=== PATIENT | male | born 1940 | race Caucasian/White ===

== ENCOUNTER 2019-12-21 07:29 | Outpatient (REF) | payer BC, SELFPAY ==
[2019-12-21 08:42] LABS: Blood Urea Nitrogen 18 mg/dL (9-16); Estimated Glomerular Filt Rate > 60
[2019-12-21 09:09] LABS: Thyroid Stimulating Hormone 5.23 mIU/mL (0.32-4.0)
[2019-12-21 09:39] LABS: T4 Thyroxine 6.6 ug/dL (4.5-12.0)
== END 2019-12-21 07:30 | disposition home or self-care (01) ==
LOC: HO.LAB 07:29
PROVIDERS: PCP Internal Medicine; Visit Provider Internal Medicine
DX: R94.6 Abnormal results of thyroid function studies (principal); R73.02 Impaired glucose tolerance (oral); Z85.46 Personal history of malignant neoplasm of prostate; K21.9 Gastro-esophageal reflux disease without esophagitis; R91.1 Solitary pulmonary nodule; E04.1 Nontoxic single thyroid nodule; I10 Essential (primary) hypertension
CPT/HCPCS: 82565; 84436; 84443; 84520

== ENCOUNTER → 2020-01-10 14:34 | Outpatient (BNVA) | payer BC, SELFPAY | PROVIDERS: PCP Internal Medicine; Referring Provider Internal Medicine; Visit Provider Internal Medicine | DX: Z13.89 Encounter for screening for other disorder (principal) ==

== ENCOUNTER 2020-03-27 | Outpatient (REF) | payer MEDICARE, SELFPAY | END 2020-03-27 00:01 | disposition home or self-care (01) | LOC: HO.VC | PROVIDERS: Visit Provider Internal Medicine | DX: Z23 Encounter for immunization (principal) | CPT/HCPCS: 0011A ==

== ENCOUNTER 2020-04-24 | Outpatient (REF) | payer MEDICARE, SELFPAY | END 2020-04-24 00:01 | disposition home or self-care (01) | LOC: HO.VC | PROVIDERS: Visit Provider Internal Medicine | DX: Z23 Encounter for immunization (principal) | CPT/HCPCS: 0012A ==

== ENCOUNTER → 2020-10-04 09:35 | Outpatient (BNVA) | payer MEDICARE, SELFPAY | PROVIDERS: PCP Internal Medicine; Referring Provider Internal Medicine; Visit Provider Internal Medicine Cardiovascular Disease | DX: I49.5 Sick sinus syndrome (principal); I77.810 Thoracic aortic ectasia | CPT/HCPCS: 93005; 99212 ==

== ENCOUNTER 2021-01-30 07:43 | Outpatient (REF) | payer MEDICARE, SELFPAY ==
--- NOTE | ~2021-01-30 | CT_ITS ---
EXAMINATION: CT CHEST WITHOUT CONTRAST CLINICAL INFORMATION: Other nonspecific abnormal finding of lung field COMPARISON: Previous chest x-ray May 2009 TECHNIQUE: Multidetector volumetric CT imaging of the chest was done. Axial MIP volume rendering provided. Sagittal and coronal reformatted images were obtained. This CT examination was performed using dose optimization techniques as appropriate, variously including the following: *Automated exposure control *Adjustment of mA and/or kV according to patient size (this includes techniques or standardized protocols for targeted exams where dose is matched to indication/reason for exam; i.e. extremities or head) *Use of iterative reconstruction technique DLP: 168 mGy-cm FINDINGS: LUNGS: There is increasing peripheral interstitial disease with innumerable small 1 mm in size calcifications. This is seen diffusely throughout the lungs but is greatest at the lung bases. Findings are more suggestive of dendriform pulmonary ossification than nodular pulmonary ossification. No honeycombing is seen. There is mild traction bronchiolectasis. There is mild lower lobe volume loss bilaterally. There is a nodular density in the lingula that on sagittal and coronal reconstructed images is suggestive of an area of atelectasis, axial image 518 series 5. No endobronchial or endotracheal lesion is seen. Interstitial changes are new or increased from previous chest x-ray May 2009. MEDIASTINUM: There are small mediastinal lymph nodes. There is coronary artery and aortic valve calcification. The heart does not appear enlarged. There is a trace anterior pericardial effusion or thickening. There may be a small esophageal hernia. PLEURA: There is no pleural effusion. No pleural mass or thickening. AXILLA: No lymphadenopathy. UPPER ABDOMEN: There is a 1 cm cyst in the liver adjacent to the gallbladder fossa. The gallbladder has been removed. There are bilateral low-attenuation renal lesions suggestive of simple cysts. There is a subcentimeter high attenuation lesion in the upper pole the left kidney suggestive of a hyperdense cyst. OSSEOUS STRUCTURES: There are degenerative changes of the spine. CT/CT chest wo con IMPRESSION: Increasing peripheral interstitial lung disease greatest at the lung bases with innumerable small calcifications suggestive of dendriform pulmonary ossification. This has many causes but is most commonly seen with UIP. Coronary artery and aortic valve calcification. Fleischner guidelines were followed.
== END 2021-01-30 07:44 | disposition home or self-care (01) ==
LOC: HO.CT 07:43
PROVIDERS: Visit Provider Internal Medicine
DX: R91.8 Other nonspecific abnormal finding of lung field (principal)
CPT/HCPCS: 71250

== ENCOUNTER 2021-02-24 07:22 | Outpatient (REF) | payer MEDICARE, SELFPAY ==
[2021-02-24 07:44] LABS: MANUAL DIFF FLAG NO
[2021-02-24 08:13] LABS: Basophils Absolute Auto 0.1 X10*3/uL (0.0-0.2); Eosinophils Absolute Auto 0.5 X10*3/uL (0.0-0.4); Eosinophils Percent Auto 6.8 % (0-4); Hematocrit 47.8 % (42.0-52.0); Imm Gran Abs Auto 0.05 X10*3/uL (0.00-0.03); Imm Gran Pct Auto 0.7 % (0.0-0.4); Lymphocytes Percent Auto 29.2 % (20-40); Mean Corpuscular HGB Conc 33.5 g/dl (31.0-36.0); Mean Corpuscular Hemoglobin 31.1 pg (27.0-33.0); Mean Corpuscular Volume 92.8 fL (80.0-98.0); Mean Platelet Volume 9.3 fL (9.4-12.4); Monocytes Absolute Auto 0.7 X10*3/uL (0.1-1.2); Monocytes Percent Auto 10.8 % (2-11); Neutrophils Absolute Auto 3.5 x10*3/uL (2.0-8.3); Neutrophils Percent Auto 50.5 % (45-73); Platelet Count 235 X10*3/uL (160-400); Red Blood Count 5.15 X10*6/uL (4.60-5.80); Red Cell Distribution Width 12.9 % (11.0-16.0); White Blood Count 6.9 X10*3/uL (4.8-10.8)
[2021-02-24 08:28] LABS: Estimated Average Glucose 114 mg/dL; Hemoglobin A1c % 5.6 %
[2021-02-24 08:37] LABS: Alanine Aminotransferase 20 U/L (0-40); Albumin Level 4.1 g/dL (3.5-5.0); Alkaline Phosphatase 83 U/L (39-117); Anion Gap 11 (12-20); Aspartate Amino Transferase 19 U/L (5-37); Bilirubin Total 1.3 mg/dL (0.0-1.0); Blood Urea Nitrogen 12 mg/dL (9-16); Calcium 9.7 mg/dL (8.4-10.2); Carbon Dioxide 29 mmol/L (22-29); Chloride 99 mmol/L (96-108); Cholesterol 157 mg/dL; Estimated Glomerular Filt Rate 59; Glucose Random 106 mg/dL (60-115); HDL Cholesterol 44 mg/dL; LDL Cholesterol Calculated 93 mg/dl; Potassium 4.5 mmol/L (3.3-5.1); Sodium 134 mmol/L (135-145); Total Protein 7.4 g/dL (6.5-8.0); Triglycerides 104 mg/dL
[2021-02-24 09:00] LABS: Free T4 (Free Thyroxine) 0.97 ng/dL (0.71-1.85)
[2021-02-24 09:15] LABS: Folate 13.9 ng/mL (> or = 4.0); Vitamin B12 806 pg/mL (200-900)
== END 2021-02-24 07:23 | disposition home or self-care (01) ==
LOC: HO.LAB 07:22
PROVIDERS: PCP Internal Medicine; Visit Provider Internal Medicine
DX: R79.89 Other specified abnormal findings of blood chemistry (principal); R73.02 Impaired glucose tolerance (oral); E78.00 Pure hypercholesterolemia, unspecified
CPT/HCPCS: 36415; 80053; 80061; 82607; 82746; 83036; 84439; 84443; 85025

== ENCOUNTER → 2021-03-04 14:12 | Outpatient (BNVA) | payer MEDICARE, SELFPAY | PROVIDERS: PCP Internal Medicine; Visit Provider Internal Medicine Pulmonary Disease | DX: R91.8 Other nonspecific abnormal finding of lung field (principal); J84.112 Idiopathic pulmonary fibrosis | CPT/HCPCS: 99212 ==

== ENCOUNTER → 2021-03-05 07:39 | Outpatient (REF) | payer MEDICARE, SELFPAY ==
--- NOTE | 2021-03-05 07:42 | CA_ITS ---
Transthoracic Echocardiogram Patient (Last, First, Middle): Hung Reyna C Gender: Male Date of : 1940 Age: 80 Procedure Date: 03/05/2021 Procedure Type: Transthoracic Echocardiogram Location: OP Height: 170.18 cm Weight: 72.58 kg BSA: 1.84 m2 Heart Rate: bpm BP: 122 / 60 mmHg Sanitation Technician: Referring MD: Mendoza Bah MD Symptoms: I10 - Essential (primary) hypertension Study Quality: Fair ECG Rhythm: Sinus bradycardia Conclusions: - The left ventricular systolic function is low normal. The visually estimated ejection fraction is between 50-55%. - There is mild aortic valve stenosis. There is mild aortic valve regurgitation. - There is mild aortic annular dilatation measuring 3.80 cm and mild dilatation of the ascending aorta measuring 3.50 cm. Findings Left Ventricle Mildly increased left ventricular cavity size. There is mildly increased left ventricular wall thickness. The left ventricular systolic function is low normal. The visually estimated ejection fraction is between 50-55%. E/E prime ratio is between 8 and 15 consistent with indeterminate filling pressures. Evidence suggests grade I (mild) diastolic dysfunction. Right Ventricle Normal right ventricular cavity size and systolic function. Atria The left atrium is moderately dilated. The right atrium is normal in size. Aortic Valve The aortic valve was not well visualized. There is mild calcification of the aortic valve. There is mild aortic valve stenosis. The mean gradient is 9 mmHg. The aortic valve area is 1.68 cm2. There is mild aortic valve regurgitation. Mitral Valve The mitral valve appears normal. There is mild mitral valve regurgitation. There is no mitral valve stenosis. Pulmonic Valve The pulmonic valve was not well visualized. Tricuspid Valve Normal tricuspid valve structure. There is trace tricuspid valve regurgitation. The pulmonary artery systolic pressure is normal. Great Vessels There is mild aortic annular dilatation measuring 3.80 cm and mild dilatation of the ascending aorta measuring 3.50 cm. Venous The inferior vena cava is normal in size and collapses greater than 50% with inspiration. Pericardium/Pleural There is no evidence of pericardial effusion. Prior Study Comparison Changes noted compared to prior study dated: 09/29/2019. Slight decrease in LVEF, but likely within limits of variability. Measurements 2D Linear Measurements IVSd: 1.12 0.6-0.9/0.6-1.0 cm LVIDd: 5.93 3.9-5.3/4.2-5.9 cm LVIDd Index: 3.22 2.4-3.2/2.2-3.1 cm/m2 LVIDs: 3.99 2.0-3.6 cm LVPWd: 1.17 0.7-1.1 cm Ao Root: 3.80 2.1-3.5 cm LA Diam: 4.20 2.7-3.8/3.0-4.0 cm LAIDs Index: 2.28 1.5-2.3 cm/m2 LV Mass: 360.76 67-162/88-224 g LV Mass Index: 196.07 43-95/49-115 g/m2 LVOT Diam: 2.30 3.0+(-)1.3 cm 2D Systolic Function EF 4C: 53.90 >55% EF 2C: 47.30 >55% EF BiP: 50.10 >55% Mitral Valve MV Pk E: 0.44 MV PK A: 1.07 MV Decel Time: 215.00 E/A: 0.40 E'Lateral: 4.24 E'Medial: 3.05 E/E' Med: 14.50 E/E' Lat: 10.40 PHT: 63.00 MVA PHT: 3.49 Decel Bond: 2.05 Aortic Valve AoV Pk Tino: 1.96 AoV Mn Tino: 1.35 AoV VTI: 0.52 AoV Pk Grad: 15.00 Aov Mn Grad: 9.00 JUAN MANUEL Cont.VTI: 1.68 AI Pk Tino: 4.39 AI Bond: 2.15 LVOT LVOT Pk Tino: 0.91 LVOT Mn Tino: 0.60 LVOT VTI: 0.21 LVOT Pk Grad: 3.00 LVOT Mn Grad: 2.00 LVOT Diam: 2.30 LVOT Area: 4.15 Diastolic Function MV Pk E: 0.44 MV Pk A: 1.07 E/A: 0.40 E'Medial: 3.05 E/E' Med: 14.50 E' Laterial: 4.24 E/E' Lat: 10.40 Right Ventricle TAPSE (mm): 29.00 TVS' Tino: 12.00 Tricuspid Valve TR Pk Tino: 1.59 TR Pk Grad: 10.00 Great Vessels Aorta Ao Root-2D: 3.80 2.0-3.7 cm Ao Annulus: 3.80 1.4-2.6 cm Ao Asc: 3.50 2.1-3.4 cm Pulmonary Valve PV Pk Tino: 0.72 Peak PV Grad: 2.00 Updated in Other Vendor System with Status of Final Kevin Silvestre MD electronically signed on 03/07/2021 5:00:54 PM with status of Final
== END ==
LOC: HO.CARD 07:39
PROVIDERS: PCP Internal Medicine; Visit Provider Internal Medicine Cardiovascular Disease
DX: I10 Essential (primary) hypertension (principal)
CPT/HCPCS: 93306

== ENCOUNTER 2021-07-01 12:56 | Outpatient (REF) | payer MEDICARE, SELFPAY ==
--- NOTE | 2021-07-01 16:12 | PFT_ITS ---
Forced vital capacity 112, FEV1 97%, FEV1/FVC ratio 61, FEF 25-75 is 58% and MVV 105%. Post-bronchodilator therapy, there is a slight improvement in FEF 25-75. Total lung capacity is 114% and residual volume 135%, indicating hyperinflation and mild air trapping. Diffusion capacity 65%. CONCLUSION: Mild obstructive airway disorder. No significant response to bronchodilator therapy. Clinical correlation is recommended. MD MELVIN Pérez/MODL / [id number]
== END 2021-07-01 12:57 | disposition home or self-care (01) ==
LOC: HO.RESP 12:56
PROVIDERS: PCP Internal Medicine; Visit Provider Internal Medicine Pulmonary Disease
DX: J84.112 Idiopathic pulmonary fibrosis (principal)
CPT/HCPCS: 94060; 94727; 94729

== ENCOUNTER 2021-07-07 07:55 | Outpatient (REF) | payer MEDICARE, SELFPAY ==
--- NOTE | ~2021-07-07 | CT_ITS ---
EXAMINATION: CT CHEST WITHOUT CONTRAST CLINICAL INFORMATION: Idiopathic pulmonary fibrosis. COMPARISON: CT chest 01/30/2021. TECHNIQUE: Multidetector volumetric CT imaging of the chest was done. Axial MIP volume rendering provided. Sagittal and coronal reformatted images were obtained. This CT examination was performed using dose optimization techniques as appropriate, variously including the following: *Automated exposure control *Adjustment of mA and/or kV according to patient size (this includes techniques or standardized protocols for targeted exams where dose is matched to indication/reason for exam; i.e. extremities or head) *Use of iterative reconstruction technique DLP: 169 mGy-cm FINDINGS: SHOP LABORER: Unremarkable. LUNGS: There is diffuse emphysematous lungs with no acute pneumonic consolidation. There are numerous 1 mm-sized peripheral-based calcification and increase interstitial markings in bilateral lower lobe, right middle lobe, lingula and right upper lobe. No focal consolidation or mass visualized. There is no honeycombing, bronchiectasis or bronchial wall thickening. Focal atelectatic changes are seen in the left lower lobe lateral basal segments similar to previous study. MEDIASTINUM: The thyroid lobes are symmetric and normal. The central trachea and the bronchi are widely patent. Heart size and the great vessels are normal caliber. There are coronary artery and aortic valvular calcifications. No pericardial effusion seen. Small shotty lymph nodes are seen in the precarinal and pretracheal space. PLEURA: There is no pleural effusion. No pleural mass or thickening. AXILLA: No lymphadenopathy. UPPER ABDOMEN: There is 1.4 cm cyst in the right hepatic lobe along medial margin. Otherwise visualized liver, spleen, pancreas and bilateral adrenal glands are unremarkable. Gallbladder has been surgically removed. OSSEOUS STRUCTURES: No lytic or sclerotic process seen. There is mild ventral spondylosis lower dorsal spine. CT/CT chest wo con IMPRESSION: Mild hyperinflated lungs with peripheral-based interstitial lung disease and innumerable small calcifications. No large mass or consolidation seen except for focal parenchymal atelectasis or scarring left lower lobe lateral basal segment. These findings could be secondary to pneumoconiosis or granulomatous disease from endobronchial spread. No abnormal mediastinal or hilar lymph nodes. Fleischner guidelines were followed.
== END 2021-07-07 07:56 | disposition home or self-care (01) ==
LOC: HO.CT 07:55
PROVIDERS: PCP Internal Medicine; Visit Provider Internal Medicine Pulmonary Disease
DX: J84.112 Idiopathic pulmonary fibrosis (principal)
CPT/HCPCS: 71250

== ENCOUNTER → 2021-09-04 08:56 | Outpatient (BNVA) | payer MEDICARE, SELFPAY | PROVIDERS: PCP Internal Medicine; Visit Provider Internal Medicine Pulmonary Disease | DX: J84.112 Idiopathic pulmonary fibrosis (principal); R91.8 Other nonspecific abnormal finding of lung field | CPT/HCPCS: 99212 ==

== ENCOUNTER 2021-09-13 07:50 | Outpatient (REF) | payer MEDICARE, SELFPAY ==
--- NOTE | ~2021-09-13 | XR_ITS ---
EXAMINATION: XR CHEST CLINICAL INFORMATION: Gastroesophageal reflux disease without esophagitis. COMPARISON: CT chest 07/07/2021 TECHNIQUE: 2 views of the chest were obtained. FINDINGS: The lungs are hyperinflated with bilateral lower lobe fine and coarse reticular interstitial changes. There is band-like atelectasis left lung base. The upper lungs are clear. Heart size and pulmonary vascularity are normal. There is no pleural effusion or pneumothorax. No gross bony abnormality. XR/XR chest 2V IMPRESSION: Hyperinflated lungs with fine and coarse reticular interstitial changes in both lung bases. No consolidation is seen. No major change compared to CT chest exam 07/07/2021.
[2021-09-13 08:41] LABS: MANUAL DIFF FLAG NO
[2021-09-13 08:45] LABS: Basophils Absolute Auto 0.1 X10*3/uL (0.0-0.2); Basophils Percent Auto 1.4 % (0-2); Eosinophils Absolute Auto 0.1 X10*3/uL (0.0-0.4); Eosinophils Percent Auto 0.6 % (0-4); Hematocrit 46.4 % (42.0-52.0); Imm Gran Abs Auto 0.06 X10*3/uL (0.00-0.03); Imm Gran Pct Auto 0.7 % (0.0-0.4); Lymphocytes Absolute Auto 1.1 X10*3/uL (1.2-4.9); Lymphocytes Percent Auto 12.6 % (20-40); Mean Corpuscular HGB Conc 34.5 g/dl (31.0-36.0); Mean Corpuscular Hemoglobin 30.8 pg (27.0-33.0); Mean Corpuscular Volume 89.2 fL (80.0-98.0); Mean Platelet Volume 8.5 fL (9.4-12.4); Monocytes Absolute Auto 0.7 X10*3/uL (0.1-1.2); Monocytes Percent Auto 7.7 % (2-11); Neutrophils Absolute Auto 6.6 x10*3/uL (2.0-8.3); Platelet Count 246 X10*3/uL (160-400); Red Cell Distribution Width 13.3 % (11.0-16.0); White Blood Count 8.6 X10*3/uL (4.8-10.8)
[2021-09-13 09:11] LABS: Alanine Aminotransferase 13 U/L (0-40); Albumin Level 4.2 g/dL (3.5-5.0); Alkaline Phosphatase 87 U/L (39-117); Anion Gap 12 (12-20); Aspartate Amino Transferase 17 U/L (5-37); Bilirubin Total 1.1 mg/dL (0.0-1.0); Blood Urea Nitrogen 14 mg/dL (9-16); Calcium 9.2 mg/dL (8.4-10.2); Carbon Dioxide 25 mmol/L (22-29); Chloride 95 mmol/L (96-108); Estimated Glomerular Filt Rate > 60; Glucose Random 135 mg/dL (60-115); Potassium 3.4 mmol/L (3.3-5.1); Sodium 129 mmol/L (135-145); Total Protein 7.6 g/dL (6.5-8.0)
[2021-09-13 09:33] LABS: Free T4 (Free Thyroxine) 1.14 ng/dL (0.71-1.85); Thyroid Stimulating Hormone 3.35 uIU/mL (0.32-4.0)
[2021-09-13 10:14] LABS: Appearance Urine CLEAR; Color Urine YELLOW; Glucose Urine UA NEG (NEG); Leukocyte Esterase Urine NEG (NEG); Nitrite Urine NEG (NEG); Specific Gravity - Urine 1.015 (1.005-1.025); Urine Blood 1+ (NEG); Urine Ketones NEG (NEG); Urine Protein NEG (NEG-TRACE)
[2021-09-13 10:52] LABS: RBC Urine 0-2 /HPF (0); WBC Urine 0-2 /HPF (0-4)
== END 2021-09-13 07:51 | disposition home or self-care (01) ==
LOC: HO.XRAY 07:50
PROVIDERS: PCP Internal Medicine; Visit Provider Internal Medicine
DX: R68.83 Chills (without fever) (principal); K21.9 Gastro-esophageal reflux disease without esophagitis; R79.89 Other specified abnormal findings of blood chemistry
CPT/HCPCS: 36415; 71046; 80053; 81001; 84439; 84443; 85025

== ENCOUNTER → 2021-10-06 09:30 | Outpatient (BNVA) | payer MEDICARE, SELFPAY | PROVIDERS: PCP Internal Medicine; Referring Provider Internal Medicine; Visit Provider Internal Medicine Cardiovascular Disease | DX: I49.5 Sick sinus syndrome (principal); I77.810 Thoracic aortic ectasia; I35.9 Nonrheumatic aortic valve disorder, unspecified; I10 Essential (primary) hypertension; R73.02 Impaired glucose tolerance (oral); Z79.899 Other long term (current) drug therapy | CPT/HCPCS: 93005; 99212 ==

== ENCOUNTER 2021-11-29 06:40 | Emergency (ER) | payer MEDICARE, SELFPAY ==
--- NOTE | ~2021-11-29 | CT_ITS ---
CT/CT head/brain wo IV con IMPRESSION: No acute intracranial hemorrhage or mass effect. EXAMINATION: CT HEAD WITHOUT CONTRAST CLINICAL INFORMATION: Dizziness. COMPARISON: None TECHNIQUE: Contiguous axial imaging was performed from the skull base to vertex without intravenous administration of contrast. This CT examination was performed using dose optimization techniques as appropriate, variously including the following:
--- NOTE | ~2021-11-29 | XR_ITS ---
EXAMINATION: XR CHEST
[2021-11-29 07:10] VITALS: BP 141/69; PULSE 61; RESP 17; TEMP 36.6; O2SAT 99; BMI 25.0
[2021-11-29 07:26] LABS: MANUAL DIFF FLAG NO
[2021-11-29 07:40] LABS: Basophils Absolute Auto 0.1 X10*3/uL (0.0-0.2); Basophils Percent Auto 1.8 % (0-2); Eosinophils Percent Auto 0.4 % (0-4); Hematocrit 48.3 % (42.0-52.0); Hemoglobin 16.4 g/dl (14.0-18.0); Imm Gran Abs Auto 0.05 X10*3/uL (0.00-0.03); Imm Gran Pct Auto 0.6 % (0.0-0.4); Lymphocytes Absolute Auto 1.6 X10*3/uL (1.2-4.9); Lymphocytes Percent Auto 20.1 % (20-40); Mean Corpuscular Hemoglobin 30.5 pg (27.0-33.0); Mean Corpuscular Volume 89.9 fL (80.0-98.0); Mean Platelet Volume 8.8 fL (9.4-12.4); Monocytes Absolute Auto 0.9 X10*3/uL (0.1-1.2); Monocytes Percent Auto 10.9 % (2-11); Neutrophils Absolute Auto 5.2 x10*3/uL (2.0-8.3); Neutrophils Percent Auto 66.2 % (45-73); Platelet Count 275 X10*3/uL (160-400); Red Blood Count 5.37 X10*6/uL (4.60-5.80); Red Cell Distribution Width 13.2 % (11.0-16.0); White Blood Count 7.9 X10*3/uL (4.8-10.8)
[2021-11-29 07:46] VITALS: BP 163/67; PULSE 54; RESP 16; TEMP 36.5; O2SAT 98
[2021-11-29 07:49] LABS: Troponin-I High Sensitivity 8.7 ng/L (<3.5-35.0)
[2021-11-29 07:51] LABS: Anion Gap 14 (12-20); Blood Urea Nitrogen 12 mg/dL (9-16); Calcium 9.7 mg/dL (8.4-10.2); Carbon Dioxide 25 mmol/L (22-29); Chloride 94 mmol/L (96-108); Creatinine Clr Calc Pharmacy 49.3; Estimated Glomerular Filt Rate > 60; Glucose Random 112 mg/dL (60-115); Potassium 4.4 mmol/L (3.3-5.1); Sodium 129 mmol/L (135-145)
--- NOTE | 2021-11-29 07:58 | ED.GENADULT ---
HPI - General Adult General Chief complaint: General Medical Stated complaint: Feels ill Time Seen by Provider: 11/29/21 07:39 Source: patient, family () and old records reviewed Mode of arrival: ambulatory Limitations: no limitations History of Present Illness HPI narrative: 81-year-old male came in for evaluation of episodes of generalized weakness. Woke up 03:00 to go to the bathroom felt lightheadedness, slightly disoriented, with difficulty breathing for about 10-15 minutes, symptoms improved spontaneously, symptoms triggered patient's anxiety, patient had another episode of similar symptoms lasted for about an hour took him to the ED for further evaluation. Patient has history of interstitial pneumonitis and pulmonary fibrosis then evaluated by Dr. Connors patient has been having stable. CT chest and pulmonary function testing were unremarkable as by Dr. Connors. Patient also been evaluated by wooden box maker found to have chronic hyponatremia diuretic regimen was reduced by the wooden box maker, patient had recent echocardiogram which was unremarkable. Had a recent negative test for COVID, [place] that the patient overall very anxious. Related Data Home Medications Medication Instructions Recorded Confirmed aspirin 81 mg tablet,delayed 81 mg PO DAILY 12/27/19 10/06/21 release (Adult Aspirin Regimen) tamsulosin 0.4 mg capsule (Flomax) 0.4 mg PO DAILY 12/27/19 10/06/21 erythromycin 5 mg/gram (0.5 %) eye 0 mg ophthalmic (eye) BEDTIME 01/10/20 10/06/21 ointment ofloxacin 0.3 % eye drops 1 drp ophthalmic-Right Q2H 01/10/20 10/06/21 triamterene 37.5 1 tab PO QAM 10/06/21 10/06/21 mg-hydrochlorothiazide 25 mg tablet Previous Rx's Medication Instructions Recorded pantoprazole 40 mg tablet,delayed 40 mg PO DAILY 30 days #90 tabs 03/06/21 release acebutolol 200 mg capsule 200 mg PO DAILY 90 days #90 caps 07/25/21 amlodipine 10 mg tablet 10 mg PO DAILY 90 days #90 tabs 07/25/21 Allergies Allergy/AdvReac Type Severity Reaction Status Date / Time captopril [Captopril] Allergy Severe UNKNOWN, Verified 09/04/21 09:03 angioedema, anaphylaxis EDGARD Inhibitors Allergy Unknown UNKNOWN Verified 09/04/21 09:03 [Edgard Inhibitors] Review of Systems Review of Systems: All other systems are reviewed and are negative Constitutional: Reports as per HPI and Reports no additional constitutional complaints Eyes: Reports as per HPI and Reports no additional eye complaints Reports system reviewed and no additional complaints, except as documented Cardiovascular: Reports as per HPI and Reports no additional cardiovascular complaints Respiratory: Reports as per HPI and Reports no additional respiratory complaints Gastrointestinal: Reports as per HPI and Reports no additional gastrointestinal complaints Genitourinary: Reports no additional female genitourinary complaints Musculoskeletal: Reports no additional musculoskeletal complaints Skin/Breast: Reports system reviewed and no additional complaints, except as docu Psychiatric: Reports no additional psychiatric complaints Endocrine: Reports no additional endocrine complaints Hematologic/Lymphatic: Reports no additional hematologic/lymphatic complaints Allergic/Immunologic: Reports no additional allergic/immunologic complaints Reports system reviewed and no additional complaints, except as documented and Reports Abnormal speech present [facility] Past Medical History Medical History Aortic regurgitation Aortic root dilatation GERD (gastroesophageal reflux disease) History of Mckinley's palsy History of prostate cancer History of shingles Hypertension Impaired glucose tolerance Irritable bowel syndrome Pulmonary nodule Pulmonary nodules/lesions, multiple Sick sinus syndrome Thyroid nodule Surgical History History of cholecystectomy History of prostate surgery Family History Family History Father No problems noted. Mother No problems noted. Family/Other Sudden Alzheimers disease Social History Social History Housing: Apartment Alcohol intake: never Patient Tobacco Use Status: Never used Tobacco Smoked in Last 30 Days: No e-Cigarette/Vaping Use: Never Used Second Hand Smoke Exposure: No Use of substances other than those prescribed or required for medical reasons: No Advance Directives: Yes Advance Directives Information Provided: No Advance Directives on File: No Current occupational status: retired Cognitive needs: No Hearing needs: No Vision needs: Yes Physical Exam ED Vital Signs: Vital Signs - 24 hr 11/29/21 07:10 11/29/21 07:46 11/29/21 12:00 Temperature 97.9 F 97.7 F 97.9 F Pulse Rate 61 54 58 Respiratory Rate 17 16 20 Blood Pressure 141/69 H 163/67 H 152/60 H Pulse Oximetry 99 98 94 Oxygen Delivery Method Room Air Room Air Room Air BMI result Body Mass Index 25.0 Vital signs have been reviewed as appeared to be correct. Blood pressure normal. Heart rate normal. Respiration rate normal. Temperature normal. Oxygen saturation normal. Appearance: Anxious, Alert. Oriented X3. No acute distress. Head: Normal external exam. Normocephalic. Atraumatic. No Deg[place] signs noted. No raccoon eyes noted Eyes: PERRLA. EOMI. Conjunctiva and sclera normal. Eyelids normal. ENT: TM's Normal. Pharynx normal. Uvula midline. Moist mucous membranes. No trismus noted. No drooling noted. No muffled voice noted. Neck: Normal inspection. Neck supple. FROM. No adenopathy. Thyroid Normal. No meningeal signs. No neck mass noted. CVS: Normal heart rate and rhythm. Heart sound normal. No murmurs noted. Pulses normal throughout. Respiratory: No respiratory distress. Painless inspiration. Breath sounds normal. No wheezes/rales/rhonchi noted. Chest nontender. No accessory muscle usage noted or decreased air movement noted. Abdomen: Soft and nontender. Bowel sounds normal in all 4 quadrants. No distention noted. No organomegaly noted. No visible injury noted. Back: No CVA tenderness. Full range of motion noted. Skin: Skin warm and dry. Normal skin color. Normal skin turgor. No rashes/lesions/lacerations noted. Extremities: No lower extremity edema. Extremities exhibit normal range of motion. Extremities nontender. Neuro: Oriented X 3. Cranial nerve exam: II-XII are grossly intact No motor deficit. No sensory deficit. Reflexes normal. Course Course Course Narrative: 81-year-old male came in for evaluation of multiple episodes of generalized weakness, patient has been in the emergency department for 5 hours under cardiac monitoring with stable vital signs except slight elevation of blood pressure which is not likely to be the cause of his symptoms. Repeat neuro exam is intact with no neuro deficit, CT of the head is unremarkable, labs was unremarkable except for mild hyponatremia patient now is receiving half the dose of Lasix as per Dr. Bah, patient now is asymptomatic ambulating in the emergency department with steady gait. Patient was instructed to follow-up with PCP and wooden box maker. Cardiopulmonary workup is unremarkable. Medical Decision Making Medical Records Medical records reviewed: Yes I reviewed the patient's medical records. Lab Data Lab results reviewed: Yes I reviewed the patient's lab results. Result diagrams: 11/29/21 07:21 11/29/21 10:05 Labs: Lab Results 11/29/21 11/29/21 11/29/21 Range/Units 07:21 07:21 07:21 WBC 7.9 (4.8-10.8) X10*3/uL RBC 5.37 (4.60-5.80) X10*6/uL Hgb 16.4 (14.0-18.0) g/dl Hct 48.3 (42.0-52.0) % MCV 89.9 (80.0-98.0) fL MCH 30.5 (27.0-33.0) pg MCHC 34.0 (31.0-36.0) g/dl RDW 13.2 (11.0-16.0) % Plt Count 275 (160-400) X10*3/uL MPV 8.8 L (9.4-12.4) fL Immature Gran % (Auto) 0.6 H (0.0-0.4) % Neut % (Auto) 66.2 (45-73) % Lymph % (Auto) 20.1 (20-40) % Garvin % (Auto) 10.9 (2-11) % Eos % (Auto) 0.4 (0-4) % Baso % (Auto) 1.8 (0-2) % Lymph # (Auto) 1.6 (1.2-4.9) X10*3/uL Garvin # (Auto) 0.9 (0.1-1.2) X10*3/uL Eos # (Auto) 0.0 (0.0-0.4) X10*3/uL Baso # (Auto) 0.1 (0.0-0.2) X10*3/uL Abs Immat Gran (auto) 0.05 H (0.00-0.03) X10*3/uL Absolute Neuts (auto) 5.2 (2.0-8.3) x10*3/uL Absolute Nucleated RBC 0.000 (0.0-0.012) X10*3/uL Nucleated RBC % (auto) 0.0 (0.0-0.2) /100WBC Sodium 129 L (135-145) mmol/L Potassium 4.4 D (3.3-5.1) mmol/L Chloride 94 L (96-108) mmol/L Carbon Dioxide 25 (22-29) mmol/L Anion Gap 14 (12-20) BUN 12 (9-16) mg/dL Creatinine 1.08 (0.5-1.4) mg/dL Estim Creat Clear Calc 49.3 Estimated GFR > 60 Random Glucose 112 (60-115) mg/dL Calcium 9.7 (8.4-10.2) mg/dL Troponin I High Sens 8.7 (<3.5-35.0) ng/L Influenza Type A (PCR) (Negative) Influenza Type B (PCR) (Negative) RSV RNA Qual (PCR) (Negative) SARS-CoV-2 RNA (RT-PCR) (Negative) 11/29/21 11/29/21 11/29/21 Range/Units 08:18 10:05 10:05 WBC (4.8-10.8) X10*3/uL RBC (4.60-5.80) X10*6/uL Hgb (14.0-18.0) g/dl Hct (42.0-52.0) % MCV (80.0-98.0) fL MCH (27.0-33.0) pg MCHC (31.0-36.0) g/dl RDW (11.0-16.0) % Plt Count (160-400) X10*3/uL MPV (9.4-12.4) fL Immature Gran % (Auto) (0.0-0.4) % Neut % (Auto) (45-73) % Lymph % (Auto) (20-40) % Garvin % (Auto) (2-11) % Eos % (Auto) (0-4) % Baso % (Auto) (0-2) % Lymph # (Auto) (1.2-4.9) X10*3/uL Garvin # (Auto) (0.1-1.2) X10*3/uL Eos # (Auto) (0.0-0.4) X10*3/uL Baso # (Auto) (0.0-0.2) X10*3/uL Abs Immat Gran (auto) (0.00-0.03) X10*3/uL Absolute Neuts (auto) (2.0-8.3) x10*3/uL Absolute Nucleated RBC (0.0-0.012) X10*3/uL Nucleated RBC % (auto) (0.0-0.2) /100WBC Sodium 130 L (135-145) mmol/L Potassium 3.9 (3.3-5.1) mmol/L Chloride 95 L (96-108) mmol/L Carbon Dioxide 23 (22-29) mmol/L Anion Gap 16 (12-20) BUN 11 (9-16) mg/dL Creatinine 0.91 (0.5-1.4) mg/dL Estim Creat Clear Calc 58.5 Estimated GFR > 60 Random Glucose 108 (60-115) mg/dL Calcium 8.9 D (8.4-10.2) mg/dL Troponin I High Sens 7.4 (<3.5-35.0) ng/L Influenza Type A (PCR) NEGATIVE (Negative) Influenza Type B (PCR) NEGATIVE (Negative) RSV RNA Qual (PCR) NEGATIVE (Negative) SARS-CoV-2 RNA (RT-PCR) NEGATIVE (Negative) Imaging Data Chest x-ray: Attestation: I personally reviewed and interpreted this imaging study as follows: Radiologist's impression: No acute cardiopulmonary findings. ECG Data Attestation: I personally reviewed and interpreted this ECG as follows: Interpretation: Sinus bradycardia 58 with first-degree AV block, slight prolongation of QRS, LDH, occasional PVCs, nonspecific ST-T changes. No changes from old EKG. Discharge Plan Discharge Clinical Impression: Spell of generalized weakness, Hyponatremia Patient Disposition: Home, Self-Care Instructions: Hyponatremia (ED) Prescriptions: No Action pantoprazole 40 mg tablet,delayed release (DR/EC) 40 mg PO DAILY 30 Days Qty: 90 2RF amlodipine 10 mg tablet 10 mg PO DAILY 90 Days Qty: 90 2RF acebutolol 200 mg capsule 200 mg PO DAILY 90 Days Qty: 90 2RF aspirin [Adult Aspirin Regimen] 81 mg tablet,delayed release (DR/EC) 81 mg PO DAILY tamsulosin [Flomax] 0.4 mg capsule 0.4 mg PO DAILY ofloxacin 0.3 % drops 1 drp ophthalmic-Right Q2H erythromycin 5 mg/gram (0.5 %) ointment 0 mg ophthalmic (eye) BEDTIME triamterene-hydrochlorothiazid 37.5-25 mg tablet 1 tab PO QAM Rx Instructions: 1/2 tab Referrals: Maverick Maier MD [Primary Care Provider] - Interventions: ED Discharge Assessment Last Done: 11/29/21 12:04 Discharge Date/Time: 11/29/21 12:04
[2021-11-29] MEDS: 0.9 % Sodium Chloride 1,000 ML 999 ML IV (08:15)
[2021-11-29 09:01] LABS: Influenza A PCR NEGATIVE (Negative); Influenza B PCR NEGATIVE (Negative); Resp Syncy Virus RNA Qual PCR NEGATIVE (Negative); SARS COV2 PCR INHOUSE NEGATIVE (Negative)
[2021-11-29 10:33] LABS: Troponin-I High Sensitivity 7.4 ng/L (<3.5-35.0)
[2021-11-29 10:43] LABS: Anion Gap 16 (12-20); Blood Urea Nitrogen 11 mg/dL (9-16); Calcium 8.9 mg/dL (8.4-10.2); Carbon Dioxide 23 mmol/L (22-29); Chloride 95 mmol/L (96-108); Creatinine Clr Calc Pharmacy 58.5; Estimated Glomerular Filt Rate > 60; Glucose Random 108 mg/dL (60-115); Potassium 3.9 mmol/L (3.3-5.1); Sodium 130 mmol/L (135-145)
[2021-11-29 12:00] VITALS: BP 152/60; PULSE 58; RESP 20; TEMP 36.6; O2SAT 94
== END 2021-11-29 12:04 | disposition home or self-care (01) ==
PROVIDERS: Emergency Provider Emergency Medicine; PCP Internal Medicine
DX: R53.1 Weakness (principal); E87.1 Hypo-osmolality and hyponatremia; Z20.822 Contact with and (suspected) exposure to COVID-19; I10 Essential (primary) hypertension; Z79.82 Long term (current) use of aspirin; Z79.899 Other long term (current) drug therapy
CPT/HCPCS: 0241U; 36415; 70450; 71045; 80048; 84484; 85025; 93005; 96360; 96361; 99284; 99285

== ENCOUNTER 2022-02-26 07:08 | Outpatient (REF) | payer MEDICARE, SELFPAY ==
[2022-02-26 07:22] LABS: MANUAL DIFF FLAG NO
[2022-02-26 07:41] LABS: Basophils Absolute Auto 0.2 X10*3/uL (0.0-0.2); Basophils Percent Auto 2.4 % (0-2); Eosinophils Absolute Auto 0.4 X10*3/uL (0.0-0.4); Eosinophils Percent Auto 5.7 % (0-4); Hemoglobin 16.4 g/dl (14.0-18.0); Imm Gran Abs Auto 0.04 X10*3/uL (0.00-0.03); Imm Gran Pct Auto 0.5 % (0.0-0.4); Lymphocytes Percent Auto 26.3 % (20-40); Mean Corpuscular HGB Conc 33.5 g/dl (31.0-36.0); Mean Corpuscular Hemoglobin 30.3 pg (27.0-33.0); Mean Corpuscular Volume 90.6 fL (80.0-98.0); Mean Platelet Volume 8.9 fL (9.4-12.4); Monocytes Absolute Auto 0.8 X10*3/uL (0.1-1.2); Neutrophils Percent Auto 54.1 % (45-73); Platelet Count 256 X10*3/uL (160-400); Red Blood Count 5.41 X10*6/uL (4.60-5.80); Red Cell Distribution Width 13.1 % (11.0-16.0); White Blood Count 7.5 X10*3/uL (4.8-10.8)
[2022-02-26 08:18] LABS: Alanine Aminotransferase 17 U/L (0-40); Alkaline Phosphatase 85 U/L (39-117); Anion Gap 13 (12-20); Aspartate Amino Transferase 19 U/L (5-37); Bilirubin Total 1.6 mg/dL (0.0-1.0); Blood Urea Nitrogen 17 mg/dL (9-16); Calcium 9.3 mg/dL (8.4-10.2); Carbon Dioxide 26 mmol/L (22-29); Chloride 99 mmol/L (96-108); Cholesterol 145 mg/dL; Estimated Glomerular Filt Rate > 60; Glucose Random 113 mg/dL (60-115); HDL Cholesterol 44 mg/dL; LDL Cholesterol Calculated 85 mg/dl; Phosphorus 3.2 mg/dL (2.7-4.5); Potassium 3.7 mmol/L (3.3-5.1); Sodium 134 mmol/L (135-145); Total Protein 7.2 g/dL (6.5-8.0); Triglycerides 80 mg/dL; Uric Acid 6.1 mg/dL (3.4-7.0)
[2022-02-26 08:43] LABS: Folate 10.8 ng/mL (> or = 4.0); Vitamin B12 707 pg/mL (200-900)
[2022-02-26 09:05] LABS: Free T4 (Free Thyroxine) 0.99 ng/dL (0.71-1.85); PSA,Total (Free>4and<10) < 0.10 ng/mL (0.00-4.00); Thyroid Stimulating Hormone 5.72 uIU/mL (0.32-4.0)
== END 2022-02-26 07:09 | disposition home or self-care (01) ==
LOC: HO.LAB 07:08
PROVIDERS: PCP Internal Medicine; Visit Provider Internal Medicine
DX: Z12.5 Encounter for screening for malignant neoplasm of prostate (principal); E78.00 Pure hypercholesterolemia, unspecified; R73.02 Impaired glucose tolerance (oral); Z85.46 Personal history of malignant neoplasm of prostate
CPT/HCPCS: 36415; 80053; 80061; 82607; 82746; 83735; 84100; 84153; 84439; 84443; 84550; 85025

== ENCOUNTER 2022-06-10 07:16 | Outpatient (REF) | payer MEDICARE, SELFPAY ==
[2022-06-10 08:58] LABS: Blood Urea Nitrogen 17 mg/dL (9-16)
[2022-06-10 09:00] LABS: Free T4 (Free Thyroxine) 0.92 ng/dL (0.71-1.85); Thyroid Stimulating Hormone 5.65 uIU/mL (0.32-4.0)
== END 2022-06-10 07:17 | disposition home or self-care (01) ==
LOC: HO.LAB 07:16
PROVIDERS: PCP Internal Medicine; Visit Provider Internal Medicine
DX: R94.6 Abnormal results of thyroid function studies (principal); R73.02 Impaired glucose tolerance (oral)
CPT/HCPCS: 36415; 84439; 84443; 84520

== ENCOUNTER 2022-08-02 08:58 | Inpatient (IN) | payer MEDICARE, SELFPAY ==
[2022-08-02] VITALS (9 sets, daily range): BP systolic 108–153; BP diastolic 57–69; PULSE 49–62; RESP 14–20; TEMP 36.2–36.8; O2SAT 95–99; BMI 25.8
--- NOTE | ~2022-08-02 | CT_ITS ---
EXAMINATION: CT HEAD WITH CONTRAST CLINICAL INFORMATION: New focal symptoms. COMPARISON: CT head 11/29/2021. TECHNIQUE: Contiguous axial imaging was performed from the skull base to vertex following the administration of 100 mL of Omnipaque [address] examination was performed using dose optimization techniques as appropriate, variously including the following: *Automated exposure control *Adjustment of mA and/or kV according to patient size (this includes techniques or standardized protocols for targeted exams where dose is matched to indication/reason for exam; i.e. extremities or head) *Use of iterative reconstruction technique DLP: 977 mGy-cm FINDINGS: There is loss of espinosa-white matter differentiation within the vascular territory of the right superior cerebellar artery consistent with an acute infarct. Espinosa-white matter differentiation is otherwise preserved. There is no acute hemorrhage or abnormal extra-axial collection. Postcontrast images reveal no abnormal intracranial mass or enhancement. Lateral and third ventricles are normal. No hydrocephalus. The calvarium and skull base are intact. There is a small left mastoid tip effusion. No active paranasal sinus disease. 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 Otherwise unremarkable examination in that there is no evidence of acute hemorrhage. No abnormal intracranial mass or enhancement. This critical result was discussed with Ross Andres MD at 1:31 PM on 08/07/2022 and it was ascertained that the content and urgency of the report was understood at the time of direct communication.
--- NOTE | ~2022-08-02 | XR_ITS ---
EXAMINATION: XR CHEST CLINICAL INFORMATION: Post left-sided pacemaker placement. COMPARISON: Chest radiograph 11/29/2021. TECHNIQUE: Frontal view of the chest was obtained. FINDINGS: Left-sided pacer with single lead projecting over the right ventricle. A stable appearance of the cardiomediastinal silhouette. EKG leads overlie the chest. Coarse interstitial opacities redemonstrated at the right greater than left lower lungs. No new focal airspace opacity. No pleural effusion or pneumothorax. No acute osseous abnormalities. XR/XR chest 1V IMPRESSION: 1. Left-sided pacer with single lead projecting over the right ventricle. 2. No pneumothorax. 3. Stable coarse interstitial opacities. 4. No new focal airspace opacities.
--- NOTE | ~2022-08-02 | CT_ITS ---
EXAMINATION: CT ANGIOGRAM CHEST CLINICAL INFORMATION: Pacemaker lead placement. Rule out subclavian dissection. Dysphagia/left facial droop COMPARISON: Chest x-ray from yesterday TECHNIQUE: Multiple axial images were obtained through the chest after the administration of 75 mL of Omnipaque 350 intravenous contrast. Extensive vascular post-processing including two-dimensional and three-dimensional reformatted images were created and reviewed on an independent workstation. This CT examination was performed using dose optimization techniques as appropriate, variously including the following: *Automated exposure control *Adjustment of mA and/or kV according to patient size (this includes techniques or standardized protocols for targeted exams where dose is matched to indication/reason for exam; i.e. extremities or head) *Use of iterative reconstruction technique DLP: 240 mGy-cm FINDINGS: There is a left subclavian pacemaker lead. This is in the left subclavian artery, and aorta with tip projecting over the left ventricle. The thoracic aorta is normal in caliber. No dissection is seen. No mediastinal fluid collection is seen. Great vessels appear patent. The left subclavian artery and axillary artery are patent without dissection. It is uncertain whether the pacemaker lead crosses through the left subclavian vein as well. There is a battery in the left chest wall. There is soft tissue swelling of the left pectoral muscles and stranding of the surrounding fat suggestive of a small left chest wall hematoma. There is a small amount of subcutaneous air. The heart is enlarged. There is no pericardial effusion. No mediastinal fluid collection is seen. Visualized great vessels appear patent. No dissection. Increased peripheral interstitial markings in the lungs suggestive of interstitial lung disease. This is greatest in the right lower lobe. There are innumerable small punctate 1 mm calcification seen in these regions. No pleural effusion. Question trace left pneumothorax. Mild diverticulosis of the colon. The gallbladder has been removed. Question small liver cyst versus fluid collection in the gallbladder fossa. Degenerative changes of the spine CT/CT angio chest aorta Impression: Left pacemaker lead in the left subclavian artery, aorta and left ventricle. No dissection. Small left chest wall hematoma. Question trace left pneumothorax. Interstitial lung disease. Findings were communicated to Dr. Andres by telephone on 08/07/2022 at 2:00 PM. Fleischner guidelines were followed.
--- NOTE | ~2022-08-02 | NM_ITS ---
Exercise Myocardial perfusion study Indication: Syncope with nonsustained VT to evaluate for myocardial ischemia Technique: The patient was brought in for an exercise perfusion study on 08/04/2022. Patient performed exercise as per Juan protocol and was injected 25 mCi of sestamibi was given intravenously one target HR was achieved. Images were obtained using the SPECT gamma camera interlaced with the gating device. Images were obtained in supine position. Resting perfusion study was performed on 08/05/2022. Patient was administered 25 mCi of sestamibi intravenously at rest. Images were then obtained in supine position. Images obtained with and without CT attenuation. Total DLP 92 mGy-cm. Images were processed with the software and compared side to side in short axis, horizontal long axis and vertical long axis views. Findings: The stress perfusion study showed non attenuated images show mildly reduced uptake in the basal anterolateral and lateral as well as mildly reduced uptake in the inferolateral and moderately reduced uptake in the basal and mid inferior wall of the LV myocardium. Remainder of the LV myocardium is normally perfused. Attenuated corrected images show mildly reduced uptake in the apex of the LV myocardium. The gated study shows normal LV systolic function with calculated LVEF of 52%. LV cavity is mildly dilated in size. The gated study shows normal wall thickening and contraction of all segments. There is no transient ischemic dilation. Resting study shows nontender images show no change in perfusion pattern. Attenuation corrected images are suboptimal with moderately uptake in the distal anterior and apex of the LV myocardium.. Gating at rest reveals normal systolic wall motion with ejection fraction at 54%. The findings are consistent with likely normal myocardial perfusion. NM/NM betzaida perf SPECT rest & str Impression: 1. Normal myocardial perfusion 2. Gated LVEF is 52% 3. Transient ischemic dilatation not present Stress EKG is equivocal for ischemia
--- NOTE | ~2022-08-02 | FL_ITS ---
EXAMINATION: XR FLUOROSCOPY WITH IMAGES CLINICAL INFORMATION: Pacemaker. COMPARISON: Previous chest x-ray November 2021. TECHNIQUE: Fluoroscopy Supervised By: Daren Perera MD. Fluoroscopy Time: 2068 seconds. Cumulative Dose: 414 mGy. Images: 1. FINDINGS: Single submitted fluoroscopy image demonstrates leads projecting over the right atrium and right ventricular apex. FL/FL guidance in OR IMPRESSION: Fluoroscopy guidance for pacemaker placement.
--- NOTE | 2022-08-02 08:59 | ECG_ITS ---
Test Reason : palpitation Blood Pressure : / mmHG Vent. Rate : 054 BPM Atrial Rate : 054 BPM P-R Int : 328 ms QRS Dur : 104 ms QT Int : 428 ms P-R-T Axes : 000 043 087 degrees QTc Int : 405 ms Sinus bradycardia with 1st degree A-V block Nonspecific ST abnormality Abnormal ECG When compared with ECG of 29-NOV-2021 07:16, Premature ventricular complexes are no longer Present Premature supraventricular complexes are no longer Present Referred By: Generic ED Physician Electronically Signed By:Napoleon Buck
[2022-08-02 09:15] LABS: MANUAL DIFF FLAG NO
[2022-08-02 09:16] LABS: Basophils Absolute Auto 0.1 X10*3/uL (0.0-0.2); Basophils Percent Auto 1.9 % (0-2); Eosinophils Absolute Auto 0.3 X10*3/uL (0.0-0.4); Eosinophils Percent Auto 3.6 % (0-4); Hematocrit 46.7 % (42.0-52.0); Hemoglobin 15.7 g/dl (14.0-18.0); Imm Gran Abs Auto 0.04 X10*3/uL (0.00-0.03); Imm Gran Pct Auto 0.6 % (0.0-0.4); Lymphocytes Absolute Auto 1.3 X10*3/uL (1.2-4.9); Lymphocytes Percent Auto 18.4 % (20-40); Mean Corpuscular HGB Conc 33.6 g/dl (31.0-36.0); Mean Corpuscular Hemoglobin 30.5 pg (27.0-33.0); Mean Corpuscular Volume 90.7 fL (80.0-98.0); Mean Platelet Volume 8.9 fL (9.4-12.4); Monocytes Absolute Auto 0.6 X10*3/uL (0.1-1.2); Monocytes Percent Auto 8.8 % (2-11); Neutrophils Absolute Auto 4.6 x10*3/uL (2.0-8.3); Neutrophils Percent Auto 66.7 % (45-73); Platelet Count 232 X10*3/uL (160-400); Red Blood Count 5.15 X10*6/uL (4.60-5.80); Red Cell Distribution Width 13.3 % (11.0-16.0); White Blood Count 6.9 X10*3/uL (4.8-10.8)
[2022-08-02 09:35] LABS: Alanine Aminotransferase 16 U/L (0-40); Albumin Level 3.8 g/dL (3.5-5.0); Alkaline Phosphatase 84 U/L (39-117); Anion Gap 12 (12-20); Aspartate Amino Transferase 19 U/L (5-37); Bilirubin Total 1.4 mg/dL (0.0-1.0); Blood Urea Nitrogen 9 mg/dL (9-16); Calcium 8.9 mg/dL (8.4-10.2); Carbon Dioxide 23 mmol/L (22-29); Chloride 100 mmol/L (96-108); Creatinine Clr Calc Pharmacy 49.3; Estimated Glomerular Filt Rate > 60; Glucose Random 118 mg/dL (60-115); Potassium 4.3 mmol/L (3.3-5.1); Sodium 131 mmol/L (135-145)
[2022-08-02 09:42] LABS: Troponin-I High Sensitivity 6.1 ng/L (<3.5-35.0)
--- NOTE | 2022-08-02 10:57 | ED_ITS ---
HPI - General Adult General Chief complaint: General Medical Stated complaint: rapid heart beat Time Seen by Provider: 08/02/22 09:51 Source: patient and family () Mode of arrival: ambulatory History of Present Illness HPI narrative: 82-year-old male with known aortic valve disease as well as sick sinus syndrome and comes in after having been seen at [facility] after a syncopal episode. Patient states that they stopped his triamterene at that time, but then discharge him home and he states he is still continuing to be very dizzy in feel like he is going to pass out any time he standing and attempting to engage in any activity. He denies any chest pain or shortness of breath. Patient also states that his acebutolol was decreased from 400 down to 200 mg. Related Data Home Medications Medication Instructions Recorded Confirmed aspirin 81 mg tablet,delayed 81 mg PO DAILY 12/27/19 12/29/21 release (Adult Aspirin Regimen) erythromycin 5 mg/gram (0.5 %) eye 0 mg ophthalmic (eye) BEDTIME 01/10/20 12/29/21 ointment ofloxacin 0.3 % eye drops 1 drp ophthalmic-Right Q2H 01/10/20 12/29/21 Previous Rx's Medication Instructions Recorded acebutolol 200 mg capsule 200 mg PO DAILY 90 days #90 caps 03/11/22 amlodipine 10 mg tablet 10 mg PO DAILY 90 days #90 tabs 03/11/22 pantoprazole 40 mg tablet,delayed 40 mg PO DAILY 90 days #90 tabs 03/11/22 release tamsulosin 0.4 mg capsule (Flomax) 0.4 mg PO DAILY 90 days #90 caps 03/11/22 triamterene 37.5 0.5 tab PO QAM 90 days #45 tabs 03/11/22 mg-hydrochlorothiazide 25 mg tablet Allergies Allergy/AdvReac Type Severity Reaction Status Date / Time captopril [Captopril] Allergy Severe UNKNOWN, Verified 03/11/22 11:05 angioedema, anaphylaxis EDGARD Inhibitors Allergy Unknown UNKNOWN Verified 03/11/22 11:05 [Edgard Inhibitors] Review of Systems Review of Systems: Pertinent positives and negatives as stated in HPI [facility] Past Medical History Source: nursing notes reviewed Medical History Aortic regurgitation Aortic root dilatation GERD (gastroesophageal reflux disease) History of Mckinley's palsy History of prostate cancer History of shingles Hypertension Impaired glucose tolerance Irritable bowel syndrome Lightheaded Pulmonary nodule Pulmonary nodules/lesions, multiple Sick sinus syndrome Thyroid nodule Surgical History History of cholecystectomy History of prostate surgery Family History Family History Father No problems noted. Mother No problems noted. Family/Other Sudden Alzheimers disease Social History Social History Housing: Apartment Alcohol intake: never Patient Tobacco Use Status: Never used Tobacco e-Cigarette/Vaping Use: Never Used Second Hand Smoke Exposure: No Advance Directives: Yes Advance Directives Information Provided: Yes Advance Directives on File: No Current occupational status: retired Cognitive needs: No Hearing needs: No Vision needs: Yes Physical Exam ED Vital Signs: Vital Signs - 24 hr 08/02/22 09:05 08/02/22 10:06 08/02/22 12:24 Temperature 98.1 F 98.2 F Pulse Rate 54 49 L 51 Respiratory Rate 20 17 Blood Pressure 108/63 151/61 H 140/58 H Pulse Oximetry 99 98 Oxygen Delivery Method Room Air Room Air 08/02/22 12:48 08/02/22 12:50 08/02/22 15:05 Temperature 98.3 F Pulse Rate 62 58 52 Respiratory Rate 15 Blood Pressure 130/57 L 135/60 153/67 H Pulse Oximetry 98 Oxygen Delivery Method Room Air BMI result Body Mass Index 25.8 VITAL SIGNS: Reviewed. GENERAL: Well developed, well nourished, in no acute distress. HEAD: Normocephalic/atraumatic EYES: PERRLA, EOMI EARS: Ext canals without abnormality NOSE: Nares patent bilateral OROPHARYNX: no oral lesions noted, posterior pharynx clear NECK: Supple, no adenopathy LUNGS: Normal breath sounds. No adventitious sounds or accessory muscle use. SpO2<98> CARDIOVASCULAR: Regular rate and rhythm without noted murmurs, no JVD or lower extremity edema. ABDOMEN: Soft, non-tender, non-distended with bowel sounds. MUSCULOSKELETAL: No tenderness, deformities, or effusions noted on gross inspection. EXTREMITIES: No cyanosis, clubbing or edema. SKIN: Inspection of the skin reveals no rashes NEUROLOGIC: Alert and oriented x 4. Strength and sensation to light touch were grossly intact x 4. Medical Decision Making Medical Decision Making MDM Narrative: 82-year-old male with history and clinical presentation for what I suspect is postural hypotension without compensatory heart rate response due to beta blockade. I am requesting records from [facility] as an echocardiogram was completed while patient was there on 07/28. Patient denies any chest pain or pa lpitations at this time. Review of echo from [facility] demonstrates EF: 30-40% with moderate global hypokinesis and moderate aortic regurgitation. 1225: I spoke with Dr. Buck regarding patient's recent events, [facility], and reason for presentation today. At this time recommendations are for orthostatic evaluation and EKG was sent to Dr. Buck. 1307: Dr Buck does not feel that the long DC and remainder of finding such as the echo are likely contributing to patient's symptoms. 1429: I have reviewed all investigations, orthostatics are negative, attempted to ambulate patient but he began to state that he felt lightheaded and that he was going to pass out (but did not) after barely 50 ft of ambulation. On review of imaging studies he is noted to have had complaints of dizziness since November 2021 of last year and on that head CT there were no acute findings. Will obtain urinalysis, there are no focal findings. Patient adamantly denies lightheadedness or dizziness. On review of urinalysis results there are no findings consistent with infection, I informed Cardiology as well as discussing the case with the inpatient hospitalist and patient will be admitted for further workup and evaluation. He does have persistent sinus bradycardia with first-degree AV block that is signi ficant at 300+. Otherwise, there are no findings to suggest infection, electrolyte abnormalities. Differential Diagnosis Please see the discussion above Consult Healthcare Provider Management of the patient was discussed with: Hospitalist Please see the discussion above Lab Data Please see the discussion above 08/02/22 09:09 08/02/22 09:09 Labs: Lab Results 08/02/22 08/02/22 08/02/22 Range/Units 09:09 09:09 09:09 WBC 6.9 (4.8-10.8) X10*3/uL RBC 5.15 (4.60-5.80) X10*6/uL Hgb 15.7 (14.0-18.0) g/dl Hct 46.7 (42.0-52.0) % MCV 90.7 (80.0-98.0) fL MCH 30.5 (27.0-33.0) pg MCHC 33.6 (31.0-36.0) g/dl RDW 13.3 (11.0-16.0) % Plt Count 232 (160-400) X10*3/uL MPV 8.9 L (9.4-12.4) fL Immature Gran % (Auto) 0.6 H (0.0-0.4) % Neut % (Auto) 66.7 (45-73) % Lymph % (Auto) 18.4 L (20-40) % [place] % (Auto) 8.8 (2-11) % Eos % (Auto) 3.6 (0-4) % Baso % (Auto) 1.9 (0-2) % Lymph # (Auto) 1.3 (1.2-4.9) X10*3/uL [place] # (Auto) 0.6 (0.1-1.2) X10*3/uL Eos # (Auto) 0.3 (0.0-0.4) X10*3/uL Baso # (Auto) 0.1 (0.0-0.2) X10*3/uL Abs Immat Gran (auto) 0.04 H (0.00-0.03) X10*3/uL Absolute Neuts (auto) 4.6 (2.0-8.3) x10*3/uL Absolute Nucleated RBC 0.000 (0.0-0.012) X10*3/uL Nucleated RBC % (auto) 0.0 (0.0-0.2) /100WBC Sodium 131 L (135-145) mmol/L Potassium 4.3 (3.3-5.1) mmol/L Chloride 100 (96-108) mmol/L Carbon Dioxide 23 (22-29) mmol/L Anion Gap 12 (12-20) BUN 9 (9-16) mg/dL Creatinine 1.06 (0.5-1.4) mg/dL Estim Creat Clear Calc 49.3 Estimated GFR > 60 Random Glucose 118 H (60-115) mg/dL Calcium 8.9 (8.4-10.2) mg/dL Total Bilirubin 1.4 H (0.0-1.0) mg/dL AST 19 (5-37) U/L ALT 16 (0-40) U/L Alkaline Phosphatase 84 (39-117) U/L Troponin I High Sens 6.1 (<3.5-35.0) ng/L Total Protein 7.0 (6.5-8.0) g/dL Albumin 3.8 (3.5-5.0) g/dL Urine Color Urine Appearance Urine pH (5.0-9.0) Ur Specific [place] (1.005-1.025) Urine Protein (Neg-Trace) mg/dL Urine Glucose (UA) (Negative) mg/dL Urine Ketones (Negative) mg/dL Urine Blood (Negative) Urine Nitrite (Negative) Ur Leukocyte Esterase (Negative) 08/02/22 Range/Units 15:00 WBC (4.8-10.8) X10*3/uL RBC (4.60-5.80) X10*6/uL Hgb (14.0-18.0) g/dl Hct (42.0-52.0) % MCV (80.0-98.0) fL MCH (27.0-33.0) pg MCHC (31.0-36.0) g/dl RDW (11.0-16.0) % Plt Count (160-400) X10*3/uL MPV (9.4-12.4) fL Immature Gran % (Auto) (0.0-0.4) % Neut % (Auto) (45-73) % Lymph % (Auto) (20-40) % [place] % (Auto) (2-11) % Eos % (Auto) (0-4) % Baso % (Auto) (0-2) % Lymph # (Auto) (1.2-4.9) X10*3/uL [place] # (Auto) (0.1-1.2) X10*3/uL Eos # (Auto) (0.0-0.4) X10*3/uL Baso # (Auto) (0.0-0.2) X10*3/uL Abs Immat Gran (auto) (0.00-0.03) X10*3/uL Absolute Neuts (auto) (2.0-8.3) x10*3/uL Absolute Nucleated RBC (0.0-0.012) X10*3/uL Nucleated RBC % (auto) (0.0-0.2) /100WBC Sodium (135-145) mmol/L Potassium (3.3-5.1) mmol/L Chloride (96-108) mmol/L Carbon Dioxide (22-29) mmol/L Anion Gap (12-20) BUN (9-16) mg/dL Creatinine (0.5-1.4) mg/dL Estim Creat Clear Calc Estimated GFR Random Glucose (60-115) mg/dL Calcium (8.4-10.2) mg/dL Total Bilirubin (0.0-1.0) mg/dL AST (5-37) U/L ALT (0-40) U/L Alkaline Phosphatase (39-117) U/L Troponin I High Sens (<3.5-35.0) ng/L Total Protein (6.5-8.0) g/dL Albumin (3.5-5.0) g/dL Urine Color Yellow Urine Appearance Clear Urine pH 7.0 (5.0-9.0) Ur Specific [place] <= 1.005 (1.005-1.025) Urine Protein Negative (Neg-Trace) mg/dL Urine Glucose (UA) Negative (Negative) mg/dL Urine Ketones Negative (Negative) mg/dL Urine Blood Negative (Negative) Urine Nitrite Negative (Negative) Ur Leukocyte Esterase Negative (Negative) Independent Interpretation I performed an independent interpretation of an: EKG Interpretation: Sinus bradycardiaWith first-degree AV block at baseline, HR-54, DC-328/QRS-104/QTC 405 External Record Review External record reviewed: Outpatient record and Prior outpatient labs Discharge Plan Discharge Clinical Impression: First degree AV block, Near syncope Patient Disposition: Admitted As Inpatient Prescriptions: No Action aspirin [Adult Aspirin Regimen] 81 mg tablet,delayed release (DR/EC) 81 mg PO DAILY acebutolol 200 mg capsule 200 mg PO DAILY 90 Days Qty: 90 2RF amlodipine 10 mg tablet 10 mg PO DAILY 90 Days Qty: 90 2RF pantoprazole 40 mg tablet,delayed release (DR/EC) 40 mg PO DAILY 90 Days Qty: 90 3RF tamsulosin [Flomax] 0.4 mg capsule 0.4 mg PO DAILY 90 Days Qty: 90 3RF triamterene-hydrochlorothiazid 37.5-25 mg tablet 0.5 tab PO QAM 90 Days Qty: 45 3RF Rx Instructions: 1/2 tab ofloxacin 0.3 % drops 1 drp ophthalmic-Right Q2H erythromycin 5 mg/gram (0.5 %) ointment 0 mg ophthalmic (eye) BEDTIME
[2022-08-02 15:07] LABS: Appearance Urine Clear; Color Urine Yellow; Glucose Urine UA Negative (Negative); Leukocyte Esterase Urine Negative (Negative); Nitrite Urine Negative (Negative); Specific Gravity - Urine <= 1.005 (1.005-1.025); Urine Blood Negative (Negative); Urine Ketones Negative (Negative); Urine Protein Negative (Neg-Trace)
--- NOTE | 2022-08-02 16:06 | PM.IMHP ---
History of Present Illness Date of Service: 08/02/22 Attending physician on admission: Waqar Benedict Chief Complaint: near syncope 82-year-old male with history of hypertension, history of prostate cancer, history of Mckinley palsy, GERD, aortic regurgitation, aortic root dilatation, sick sinus syndrome, thyroid nodule presented to the ED earlier today for evaluation of lightheadedness. The patient is reporting episodic lightheadedness that comes on randomly associated with generalized weakness and fatigue. He states he has been feeling fatigued for the last 2 days and developed a lightheadedness like he is going to pass out which improves if he sits down. Symptoms are occurring when stationary and standing or with exertion. He did have an episode 6 days ago where he actually syncopized with urinary incontinence. He was unconscious for an unknown duration but was then admitted overnight at [facility] for further evaluation. At [facility], hematology studies unremarkable no anemia. Renal function normal, electrolyte levels normal except for a borderline hypokalemia of 3.5 which was repleted with improvement of 4.0. He also has chronic mild hyponatremia. Hepatic function was normal along with vitamin B12, folic acid, iron levels, lactate. Troponin was unremarkable. TSH was slightly elevated at 6.76 with normal free T4. ETOH level was negative. Urinalysis was unremarkable. Chest x-ray was unremarkable. EKG showed first-degree AV block with frequent PVCs and normal sinus rhythm with rate of 62. Echocardiogram was performed showing decreased LV systolic function with LV 30-40% and moderate global hypokinesis and regional variation. There is moderate aortic regurgitation without any significant stenosis. Patient had been orthostatic at [facility] and has been working on increasing water intake and acebutolol was also reduced from 400-200 mg daily and triamterene-hydrochlorothiazide was discontinued. He denies any fevers, chills, abdominal pain, nausea, vomiting, persisting urinary issues/incontinence, tongue bite, vertigo, shortness of breath, palpitations, or chest pain. In the ED today, vital signs stable overall though patient does continue to experience mild bradycardia ranging 49-62. There is no hypotension. He reports feeling fatigued but is otherwise asymptomatic at rest. However when ambulated, was only able to ambulate about 50 ft before becoming lightheaded and requiring rest. EKG in the ED shows sinus bradycardia, rate 54, with first-degree AV block and nonspecific ST abnormality. No PVCs are noted on EKG but are observed on fire manager, though are infrequent. Hematology studies unremarkable, no anemia. Renal function normal, electrolyte levels normal except for mild hyponatremia of 131 which is chronic. Troponin 6.1. Urinalysis unremarkable. Review of Systems Review of Systems: General: No fevers, malaise, unintentional weight loss. + general weakness, +fatigue HEENT: No blurred vision, diplopia. No sore throat, nasal congestion, rhinorrhea, sinus pain, ear pain Cardiovascular: No chest pain, palpitations, or leg edema Respiratory: No shortness of breath, wheezing, cough GI: No abdominal pain, nausea, vomiting, diarrhea, constipation, melena, hematochezia : No dysuria, hematuria, increased urinary frequency, decreased urinary output MSK: No myalgia, back pain Neuro: No headaches, weakness, paresthesias. +syncope, +near syncope Skin: No rashes or lesions [facility] Medical History (Updated 08/02/22 @ 16:31 by NEMESIO Ribeiro) Aortic regurgitation Aortic root dilatation First degree AV block GERD (gastroesophageal reflux disease) History of Mckinley's palsy History of prostate cancer History of shingles Hypertension Impaired glucose tolerance Irritable bowel syndrome Lightheaded Pulmonary nodule Pulmonary nodules/lesions, multiple Sick sinus syndrome Thyroid nodule Family History Father No problems noted. Mother No problems noted. Family/Other Sudden Alzheimers disease Surgical History History of cholecystectomy History of prostate surgery Social History Housing: Apartment Alcohol intake: never Patient Tobacco Use Status: Never used Tobacco e-Cigarette/Vaping Use: Never Used Second Hand Smoke Exposure: No Advance Directives: Yes Advance Directives Information Provided: Yes Advance Directives on File: No Current occupational status: retired Cognitive needs: No Hearing needs: No Vision needs: Yes Meds Allergies Allergy/AdvReac Type Severity Reaction Status Date / Time captopril [Captopril] Allergy Severe UNKNOWN, Verified 03/11/22 11:05 angioedema, anaphylaxis EDGARD Inhibitors Allergy Unknown UNKNOWN Verified 03/11/22 11:05 [Edgard Inhibitors] Active Medications: Current Medications Acetaminophen (Acetaminophen 325 Mg Tablet) 650 mg PO Q6H PRN PRN Reason: Pain, Mild (Pain Scale 1-3) Docusate Sodium (Docusate Sodium 100 Mg Capsule) 100 mg PO DAILY PRN PRN Reason: Constipation Enoxaparin Sodium (Enoxaparin Sodium 40 Mg/0.4 Ml Syringe) 40 mg SUBCUT Q24H [facility] Ondansetron HCl (Ondansetron Hcl 4 Mg/2 Ml Vial) 4 mg IVPUSH Q8H PRN PRN Reason: Nausea and Vomiting Pharmacy Consult (Consult Rx Perform Med Rec) 1 each MISCELLANE ONCE PRN PRN Reason: Consult order Sodium Chloride (0.9 % Sodium Chloride Flush 3 Ml Syringe) 3 ml IVFLUSH QSHIFT [facility] Home Medications Medication Instructions Recorded Confirmed Last Taken Type aspirin 81 mg tablet,delayed 81 mg PO DAILY 12/27/19 12/29/21 Unknown History release (Adult Aspirin Regimen) erythromycin 5 mg/gram (0.5 %) eye 0 mg ophthalmic (eye) BEDTIME 01/10/20 12/29/21 Unknown History ointment ofloxacin 0.3 % eye drops 1 drp ophthalmic-Right Q2H 01/10/20 12/29/21 Unknown History Physical Exam Vital Signs and Narrative: Vital Signs: Last Vital Signs Temp 98.3 F 08/02/22 15:05 Pulse 52 08/02/22 15:05 Resp 15 08/02/22 15:05 BP 153/67 H 08/02/22 15:05 Pulse Ox 98 08/02/22 15:05 O2 Del Method Room Air 08/02/22 15:05 BMI result Body Mass Index 25.8 Constitutional - Awake and Alert, No apparent distress Eyes - PERRLA, EOMI Cardiovascular - S1S2, RRR, No edema Respiratory - Normal lung expansion, Normal respiratory effort, No respiratory distress, CTA bilaterally Gastrointestinal - NT / ND; +BS; No rebound or guarding Extremities - no calf tenderness bilaterally, no swelling Skin - Warm/Dry Neurological - Alert & oriented x3, CN II-XII in tact, 5/5 strength BUE and BLE Psychological - Appropriate affect Results Labs 08/02/22 09:09 08/02/22 09:09 Labs: Laboratory Results - last 24 hr 08/02/22 08/02/22 08/02/22 09:09 09:09 09:09 MCV 90.7 MCH 30.5 MCHC 33.6 RDW 13.3 Plt Count 232 MPV 8.9 L Immature Gran % (Auto) 0.6 H Neut % (Auto) 66.7 Lymph % (Auto) 18.4 L [place] % (Auto) 8.8 Eos % (Auto) 3.6 Baso % (Auto) 1.9 Lymph # (Auto) 1.3 [place] # (Auto) 0.6 Eos # (Auto) 0.3 Baso # (Auto) 0.1 Abs Immat Gran (auto) 0.04 H Absolute Neuts (auto) 4.6 Absolute Nucleated RBC 0.000 Nucleated RBC % (auto) 0.0 Anion Gap 12 Estim Creat Clear Calc 49.3 Estimated GFR > 60 Random Glucose 118 H Calcium 8.9 Total Bilirubin 1.4 H AST 19 ALT 16 Alkaline Phosphatase 84 Troponin I High Sens 6.1 Total Protein 7.0 Albumin 3.8 Urine Color Urine Appearance Urine pH Ur Specific [place] Urine Protein Urine Glucose (UA) Urine Ketones Urine Blood Urine Nitrite Ur Leukocyte Esterase 08/02/22 15:00 MCV MCH MCHC RDW Plt Count MPV Immature Gran % (Auto) Neut % (Auto) Lymph % (Auto) [place] % (Auto) Eos % (Auto) Baso % (Auto) Lymph # (Auto) [place] # (Auto) Eos # (Auto) Baso # (Auto) Abs Immat Gran (auto) Absolute Neuts (auto) Absolute Nucleated RBC Nucleated RBC % (auto) Anion Gap Estim Creat Clear Calc Estimated GFR Random Glucose Calcium Total Bilirubin AST ALT Alkaline Phosphatase Troponin I High Sens Total Protein Albumin Urine Color Yellow Urine Appearance Clear Urine pH 7.0 Ur Specific [place] <= 1.005 Urine Protein Negative Urine Glucose (UA) Negative Urine Ketones Negative Urine Blood Negative Urine Nitrite Negative Ur Leukocyte Esterase Negative Assessment and Plan (1) Near syncope: Status: Acute Plan 82-year-old male with history of hypertension, history of prostate cancer, history of Mckinley palsy, GERD, aortic regurgitation, aortic root dilatation, sick sinus syndrome, thyroid nodule to be observed for near syncope #Near syncope with recent history syncope -suspect cardiogenic in nature. Sinus bradycardia on fire manager predominant rhythm with occasional PVCs -Recent admit to [facility] 07/28 for syncope. HCTZ-Triamterene held, acebutolol reduced to 200mg -Echo at [facility]- reduced LV systolic function, EF 30-40% with moderate aortic regurgiation -Hold acebutolol -Cardiology consult -Consider neurogenic etiology. Neuro consult placed -Did have urinary incontinence with syncopal episode on 07/28. Consider seizure? EEG, MRI ordered -Monitor on telemetry -Vitals stable, low suspicion for PE #Sick sinus syndrome -see above #HTN- reasonably controlled -continue amlodipine -Hold acebutolol for now #GERD -continue ppi #Mild hyponatremia- chronic -Follow lytes DVT prophyalaxis- lovenox Full code Time Spent With Patient Time: Total time managing care of this patient today ____ minutes. Quality Stroke Does the patient have a stroke diagnosis?: No VTE Prior VTE?: No VTE Risk Level:: Medical - moderate - high VTE Device Contraindication: Treatment Not Indicated VTE Drug Contraindication: N/A - Med Ordered
--- NOTE | 2022-08-02 16:52 | PHA.MEDREC ---
Pharmacy Consult ? Medication Reconciliation Pharmacy has completed the medication reconciliation. Pt recently discharged from [facility], at bedside with discharge med list.
[2022-08-02 16:59] LABS: Free T4 (Free Thyroxine) 0.97 ng/dL (0.71-1.85); Thyroid Stimulating Hormone 3.63 uIU/mL (0.32-4.0)
[2022-08-02] MEDS: Enoxaparin Sodium 40 MG/0.4 ML SYRINGE SUBCUT (17:19)
[2022-08-02] MEDS: 0.9 % Sodium Chloride Flush 3 ML SYRINGE IVFLUSH ×2 (17:22→20:05)
[2022-08-03] VITALS (8 sets, daily range): BP systolic 117–178; BP diastolic 58–77; PULSE 54–68; RESP 18–20; TEMP 36.4–37.1; O2SAT 94–98
--- NOTE | 2022-08-03 | EEG_ITS ---
This is a 16-channel EEG with an EKG lead. The patient is reported awake during the tracing. Background EEG rhythm is 7 to 8 hertz low to medium amplitude posteriorly and lower amplitude fast anteriorly. Photic stimulation does not produce any significant abnormality. Hyperventilation is not performed. Cardiac lead does not reveal any significant abnormality. IMPRESSION: Mild generalized slowing with no evidence of seizure disorder. MD WILVER Alvarado/SANDEE / [id number]
[2022-08-03 06:26] LABS: MANUAL DIFF FLAG NO
[2022-08-03 06:50] LABS: Basophils Absolute Auto 0.2 X10*3/uL (0.0-0.2); Basophils Percent Auto 2.1 % (0-2); Eosinophils Absolute Auto 0.4 X10*3/uL (0.0-0.4); Eosinophils Percent Auto 5.1 % (0-4); Hematocrit 48.1 % (42.0-52.0); Hemoglobin 16.1 g/dl (14.0-18.0); Imm Gran Abs Auto 0.05 X10*3/uL (0.00-0.03); Imm Gran Pct Auto 0.7 % (0.0-0.4); Lymphocytes Absolute Auto 1.9 X10*3/uL (1.2-4.9); Lymphocytes Percent Auto 26.4 % (20-40); Mean Corpuscular HGB Conc 33.5 g/dl (31.0-36.0); Mean Corpuscular Hemoglobin 30.4 pg (27.0-33.0); Mean Corpuscular Volume 90.9 fL (80.0-98.0); Mean Platelet Volume 9.3 fL (9.4-12.4); Monocytes Absolute Auto 0.8 X10*3/uL (0.1-1.2); Monocytes Percent Auto 10.3 % (2-11); Neutrophils Percent Auto 55.4 % (45-73); Platelet Count 232 X10*3/uL (160-400); Red Blood Count 5.29 X10*6/uL (4.60-5.80); Red Cell Distribution Width 13.4 % (11.0-16.0); White Blood Count 7.3 X10*3/uL (4.8-10.8)
[2022-08-03 06:54] LABS: Anion Gap 11 (12-20); Blood Urea Nitrogen 14 mg/dL (9-16); Carbon Dioxide 23 mmol/L (22-29); Chloride 104 mmol/L (96-108); Creatinine Clr Calc Pharmacy 51.8; Estimated Glomerular Filt Rate > 60; Glucose Random 109 mg/dL (60-115); Magnesium 2.3 mg/dL (1.6-2.6); Potassium 4.2 mmol/L (3.3-5.1); Sodium 134 mmol/L (135-145)
--- NOTE | 2022-08-03 08:42 | P.PNIM_ITS ---
Subjective Subjective Date of Service: 08/03/22 Interval History: weakness Physical Exam Vital Signs: Vital Signs: Last Vital Signs Temp 97.9 F 08/03/22 07:50 Pulse 56 08/03/22 07:50 Resp 20 08/03/22 07:50 BP 169/74 H 08/03/22 07:50 Pulse Ox 97 08/03/22 07:50 O2 Del Method Room Air 08/03/22 07:50 BMI result Body Mass Index 25.8 General: AO X 3, no acute distress Resp: CTA bilateral, no accessory muscles used CVS: S1,S2,slow rate GI: soft, non tender, non distended Neuro: motor grossly intact, alert Psych: appropriate affect, appropriate insight Objective Data Active Medications Acetaminophen (Acetaminophen 325 Mg Tablet) 650 mg PO Q6H PRN PRN Reason: Pain, Mild (Pain Scale 1-3) Amlodipine Besylate (Amlodipine Besylate 5 Mg Tablet) 5 mg PO DAILY [facility]; Protocol Docusate Sodium (Docusate Sodium 100 Mg Capsule) 100 mg PO DAILY PRN PRN Reason: Constipation Enoxaparin Sodium (Enoxaparin Sodium 40 Mg/0.4 Ml Syringe) 40 mg SUBCUT Q24H [facility] Last Admin: 08/02/22 17:19 Dose: 40 mg Documented By: JUAN Ondansetron HCl (Ondansetron Hcl 4 Mg/2 Ml Vial) 4 mg IVPUSH Q8H PRN PRN Reason: Nausea and Vomiting Pharmacy Consult (Consult Rx Perform Med Rec) 1 each MISCELLANE ONCE PRN PRN Reason: Consult order Sodium Chloride (0.9 % Sodium Chloride Flush 3 Ml Syringe) 3 ml IVFLUSH QSHIFT [facility] Last Admin: 08/02/22 20:05 Dose: 3 ml Documented By: MONE Labs 08/03/22 05:54 08/03/22 05:54 Labs: Laboratory Results - last 24 hr 08/02/22 08/02/22 08/02/22 09:09 09:09 09:09 MCV 90.7 MCH 30.5 MCHC 33.6 RDW 13.3 Plt Count 232 MPV 8.9 L Immature Gran % (Auto) 0.6 H Neut % (Auto) 66.7 Lymph % (Auto) 18.4 L [place] % (Auto) 8.8 Eos % (Auto) 3.6 Baso % (Auto) 1.9 Lymph # (Auto) 1.3 [place] # (Auto) 0.6 Eos # (Auto) 0.3 Baso # (Auto) 0.1 Abs Immat Gran (auto) 0.04 H Absolute Neuts (auto) 4.6 Absolute Nucleated RBC 0.000 Nucleated RBC % (auto) 0.0 Anion Gap 12 Estim Creat Clear Calc 49.3 Estimated GFR > 60 Random Glucose 118 H Calcium 8.9 Magnesium Total Bilirubin 1.4 H AST 19 ALT 16 Alkaline Phosphatase 84 Troponin I High Sens 6.1 Total Protein 7.0 Albumin 3.8 TSH 3.63 Free T4 0.97 Urine Color Urine Appearance Urine pH Ur Specific [place] Urine Protein Urine Glucose (UA) Urine Ketones Urine Blood Urine Nitrite Ur Leukocyte Esterase 08/02/22 08/03/22 08/03/22 15:00 05:54 05:54 MCV 90.9 MCH 30.4 MCHC 33.5 RDW 13.4 Plt Count 232 MPV 9.3 L Immature Gran % (Auto) 0.7 H Neut % (Auto) 55.4 Lymph % (Auto) 26.4 [place] % (Auto) 10.3 Eos % (Auto) 5.1 H Baso % (Auto) 2.1 H Lymph # (Auto) 1.9 [place] # (Auto) 0.8 Eos # (Auto) 0.4 Baso # (Auto) 0.2 Abs Immat Gran (auto) 0.05 H Absolute Neuts (auto) 4.0 Absolute Nucleated RBC 0.000 Nucleated RBC % (auto) 0.0 Anion Gap 11 L Estim Creat Clear Calc 51.8 Estimated GFR > 60 Random Glucose 109 Calcium 9.0 Magnesium 2.3 Total Bilirubin AST ALT Alkaline Phosphatase Troponin I High Sens Total Protein Albumin TSH Free T4 Urine Color Yellow Urine Appearance Clear Urine pH 7.0 Ur Specific [place] <= 1.005 Urine Protein Negative Urine Glucose (UA) Negative Urine Ketones Negative Urine Blood Negative Urine Nitrite Negative Ur Leukocyte Esterase Negative Assessment and Plan (1) Near syncope: Status: Acute Plan 82M PMH HTN, history of prostate cancer, history of Mckinley palsy, GERD, aortic regurgitation, aortic root dilatation, sick sinus syndrome, thyroid nodule, 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%, presented with prescyncope presyncope monitor on tele, holding acebutolol cardio eval check eeg, neuro eval chronic systolic chf beta chantell held htn restart amldopine at half dose (5mg) dvt prophylaxis - lovenox full code reason for continued hospitalization:working up syncope Time Spent With Patient Time: Total time managing care of this patient today ____ minutes. Quality Stroke Does the patient have a stroke diagnosis?: No VTE Prior VTE?: No VTE Risk Level:: Medical - moderate - high VTE Device Contraindication: Treatment Not Indicated VTE Drug Contraindication: N/A - Med Ordered
[2022-08-03] MEDS: amLODIPine Besylate 5 MG TABLET PO (09:14)
[2022-08-03] MEDS: 0.9 % Sodium Chloride Flush 3 ML SYRINGE IVFLUSH ×3 (09:14→23:48)
--- NOTE | 2022-08-03 10:42 | P.CONCA_ITS ---
History of Present Illness History of Present Illness Date of Service: 08/03/22 Requesting physician: Waqar Benedict Consult reason: other (Near syncope) Chief complaint: near syncope Narrative: I was consulted to see Hung in cardiology consultation today for symptoms of near syncope. He is a healthy 82-year-old male with mild aortic stenosis and regurgitation with mixed valve disease, hypertension longstanding, sinus bradycardia suggestive of sinoatrial chris dysfunction but no significant bradycardia as require pacing therapy, anxiety. Patient present hospital with near syncope. About a week ago he said he was at the [facility] at his house and was doing a lot of activity to clean up the house. He said he was drinking eating well and feeling well. He then subsequently drove back to his local home. He said he was eating and drinking well feeling well. Then he started working out in the yd and he said he was feeling weak and then when he ended up going in the backyard and was trying to what is the plan he felt lightheaded and not feeling well went to the shed. And he passed out there. His went to check on him and he was noted to be slumped over with loss of consciousness. got concerned and called 911. He regained consciousness very quickly and was completely coherent. There were no seizure-like activities noted. He said he was very diaphoretic. He was then brought to [facility] observed and was told that he was dehydrated. Given IV fluids. He was told to rest and take it easy. His diuretics were discontinued. He subsequently was doing well till yesterday when he started feeling weak and felt lightheaded and felt like he was going to pass out again and therefore asked his son to bring him to [facility]. In the hospital here he is noted to have sinus bradycardia which is not new for him and noted to have first-degree AV block. There were no significant pauses or advanced AV block noted. He has been admitted, his acebutolol has been held. His blood pressure this morning was elevated. He is very concerned about his overall not feeling well issues. He is scared of having these symptoms happen again. He has not had any chest pain or shortness of breath. Remains very active. Did bedside orthostatic by the nursing staff was noted to have drop in blood pressure of greater than 20 mm systolic. However still in the hypertensive range. Review of Systems Constitutional: Constitutional: Reports no additional constitutional complaints Eyes: Eyes: Reports no additional eye complaints Cardiovascular: Cardiovascular: Denies chest pain, Denies chest pain with activity, Denies leg edema, Reports lightheadedness, Reports Loss of Consciousness, Denies palpitations and Denies dyspnea Respiratory: Respiratory: Reports no additional respiratory complaints and Denies dyspnea Gastrointestinal: Gastrointestinal: Reports no additional gastrointestinal complaints Genitourinary: Genitourinary: Reports no additional male genitourinary complaints Musculoskeletal: Musculoskeletal: Reports no additional musculoskeletal complaints Integumentary/Breasts: Skin/Breast: Reports system reviewed and no additional complaints, except as docu Neurologic: Reports system reviewed and no additional complaints, except as documented Endocrine: Endocrine: Denies palpitations PMFSH Past Medical History Medical History Aortic regurgitation Aortic root dilatation First degree AV block GERD (gastroesophageal reflux disease) History of Mckinley's palsy History of prostate cancer History of shingles Hypertension Impaired glucose tolerance Irritable bowel syndrome Lightheaded Pulmonary nodule Pulmonary nodules/lesions, multiple Sick sinus syndrome Thyroid nodule Family History Family History Father No problems noted. Mother No problems noted. Family/Other Sudden Alzheimers disease Surgical History Surgical History History of cholecystectomy History of prostate surgery Social History Social History Household Members: Spouse Housing: House Do you presently have visiting nurse or other home services: No Alcohol intake: never Patient Tobacco Use Status: Never used Tobacco Smoked in Last 30 Days: No e-Cigarette/Vaping Use: Never Used Patient Interested in Nicotine Replacement: No Patient Given Instructions on How to Stop Smoking: No Second Hand Smoke Exposure: No Use of substances other than those prescribed or required for medical reasons: No Currently Displaying Signs/Symptoms of Drug Intoxication Withdrawal: No Have you been hit, kicked, punched, or otherwise hurt by someone within the past year? If so, by whom?: No Do you feel safe in your current relationship?: Yes Is there a partner from a previous relationship who is making you feel unsafe now?: No Are you made to feel afraid or neglected: No Advance Directives: Yes Advance Directives Information Provided: Yes Advance Directives on File: No Advance Directives Date on File: 08/02/22 Do you have thoughts of harming others: None Do you have a plan to hurt others: No Plan Recently lost weight without trying: No Eating poorly because of decreased appetite: No Nutrition Risks: No Nutritional Risk Poor oral hygiene: No Current occupational status: retired Cognitive needs: No Hearing needs: No Vision needs: Yes Meds Allergies Allergy/AdvReac Type Severity Reaction Status Date / Time captopril [Captopril] Allergy Severe UNKNOWN, Verified 03/11/22 11:05 angioedema, anaphylaxis EDGARD Inhibitors Allergy Unknown UNKNOWN Verified 03/11/22 11:05 [Edgard Inhibitors] Active Medications: Current Medications Acetaminophen (Acetaminophen 325 Mg Tablet) 650 mg PO Q6H PRN PRN Reason: Pain, Mild (Pain Scale 1-3) Amlodipine Besylate (Amlodipine Besylate 5 Mg Tablet) 5 mg PO DAILY [facility]; Protocol Last Admin: 08/03/22 09:14 Dose: 5 mg Docusate Sodium (Docusate Sodium 100 Mg Capsule) 100 mg PO DAILY PRN PRN Reason: Constipation Enoxaparin Sodium (Enoxaparin Sodium 40 Mg/0.4 Ml Syringe) 40 mg SUBCUT Q24H [facility] Last Admin: 08/02/22 17:19 Dose: 40 mg Ondansetron HCl (Ondansetron Hcl 4 Mg/2 Ml Vial) 4 mg IVPUSH Q8H PRN PRN Reason: Nausea and Vomiting Pharmacy Consult (Consult Rx Perform Med Rec) 1 each MISCELLANE ONCE PRN PRN Reason: Consult order Sodium Chloride (0.9 % Sodium Chloride Flush 3 Ml Syringe) 3 ml IVFLUSH QSHIFT [facility] Last Admin: 08/03/22 09:14 Dose: 3 ml Home Medications Medication Instructions Recorded Confirmed Last Taken Type aspirin 81 mg tablet,delayed 81 mg PO DAILY 12/27/19 08/02/22 08/02/22 History release (Adult Aspirin Regimen) Physical Exam Vital Signs: Vital Signs: Last Vital Signs Temp 97.9 F 08/03/22 07:50 Pulse 62 08/03/22 09:57 Resp 20 08/03/22 07:50 BP 145/69 H 08/03/22 09:57 Pulse Ox 97 08/03/22 07:50 O2 Del Method Room Air 08/03/22 07:50 BMI result Body Mass Index 25.8 Const: General: cooperative, comfortable, no acute distress, alert, awake and Physically active Nutritional Appearance: average body habitus Orientation/consciousness: patient oriented x3 Limitations: no limitations HEENT: Head: Yes normocephalic and Yes atraumatic Neck: Neck: Yes trachea midline, Yes supple and Yes no JVD Resp: Effort & Inspection: normal respiratory effort Auscultation: clear to auscultation bilaterally Cardio: Jugular venous distension: no JVD Palpation: normal PMI Rate: regular rate Rhythm: regular rhythm Heart sounds: S1 normal heart sound present, S2 normal heart sound present, no click, no gallops and Murmur heart sound present systolic early, decrescendo and crescendo Skin: General skin exam: no rashes or lesions noted Neuro: General: patient oriented x3 and no focal motor deficits Extrem: General: Yes no clubbing, cyanosis or edema Objective Labs and Meds 08/03/22 05:54 08/03/22 05:54 Lab results: Laboratory Results - last 24 hr 08/02/22 08/02/22 08/03/22 09:09 15:00 05:54 WBC 7.3 RBC 5.29 Hgb 16.1 Hct 48.1 MCV 90.9 MCH 30.4 MCHC 33.5 RDW 13.4 Plt Count 232 MPV 9.3 L Immature Gran % (Auto) 0.7 H Neut % (Auto) 55.4 Lymph % (Auto) 26.4 [place] % (Auto) 10.3 Eos % (Auto) 5.1 H Baso % (Auto) 2.1 H Lymph # (Auto) 1.9 [place] # (Auto) 0.8 Eos # (Auto) 0.4 Baso # (Auto) 0.2 Abs Immat Gran (auto) 0.05 H Absolute Neuts (auto) 4.0 Absolute Nucleated RBC 0.000 Nucleated RBC % (auto) 0.0 Sodium Potassium Chloride Carbon Dioxide Anion Gap BUN Creatinine Estim Creat Clear Calc Estimated GFR Random Glucose Calcium Magnesium TSH 3.63 Free T4 0.97 Urine Color Yellow Urine Appearance Clear Urine pH 7.0 Ur Specific [place] <= 1.005 Urine Protein Negative Urine Glucose (UA) Negative Urine Ketones Negative Urine Blood Negative Urine Nitrite Negative Ur Leukocyte Esterase Negative 08/03/22 05:54 WBC RBC Hgb Hct MCV MCH MCHC RDW Plt Count MPV Immature Gran % (Auto) Neut % (Auto) Lymph % (Auto) [place] % (Auto) Eos % (Auto) Baso % (Auto) Lymph # (Auto) [place] # (Auto) Eos # (Auto) Baso # (Auto) Abs Immat Gran (auto) Absolute Neuts (auto) Absolute Nucleated RBC Nucleated RBC % (auto) Sodium 134 L Potassium 4.2 Chloride 104 Carbon Dioxide 23 Anion Gap 11 L BUN 14 Creatinine 1.01 Estim Creat Clear Calc 51.8 Estimated GFR > 60 Random Glucose 109 Calcium 9.0 Magnesium 2.3 TSH Free T4 Urine Color Urine Appearance Urine pH Ur Specific [place] Urine Protein Urine Glucose (UA) Urine Ketones Urine Blood Urine Nitrite Ur Leukocyte Esterase EKG shows sinus bradycardia with first-degree AV block with nonspecific ST changes Assessment and Plan (1) Near syncope: Status: Acute Patient present with near syncope and a syncopal episode last week. The episode last week appears to be consistent with most likely orthostatic hypotension with cerebral hypoperfusion in the setting of dehydration. He has elevated blood pressure reading today and has had labile blood pressure. This could be related to senile autonomic dysfunction. However significant bradycardia cannot be entirely ruled out. Currently patient appears is on overnight monitoring to not have any significant evidence of pauses. However I would discontinue the acebutolol therapy. Will continue amlodipine therapy in the morning and add valsartan 80 mg at suppertime. I have discussed with him about orthostatic p recautions maintaining adequate hydration avoiding to work in heart weather and over doing his activity level. Also advised to avoid prolonged standing posture. Will also obtain a outpatient cardiac event monitoring with mobile telemetry to evaluate for any significant bradycardia that may require pacing therapy. The management was discussed with him and difficulty managing orthostatic hypertension the setting of elevated blood pressure was discussed. Advised to maintain a log of his blood pressure at home. From cardiac perspective can be discharged home later. Will follow up with him as outpatient. Time Spent With Patient Time: Total time managing care of this patient today ____ minutes. Procedures Date of Service Date of Service: 08/03/22
--- NOTE | 2022-08-03 13:16 | PM.NEUROCN ---
History of Present Illness Data of Consult Service Date: 08/03/22 Primary Care Provider: Maverick Maier MD HPI Reason for consult: Weakness 82 years old man who provided nonspecific symptoms. He stated that his legs were weak but previously he has talked about generalized lethargy and was recently admitted [facility] with an episode of passing out and loss of bladder control. There was no recent trauma or cold or flu-like illness Review of Systems Review of Systems: No recent cold or flu-like illness PMFSH Past Medical History Medical History Aortic regurgitation Aortic root dilatation First degree AV block GERD (gastroesophageal reflux disease) History of Mckinley's palsy History of prostate cancer History of shingles Hypertension Impaired glucose tolerance Irritable bowel syndrome Lightheaded Pulmonary nodule Pulmonary nodules/lesions, multiple Sick sinus syndrome Thyroid nodule Family History Family History Father No problems noted. Mother No problems noted. Family/Other Sudden Alzheimers disease Surgical History Surgical History History of cholecystectomy History of prostate surgery Social History Social History Household Members: Spouse Housing: House Do you presently have visiting nurse or other home services: No Alcohol intake: never Patient Tobacco Use Status: Never used Tobacco Smoked in Last 30 Days: No e-Cigarette/Vaping Use: Never Used Patient Interested in Nicotine Replacement: No Patient Given Instructions on How to Stop Smoking: No Second Hand Smoke Exposure: No Use of substances other than those prescribed or required for medical reasons: No Currently Displaying Signs/Symptoms of Drug Intoxication Withdrawal: No Have you been hit, kicked, punched, or otherwise hurt by someone within the past year? If so, by whom?: No Do you feel safe in your current relationship?: Yes Is there a partner from a previous relationship who is making you feel unsafe now?: No Are you made to feel afraid or neglected: No Advance Directives: Yes Advance Directives Information Provided: Yes Advance Directives on File: No Advance Directives Date on File: 08/02/22 Do you have thoughts of harming others: None Do you have a plan to hurt others: No Plan Recently lost weight without trying: No Eating poorly because of decreased appetite: No Nutrition Risks: No Nutritional Risk Poor oral hygiene: No Current occupational status: retired Cognitive needs: No Hearing needs: No Vision needs: Yes Meds Allergies Allergy/AdvReac Type Severity Reaction Status Date / Time captopril [Captopril] Allergy Severe UNKNOWN, Verified 03/11/22 11:05 angioedema, anaphylaxis EDGARD Inhibitors Allergy Unknown UNKNOWN Verified 03/11/22 11:05 [Edgard Inhibitors] Active Medications: Current Medications Acetaminophen (Acetaminophen 325 Mg Tablet) 650 mg PO Q6H PRN PRN Reason: Pain, Mild (Pain Scale 1-3) Amlodipine Besylate (Amlodipine Besylate 5 Mg Tablet) 5 mg PO DAILY [facility]; Protocol Last Admin: 08/03/22 09:14 Dose: 5 mg Docusate Sodium (Docusate Sodium 100 Mg Capsule) 100 mg PO DAILY PRN PRN Reason: Constipation Enoxaparin Sodium (Enoxaparin Sodium 40 Mg/0.4 Ml Syringe) 40 mg SUBCUT Q24H [facility] Last Admin: 08/02/22 17:19 Dose: 40 mg Ondansetron HCl (Ondansetron Hcl 4 Mg/2 Ml Vial) 4 mg IVPUSH Q8H PRN PRN Reason: Nausea and Vomiting Pharmacy Consult (Consult Rx Perform Med Rec) 1 each MISCELLANE ONCE PRN PRN Reason: Consult order Sodium Chloride (0.9 % Sodium Chloride Flush 3 Ml Syringe) 3 ml IVFLUSH QSHIFT [facility] Last Admin: 08/03/22 09:14 Dose: 3 ml Home Medications Medication Instructions Recorded Confirmed Last Taken Type aspirin 81 mg tablet,delayed 81 mg PO DAILY 12/27/19 08/02/22 08/02/22 History release (Adult Aspirin Regimen) Physical Exam Vital Signs: Vital Signs: Last Vital Signs Temp 97.7 F 08/03/22 12:00 Pulse 54 08/03/22 12:00 Resp 20 08/03/22 12:00 BP 145/67 H 08/03/22 12:00 Pulse Ox 95 08/03/22 12:00 O2 Del Method Room Air 08/03/22 12:00 BMI result Body Mass Index 25.8 Neuro: Other: He is alert and awake with normal spontaneity of speech fluency comprehension and flat affect. Face is symmetrical. Visual johns are full. There is no pronator drift. Deep tendon reflexes are trace to absent with flat plantars. [id number] testing is okay. He is able to get up and walk around. Speech is normal. Results Labs 08/03/22 05:54 08/03/22 05:54 Labs: Short CBC 08/03/22 Range/Units 05:54 WBC 7.3 (4.8-10.8) X10*3/uL Hgb 16.1 (14.0-18.0) g/dl Hct 48.1 (42.0-52.0) % Plt Count 232 (160-400) X10*3/uL BMP 08/03/22 05:54 Sodium 134 L Potassium 4.2 Chloride 104 Carbon Dioxide 23 BUN 14 Creatinine 1.01 Calcium 9.0 Urine 08/02/22 Range/Units 15:00 Urine Color Yellow Urine Appearance Clear Urine pH 7.0 (5.0-9.0) Ur Specific [place] <= 1.005 (1.005-1.025) Urine Protein Negative (Neg-Trace) mg/dL Urine Glucose (UA) Negative (Negative) mg/dL Noncontrast head CT revealed mild cortical atrophy and EEG is okay. Assessment and Plan (1) Near syncope: Status: Acute 82 years old man with nonspecific symptoms but apparently he has been admitted [facility] ill recently after an episode of passing out. Cardiac and neurological causes of syncope needed exploration. His routine EEG is okay. Maybe an ambulatory 48 hour EEG should be considered if no other etiology is found. Time Spent With Patient Time: Total time managing care of this patient today ____ minutes. Procedures Date of Service Date of Service: 08/03/22
--- NOTE | 2022-08-03 14:50 | MHC.CM.PN ---
MONTRELL 08/03/22, EMR REVIEWED, PT ADMITED TO OBS FOR NEAR SYNCOPE, CM ATTEMPTED TO MEET W/PT X2 HOWEVER PT OFF UNIT, CM ASSESSMENT COMPLETED W//HCP MACY AT BEDSIDE, MACY REPORTS PT IS INDEPENDENT W/ALL CARE, PT DOES NOT USE DME/SERVICES AND STILL DRIVES, ZOILA PT WILL NOT NEED SERVICES UPON D/C. MACY VERIFIES PCP IS [facility], MODERNA X3 AND SHE IS HCP AND DOES NOT BELIEVE THERE IS AN ALTERNATE, COPY HAS BEEN REQUESTED. ZOILA D/C TODAY HOME SELF CARE W/FAMILY FOR TRANSPORT
[2022-08-03] MEDS: Enoxaparin Sodium 40 MG/0.4 ML SYRINGE SUBCUT (16:14)
[2022-08-04] VITALS (7 sets, daily range): BP systolic 140–179; BP diastolic 54–77; PULSE 58–84; RESP 18–20; TEMP 36.4–36.7; O2SAT 93–98
--- NOTE | 2022-08-04 | CA_ITS ---
Acquisition Time: 2022-08-04 10:35:30 Total Exercise Time: 00:04:30 Test Indications: NSVT,NEAR SYNCOPE Medications: SEE MED SHEET Protocol: FALLON Max HR: 112 BPM 81% of Pred: 137 BPM Max BP: 182/062 mmHG Max Work Load: 4.9 METS Exercise stress test exercise 4 min 30 sec of Fallon protocol stage 1 (at 3 mins incline up to 12%) achieving 80% MPHR and 4.9 METs, with mild SOB, without chest discomfort, with PACs, PVCs, NSVT runs - longest 9 beats, with normotesive response to exercise, with T wave inversions at baseline no change during exercise. Nuclear images pending. Test reviewed with Dr Bah. Referred By: Mendoza Bah Overread By: ADELINA JOHNSTON
[2022-08-04 06:18] LABS: Hemoglobin 16.6 g/dl (14.0-18.0); Mean Corpuscular HGB Conc 33.9 g/dl (31.0-36.0); Mean Corpuscular Hemoglobin 31.1 pg (27.0-33.0); Mean Corpuscular Volume 91.9 fL (80.0-98.0); Mean Platelet Volume 9.2 fL (9.4-12.4); Platelet Count 232 X10*3/uL (160-400); Red Blood Count 5.33 X10*6/uL (4.60-5.80); Red Cell Distribution Width 13.5 % (11.0-16.0); White Blood Count 6.5 X10*3/uL (4.8-10.8)
[2022-08-04 06:38] LABS: Anion Gap 12 (12-20); Blood Urea Nitrogen 12 mg/dL (9-16); Calcium 9.2 mg/dL (8.4-10.2); Carbon Dioxide 24 mmol/L (22-29); Chloride 102 mmol/L (96-108); Creatinine Clr Calc Pharmacy 55.6; Estimated Glomerular Filt Rate > 60; Glucose Fasting 112 mg/dL (60-99); Potassium 3.8 mmol/L (3.3-5.1); Sodium 134 mmol/L (135-145)
--- NOTE | 2022-08-04 09:20 | CA_ITS ---
Transthoracic Echocardiogram Patient (Last, First, Middle): Hung Reyna C Gender: Male Date of : 1940 Age: 82 Procedure Date: 08/04/2022 Procedure Type: Transthoracic Echocardiogram [place] [facility] [place]: 170.18 cm Weight: 74.84 kg BSA: 1.86 m2 Heart Rate: bpm BP: 163 / 76 mmHg Lace Weaver: Referring MD: Mendoza Bah MD Manager Building: Mendoza Bah MD Symptoms: NSVT Study Quality: Fair ECG Rhythm: Sinus with PVCs Conclusions: - 1. Normal LV systolic function with mild LVH with grade 1 diastolic dysfunction 2. Mild left atrial enlargement 3. Mild aortic stenosis and regurgitation 4. Normal RV systolic pressure 5. No gross pericardial effusion Findings Left Ventricle Normal left ventricular size and systolic function. There is mildly increased left ventricular wall thickness. The visually estimated ejection fraction is between 60-65%. Spectral Doppler is indicative of an impaired relaxation filling pattern. E/E prime ratio is <8, consistent with normal filling pressures. Evidence suggests grade I (mild) diastolic dysfunction. Right Ventricle Mildly increased right ventricular cavity size. There is normal right ventricular systolic function. Atria The left atrium is mildly dilated. There is no evidence of interatrial shunt. The right atrium is normal in size. Aortic Valve There is mild calcification of the aortic valve. There is mild thickening of the aortic valve. There is mild aortic valve stenosis. There is mild aortic valve regurgitation. Mitral Valve There is mild anterior and posterior mitral leaflet thickening. There is mild mitral valve regurgitation. There is no mitral valve stenosis. Pulmonic Valve The pulmonic valve is likely normal. There is trace pulmonic valve regurgitation. Tricuspid Valve Normal tricuspid valve structure. There is mild tricuspid valve regurgitation. Normal right atrial pressure. There is no evidence of pulmonary hypertension. Great Vessels All visible segments of the aorta are normal in size. The pulmonary artery was not well visualized. Venous The inferior vena cava is normal in size and collapses greater than 50% with inspiration. Pericardium/Pleural There is no evidence of pericardial effusion. Prior Study Comparison Changes noted compared to prior study dated: 03/05/2021. Measured ascending aortic size is Measured to be within normal limits, could be related to image technique Measurements 2D Linear Measurements IVSd: 1.24 0.6-0.9/0.6-1.0 cm LVIDd: 5.55 3.9-5.3/4.2-5.9 cm LVIDd Index: 2.98 2.4-3.2/2.2-3.1 cm/m2 LVIDs: 3.61 2.0-3.6 cm LVPWd: 1.27 0.7-1.1 cm Ao Root: 4.00 2.1-3.5 cm LA Diam: 3.80 2.7-3.8/3.0-4.0 cm LAIDs Index: 2.04 1.5-2.3 cm/m2 LV Mass: 366.76 67-162/88-224 g LV Mass Index: 197.18 43-95/49-115 g/m2 LVOT Diam: 2.30 3.0+(-)1.3 cm Mitral Valve MV Pk E: 0.32 MV PK A: 1.03 MV Decel Time: 250.00 E/A: 0.30 E'Lateral: 8.81 E'Medial: 3.92 E/E' Med: 8.20 E/E' Lat: 3.60 PHT: 73.00 MVA PHT: 3.01 Decel [place]: 1.29 Aortic Valve AoV Pk Tino: 2.41 AoV Mn Tino: 1.49 AoV VTI: 0.54 AoV Pk Grad: 23.00 Aov Mn Grad: 12.00 JUAN MANUEL Cont.VTI: 1.64 AI Pk Tino: 4.38 AI [place]: 2.47 LVOT LVOT Pk Tino: 1.05 LVOT Mn Tino: 0.61 LVOT VTI: 0.21 LVOT Pk Grad: 4.00 LVOT Mn Grad: 2.00 LVOT Diam: 2.30 LVOT Area: 4.15 Diastolic Function MV Pk E: 0.32 MV Pk A: 1.03 E/A: 0.30 E'Medial: 3.92 E/E' Med: 8.20 E' Laterial: 8.81 E/E' Lat: 3.60 Right Ventricle TAPSE (mm): 25.90 TVS' Tino: 14.40 Tricuspid Valve TR Pk Tino: 2.23 TR Pk Grad: 20.00 RA Press: 3.00 RVSP: 23.00 Great Vessels Aorta Ao Root-2D: 4.00 2.0-3.7 cm Ao Asc: 3.40 2.1-3.4 cm Pulmonary Valve PV Pk Tino: 1.01 Peak PV Grad: 4.00 Updated in Other Vendor System with Status of Final Mendoza Bah MD electronically signed on 08/04/2022 4:18:46 PM with status of Final
[2022-08-04] MEDS: amLODIPine Besylate 5 MG TABLET PO (09:21)
[2022-08-04] MEDS: 0.9 % Sodium Chloride Flush 3 ML SYRINGE IVFLUSH ×3 (09:22→21:20)
--- NOTE | 2022-08-04 09:39 | HO.PM.IMPN ---
Subjective Subjective Date of Service: 08/04/22 Interval History: NSVT yesterday, asymptomatic Physical Exam Vital Signs: Vital Signs: Last Vital Signs Temp 98.0 F 08/04/22 07:29 Pulse 58 08/04/22 07:29 Resp 20 08/04/22 07:29 BP 150/70 H 08/04/22 07:29 Pulse Ox 94 08/04/22 07:29 O2 Del Method Room Air 08/04/22 07:29 BMI result Body Mass Index 25.8 Neuro: Other: He is alert and awake with normal spontaneity of speech fluency comprehension and flat affect. Face is symmetrical. Visual johns are full. There is no pronator drift. Deep tendon reflexes are trace to absent with flat plantars. Lugrmq-rr-[id number] testing is okay. He is able to get up and walk around. Speech is normal. Objective Data Active Medications Acetaminophen (Acetaminophen 325 Mg Tablet) 650 mg PO Q6H PRN PRN Reason: Pain, Mild (Pain Scale 1-3) Amlodipine Besylate (Amlodipine Besylate 5 Mg Tablet) 5 mg PO DAILY [facility]; Protocol Last Admin: 08/04/22 09:21 Dose: 5 mg Documented By: VALERIANO Docusate Sodium (Docusate Sodium 100 Mg Capsule) 100 mg PO DAILY PRN PRN Reason: Constipation Enoxaparin Sodium (Enoxaparin Sodium 40 Mg/0.4 Ml Syringe) 40 mg SUBCUT Q24H [facility] Last Admin: 08/03/22 16:14 Dose: 40 mg Documented By: VALERIANO Ondansetron HCl (Ondansetron Hcl 4 Mg/2 Ml Vial) 4 mg IVPUSH Q8H PRN PRN Reason: Nausea and Vomiting Pharmacy Consult (Consult Rx Perform Med Rec) 1 each MISCELLANE ONCE PRN PRN Reason: Consult order Sodium Chloride (0.9 % Sodium Chloride Flush 3 Ml Syringe) 3 ml IVFLUSH QSHIFT [facility] Last Admin: 08/04/22 09:22 Dose: 3 ml Documented By: VALERIANO Labs 08/04/22 05:48 08/04/22 05:48 Labs: Laboratory Results - last 24 hr 08/04/22 08/04/22 05:48 05:48 MCV 91.9 MCH 31.1 MCHC 33.9 RDW 13.5 Plt Count 232 MPV 9.2 L Absolute Nucleated RBC 0.000 Nucleated RBC % (auto) 0.0 Anion Gap 12 Estim Creat Clear Calc 55.6 Estimated GFR > 60 Fasting Glucose 112 H Calcium 9.2 Assessment and Plan (1) Near syncope: Status: Acute Plan 82M PMH HTN, history of prostate cancer, history of Mckinley palsy, GERD, aortic regurgitation, aortic root dilatation, sick sinus syndrome, thyroid nodule, 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 Quality Stroke Does the patient have a stroke diagnosis?: No VTE Prior VTE?: No VTE Risk Level:: Medical - moderate - high VTE Device Contraindication: Treatment Not Indicated VTE Drug Contraindication: N/A - Med Ordered
--- NOTE | 2022-08-04 10:31 | PM.PNCARD ---
Subjective Subjective Date of Service: 08/04/22 Principal diagnosis: Near syncope, nonsustained VT Interval history: Yesterday a run of monomorphic nonsustained VT. Another run of what appears to be multifocal PVCs. No symptoms associated with it. Overnight had heart rate in the 30s. Review of Systems Review of Systems Yes all other systems are reviewed and are negative Physical Exam Vital Signs: Last Vital Signs Temp 98.0 F 08/04/22 07:29 Pulse 58 08/04/22 07:29 Resp 20 08/04/22 07:29 BP 150/70 H 08/04/22 07:29 Pulse Ox 94 08/04/22 07:29 O2 Del Method Room Air 08/04/22 07:29 BMI result Body Mass Index 25.8 Const General: cooperative, comfortable, no acute distress, alert, awake and Physically active Nutritional Appearance: average body habitus Orientation/consciousness: patient oriented x3 Limitations: no limitations Neck Neck: Yes trachea midline, Yes supple and Yes no JVD Resp Effort & Inspection: normal respiratory effort Auscultation: clear to auscultation bilaterally Cardio Jugular venous distension: no JVD Palpation: normal PMI Rate: regular rate Rhythm: regular rhythm Heart sounds: S1 normal heart sound present, S2 normal heart sound present, no click, no gallops and Murmur heart sound present systolic early, decrescendo and crescendo Skin General skin exam: no rashes or lesions noted Neuro General: patient oriented x3 and no focal motor deficits Extrem General: Yes no clubbing, cyanosis or edema Objective Labs and Meds 08/04/22 05:48 08/04/22 05:48 Lab results: Laboratory Results - last 24 hr 08/04/22 08/04/22 05:48 05:48 WBC 6.5 RBC 5.33 Hgb 16.6 Hct 49.0 MCV 91.9 MCH 31.1 MCHC 33.9 RDW 13.5 Plt Count 232 MPV 9.2 L Absolute Nucleated RBC 0.000 Nucleated RBC % (auto) 0.0 Sodium 134 L Potassium 3.8 Chloride 102 Carbon Dioxide 24 Anion Gap 12 BUN 12 Creatinine 0.94 Estim Creat Clear Calc 55.6 Estimated GFR > 60 Fasting Glucose 112 H Calcium 9.2 Progress Note: A&P Assessment and plan (1) Near syncope: Status: Acute Assessment and Plan: Patient admitted with near-syncope with a syncopal episode last week. Noted to have on monitoring nonsustained VT and overnight had bradycardia. Will require workup for nonsustained VT and most likely require beta-chantell therapy. However workup for structural heart disease with a exercise myocardial perfusion imaging and echocardiogram will be done. If he has no significant LV systolic dysfunction and/or ischemia would proceed with medical therapy with beta-chantell and would require pacemaker placement. This was discussed with him. Requires continued monitoring in the hospital. Continue amlodipine and valsartan at current dose. Continue full disclosure cardiac telemetry. Check electrolytes and make sure potassium is above 4 and magnesium above 2. Will continue to follow with you Time Spent With Patient Time: Total time managing care of this patient today ____ minutes. Progress Note: Quality Stroke Does the patient have a stroke diagnosis?: No Procedures Date of Service Date of Service: 08/04/22
[2022-08-04] MEDS: Enoxaparin Sodium 40 MG/0.4 ML SYRINGE SUBCUT (16:21)
[2022-08-05] VITALS (7 sets, daily range): BP systolic 148–184; BP diastolic 70–82; PULSE 63–78; RESP 14–20; TEMP 36–36.3; O2SAT 93–98
[2022-08-05 06:43] LABS: Hematocrit 47.8 % (42.0-52.0); Hemoglobin 16.2 g/dl (14.0-18.0); Mean Corpuscular HGB Conc 33.9 g/dl (31.0-36.0); Mean Corpuscular Hemoglobin 31.1 pg (27.0-33.0); Mean Corpuscular Volume 91.7 fL (80.0-98.0); Mean Platelet Volume 9.2 fL (9.4-12.4); Platelet Count 224 X10*3/uL (160-400); Red Blood Count 5.21 X10*6/uL (4.60-5.80); Red Cell Distribution Width 13.5 % (11.0-16.0); White Blood Count 6.3 X10*3/uL (4.8-10.8)
[2022-08-05 07:04] LABS: Anion Gap 13 (12-20); Blood Urea Nitrogen 10 mg/dL (9-16); Calcium 9.1 mg/dL (8.4-10.2); Carbon Dioxide 22 mmol/L (22-29); Chloride 101 mmol/L (96-108); Creatinine Clr Calc Pharmacy 58.1; Estimated Glomerular Filt Rate > 60; Glucose Fasting 116 mg/dL (60-99); Potassium 3.4 mmol/L (3.3-5.1); Sodium 133 mmol/L (135-145)
[2022-08-05] MEDS: amLODIPine Besylate 5 MG TABLET PO (07:48)
[2022-08-05] MEDS: 0.9 % Sodium Chloride Flush 3 ML SYRINGE IVFLUSH ×2 (07:51→15:10)
--- NOTE | 2022-08-05 10:08 | P.PNIM_ITS ---
Subjective Subjective Date of Service: 08/05/22 Interval History: \no NSVT reported, to complet stress test today Physical Exam Vital Signs: Vital Signs: Last Vital Signs Temp 97.4 F 08/05/22 07:26 Pulse 70 08/05/22 07:26 Resp 20 08/05/22 07:26 BP 178/74 H 08/05/22 07:26 Pulse Ox 98 08/05/22 07:26 O2 Del Method Room Air 08/05/22 07:26 BMI result Body Mass Index 25.8 Const: Other: General: AO X 3, no acute distress Resp: CTA bilateral CVS: S1,S2,RRR GI: +BS, NT, no distention Skin: No rash Neuro: motor grossly intact Psych: appropriate affect Objective Data Active Medications Acetaminophen (Acetaminophen 325 Mg Tablet) 650 mg PO Q6H PRN PRN Reason: Pain, Mild (Pain Scale 1-3) Amlodipine Besylate (Amlodipine Besylate 5 Mg Tablet) 5 mg PO DAILY [facility]; Protocol Last Admin: 08/05/22 07:48 Dose: 5 mg Documented By: JOHN Docusate Sodium (Docusate Sodium 100 Mg Capsule) 100 mg PO DAILY PRN PRN Reason: Constipation Enoxaparin Sodium (Enoxaparin Sodium 40 Mg/0.4 Ml Syringe) 40 mg SUBCUT Q24H [facility] Last Admin: 08/04/22 16:21 Dose: 40 mg Documented By: VALERIANO Ondansetron HCl (Ondansetron Hcl 4 Mg/2 Ml Vial) 4 mg IVPUSH Q8H PRN PRN Reason: Nausea and Vomiting Pharmacy Consult (Consult Rx Perform Med Rec) 1 each MISCELLANE ONCE PRN PRN Reason: Consult order Sodium Chloride (0.9 % Sodium Chloride Flush 3 Ml Syringe) 3 ml IVFLUSH QSHIFT [facility] Last Admin: 08/05/22 07:51 Dose: 3 ml Documented By: JOHN Labs 08/05/22 06:14 08/05/22 06:14 Labs: Laboratory Results - last 24 hr 08/05/22 08/05/22 06:14 06:14 MCV 91.7 MCH 31.1 MCHC 33.9 RDW 13.5 Plt Count 224 MPV 9.2 L Absolute Nucleated RBC 0.000 Nucleated RBC % (auto) 0.0 Anion Gap 13 Estim Creat Clear Calc 58.1 Estimated GFR > 60 Fasting Glucose 116 H Calcium 9.1 Assessment and Plan (1) Near syncope: Status: Acute Plan ' 82M PMH HTN, history of prostate cancer, history of Mckinley palsy, GERD, aortic regurgitation, aortic root dilatation, sick sinus syndrome, thyroid nodule, 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%, presented with prescyncope presyncope/ previous syncope differential includes orthostatic hypotension, symptomatic antonio, cardiac arrythmiaholding acebutolol cardio following negative eeg chronic systolic chf with NSVT beta chantell held for antonio to complete stress test today cardio following continue tele ? need for pace maker at later time htn amldopine 5mg dvt prophylaxis - lovenox full code reason for continued hospitalization:working up [facility] Time Spent With Patient Time: Total time managing care of this patient today ____ minutes. Quality Stroke Does the patient have a stroke diagnosis?: No VTE Prior VTE?: No VTE Risk Level:: Medical - moderate - high VTE Device Contraindication: Treatment Not Indicated VTE Drug Contraindication: N/A - Med Ordered
--- NOTE | 2022-08-05 10:54 | PM.PNCARD ---
Subjective Subjective Date of Service: 08/05/22 Principal diagnosis: Near syncope, nonsustained VT Interval history: patient underwent resting portion today. Stress test results are pending. Echocardiogram does not show any significant change with normal LV systolic function. Review of Systems Constitutional: Reports no additional constitutional complaints Eyes: Reports no additional eye complaints Cardiovascular: Reports no additional cardiovascular complaints Gastrointestinal: Reports no additional gastrointestinal complaints Genitourinary: Reports no additional male genitourinary complaints Musculoskeletal: Reports no additional musculoskeletal complaints Reports system reviewed and no additional complaints, except as documented Physical Exam Vital Signs: Last Vital Signs Temp 97.4 F 08/05/22 07:26 Pulse 70 08/05/22 07:26 Resp 20 08/05/22 07:26 BP 178/74 H 08/05/22 07:26 Pulse Ox 98 08/05/22 07:26 O2 Del Method Room Air 08/05/22 07:26 BMI result Body Mass Index 25.8 Const General: cooperative, comfortable, no acute distress, alert, awake and Physically active Nutritional Appearance: average body habitus Orientation/consciousness: patient oriented x3 Limitations: no limitations Neck Neck: Yes trachea midline, Yes supple and Yes no JVD Resp Effort & Inspection: normal respiratory effort Auscultation: clear to auscultation bilaterally Cardio Jugular venous distension: no JVD Palpation: normal PMI Rate: regular rate Rhythm: regular rhythm Heart sounds: S1 normal heart sound present, S2 normal heart sound present, no click, no gallops and Murmur heart sound present systolic early, decrescendo and crescendo Skin General skin exam: no rashes or lesions noted Neuro General: patient oriented x3 and no focal motor deficits Extrem General: Yes no clubbing, cyanosis or edema Objective Labs and Meds 08/05/22 06:14 08/05/22 06:14 Lab results: Laboratory Results - last 24 hr 08/05/22 08/05/22 06:14 06:14 WBC 6.3 RBC 5.21 Hgb 16.2 Hct 47.8 MCV 91.7 MCH 31.1 MCHC 33.9 RDW 13.5 Plt Count 224 MPV 9.2 L Absolute Nucleated RBC 0.000 Nucleated RBC % (auto) 0.0 Sodium 133 L Potassium 3.4 Chloride 101 Carbon Dioxide 22 Anion Gap 13 BUN 10 Creatinine 0.90 Estim Creat Clear Calc 58.1 Estimated GFR > 60 Fasting Glucose 116 H Calcium 9.1 Progress Note: A&P Assessment and plan (1) Near syncope: Status: Acute Assessment and Plan: Near syncope in this elderly gentleman with nonsustained VT. I still think that his syncopal episodes related to orthostatic hypertension related to prolonged upright positioning and dehydration. However he does have nonsustained VT and structural heart disease needs to be ruled out. Awaiting results of myocardial perfusion imaging. Myocardial perfusion imaging is within normal limits with normal LV systolic function will require metoprolol therapy. In that setting given his baseline bradycardia and overnight significant bradycardia will require pacemaker therapy with dual-chamber pacemaker placement. This was discussed with him. He is agreeable. If pacemaker is needed will consult Dr. Perera and will be done most likely tomorrow. Will continue to follow with you Time Spent With Patient Time: Total time managing care of this patient today ____ minutes. Progress Note: Quality Stroke Does the patient have a stroke diagnosis?: No Procedures Date of Service Date of Service: 08/05/22
--- NOTE | 2022-08-05 12:49 | MHC.CM.PN ---
EMR REVIEWED, RESULTS OF STRESS TEST PENDING, PER CARDIO PT MAY NEED PACEMAKER PLACED WHICH WOULD BE DONE IN AM, NO PLAN FOR D/C AT THIS TIME, CM WILL CONT TO FOLLOW D/C NEEDS.
--- NOTE | 2022-08-05 14:37 | HO.THORCON_ITS ---
History of Present Illness Consult details Consult date: 08/05/22 Narrative: Thoracic surgical consultation for permanent pacemaker placement because of 1st degree AV block Chart was reviewed patient evaluated. [facility] Past Medical History Medical History Aortic regurgitation Aortic root dilatation First degree AV block GERD (gastroesophageal reflux disease) History of Mckinley's palsy History of prostate cancer History of shingles Hypertension Impaired glucose tolerance Irritable bowel syndrome Lightheaded Pulmonary nodule Pulmonary nodules/lesions, multiple Sick sinus syndrome Thyroid nodule Family History Family History Father No problems noted. Mother No problems noted. Family/Other Sudden Alzheimers disease Surgical History Surgical History History of cholecystectomy History of prostate surgery Social History Social History Household Members: Spouse Housing: House Do you presently have visiting nurse or other home services: No Alcohol intake: never Patient Tobacco Use Status: Never used Tobacco Smoked in Last 30 Days: No e-Cigarette/Vaping Use: Never Used Patient Interested in Nicotine Replacement: No Patient Given Instructions on How to Stop Smoking: No Second Hand Smoke Exposure: No Use of substances other than those prescribed or required for medical reasons: No Currently Displaying Signs/Symptoms of Drug Intoxication Withdrawal: No Have you been hit, kicked, punched, or otherwise hurt by someone within the past year? If so, by whom?: No Do you feel safe in your current relationship?: Yes Is there a partner from a previous relationship who is making you feel unsafe now?: No Are you made to feel afraid or neglected: No Advance Directives: Yes Advance Directives Information Provided: Yes Advance Directives on File: No Advance Directives Date on File: 08/02/22 Do you have thoughts of harming others: None Do you have a plan to hurt others: No Plan Recently lost weight without trying: No Eating poorly because of decreased appetite: No Nutrition Risks: No Nutritional Risk Poor oral hygiene: No service: No Current occupational status: retired Cognitive needs: No Hearing needs: No Vision needs: Yes Meds Allergies Allergy/AdvReac Type Severity Reaction Status Date / Time captopril [Captopril] Allergy Severe UNKNOWN, Verified 03/11/22 11:05 angioedema, anaphylaxis EDGARD Inhibitors Allergy Unknown UNKNOWN Verified 03/11/22 11:05 [Edgard Inhibitors] Active Medications: Current Medications Acetaminophen (Acetaminophen 325 Mg Tablet) 650 mg PO Q6H PRN PRN Reason: Pain, Mild (Pain Scale 1-3) Amlodipine Besylate (Amlodipine Besylate 5 Mg Tablet) 5 mg PO DAILY [facility]; Protocol Last Admin: 08/05/22 07:48 Dose: 5 mg Docusate Sodium (Docusate Sodium 100 Mg Capsule) 100 mg PO DAILY PRN PRN Reason: Constipation Enoxaparin Sodium (Enoxaparin Sodium 40 Mg/0.4 Ml Syringe) 40 mg SUBCUT Q24H [facility] Last Admin: 08/04/22 16:21 Dose: 40 mg Ondansetron HCl (Ondansetron Hcl 4 Mg/2 Ml Vial) 4 mg IVPUSH Q8H PRN PRN Reason: Nausea and Vomiting Pharmacy Consult (Consult Rx Perform Med Rec) 1 each MISCELLANE ONCE PRN PRN Reason: Consult order Sodium Chloride (0.9 % Sodium Chloride Flush 3 Ml Syringe) 3 ml IVFLUSH QSHIFT [facility] Last Admin: 08/05/22 07:51 Dose: 3 ml Home Medications Medication Instructions Recorded Confirmed Last Taken Type aspirin 81 mg tablet,delayed 81 mg PO DAILY 12/27/19 08/02/22 08/02/22 History release (Adult Aspirin Regimen) Physical Exam Vital Signs: Vital Signs: Last Vital Signs Temp 97.2 F 08/05/22 12:00 Pulse 78 08/05/22 12:00 Resp 20 08/05/22 12:00 BP 158/77 H 08/05/22 12:00 Pulse Ox 97 08/05/22 12:00 O2 Del Method Room Air 08/05/22 12:00 BMI result Body Mass Index 25.8 Chest: Other: Chest breath sounds bilaterally, HS 1 in 2 GI: Other: abdomen soft benign Results Labs 08/05/22 06:14 08/05/22 06:14 Labs: Abnormal lab results 08/05/22 08/05/22 Range/Units 06:14 06:14 MPV 9.2 L (9.4-12.4) fL Sodium 133 L (135-145) mmol/L Fasting Glucose 116 H (60-99) mg/dL Short CBC 08/05/22 Range/Units 06:14 WBC 6.3 (4.8-10.8) X10*3/uL Hgb 16.2 (14.0-18.0) g/dl Hct 47.8 (42.0-52.0) % Plt Count 224 (160-400) X10*3/uL BMP 08/05/22 06:14 Sodium 133 L Potassium 3.4 Chloride 101 Carbon Dioxide 22 BUN 10 Creatinine 0.90 Calcium 9.1 Urine 08/02/22 Range/Units 15:00 Urine Color Yellow Urine Appearance Clear Urine pH 7.0 (5.0-9.0) Ur Specific [place] <= 1.005 (1.005-1.025) Urine Protein Negative (Neg-Trace) mg/dL Urine Glucose (UA) Negative (Negative) mg/dL All other labs normal. Assessment and Plan (1) First degree AV block: Status: Acute Plan I met with the patient and his was also present and discussed the risks, benefits, alternatives of permanent pacemaker placement which included but not limited to bleeding, infection, pneumothorax, numbness, pain, scarring, lead dislodgement and the patient wishes to proceed. All questions were answered. Arrangements will be made for this for tomorrow. [employer] inside technical sales representative was called and will provide service for tomorrow. Time Spent With Patient Time: Total time managing care of this patient today ____ minutes. Procedures Date of Service Date of Service: 08/05/22
[2022-08-05] MEDS: Enoxaparin Sodium 40 MG/0.4 ML SYRINGE SUBCUT (15:10)
[2022-08-06] VITALS (76 sets, daily range): BP systolic 82–195; BP diastolic 43–89; PULSE 56–103; RESP 12–20; TEMP 36.1–36.5; O2SAT 95–99; BMI 25.4
--- NOTE | 2022-08-06 | ECG_ITS ---
Test Reason : R/o [place] Blood Pressure : / mmHG Vent. Rate : 056 BPM Atrial Rate : 056 BPM P-R Int : 260 ms QRS Dur : 092 ms QT Int : 440 ms P-R-T Axes : 018 053 100 degrees QTc Int : 424 ms Sinus bradycardia with 1st degree A-V block Nonspecific T wave abnormality Abnormal ECG When compared to the previous EKG of No significant changes seen Referred By: Wicho Pierce Electronically Signed By:STIVEN EAST MD
[2022-08-06] MEDS: amLODIPine Besylate 5 MG TABLET PO (08:01)
[2022-08-06] MEDS: 0.9 % Sodium Chloride Flush 3 ML SYRINGE IVFLUSH ×2 (08:01→23:24)
--- NOTE | 2022-08-06 10:21 | P.PNIM_ITS ---
Subjective Subjective Date of Service: 08/06/22 Interval History: Seen and evaluated feels anxious abotut the procedure no overnight events Review of Systems Review of Systems: Yes all other systems are reviewed and are negative Physical Exam Vital Signs: Vital Signs: Last Vital Signs Temp 97.7 F 08/06/22 07:31 Pulse 72 08/06/22 07:31 Resp 20 08/06/22 07:31 BP 195/89 H 08/06/22 07:31 Pulse Ox 97 08/06/22 07:31 O2 Del Method Room Air 08/06/22 07:31 BMI result Body Mass Index 25.8 Const: Other: Constitutional : Awake, interactive, not in distress Neck : Normal inspection, Supple Cardiovascular : RRR, no JVP, no lower extremity edema Respiratory : good bilateral air entry, no crackles, wheezes or rhonchi Gastrointestinal: soft, lax, Normal bowel sounds, Non tender Skin : Warm, Dry Neurological : Alert & oriented x3, No focal deficit Objective Data Active Medications Acetaminophen (Acetaminophen 325 Mg Tablet) 650 mg PO Q6H PRN PRN Reason: Pain, Mild (Pain Scale 1-3) Amlodipine Besylate (Amlodipine Besylate 5 Mg Tablet) 5 mg PO DAILY [facility]; Protocol Last Admin: 08/06/22 08:01 Dose: 5 mg Documented By: MIL Docusate Sodium (Docusate Sodium 100 Mg Capsule) 100 mg PO DAILY PRN PRN Reason: Constipation Enoxaparin Sodium (Enoxaparin Sodium 40 Mg/0.4 Ml Syringe) 40 mg SUBCUT Q24H [facility] Last Admin: 08/05/22 15:10 Dose: 40 mg Documented By: RERE Ondansetron HCl (Ondansetron Hcl 4 Mg/2 Ml Vial) 4 mg IVPUSH Q8H PRN PRN Reason: Nausea and Vomiting Pharmacy Consult (Consult Rx Perform Med Rec) 1 each MISCELLANE ONCE PRN PRN Reason: Consult order Sodium Chloride (0.9 % Sodium Chloride Flush 3 Ml Syringe) 3 ml IVFLUSH QSHIFT [facility] Last Admin: 08/06/22 08:01 Dose: 3 ml Documented By: MIL Labs 08/05/22 06:14 08/05/22 06:14 Assessment and Plan (1) Near syncope: Status: Acute (2) First degree AV block: Status: Acute Plan ' 82M PMH HTN, history of prostate cancer, history of Mckinley palsy, GERD, aortic regurgitation, aortic root dilatation, sick sinus syndrome, thyroid nodule, 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%, presented with prescyncope presyncope/ previous syncope likely duo to orthostatic hypotension or symptomatic antonio negative eeg PT prior to DC chronic systolic chf Not in exacerbabtion Bradycardia with NSVT beta chantell held but will be needed to prevent NSVTs completed stress test , cardio following continue tele Plan for PPM placement today by dr Perera To start BB afterward Elevated BP in htn amldopine 5mg To start BB Monitor dvt prophylaxis - lovenox full code reason for continued hospitalization: pending PPM placement Time Spent With Patient Time: Total time managing care of this patient today ____ minutes. Quality Stroke Does the patient have a stroke diagnosis?: No VTE Prior VTE?: No VTE Risk Level:: Medical - moderate - high VTE Device Contraindication: Treatment Not Indicated VTE Drug Contraindication: N/A - Med Ordered
--- NOTE | 2022-08-06 10:35 | P.PNCA_ITS ---
Subjective Subjective Date of Service: 08/06/22 Principal diagnosis: Near syncope, nonsustained VT Interval history: Patient had nonsustained VT again yesterday. No symptoms related to it. No hemodynamic compromise. Blood pressure remains elevated. Review of Systems Review of Systems Yes all other systems are reviewed and are negative Physical Exam Vital Signs: Last Vital Signs Temp 97.7 F 08/06/22 07:31 Pulse 72 08/06/22 07:31 Resp 20 08/06/22 07:31 BP 195/89 H 08/06/22 07:31 Pulse Ox 97 08/06/22 07:31 O2 Del Method Room Air 08/06/22 07:31 BMI result Body Mass Index 25.8 Const General: cooperative, comfortable, no acute distress, alert, awake and Physically active Nutritional Appearance: average body habitus Orientation/consciousness: patient oriented x3 Limitations: no limitations Neck Neck: Yes trachea midline, Yes supple and Yes no JVD Resp Effort & Inspection: normal respiratory effort Auscultation: clear to auscultation bilaterally Cardio Jugular venous distension: no JVD Palpation: normal PMI Rate: regular rate Rhythm: regular rhythm Heart sounds: S1 normal heart sound present, S2 normal heart sound present, no click, no gallops and Murmur heart sound present systolic early, decrescendo and crescendo Skin General skin exam: no rashes or lesions noted Neuro General: patient oriented x3 and no focal motor deficits Extrem General: Yes no clubbing, cyanosis or edema Objective Labs and Meds 08/05/22 06:14 08/05/22 06:14 Imaging Radiologist's impression: Impressions Myocardial Perfusion Scan Nuc Med 08/05/22 09:00 Impression: 1. Normal myocardial perfusion 2. Gated LVEF is 52% 3. Transient ischemic dilatation not present Stress EKG is equivocal for ischemia Progress Note: A&P Assessment and plan (1) Nonsustained ventricular tachycardia: Status: Acute Assessment and Plan: Nonsustained ventricular tachycardia with normal structure of the heart with no evidence of ischemia normal LV systolic function. Will need beta-chantell therapy. However given his underlying sinus bradycardia and significant overnight bradycardia will need pacemaker therapy which is being planned today. (2) Sick sinus syndrome: Status: Acute Assessment and Plan: Pacemaker plan today. Once pacemaker implanted would start him on Toprol-XL 50 mg daily overnight. If he remains free of ventricular arrhythmias plan for dis charge tomorrow. Risks, benefits, alternatives to pacemaker therapy were discussed with him. He understands and agrees. (3) Uncontrolled hypertension: Status: Acute Assessment and Plan: Uncontrolled hypertension. Continue amlodipine therapy. Please add valsartan 80 mg at suppertime. Also Toprol-XL 50 mg after pacemaker placement. Part of the blood pressure elevations probably related to his anxiety. Antianxiety medications to be pursued. Will continue monitor closely. Continue oral hydration. Will follow up with you Time Spent With Patient Time: Total time managing care of this patient today ____ minutes. Progress Note: Quality Stroke Does the patient have a stroke diagnosis?: No Procedures Date of Service Date of Service: 08/06/22
--- NOTE | 2022-08-06 11:45 | P.CDIM_ITS ---
PROVIDER RESPONSE TEXT: To clarify, the appropriate diagnosis supported by the clinical indicators: Non-ischemic cardiomyopathy QUERY TEXT: PHYSICIAN'S DOCUMENTATION REQUEST Date of Query: 08/06/2022 10:34 AM EDT Patient Name: Hung Reyna Admit Date: 08/04/2022 Dear Eran Gibson, A review of the medical record indicates additional documentation may be needed. Please review below and update the documentation accordingly. Clinical Indicators: PN: Assessment and plan - Cardiomyopathy ef 30-40% Completed stress test, CHF, presyncope, HTN Based on the above, could you clarify any specifics to the documented cardiomyopathy: Hypertensive cardiomyopathy Ischemic cardiomyopathy Dilated cardiomyopathy Non-ischemic cardiomyopathy Other Other (explain)Clinically unable to determine (explain)Thank you, Paula Shepard, CCS, CDIS Use of terms such as suspected, likely, concern for, or probable (associated with a specific diagnosi s that is being evaluated, monitored, or treated as if it exists) are acceptable and can be coded in the inpatient se tting, when documented at the time of discharge. Please use your independent medical judgment in providing your response. THIS QUERY IS PART OF THE PERMANENT MEDICAL RECORD
--- NOTE | 2022-08-06 13:16 | P.CONAN_ITS ---
HPI - Anesthesia Eval Consult details Narrative: for pacer due to SSS and NSVT [facility] Active Problems Active Problems: All Active Problems (Updated 08/06/22 @ 10:37 by Mendoza Bah MD) Uncontrolled hypertension (Acute) Nonsustained ventricular tachycardia (Acute) Near syncope (Acute) First degree AV block (Acute) Impacted cerumen of left ear (Acute) Lightheaded (Acute) Impacted cerumen of both ears (Acute) History of prostate cancer (Acute) Aortic valve disease (Acute) Cough (Acute) Chills (Acute) GERD (gastroesophageal reflux disease) (Acute) UIP (usual interstitial pneumonitis) (Acute) Aortic root dilatation (Acute) Sick sinus syndrome (Acute) Pulmonary nodules/lesions, multiple (Acute) Impaired glucose tolerance (Acute) Hypertension (Acute) TSH elevation (Acute) Past Medical History Medical History Aortic regurgitation Aortic root dilatation First degree AV block GERD (gastroesophageal reflux disease) History of Mckinley's palsy History of prostate cancer History of shingles Hypertension Impaired glucose tolerance Irritable bowel syndrome Lightheaded Pulmonary nodule Pulmonary nodules/lesions, multiple Sick sinus syndrome Thyroid nodule Family History Family History Father No problems noted. Mother No problems noted. Family/Other Sudden Alzheimers disease Family history of problems with anesthesia: No Surgical History Surgical History History of cholecystectomy History of prostate surgery Social History Social History Household Members: Spouse Housing: House Do you presently have visiting nurse or other home services: No Alcohol intake: never Patient Tobacco Use Status: Never used Tobacco Smoked in Last 30 Days: No e-Cigarette/Vaping Use: Never Used Patient Interested in Nicotine Replacement: No Patient Given Instructions on How to Stop Smoking: No Second Hand Smoke Exposure: No Use of substances other than those prescribed or required for medical reasons: No Currently Displaying Signs/Symptoms of Drug Intoxication Withdrawal: No Have you been hit, kicked, punched, or otherwise hurt by someone within the past year? If so, by whom?: No Do you feel safe in your current relationship?: Yes Is there a partner from a previous relationship who is making you feel unsafe now?: No Are you made to feel afraid or neglected: No Are you DNR?: No Advance Directives: Yes Advance Directives Information Provided: Yes Advance Directives on File: No Advance Directives Date on File: 08/02/22 Do you have thoughts of harming others: None Do you have a plan to hurt others: No Plan Recently lost weight without trying: No Eating poorly because of decreased appetite: No Nutrition Risks: No Nutritional Risk Poor oral hygiene: No service: No Current occupational status: retired Cognitive needs: No Hearing needs: No Vision needs: Yes Meds Allergies Allergy/AdvReac Type Severity Reaction Status Date / Time captopril [Captopril] Allergy Severe UNKNOWN, Verified 03/11/22 11:05 angioedema, anaphylaxis EDGARD Inhibitors Allergy Unknown UNKNOWN Verified 03/11/22 11:05 [Edgard Inhibitors] Active Medications: Current Medications Acetaminophen (Acetaminophen 325 Mg Tablet) 650 mg PO Q6H PRN PRN Reason: Pain, Mild (Pain Scale 1-3) Amlodipine Besylate (Amlodipine Besylate 5 Mg Tablet) 5 mg PO DAILY [facility]; Protocol Last Admin: 08/06/22 08:01 Dose: 5 mg Docusate Sodium (Docusate Sodium 100 Mg Capsule) 100 mg PO DAILY PRN PRN Reason: Constipation Enoxaparin Sodium (Enoxaparin Sodium 40 Mg/0.4 Ml Syringe) 40 mg SUBCUT Q24H [facility] Last Admin: 08/05/22 15:10 Dose: 40 mg Ondansetron HCl (Ondansetron Hcl 4 Mg/2 Ml Vial) 4 mg IVPUSH Q8H PRN PRN Reason: Nausea and Vomiting Pharmacy Consult (Consult Rx Perform Med Rec) 1 each MISCELLANE ONCE PRN PRN Reason: Consult order Sodium Chloride (0.9 % Sodium Chloride Flush 3 Ml Syringe) 3 ml IVFLUSH QSHIFT [facility] Last Admin: 08/06/22 08:01 Dose: 3 ml Home Medications Medication Instructions Recorded Confirmed Last Taken Type aspirin 81 mg tablet,delayed 81 mg PO DAILY 12/27/19 08/02/22 08/02/22 History release (Adult Aspirin Regimen) Exam Exam Date and Time: August 06, 2022 1316 Height,Weight and Vital Signs: Height 5 ft 7 in Weight 74.843 kg Last Vital Signs Temp 97.6 F 08/06/22 13:06 Pulse 62 08/06/22 13:06 Resp 16 08/06/22 13:06 BP 180/58 H 08/06/22 13:06 Pulse Ox 97 08/06/22 13:06 O2 Del Method Room Air 08/06/22 13:06 Pertinent Lab Results Pertinent Lab Results: Laboratory Tests 08/02/22 08/02/22 08/02/22 09:09 09:09 09:09 WBC 6.9 RBC 5.15 Hgb 15.7 Hct 46.7 MCV 90.7 MCH 30.5 MCHC 33.6 RDW 13.3 Plt Count 232 MPV 8.9 L Immature Gran % (Auto) 0.6 H Neut % (Auto) 66.7 Lymph % (Auto) 18.4 L Terry % (Auto) 8.8 Eos % (Auto) 3.6 Baso % (Auto) 1.9 Lymph # (Auto) 1.3 Terry # (Auto) 0.6 Eos # (Auto) 0.3 Baso # (Auto) 0.1 Abs Immat Gran (auto) 0.04 H Absolute Neuts (auto) 4.6 Absolute Nucleated RBC 0.000 Nucleated RBC % (auto) 0.0 Sodium 131 L Potassium 4.3 Chloride 100 Carbon Dioxide 23 Anion Gap 12 BUN 9 Creatinine 1.06 Estim Creat Clear Calc 49.3 Estimated GFR > 60 Random Glucose 118 H Fasting Glucose Calcium 8.9 Magnesium Total Bilirubin 1.4 H AST 19 ALT 16 Alkaline Phosphatase 84 Troponin I High Sens 6.1 Total Protein 7.0 Albumin 3.8 TSH 3.63 Free T4 0.97 Urine Color Urine Appearance Urine pH Ur Specific [place] Urine Protein Urine Glucose (UA) Urine Ketones Urine Blood Urine Nitrite Ur Leukocyte Esterase 08/02/22 08/03/22 08/03/22 15:00 05:54 05:54 WBC 7.3 RBC 5.29 Hgb 16.1 Hct 48.1 MCV 90.9 MCH 30.4 MCHC 33.5 RDW 13.4 Plt Count 232 MPV 9.3 L Immature Gran % (Auto) 0.7 H Neut % (Auto) 55.4 Lymph % (Auto) 26.4 Terry % (Auto) 10.3 Eos % (Auto) 5.1 H Baso % (Auto) 2.1 H Lymph # (Auto) 1.9 Terry # (Auto) 0.8 Eos # (Auto) 0.4 Baso # (Auto) 0.2 Abs Immat Gran (auto) 0.05 H Absolute Neuts (auto) 4.0 Absolute Nucleated RBC 0.000 Nucleated RBC % (auto) 0.0 Sodium 134 L Potassium 4.2 Chloride 104 Carbon Dioxide 23 Anion Gap 11 L BUN 14 Creatinine 1.01 Estim Creat Clear Calc 51.8 Estimated GFR > 60 Random Glucose 109 Fasting Glucose Calcium 9.0 Magnesium 2.3 Total Bilirubin AST ALT Alkaline Phosphatase Troponin I High Sens Total Protein Albumin TSH Free T4 Urine Color Yellow Urine Appearance Clear Urine pH 7.0 Ur Specific [place] <= 1.005 Urine Protein Negative Urine Glucose (UA) Negative Urine Ketones Negative Urine Blood Negative Urine Nitrite Negative Ur Leukocyte Esterase Negative 08/04/22 08/04/22 08/05/22 05:48 05:48 06:14 WBC 6.5 6.3 RBC 5.33 5.21 Hgb 16.6 16.2 Hct 49.0 47.8 MCV 91.9 91.7 MCH 31.1 31.1 MCHC 33.9 33.9 RDW 13.5 13.5 Plt Count 232 224 MPV 9.2 L 9.2 L Immature Gran % (Auto) Neut % (Auto) Lymph % (Auto) Terry % (Auto) Eos % (Auto) Baso % (Auto) Lymph # (Auto) Terry # (Auto) Eos # (Auto) Baso # (Auto) Abs Immat Gran (auto) Absolute Neuts (auto) Absolute Nucleated RBC 0.000 0.000 Nucleated RBC % (auto) 0.0 0.0 Sodium 134 L Potassium 3.8 Chloride 102 Carbon Dioxide 24 Anion Gap 12 BUN 12 Creatinine 0.94 Estim Creat Clear Calc 55.6 Estimated GFR > 60 Random Glucose Fasting Glucose 112 H Calcium 9.2 Magnesium Total Bilirubin AST ALT Alkaline Phosphatase Troponin I High Sens Total Protein Albumin TSH Free T4 Urine Color Urine Appearance Urine pH Ur Specific [place] Urine Protein Urine Glucose (UA) Urine Ketones Urine Blood Urine Nitrite Ur Leukocyte Esterase 08/05/22 06:14 WBC RBC Hgb Hct MCV MCH MCHC RDW Plt Count MPV Immature Gran % (Auto) Neut % (Auto) Lymph % (Auto) Terry % (Auto) Eos % (Auto) Baso % (Auto) Lymph # (Auto) Terry # (Auto) Eos # (Auto) Baso # (Auto) Abs Immat Gran (auto) Absolute Neuts (auto) Absolute Nucleated RBC Nucleated RBC % (auto) Sodium 133 L Potassium 3.4 Chloride 101 Carbon Dioxide 22 Anion Gap 13 BUN 10 Creatinine 0.90 Estim Creat Clear Calc 58.1 Estimated GFR > 60 Random Glucose Fasting Glucose 116 H Calcium 9.1 Magnesium Total Bilirubin AST ALT Alkaline Phosphatase Troponin I High Sens Total Protein Albumin TSH Free T4 Urine Color Urine Appearance Urine pH Ur Specific [place] Urine Protein Urine Glucose (UA) Urine Ketones Urine Blood Urine Nitrite Ur Leukocyte Esterase Airway Mallampati Class: II TM Dist: >3cm Neck ROM: Full Heart: rrr Lungs: cta Assessment and Plan Assessment Anesthesia Assessment: Anesthesia Plan Discussed Final Anesthetic Review Family History of Problems with Anesthesia: No ASA Class: III and Emergency Final Preanesthetic Review: No Changes in Pt Med Stat, Meds/Allgs Chart Reviewed, Consent Obtained/Reviewed and Anes Risks/Benef Reviewed Patient Risk: Intermediate Procedure Risk: Intermediate Anesthetic Plan Anesthetic Plan: MAC: Disposition: Standard PACU
--- NOTE | 2022-08-06 16:48 | P.OP_ITS ---
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 Single /ventricular lead placement only Surgeon: [] Trever Software Engineer Sales: [] Type of Anesthesia: [] MAC Findings; The patient had an initial uneventful initial cannulation of the left subclavian vein as well as placement of the ventricular lead. Multiple att empts at atrial lead placement were undertaken without success . A variety of maneuvers in techniques including patient bed position and wires were undertaken, with still no ability to appropriately place the atrial lead. Because of the concern of patient to further tolerate the procedure and in combination with prolonged radiation exposure, the decision was made to terminate the procedure and keep the ventricular lead in, cap the atrial component of the generator and reconsider therapeutic options. Procedure; patient brought to the operating room, placed on operative table supine position, after adequate level of MAC anesthesia was induced, having already placed a shoulder roll behind the shoulders, patient was placed in Trendelenburg position, left arm pulled inferiorly, and the left neck and chest were prepped and draped in usual sterile fashion. Using Seldinger technique, uneventful cannulation the left subclavian vein was performed , where dark, nonpulsatile blood was retrieved, and a wire advanced to the level of superior vena cava under fluoroscopic guidance. A pacemaker pocket was fashioned at the skin entry site using electro Bovie. A dilating sheath was placed over the wire under fluoroscopic guidance, and the wire retained. The ventricular lead was uneventfully advanced into the right ventricle under fluoroscopic guidance , with good sensing, capture and impeding obtained from [employer] data. Please refer to [employer] work sheet regarding these values. Peel-away sheath was uneventfully removed and ventricular lead secured in the pocket with interrupted 2-0 silk sutures. Over the retained wire, dilating sheath for atrial lead was again advanced under fluoroscopic guidance and wire removed. As noted in findings, several attempts at atrial lead placement /positioning were attempted all unsuccessfully. Variety of techniques and wires were used in attempt to cannulate the right atrium unsuccessfully. I had a dialogue with the [employer] rep, Florence, in that I was not comfortable where she was telling me to place and secure the atrial lead because although she had had good readings for the atrial lead where she suggested I implant in that position it but I was not comfortable with the position on fluoroscopy. Because of the prolonged procedure, in combination with the patient's inability to further tolerate continued attempts along with extended radiation exposure, decision was made to terminate the procedure , with only the ventricular lead placed. Ventricular lead was connected to the to the ventricular portion of the generator and appropriately secured. Atrial component was capped. Generator was then placed in the pocket. The wound was irrigated, secured hemostasis, and closed using interrupted inverted dermal 3-0 Vicryl sutures followed by Steri- Strips and sterile dressings. Left upper extremity was placed in the sling. Patient was transferred to the recovery room for further restorative measures. Postprocedure chest x-ray in recovery room, which was also read by read the radiologist, demonstrated no pneumothorax or hemo thorax and lead overlying right ventricle.. EBL approximately 750 mL.
[2022-08-06 17:33] LABS: Basophils Absolute Auto 0.1 X10*3/uL (0.0-0.2); Basophils Percent Auto 0.7 % (0-2); Eosinophils Percent Auto 0.2 % (0-4); Hematocrit 40.2 % (42.0-52.0); Hemoglobin 13.2 g/dl (14.0-18.0); Imm Gran Abs Auto 0.37 X10*3/uL (0.00-0.03); Imm Gran Pct Auto 2.1 % (0.0-0.4); Lymphocytes Absolute Auto 0.8 X10*3/uL (1.2-4.9); Lymphocytes Percent Auto 4.4 % (20-40); MANUAL DIFF FLAG SCAN; Mean Corpuscular HGB Conc 32.8 g/dl (31.0-36.0); Mean Corpuscular Hemoglobin 30.6 pg (27.0-33.0); Mean Corpuscular Volume 93.1 fL (80.0-98.0); Monocytes Absolute Auto 0.2 X10*3/uL (0.1-1.2); Monocytes Percent Auto 1.2 % (2-11); Neutrophils Absolute Auto 16.5 x10*3/uL (2.0-8.3); Neutrophils Percent Auto 91.4 % (45-73); Platelet Count 241 X10*3/uL (160-400); Red Blood Count 4.32 X10*6/uL (4.60-5.80); Red Cell Distribution Width 13.5 % (11.0-16.0); SCAN SMEAR FLAG 1
[2022-08-06 17:48] LABS: Anion Gap 14 (12-20); Blood Urea Nitrogen 12 mg/dL (9-16); Calcium 8.8 mg/dL (8.4-10.2); Carbon Dioxide 23 mmol/L (22-29); Chloride 101 mmol/L (96-108); Creatinine Clr Calc Pharmacy 44.7; Estimated Glomerular Filt Rate 60; Glucose Random 176 mg/dL (60-115); Potassium 4.5 mmol/L (3.3-5.1); Sodium 133 mmol/L (135-145)
[2022-08-06] MEDS: Atropine Sulfate 1 MG/10 ML SYRINGE 0.5 MG IVPUSH (17:50)
[2022-08-06 17:53] LABS: B Type Natriuretic Peptide 124 pg/mL (<100)
[2022-08-06 17:55] LABS: SLIDE REVIEW VERIFIED
[2022-08-06 18:09] LABS: Troponin-I High Sensitivity 257.9 ng/L (<3.5-35.0)
[2022-08-06 18:49] LABS: Hematocrit 36.1 % (42.0-52.0); Hemoglobin 12.1 g/dl (14.0-18.0)
--- NOTE | 2022-08-06 19:06 | PM.ANESPN ---
Subjective Subjective Date of Service: 08/06/22 Interval history: EVENT NOTE IN PACU: Mr. Reyna arrived to PACU in likely hemorrhagic shock. Initial BP was 155/63, but then dropped progressively. Pt is c/o that his speech doesn't feel normal, altho I wouldn't have detected that from listening to him talk. On neurologic exam, everything is intact except for very very subtle left facial droop. 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 Initial EKG notable for ? minor ST elev in V1-3, but unchanged from August 02 tracing. Labs drawn at 1727 show Hb 13.2 (down from 16.2 on August 05), creat 1.2 (0.9 on 08/05), and troponin 257. Initial echo attempt: unable to clearly visualize any cardiac structures, altho LV fxn probably normal. Unable to visualize IVC. Discussed neuro status with Lala Gonzalez. Nothing to do at this point. MRI and neurology consult tomorrow. (The patient was actually seen in consultation by Dr. Mitchell on July.) Recurrent hypotension to 80s at 1730. Rebolused w fluids. Reecho: Unable to clearly visualize cardiac chambers, but excellent view of IVC obtained. Measured 1.1cm with about 80% insp collapse. More fluids given. BP shelly rapidly to about 110 range. Repeat labs at 1843 (after total 3L of crystalloid) show Hb down to 12.1. Lactate is 2.8. Trop up to 347. Repeat EKG shows ? new very slight Tw inversion in V4-5. BP now 128/65/73. Spoke with Dr. Mitchell about the advisability of putting him on pressors to raise his BP to the patient's usual level (about 140-150 systolic, per the [employer] records). He agreed with that strategy, so I've started the patient on neosynephrine, and he'll go to ICU for the night. Discussed with Dr. Bah. He thinks this is all demand ischemia. He already follows the patient and will see him tomorrow. I will sign the patient out to Erik Schaefer in the ICU. 2049: Spoke to Dr. Connors. He is looking into further mx of the patient. Time at the bedside and in consultations (after PACU sign out): 140+ min. Physical Exam Vital Signs: Vital Signs: Last Vital Signs Temp 97 F 08/06/22 17:08 Pulse 77 08/06/22 19:03 Resp 16 08/06/22 19:03 BP 118/51 L 08/06/22 19:03 Pulse Ox 98 08/06/22 19:03 O2 Del Method Nasal Cannula 08/06/22 19:03 O2 Flow Rate 2 08/06/22 19:03 BMI result Body Mass Index 25.8 Progress Note: A&P Time Spent With Patient Time: Total time managing care of this patient today ____ minutes. Progress Note: Quality Stroke Does the patient have a stroke diagnosis?: No Procedures Date of Service Date of Service: 08/06/22
[2022-08-06 19:25] LABS: Lactic Acid 2.8 mmol/L (0.5-2.0)
[2022-08-06 19:26] LABS: Troponin-I High Sensitivity 347.8 ng/L (<3.5-35.0)
--- NOTE | 2022-08-06 19:30 | PC.NURSE ---
1922 critical result called from lab lactic acid 2.8. dr. garrison remains at bedside managing patient's hemodynamics made aware 1924 critical result called from lab troponin 347.8. dr. garrison remains at bedside managing patient hemodynamics. patient receiving stat ekg at this time being reviewed by dr. garrison.
[2022-08-06] MEDS: Phenylephrine HCL 20 MG in 0.9 % Sodium Chloride 250 ML 56.58 MG IVCONT (19:57)
--- NOTE | 2022-08-06 20:00 | PC.NURSE ---
Dr. Pierce ordered to start drip at 1mcg/kg/hr. Goal is to get systolic [address] Pierce made cardiology aware. Plan is for patient to be admitted to ICU.
--- NOTE | 2022-08-06 20:27 | MHC.STROKE ---
Addendum entered by Lala Gonzalez RN 08/07/22 20:20: 1434 I RECEIVED A CALL FROM SAW PÉREZ RN, SHE PROVIDED ME AN UPDATE THE THE PATIENTS RECENT [facility]. I INSTRUCTED HER TO CONTACT DR. LOWE NEUROLOGY. SHE INDICATED THAT DR DR BIRMINGHAM WAS REACHING OUT TO HIM. AT [address] LOWE AND RELAYED THAT GIANNI BIRMINGHAM WILL BE REACHING OUT TO HIM. AT 1517 HE HAD NOT RECEIVED A CONSULT REQUEST, AT 1549 DR. LOWE SAID HE STILL HAS NOT RECEIVED THE CONSULT. AT 1553 I TEXTED SAW HALE BACK AND RELAYED THE MESSAGE THAT DR. LOWE HAS NOT BEEN CONTACTED FOR A CONSULT. AT 1611 YUAN PÉREZ RN NOTIFIED ME THAT THE PATIENT WAS BEING TRANSFERRED TO [facility]. AT [address] LOWE THAT THE PATIENT WAS BEING TRANSFERRED TO [facility]. Original Note: 1727 I RECEIVED A CALL FROM DR DOWELL, HE EXPLAINED THE NEURO STATUS OF THE PATIENT AND RECENT SURGICAL PROCEDURE. HE WAS CONCERNED ABOUT SLURRED SPEECH AND HYPOTENSION. HISTORY OF AGUILAR'S PALSY. WE DISCUSSED GETTING AN MRI TO IDENTIFY A WATERSHED STROKE DUE TO HYPOTENSION. THE PATIENT DOES NOT MEET INCLUSION CRITERIA FOR THROMBOLYTICS DUE TO RECENT SURGICAL PROCEDURE. DURING OUR DISCUSSION HE REPORTED THE PATIENTS BP IMPROVED SBP 120 BUT THE PATIENT STILL THOUGHT HE SPEECH WAS SLURRED. I AGAIN RECOMMENDED THE MRI AND TO CONSULT NEUROLOGY AND TO CONTINUE TO MONITOR. AT 1933 I RECEIVED A SECOND CALL FROM DR DOWELL, HE DISCUSSED THE BP AND MEDICATIONS OPTIONS, I ADVISED HIM TO SPEAK WITH THE NEUROLOGIST. I DID NOTIFY DR LOWE TO EXPECT A CALL FROM DR DOWELL FOR FURTHER GUIDANCE AND RECOMMENDATIONS. DR LOWE HAD SEEN THE PATIENT 08/03/22. SEE MD NOTES.
--- NOTE | 2022-08-06 20:31 | PC.NURSE ---
Leigh Reyna phone number: [phone] Son Simon Reyna Phone number [phone]
[2022-08-06 20:46] LABS: Reflex Lactate? Lactic Acid Added
[2022-08-06] MEDS: ondansetron HCL 4 MG/2 ML VIAL IVPUSH (21:20)
[2022-08-06 21:27] LABS: Hematocrit 40.1 % (42.0-52.0); Hemoglobin 13.6 g/dl (14.0-18.0)
[2022-08-06 21:43] LABS: Anion Gap 16 (12-20); Blood Urea Nitrogen 14 mg/dL (9-16); Calcium 8.8 mg/dL (8.4-10.2); Carbon Dioxide 21 mmol/L (22-29); Chloride 101 mmol/L (96-108); Creatinine Clr Calc Pharmacy 50.3; Estimated Glomerular Filt Rate > 60; Glucose Random 159 mg/dL (60-115); Potassium 4.3 mmol/L (3.3-5.1); Sodium 134 mmol/L (135-145)
--- NOTE | 2022-08-06 21:51 | PC.NURSE ---
Dr. Pierce signed out to Dr. Hills. Dr. Hills ordered to decreased drip to 0.5mcg/kg/min
[2022-08-06 21:55] LABS: Troponin-I High Sensitivity 341.3 ng/L (<3.5-35.0)
--- NOTE | 2022-08-06 22:32 | W.PM.CCCN ---
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 Reportedly the patient had episodes like this before and had been admitted due to syncope at [facility].? The workup there her revealed TSH of 6.76 with normal free T4, normal hepatic function, borderline low hypo kalemia 3.5 along with other labs that were essentially normal.? His EKG has shown first-degree AV block with frequent PVCs.? Echo done showed left ventricular ejection fraction of 30-40% with global hypokinesis and regional variation.? Medications had been adjusted.? ? During the ED visit, the patient had been having some mild bradycardia with heart rate between 49 and 62 but otherwise normotensive and asymptomatic at rest.? He did however develop symptoms of lightheadedness upon ambulation for about 50 ft or so.? Cardiology was consulted and decision was made to place a permanent pacemaker.? Given the possibility of neurogenic origin a neuro consult had also been requested, an EEG done was normal showing mild generalized slowing without evidence of seizure disorder, suggestion for an ambulatory EEG was made.? He had a myocardial perfusion scan which was overall normal with a gated left ventricular ejection fraction of 52% and transient ischemic dilation not present.? Stress EKG equivocal for ischemia. ? Patient underwent permanent pacemaker placement in the OR, initial reported EBL was 300, he had become hypotensive with systolics in the 50s and 60s for about 30 minutes, given IV fluid, the patient became diaphoretic.? With IV fluids the patient's blood pressure went up to the 120s but he had reported that he was not feeling well and he thought his speech was different. ?Transiently his blood pressure systolic lead had been in the 150s and subsequently dropped again to the 80s at which point Levophed was started by Dr. Pierce. ?It was also reported the patient had a nonsustained run of ventricular tachycardia, It was then noticed under the blankets that the patient had a significant amount of blood on the stretcher and it is estimated that the total blood loss was probably about 100 cc.? He had discussed the case with the neurologist in regards to this patient's current reported speech difficulty although no clear dysarthria was noted, there was a question of a slight facial droop on the left side but then again the patient has a known history of Mckinley's palsy.? The agreement had been made to keep the patient on Levophed for a target systolic blood pressure of 1 40s to 150s.? MRI suggestion in the morning as well as a re-evaluation by the neurologist. ? Laboratories were checked twice while in the PACU in his H&H is currently 13.6 and 40.1 (from 16 and 47.8).? His lactic acid had been as high as 3.0, serial troponins were obtained with the highest at 347.8 and currently at 341.3 however no EKG changes are noted.? The postprocedural chest x-ray shows left-sided pacer with a single lead projecting over the right ventricle, no pneumothorax and no new opacities.? Stable coarse interstitial opacities. ?The remainder time in the PACU and while on Levophed the patient had normalized blood pressure then no further symptomatology.? Patient was transferred to the ICU for further surveillance. ? Review of systems: As above, otherwise the patient denies any prior history of strokes, cold intolerance, migraine headaches, head trauma, no eyes, ears or nose problems, no problems swallowing or with phonation, denies any history of chest pain, palpitations, coronary disease, cough, sputum production, pneumonia, bronchitis, COPD or emphysema, abdominal pain, nausea, vomiting, diarrhea, abdominal surgeries, melena, hematochezia, hematemesis, hematuria, kidney stones, liver problems, immunocompromise state of any kind, no history of DVT or PE, leg edema, fractures or extremity surgeries all other review of systems were reviewed and they were all negative. ? Past Medical History:? As above Pulmonary nodules Interstitial pneumonitis GERD Cerumen impaction both ears Shingles ? Past Surgical History: Cholecystectomy Prostate surgery ? Family history:? Noncontributory ? Social History:? Per records the patient lives at home with his , never used tobacco, does not drink. ? CODE STATUS: FULL CODE ? Allergies: NKDA ? Home Medications: See Med Rec ? PHYSICAL EXAM: VS: ?117/48, 59, 13, 96% on 2 L nasal cannula. General:? Alert oriented x3 no acute distress.? Speaking full sentences.? Speech is well articulated, thought process is coherent.? Following all commands. Skin:? Intact, no lesions, edema, erythema, clubbing or cyanosis.? No ulcers. HEENT:? Head is normocephalic, atraumatic, pupils equal round reactive to light accommodation bilaterally.? Extraocular movements appear intact.? Buccal mucosa is moist, Neck is supple without lymphadenopathy. Cardiac:? Clear S1-S2, no murmurs rubs or gallops.? Left upper chest surgical site cover with gauze, clean, dry, intact. Pulmonary:? Clear to auscultation, no wheezes, rales or rhonchi. Abdomen:? Protuberant, positive bowel sounds in all 4 quadrants.? Soft, nontender, no rebound or guarding.? Musculoskeletal:? Moving all 4 extremities upon request a major joints, there is no crepitus or tenderness.? The strength is 5/5 bilaterally and throughout all 4 extremities.? There is no leg edema , no calf tenderness , no leg asymmetry.? Gait not assessed at this point. Neurologic:? As above, cranial nerves 2-12 are grossly intact.? No focal deficits noted. Vascular:? 2+ pulses upper and lower extremities distally. ? SIGNIFICANT LABORATORY DATA:? As above ? REVIEW OF IMAGES: ?As above ? EKG REVIEW:? As above ? ASSESSMENT : 1. Postop day 0. status post permanent single lead ventricular pacemaker 2. Hemorrhagic shock due to surgical site acute blood loss 3. Minor acute blood loss anemia 4. Reactive lactic acidosis/metabolic acidosis; there is no evidence of sepsis or active infection 5. Stress related troponin elevation without EKG changes, unlikely ACS 6. Hypovolemic hypoosmolar hyponatremia 7. Reactive leukocytosis without evidence of active infection 8. Chronic diabetes mellitus type 2 9. History of hypothyroidism 10. Transient reported speech difficulties rule out TIA versus anesthesia effects (symptoms are now resolved) ? PLAN OF CARE: Patient was transferred to ICU for further monitoring, monitor vital signs and I and O's, patient appears hypovolemic, bedside ultrasound of the IVC shows fully collapsible IVC with a 1.2 cm diameter.? The patient is still on Levophed, clinically speaking the patient does not appear to have any neurological deficits and or complaints at this point, his speech is completely unremarkable. Per Dr. Mitchell and Dr. Quintana suggestion an MRI will be ordered for the morning, to rule out the possibility of TIA related transient speech difficulties. We will continue to give him Levophed, this was attempted to be discontinued but his blood pressure did go below 100 systolic which in turn can create hypoperfusion to the brain worsening patient's symptomatology until stroke is ruled out.? Patient will remain NPO. Will repeat laboratories in the morning, administer a slow IV fluids.? Monitor blood sugars, insulin sliding scale.? Repeat lactic acid has normalized.? There is no electrolyte abnormalities. ?At this point I have not started the patient on aspirin, lipid profile should follow. ?If necessary depending on MRI, carotid ultrasound may be done. ? GI PROPHYLAXIS: ?IV ppi DVT PROPHYLAXIS:? Pneumatic stockings while in bed due to recent surgical site hemorrhage. ? Critical care time used for critical evaluation of this patient, diagnosis, treatment and coordination of care, review her records and documentation TOTAL CRITICAL CARE TIME?90 MIN . discussion and coordination with consultants, completely separate from any procedures performed. Patient's care was discussed in detail with Dr. Connors.? He is aware of all the above as well as the plan of care for this patient. [facility] Past Medical History Medical History Aortic regurgitation Aortic root dilatation First degree AV block GERD (gastroesophageal reflux disease) History of Mckinley's palsy History of prostate cancer History of shingles Hypertension Impaired glucose tolerance Irritable bowel syndrome Lightheaded Pulmonary nodule Pulmonary nodules/lesions, multiple Sick sinus syndrome Thyroid nodule Family History Family History Father No problems noted. Mother No problems noted. Family/Other Sudden Alzheimers disease Surgical History Surgical History History of cholecystectomy History of prostate surgery Social History Social History Household Members: Spouse Housing: House Do you presently have visiting nurse or other home services: No Alcohol intake: never Patient Tobacco Use Status: Never used Tobacco e-Cigarette/Vaping Use: Never Used Second Hand Smoke Exposure: No Advance Directives Date on File: 08/02/22 service: No Current occupational status: retired Cognitive needs: No Hearing needs: No Vision needs: Yes Meds Allergies Allergy/AdvReac Type Severity Reaction Status Date / Time captopril [Captopril] Allergy Severe UNKNOWN, Verified 03/11/22 11:05 angioedema, anaphylaxis EDGARD Inhibitors Allergy Unknown UNKNOWN Verified 03/11/22 11:05 [Edgard Inhibitors] Active Medications: Current Medications Acetaminophen (Acetaminophen 325 Mg Tablet) 650 mg PO Q6H PRN PRN Reason: Pain, Mild (Pain Scale 1-3) Amlodipine Besylate (Amlodipine Besylate 5 Mg Tablet) 5 mg PO DAILY [facility]; Protocol Last Admin: 08/06/22 08:01 Dose: 5 mg Docusate Sodium (Docusate Sodium 100 Mg Capsule) 100 mg PO DAILY PRN PRN Reason: Constipation Enoxaparin Sodium (Enoxaparin Sodium 40 Mg/0.4 Ml Syringe) 40 mg SUBCUT Q24H MICKEY Last Admin: 08/05/22 15:10 Dose: 40 mg Phenylephrine HCl 20 mg/ (Sodium Chloride) 252 mls @ 0 mls/hr IVCONT .Q0M [facility]; Protocol Last Titration: 08/06/22 22:09 Dose: 0.8 mcg/kg/min, 45.27 mls/hr Metoprolol Succinate (Metoprolol Succinate Er 25 Mg Tab.Er.24h) 25 mg PO BEDTIME MICKEY; Protocol Ondansetron HCl (Ondansetron Hcl 4 Mg/2 Ml Vial) 4 mg IVPUSH Q8H PRN PRN Reason: Nausea and Vomiting Last Admin: 08/06/22 21:20 Dose: 4 mg Pharmacy Consult (Consult Rx Perform Med Rec) 1 each MISCELLANE ONCE PRN PRN Reason: Consult order Sodium Chloride (0.9 % Sodium Chloride Flush 3 Ml Syringe) 3 ml IVFLUSH QSHIFT [facility] Last Admin: 08/06/22 18:26 Dose: Not Given Home Medications Medication Instructions Recorded Confirmed Last Taken Type aspirin 81 mg tablet,delayed 81 mg PO DAILY 12/27/19 08/02/22 08/02/22 History release (Adult Aspirin Regimen) Physical Exam Vital Signs: Vital Signs: Last Vital Signs Temp 97.3 F 08/06/22 22:26 Pulse 62 08/06/22 22:26 Resp 14 08/06/22 22:26 BP 126/55 L 08/06/22 22:26 Pulse Ox 98 08/06/22 22:26 O2 Del Method Nasal Cannula 08/06/22 22:26 O2 Flow Rate 2 08/06/22 22:26 BMI result Body Mass Index 25.8 Results Labs 08/06/22 21:15 08/06/22 21:15 Labs: Short CBC 08/06/22 08/06/22 08/06/22 Range/Units 17:24 17:24 18:43 WBC 18.0 H (4.8-10.8) X10*3/uL Hgb Cancelled 13.2 L 12.1 L Hct Cancelled 40.2 L 36.1 L Plt Count 241 (160-400) X10*3/uL 08/06/22 Range/Units 21:15 WBC (4.8-10.8) X10*3/uL Hgb 13.6 L Hct 40.1 L Plt Count (160-400) X10*3/uL BMP 08/06/22 08/06/22 17:24 21:15 Sodium 133 L 134 L Potassium 4.5 D 4.3 Chloride 101 101 Carbon Dioxide 23 21 L BUN 12 14 Creatinine 1.17 1.04 Calcium 8.8 8.8 Assessment and Plan Time Spent With Patient Time: Total time managing care of this patient today ____ minutes.
[2022-08-06 23:24] LABS: Reflex Lactate? 2 Y
[2022-08-07] VITALS (19 sets, daily range): BP systolic 99–160; BP diastolic 42–78; PULSE 63–85; RESP 13–20; TEMP 36.2–36.6; O2SAT 91–98
[2022-08-07 00:26] LABS: ~Lactic Acid-LAB USE ONLY 2.9 mmol/L (0.5-2.0)
[2022-08-07] MEDS: Sodium Chloride 0.45 % 1,000 ML 100 ML IVCONT ×2 (01:17→11:23)
--- NOTE | 2022-08-07 03:41 | PC.NURSE ---
Pt transferred to ICU at 2230. A&O x4. Phenylephrine gtt running at 0.8mcg on arrival to unit. IVF infusing. 3L NC in place, O2 at 97% - decreased to 2L and maintaining sats at 95%. Pt bladder scanned for 316mL - pt has no urge to void. Will bladder scan in 2 hours.
[2022-08-07 05:42] LABS: MANUAL DIFF FLAG NO
[2022-08-07 05:44] LABS: Basophils Percent Auto 0.3 % (0-2); Hematocrit 34.3 % (42.0-52.0); Hemoglobin 11.4 g/dl (14.0-18.0); Imm Gran Pct Auto 0.9 % (0.0-0.4); Lymphocytes Absolute Auto 0.9 X10*3/uL (1.2-4.9); Mean Corpuscular HGB Conc 33.2 g/dl (31.0-36.0); Mean Corpuscular Hemoglobin 30.9 pg (27.0-33.0); Mean Platelet Volume 9.5 fL (9.4-12.4); Monocytes Absolute Auto 0.7 X10*3/uL (0.1-1.2); Monocytes Percent Auto 6.6 % (2-11); Neutrophils Percent Auto 84.2 % (45-73); Platelet Count 201 X10*3/uL (160-400); Red Blood Count 3.69 X10*6/uL (4.60-5.80); Red Cell Distribution Width 13.4 % (11.0-16.0); White Blood Count 10.7 X10*3/uL (4.8-10.8)
[2022-08-07 06:00] LABS: Anion Gap 14 (12-20); Blood Urea Nitrogen 15 mg/dL (9-16); Calcium 8.3 mg/dL (8.4-10.2); Carbon Dioxide 17 mmol/L (22-29); Chloride 105 mmol/L (96-108); Creatinine Clr Calc Pharmacy 63.8; Estimated Glomerular Filt Rate > 60; Glucose Random 141 mg/dL (60-115); Potassium 4.1 mmol/L (3.3-5.1); Sodium 132 mmol/L (135-145)
[2022-08-07 06:11] LABS: Troponin-I High Sensitivity 345.9 ng/L (<3.5-35.0)
--- NOTE | 2022-08-07 07:00 | CA_ITS ---
Transthoracic Echocardiogram Patient (Last, First, Middle): Hung Reyna C Gender: Male Date of : 1940 Age: 82 Procedure Date: 08/07/2022 Procedure Type: Transthoracic Echocardiogram Location: ICU Height: 170.18 cm Weight: 33.57 kg BSA: 1.33 m2 Heart Rate: 76 bpm BP: 132 / 81 mmHg Senior Information Security Engineer: GEOVANNA Referring MD: Ross Andres MD Library Paraprofessional: Mendoza Bah MD Symptoms: pacer lead placement Study Quality: Poor/Limited Echo ECG Rhythm: Arrhythmia Conclusions: - Abnormal pacing lead placement in the left ventricular cavity, retrograde through the aortic valve Findings Left Ventricle Pacer lead noted in the LV cavity traversing retrogradely to the ascending aorta out through the aortic valve, abnormal lead position Prior Study Comparison Changes noted compared to prior study dated: 08/04/2022. pacing lead noted in the left ventricular cavity Measurements Aortic Valve AI Pk Tino: 4.31 AI Love: 1.64 Updated in Other Vendor System with Status of Final Mendoza Bah MD electronically signed on 08/07/2022 3:02:08 PM with status of Final
[2022-08-07] MEDS: 0.9 % Sodium Chloride Flush 3 ML SYRINGE IVFLUSH (07:43)
[2022-08-07] MEDS: iohexoL 350 MG/ML 100 ML INFUS..BTL 70 ML IV (12:38)
--- NOTE | 2022-08-07 12:50 | P.PNTS_ITS ---
Subjective Subjective Date of Service: 08/13/22 Interval history: Patient is hemodynamically stable. H/ H stable overnight. Patient's and [id number] are present during evaluation. Cardiac echo performed this morning in the ICU by animated cartoons painter/shredding machine knife changer on duty suggests that ventricular lead was placed into the left ventricle. Physical Exam Vital Signs: Vital Signs: Last Vital Signs Temp 97.2 F 08/07/22 08:00 Pulse 77 08/07/22 11:00 Resp 20 08/07/22 11:00 BP 136/66 08/07/22 10:00 Pulse Ox 95 08/07/22 11:00 O2 Del Method Nasal Cannula 08/07/22 11:00 O2 Flow Rate 2 08/07/22 11:00 BMI result Body Mass Index 25.4 HEENT: Other: mild left facial paresis. Patient is able to communicate and verbalize. Chest: Other: Dressing clean dry and intact. Breath sounds bilaterally. GI: Other: Abdomen soft, benign Extrem: Other: Extremities all 4 grossly neurovascularly intact Procedures Date of Service Date of Service: 08/13/22 Progress Note: A&P Assessment and plan (1) Pacemaker complications: Status: Acute (2) First degree AV block: Status: Acute Plan The cardiac lead mis-placement was discussed with patient, and in great detail with patient's and daughter- In- law. During the procedure,The combination of dark, nonpulsatile blood which was accessed using Seldinger technique in combination with fluoroscopic findings were interpreted as having achieved venous access. Current echo findings explain the inability to place right atrial lead during the procedure.. Ventricular lead needs to to be removed. Because of limited cardiac and vascular back up available @ [facility] , a recommendation with been made in conjunction with the shredding machine knife changer, and patient's animated cartoons painter and anesthesia, that that the patient would be best served by transferring him to [facility] ,where these are available. Consideration for contralateral permanent pacemaker placement at the same setting will be deferred to [facility] cardiology. Patient's family understands the recommendation made. Arrangements are currently underway for transfer. Patient's and [id number] understood the current plan, and all questions were answered. Time Spent With Patient Time: Total time managing care of this patient today ____ minutes. Quality Stroke Does the patient have a stroke diagnosis?: No VTE Prior VTE?: No VTE Risk Level:: Medical - moderate - high VTE Device Contraindication: Treatment Not Indicated VTE Drug Contraindication: N/A - Med Ordered
--- NOTE | 2022-08-07 13:38 | P.PNCA_ITS ---
Subjective Subjective Date of Service: 08/07/22 Principal diagnosis: Near syncope, nonsustained VT, pacemaker complication Interval history: Patient underwent a pacemaker placement attempt yesterday. The procedure was very prolonged and complicated with significant blood loss during the surgery. Postoperatively there was difficulty in placing an atrial lead as I was reported and subsequently patient had significant bleeding and drop in blood pressure. Patient subsequently had some neurologic symptoms and was transferred to ICU for further management. Continue to neurologic symptoms and there was a concern about displacement of pacemaker lead. This was then subsequently confirmed to be in the left subclavian artery traversing retrogradely through the aortic valve into the left ventricle. This was confirmed by an echocardiogram. Vascular CTA has been performed to evaluate for any other vascular complication. There is drop in patient hematocrit however this has remained stable with no other obvious bleeding. Review of Systems Constitutional: Reports no additional constitutional complaints Eyes: Reports no additional eye complaints Cardiovascular: Reports no additional cardiovascular complaints Respiratory: Reports no additional respiratory complaints Reports Abnormal speech present Psychiatric: Reports anxiety Physical Exam Vital Signs: Last Vital Signs Temp 97.2 F 08/07/22 08:00 Pulse 85 08/07/22 13:00 Resp 17 08/07/22 13:00 BP 154/73 H 08/07/22 13:00 Pulse Ox 95 08/07/22 13:00 O2 Del Method Nasal Cannula 08/07/22 13:00 O2 Flow Rate 2 08/07/22 13:00 BMI result Body Mass Index 25.4 Const General: cooperative, no acute distress, alert and awake Nutritional Appearance: average body habitus Orientation/consciousness: patient oriented x3 Neck Neck: Yes trachea midline, Yes supple and Yes no JVD Resp Effort & Inspection: normal respiratory effort Auscultation: clear to auscultation bilaterally Cardio Jugular venous distension: no JVD Palpation: normal PMI Rate: regular rate Rhythm: regular rhythm Heart sounds: S1 normal heart sound present, S2 normal heart sound present, no click, no gallops, no murmurs and no rubs Skin General skin exam: no rashes or lesions noted Neuro General: patient oriented x3 and no focal motor deficits Speech: Abnormal speech present Extrem General: Yes no clubbing, cyanosis or edema Objective Labs and Meds 08/07/22 05:32 08/07/22 05:32 Lab results: Laboratory Results - last 24 hr 08/06/22 08/06/22 08/06/22 17:24 17:24 17:24 WBC RBC Hgb Cancelled Hct Cancelled MCV MCH MCHC RDW Plt Count MPV Immature Gran % (Auto) Neut % (Auto) Lymph % (Auto) [place] % (Auto) Eos % (Auto) Baso % (Auto) Lymph # (Auto) [place] # (Auto) Eos # (Auto) Baso # (Auto) Abs Immat Gran (auto) Absolute Neuts (auto) Absolute Nucleated RBC Nucleated RBC % (auto) Smear Tech's Comments Sodium 133 L Potassium 4.5 D Chloride 101 Carbon Dioxide 23 Anion Gap 14 BUN 12 Creatinine 1.17 Estim Creat Clear Calc 44.7 Estimated GFR 60 Random Glucose 176 H Lactic Acid Lactic Acid F/U @ 2Hr Lactic Acid F/U @ 4Hr Calcium 8.8 Troponin I High Sens 257.9 H* D B-Natriuretic Peptide 08/06/22 08/06/22 08/06/22 17:24 17:24 18:43 WBC 18.0 H RBC 4.32 L Hgb 13.2 L 12.1 L Hct 40.2 L 36.1 L MCV 93.1 MCH 30.6 MCHC 32.8 RDW 13.5 Plt Count 241 MPV 9.0 L Immature Gran % (Auto) 2.1 H Neut % (Auto) 91.4 H Lymph % (Auto) 4.4 L [place] % (Auto) 1.2 L Eos % (Auto) 0.2 Baso % (Auto) 0.7 Lymph # (Auto) 0.8 L [place] # (Auto) 0.2 Eos # (Auto) 0.0 Baso # (Auto) 0.1 Abs Immat Gran (auto) 0.37 H Absolute Neuts (auto) 16.5 H Absolute Nucleated RBC 0.000 Nucleated RBC % (auto) 0.0 Smear Tech's Comments VERIFIED Sodium Potassium Chloride Carbon Dioxide Anion Gap BUN Creatinine Estim Creat Clear Calc Estimated GFR Random Glucose Lactic Acid Lactic Acid F/U @ 2Hr Lactic Acid F/U @ 4Hr Calcium Troponin I High Sens B-Natriuretic Peptide 124 H 08/06/22 08/06/22 08/06/22 18:43 18:43 21:15 WBC RBC Hgb Hct MCV MCH MCHC RDW Plt Count MPV Immature Gran % (Auto) Neut % (Auto) Lymph % (Auto) [place] % (Auto) Eos % (Auto) Baso % (Auto) Lymph # (Auto) [place] # (Auto) Eos # (Auto) Baso # (Auto) Abs Immat Gran (auto) Absolute Neuts (auto) Absolute Nucleated RBC Nucleated RBC % (auto) Smear Tech's Comments Sodium Potassium Chloride Carbon Dioxide Anion Gap BUN Creatinine Estim Creat Clear Calc Estimated GFR Random Glucose Lactic Acid 2.8 H* Lactic Acid F/U @ 2Hr 3.0 H* Lactic Acid F/U @ 4Hr Calcium Troponin I High Sens 347.8 H* B-Natriuretic Peptide 08/06/22 08/06/22 08/06/22 21:15 21:15 21:15 WBC RBC Hgb 13.6 L Hct 40.1 L MCV MCH MCHC RDW Plt Count MPV Immature Gran % (Auto) Neut % (Auto) Lymph % (Auto) [place] % (Auto) Eos % (Auto) Baso % (Auto) Lymph # (Auto) [place] # (Auto) Eos # (Auto) Baso # (Auto) Abs Immat Gran (auto) Absolute Neuts (auto) Absolute Nucleated RBC Nucleated RBC % (auto) Smear Tech's Comments Sodium 134 L Potassium 4.3 Chloride 101 Carbon Dioxide 21 L Anion Gap 16 BUN 14 Creatinine 1.04 Estim Creat Clear Calc 50.3 Estimated GFR > 60 Random Glucose 159 H Lactic Acid Lactic Acid F/U @ 2Hr Lactic Acid F/U @ 4Hr Calcium 8.8 Troponin I High Sens 341.3 H* B-Natriuretic Peptide 08/06/22 08/07/22 08/07/22 23:54 05:32 05:32 WBC 10.7 RBC 3.69 L Hgb 11.4 L Hct 34.3 L MCV 93.0 MCH 30.9 MCHC 33.2 RDW 13.4 Plt Count 201 MPV 9.5 Immature Gran % (Auto) 0.9 H Neut % (Auto) 84.2 H Lymph % (Auto) 8.0 L [place] % (Auto) 6.6 Eos % (Auto) 0.0 Baso % (Auto) 0.3 Lymph # (Auto) 0.9 L [place] # (Auto) 0.7 Eos # (Auto) 0.0 Baso # (Auto) 0.0 Abs Immat Gran (auto) 0.10 H Absolute Neuts (auto) 9.0 H Absolute Nucleated RBC 0.000 Nucleated RBC % (auto) 0.0 Smear Tech's Comments Sodium 132 L Potassium 4.1 Chloride 105 Carbon Dioxide 17 L Anion Gap 14 BUN 15 Creatinine 0.82 Estim Creat Clear Calc 63.8 Estimated GFR > 60 Random Glucose 141 H Lactic Acid Lactic Acid F/U @ 2Hr Lactic Acid F/U @ 4Hr 2.9 H* Calcium 8.3 L Troponin I High Sens B-Natriuretic Peptide 08/07/22 05:32 WBC RBC Hgb Hct MCV MCH MCHC RDW Plt Count MPV Immature Gran % (Auto) Neut % (Auto) Lymph % (Auto) [place] % (Auto) Eos % (Auto) Baso % (Auto) Lymph # (Auto) [place] # (Auto) Eos # (Auto) Baso # (Auto) Abs Immat Gran (auto) Absolute Neuts (auto) Absolute Nucleated RBC Nucleated RBC % (auto) Smear Tech's Comments Sodium Potassium Chloride Carbon Dioxide Anion Gap BUN Creatinine Estim Creat Clear Calc Estimated GFR Random Glucose Lactic Acid Lactic Acid F/U @ 2Hr Lactic Acid F/U @ 4Hr Calcium Troponin I High Sens 345.9 H* B-Natriuretic Peptide Imaging Radiologist's impression: Impressions Chest X-Ray 08/06/22 17:07 IMPRESSION: 1. Left-sided pacer with single lead projecting over the right ventricle. 2. No pneumothorax. 3. Stable coarse interstitial opacities. 4. No new focal airspace opacities. Progress Note: A&P Assessment and plan (1) Pacemaker complications: Status: Acute Assessment and Plan: Patient with pacemaker complication with displacement of the lead in the arterial system into the left subclavian artery into the left ventricle. He had significant bleeding complication during the surgery. Postoperatively appears that his hematocrit is stable. He is having neurologic symptoms. Lead identified in the left ventricle could potentially cause neurologic complication. Would avoid IV heparin given his recent arteriotomy, as well as attempt of placing another lead through the subclavian artery and anticipated surgery. Had a very prolonged discussion with the family member and patient needs surgery to remove his left ventricular lead. This best performed by vascular surgery at a tertiary care center. This opinion which showed by the oven technician at patient bedside as he will require open procedure with vascular bleeding control and possible patch repair of the left subclavian artery. Discussed in details with the family about the missed placement of the pacemaker lead and that it needs removal. I had discussions with multiple different institutions including at [facility] Cardiothoracic surgery. EPS at [facility] felt that this would be best taken care of at a different hospitals them [facility]. Did discuss with vascular surgery at [facility] who is a vascular surgeon and who is quality rep and has been graciously accepted at [facility] for further care for taking care of his lead removal and if require subclavian artery patch repair under direct observation. Subsequently will need a dual-chamber pacemaker which also can be done at [facility]. Did discuss with the family and they understand and are agreeable. Case discussed with intensive care unit team as well. Would avoid using IV heparin at this point time given his recent surgery and he meralgia complication (2) Nonsustained ventricular tachycardia: Status: Acute Plan Runs of nonsustained ventricular tachycardia with normal LV systolic function no evidence of myocardial ischemia by myocardial perfusion imaging. Treatment would be with beta-chantell although he has underlying significant bradycardia and was therefore require dual-chamber pacemaker prior to initiation of beta- chantell therapy. This was discussed with the patient and he is agreeable to pursue. Most likely will require right pectorals system. Greater than 2 hours were spent in coordinating his care with multiple inst itutions. Time Spent With Patient Time: Total time managing care of this patient today ____ minutes. Progress Note: Quality Stroke Does the patient have a stroke diagnosis?: No Procedures Date of Service Date of Service: 08/07/22
--- NOTE | 2022-08-07 15:29 | MHC.CM.PN ---
EMR REVIEWED: PER NOTES, PT WILL BE TRANSFERRED TO [facility] DUE TO PACEMAKER COMPLICATION. CM WILL CONTINUE TO FOLLOW FOR ANY CHANGE IN PLAN.
[2022-08-07] MEDS: Sodium Chloride 3 % 100 ML 25 ML IV (15:35)
--- NOTE | 2022-08-07 15:36 | P.DS_ITS ---
DS: Providers Provider Date of Service: 08/07/22 Date of admission: 08/04/22 12:33 Primary care physician: Maverick Maier MD Consults: 08/02/22 16:03 Consult to Cardiology Routine Consulting Provider: [facility] Reason for consultation: syncope/near-syncope Consult to Neurology Routine Consulting Provider: [facility] Reason for consultation: syncope/near- syncope DS: Transfer Hospital Acceptance Reason for Transfer: new pacemaker lead placed via the left subclavian artery and seen to extend through the ascending aorta and across the aortic valve to the left ventricle in addition, patient developed a new dysarthria and CT scan of head and chest vessels and brain indicated a right superior cerebellar artery infarct causing a right cerebellar infarct without evidence of hemorrhage and without evidence of mass effect Name of Facility: [facility] Accepting Provider: Dr. 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: Status: Acute DS: Summary Hospital Course Hospital Course: this 82-year-old gentleman with multiple episodes of near-syncope previously seen in [facility] was discharged without a plan or convey diagnosis to the family and upon having recurrent episodes presented to our hospital where it was noted that he had bradycardia and correlating with symptoms of lightheadedness and near syncope were pauses that took place clearly an appropriate recommendation for permanent pacing and as result went to the OR on the 1 day ago and inadvertently the ventricular lead was placed via the left subclavian artery and even the the film read postoperatively just 7 that they noted appropriately in in the ventricle new lead placement but apparently there was difficulty in getting lead access they had to abandon any attempt at the atrial because of severe bleeding complications which finally got under control but the it when I looked at the chest x-ray this morning I felt the line was going down the aortic root and not in the superior vena cava and I did a bedside echo documenting the presence of the ventricular wire going across the aortic valve into the left ventricle at which point I notified the surgeon and the is later on the patient expressed a symptom similar to the day before which was dysarthria which is waxing and waning no other particular symptom complaint and and I obtained CT scan with contrast of the head as well as of the chest and neck arterial tree demonstrating the presence of the pacemaker wire in the left subclavian artery then passed via the aortic root into the left ventricle and also a new right cerebellar infarct in the territory of the right superior cerebellar artery and without any presence of dissection it looked like this could be embolic it was felt that the correction for this could not be done in this hospital because we do not have thoracostomy capability and for that will in a once pulling the the lead we would have to have bleeding control of the artery which we could not potentially obtain and then with the added neurologic complication we clearly felt tertiary institution not only to help correct this complication but in addition to place a new right-sided dual-chamber pacemaker to satisfy his sick sinus syndrome so again after I noticed on bedside echo we obtained a formal echo and the formal echo confirmed very clearly the malplacement of the pacing wire in the arterial system rather than the venous system and at that point we conferred wi th the the surgeon with anesthesia and I attempted to confer with Neurology here but got no answer so I called Neurology in [place] and there were very helpful in advising me and the decision for rapid transfer to [facility] was made Status at Discharge Cognitive/behavioral status at discharge: patient has excellent cognitive function with no change no progression of focal neurologic complaints Time Spent with Patient Time attestation: Total time managing care of this patient today ____ minutes. Discharge coordination time: Greater than 30 minutes Quality: Safe Use of Opioids Does Pt have an Active Cancer Diagnosis on the Problem List?: No Quality: Stroke Does the patient have a stroke diagnosis?: Yes Reason for No Anti-thrombotic at DC: Contraindicated Reason for No Anticoagulant at DC: Contraindicated Reason Not Initiating IV-Tpa: Contraindicated Reason for No Anti-thrombotic by Day Two: Contraindicated Reason for No Statin at DC: Drug treatment not indicated Physical Exam Vital Signs: Vital Signs: Last Vital Signs Temp 97.2 F 08/07/22 08:00 Pulse 78 08/07/22 15:00 Resp 15 08/07/22 15:00 BP 160/65 H 08/07/22 15:00 Pulse Ox 96 08/07/22 15:00 O2 Del Method Nasal Cannula 08/07/22 15:00 O2 Flow Rate 2 08/07/22 15:00 Oxygen Flow Rate 2 08/07/22 13:20 BMI result Body Mass Index 25.4 his vital signs have been excellent current pressure is 155/68 respiratory rate 18 oxygen saturation 96% sinus rhythm rate 77 and by bedside echo global preservation of LV function without segmental abnormality and there is a mild a 1+ aortic insufficiency that was noted apparently at least a portion of this being chronic lungs with diffuse bilateral rales but it looks even going back over old films like he probably has some residual of interstitial fibrosis abdomen benign soft no organomegaly nontender peripherally without any edema no neck vein distension no acrocyanosis DS: Data Data Completed and Pending Labs on day of discharge: Laboratory Results - last 24 hr 08/06/22 08/06/22 08/06/22 17:24 17:24 17:24 WBC RBC Hgb Cancelled Hct Cancelled MCV MCH MCHC RDW Plt Count MPV Immature Gran % (Auto) Neut % (Auto) Lymph % (Auto) [place] % (Auto) Eos % (Auto) Baso % (Auto) Lymph # (Auto) [place] # (Auto) Eos # (Auto) Baso # (Auto) Abs Immat Gran (auto) Absolute Neuts (auto) Absolute Nucleated RBC Nucleated RBC % (auto) Smear Tech's Comments Sodium 133 L Potassium 4.5 D Chloride 101 Carbon Dioxide 23 Anion Gap 14 BUN 12 Creatinine 1.17 Estim Creat Clear Calc 44.7 Estimated GFR 60 Random Glucose 176 H Lactic Acid Lactic Acid F/U @ 2Hr Lactic Acid F/U @ 4Hr Calcium 8.8 Troponin I High Sens 257.9 H* D B-Natriuretic Peptide 08/06/22 08/06/22 08/06/22 17:24 17:24 18:43 WBC 18.0 H RBC 4.32 L Hgb 13.2 L 12.1 L Hct 40.2 L 36.1 L MCV 93.1 MCH 30.6 MCHC 32.8 RDW 13.5 Plt Count 241 MPV 9.0 L Immature Gran % (Auto) 2.1 H Neut % (Auto) 91.4 H Lymph % (Auto) 4.4 L [place] % (Auto) 1.2 L Eos % (Auto) 0.2 Baso % (Auto) 0.7 Lymph # (Auto) 0.8 L [place] # (Auto) 0.2 Eos # (Auto) 0.0 Baso # (Auto) 0.1 Abs Immat Gran (auto) 0.37 H Absolute Neuts (auto) 16.5 H Absolute Nucleated RBC 0.000 Nucleated RBC % (auto) 0.0 Smear Tech's Comments VERIFIED Sodium Potassium Chloride Carbon Dioxide Anion Gap BUN Creatinine Estim Creat Clear Calc Estimated GFR Random Glucose Lactic Acid Lactic Acid F/U @ 2Hr Lactic Acid F/U @ 4Hr Calcium Troponin I High Sens B-Natriuretic Peptide 124 H 08/06/22 08/06/22 08/06/22 18:43 18:43 21:15 WBC RBC Hgb Hct MCV MCH MCHC RDW Plt Count MPV Immature Gran % (Auto) Neut % (Auto) Lymph % (Auto) [place] % (Auto) Eos % (Auto) Baso % (Auto) Lymph # (Auto) [place] # (Auto) Eos # (Auto) Baso # (Auto) Abs Immat Gran (auto) Absolute Neuts (auto) Absolute Nucleated RBC Nucleated RBC % (auto) Smear Tech's Comments Sodium Potassium Chloride Carbon Dioxide Anion Gap BUN Creatinine Estim Creat Clear Calc Estimated GFR Random Glucose Lactic Acid 2.8 H* Lactic Acid F/U @ 2Hr 3.0 H* Lactic Acid F/U @ 4Hr Calcium Troponin I High Sens 347.8 H* B-Natriuretic Peptide 08/06/22 08/06/22 08/06/22 21:15 21:15 21:15 WBC RBC Hgb 13.6 L Hct 40.1 L MCV MCH MCHC RDW Plt Count MPV Immature Gran % (Auto) Neut % (Auto) Lymph % (Auto) [place] % (Auto) Eos % (Auto) Baso % (Auto) Lymph # (Auto) [place] # (Auto) Eos # (Auto) Baso # (Auto) Abs Immat Gran (auto) Absolute Neuts (auto) Absolute Nucleated RBC Nucleated RBC % (auto) Smear Tech's Comments Sodium 134 L Potassium 4.3 Chloride 101 Carbon Dioxide 21 L Anion Gap 16 BUN 14 Creatinine 1.04 Estim Creat Clear Calc 50.3 Estimated GFR > 60 Random Glucose 159 H Lactic Acid Lactic Acid F/U @ 2Hr Lactic Acid F/U @ 4Hr Calcium 8.8 Troponin I High Sens 341.3 H* B-Natriuretic Peptide 08/06/22 08/07/22 08/07/22 23:54 05:32 05:32 WBC 10.7 RBC 3.69 L Hgb 11.4 L Hct 34.3 L MCV 93.0 MCH 30.9 MCHC 33.2 RDW 13.4 Plt Count 201 MPV 9.5 Immature Gran % (Auto) 0.9 H Neut % (Auto) 84.2 H Lymph % (Auto) 8.0 L [place] % (Auto) 6.6 Eos % (Auto) 0.0 Baso % (Auto) 0.3 Lymph # (Auto) 0.9 L [place] # (Auto) 0.7 Eos # (Auto) 0.0 Baso # (Auto) 0.0 Abs Immat Gran (auto) 0.10 H Absolute Neuts (auto) 9.0 H Absolute Nucleated RBC 0.000 Nucleated RBC % (auto) 0.0 Smear Tech's Comments Sodium 132 L Potassium 4.1 Chloride 105 Carbon Dioxide 17 L Anion Gap 14 BUN 15 Creatinine 0.82 Estim Creat Clear Calc 63.8 Estimated GFR > 60 Random Glucose 141 H Lactic Acid Lactic Acid F/U @ 2Hr Lactic Acid F/U @ 4Hr 2.9 H* Calcium 8.3 L Troponin I High Sens B-Natriuretic Peptide 08/07/22 05:32 WBC RBC Hgb Hct MCV MCH MCHC RDW Plt Count MPV Immature Gran % (Auto) Neut % (Auto) Lymph % (Auto) [place] % (Auto) Eos % (Auto) Baso % (Auto) Lymph # (Auto) [place] # (Auto) Eos # (Auto) Baso # (Auto) Abs Immat Gran (auto) Absolute Neuts (auto) Absolute Nucleated RBC Nucleated RBC % (auto) Smear Tech's Comments Sodium Potassium Chloride Carbon Dioxide Anion Gap BUN Creatinine Estim Creat Clear Calc Estimated GFR Random Glucose Lactic Acid Lactic Acid F/U @ 2Hr Lactic Acid F/U @ 4Hr Calcium Troponin I High Sens 345.9 H* B-Natriuretic Peptide Discharge Plan Discharge Anticipated Discharge Date/Time: 08/07/22 15:45 Patient Disposition: Xfer Acute Care Hospital Discharge Diagnosis: new acute right cerebellar infarct new pacemaker with complication namely wire is in the left ventricle via the left subclavian artery Referrals: Maverick Maier MD [Primary Care Provider] - 1 Week Daren Perera MD [Physician] - 1 Week Discharge Medications: No Action aspirin [Adult Aspirin Regimen] 81 mg tablet,delayed release (DR/EC) 81 mg PO DAILY acebutolol 200 mg capsule 200 mg PO DAILY 90 Days Qty: 90 2RF amlodipine 10 mg tablet 10 mg PO DAILY 90 Days Qty: 90 2RF tamsulosin [Flomax] 0.4 mg capsule 0.4 mg PO DAILY 90 Days Qty: 90 3RF Discharge Orders: Discharge Order (Routine); Ordered 08/07/22 Ordered By: Ross Andres Diet: NPO Activity on Discharge: Rest with bed elevated Stand Alone Forms: Patient Portal Discharge page Activity Restrictions/Additional Instructions: No strenuous activities. L arm sling. May shower Care Plan Goals: transfer to tertiary facility to correct and control any potential bleeding complications involving left subclavian artery and also management of the new acute cerebellar infarct follow for any potential progression or mass effect insertion of a new right-sided dual-chamber pacemaker Health Concerns: progression of embolic symptomatology Plan of Treatment: as stated above in care goals Assessment: stable degree of dysarthria no progression implying extent of neurologic symptoms and there is no threatened rhythm issue either Patient Instructions: Pacemaker (GEN)
--- NOTE | 2022-08-07 16:10 | PC.NURSE ---
Assumed care of pt 07:00 07:30 MD performed bedside echo to assess pt. No signs of bleeding, see relationship manager 08:00 07:52 Surgical MD contacted regarding need to discuss pacemaker placement with ICU MD. 08:00 RN ensured pt wearing left arm sling, ice pack applied for 15 minutes to left chest pacemaker site. Pt educated on limitations of activity with left arm. NPO per MD. 09:42 RN contacted surgical MD to educate family on plan of care for patient. MD to bedside to update patient and family. 10:30 Pt states he feels difficulty speaking. States, I have clear thoughts but I can't get my words out. Neuro check performed. Equal hand sqeeze, equal leg strength. Slight left facial droop noted on left corner of mouth. Speech slightly mumbled and stuttered. ICU MD notified of neuro check findings. New CTA head and CTA chest ordered. 10:45 New IV 20 above wrist placed for patient to be ready for CT with contrast. RN reviewed Consent for IV contrast form with patient and , pt signed consent. 11:10-11:45 Echo completed per Cardiology before transport to CT scan. Per cardiology, ICU MD and anesthesia, plan for Pt to be transferred to a tertiary facility. 12:[address] scan with nurse and tech on Zoll monitor. Neuro checks continued by RN. 14:00 patient provided bed bath, skin care, mouth care 15:00 Patient states speech and aphagia symptoms resolving. Aphagia decreased. Speech still slightly mumbled. 15:05 RN notified that patient is accepted at [facility] ICU [facility] 10[facility]. RN called for nurse to nurse report to [facility]. 15:35 3% saline received from pharmacy. Started 100 ml 3% saline @25 ml/hr. ACLS ambulance crew arrived. Per ICU MD and Elizabeth, D/C'd 3% saline fluids 16:05 MD educated family on CTA Head and CTA chest results. Pt left with ACLS crew to [facility].
--- NOTE | 2022-08-10 09:14 | HO.POSTANES ---
Post Anesthesia Evaluation Post Anesthesia Evaluation Date of Service: 08/07/22 Vital Signs: 0800am: BP: 118/60, HR: 71, R: 18. T- (7.2F, SPO2: 95% RA Anesthesia: Monitored Mental Status: Awake Pain Control: Satisfactory Nausea/Vomiting: None Hydration: Adequate Anesthesia-Related Issues: No Anes. Related Issues Comments: Patient seen by me on 08/07/22 at 0800am for post-op and possible return to the OR to revise aborted pacemaker. Spoke with Dr. Andres and will have a CT Angiogram and CT head to evaluate before coming to the ER.
== END 2022-08-07 16:15 | disposition short-term general hospital (02) | DRG 242 ==
LOC: HO.ED 15:28 → HO.EDOVER 16:09 → HO.IMC 17:01 → HO.ICU 08-06 22:36
PROVIDERS: Anesthesiology; Internal Medicine; Student in an Organized Health Care Education/Training Program; Surgery; Admitting Provider Physician Assistant; Emergency Provider Student in an Organized Health Care Education/Training Program; PCP Internal Medicine; Visit Provider Internal Medicine Pulmonary Disease
PROC: 0JH606Z Insertion of Pacemaker, Dual Chamber into Chest Subcutaneous Tissue and Fascia, Open Approach (ICD-10-PCS; principal; 2022-08-06 13:30)
DX: I44.0 Atrioventricular block, first degree (principal); I63.541 Cerebral infarction due to unspecified occlusion or stenosis of right cerebellar artery; R57.8 Other shock; D62 Acute posthemorrhagic anemia; E87.1 Hypo-osmolality and hyponatremia; I50.22 Chronic systolic (congestive) heart failure; E87.20 Acidosis, unspecified; T82.120A Displacement of cardiac electrode, initial encounter; I47.20 Ventricular tachycardia, unspecified; I42.8 Other cardiomyopathies; I49.5 Sick sinus syndrome; E86.0 Dehydration; E03.9 Hypothyroidism, unspecified; E86.1 Hypovolemia; E11.9 Type 2 diabetes mellitus without complications; J84.89 Other specified interstitial pulmonary diseases; Y71.2 Prosthetic and other implants, materials and accessory cardiovascular devices associated with adverse incidents; I35.1 Nonrheumatic aortic (valve) insufficiency; I11.0 Hypertensive heart disease with heart failure; K21.9 Gastro-esophageal reflux disease without esophagitis; I95.1 Orthostatic hypotension; Z79.82 Long term (current) use of aspirin; Z79.899 Other long term (current) drug therapy
CPT/HCPCS: 36415; 70460; 71045; 71275; 78452; 80048; 80053; 81003; 83605; 83735; 83880; 84439; 84443; 84484; 85014; 85018; 85025; 85027; 93005; 93017; 93306; 93308; 95816; 99284; A9500; C1785; C1892; C1898; J0131; J0461; J0690; J1100; J1650; J2250; J2370; J2405; J2795; J3010; J7131; Q9967

== ENCOUNTER 2022-09-09 08:38 | Outpatient (AMB) | payer MEDICARE, SELFPAY ==
[2022-09-09 08:39] VITALS: BP 124/60; PULSE 68; O2SAT 97; BMI 24.7
--- NOTE | 2022-09-09 08:39 | MHC.PC.OV ---
Vital Signs 09/09/22 08:39 Height 5 ft 7 in Weight 158 lb BMI 24.7 BP 124/60 Blood Pressure Location Lt brachial Position Sitting Pulse 68 Pulse Source Pulse Oximeter Pulse Oximetry (%) 97 Oxygen Delivery Method Room Air Intake Visit Reasons: 6m F/U HTN Allergies captopril [Captopril] Allergy (Severe, Verified 09/09/22 08:41) UNKNOWN, angioedema, anaphylaxis EDGARD Inhibitors [Edgard Inhibitors] Allergy (Unknown, Verified 09/09/22 08:41) UNKNOWN Medication List - Last Reconciled 09/09/22 by Maverick Maier MD amlodipine 10 mg PO DAILY 90 days apixaban 5 mg PO BID clopidogrel 75 mg PO DAILY ferrous sulfate 325 mg PO DAILY metoprolol succinate ER 25 mg PO BID mexiletine 150 mg PO BID Tobacco use date assessed: 03/11/22 Fall risk assessment: 1 Fall in past year Last assessed Fall Risk: 09/09/22 Dental Screening Dental Screen Date: 09/09/22 Did you have a dental visit in the last 12 months?: Yes Did you have a dental problem in the last 6 months where you did not have access to dental care?: No Was dental information given to patient?: Patient has dentist HPI 6m F/U HTN HPI Details 82-year-old male with a history of prostate cancer GERD impaired glucose tolerance hypertension coming in for follow-up. Last seen in February 2022 patient was admitted recently for syncopal episode found to be bradycardic sick sinus syndrome admitted for permanent pacemaker placement 08/06/2022 but this was complicated by pacer wire being placed in the subclavian artery passing aortic root into the left ventricle and subsequently right cerebellar infarct thought to be embolic transferred to [facility] for surgical removal of the pacer wire and for pacemaker placement. Repeat CT in August 10 echocardiogram done July 2022 54% ejection fraction mild aortic stenosis 1.7 cm2 postop course from surgical removal of the pacemaker wire atrial fibrillation with rapid ventricular rate manage with metoprolol no plans for renal surgeon of pacemaker noted to have short runs of nonsustained VT started on mexiletine 150 mg twice Daily patient was placed on loop monitor. PAtient has a schedule 10/12/2022 cardiology. [facility] Medical History (Updated 09/09/22 @ 08:50 by Maverick Maier MD) Aortic regurgitation Aortic root dilatation Aortic valve disease First degree AV block GERD (gastroesophageal reflux disease) History of Mckinley's palsy History of prostate cancer History of shingles Hypertension Impaired glucose tolerance Irritable bowel syndrome Lightheaded Pulmonary nodule Pulmonary nodules/lesions, multiple Sick sinus syndrome Thyroid nodule Surgical History History of cholecystectomy History of prostate surgery Family History (Updated 09/09/22 @ 08:44 by Alda Roy [facility]) Father No problems noted. Mother No problems noted. Family/Other Sudden Alzheimers disease Social History Household Members: Spouse Housing: House Do you presently have visiting nurse or other home services: No Alcohol intake: never Patient Tobacco Use Status: Never used Tobacco e-Cigarette/Vaping Use: Never Used Second Hand Smoke Exposure: No Advance Directives Date on File: 08/02/22 service: No Current occupational status: retired Cognitive needs: No Hearing needs: No Vision needs: Yes Questionnaire PHQ-9 Over the last 2 weeks, how often have you been bothered by any of the following problems? 1. Little interest or pleasure in doing things: not at all 2. Feeling down, depressed, or hopeless: not at all 3. Trouble falling or staying asleep, or sleeping too much: not at all 4. Feeling tired or having little energy: not at all 5. Poor appetite or overeating: not at all 6. Feeling bad about yourself - or that you are a failure or have let yourself or your family down: not at all 7. Trouble concentrating on things, such as reading the newspaper or watching television: not at all 8. Moving or speaking so slowly that other people could have noticed. Or the opposite - being so fidgety or restless that you have been moving around a lot more than usual: not at all 9. Thoughts that you would be better off or of hurting yourself in some way: not at all Total score: 0 Depression Screening Interpretation: Negative Source: Developed by Drs. Christiano Godinez, Angeles Espinosa, Burt Baker and colleagues, with an educational grover from [employer] [address]. Thrive Questionnaire Date Thrive assessed: 03/11/22 AUDIT C Alcohol Use Questionnaire (AUDIT-C) 1. How often do you have a drink containing alcohol?: Never 2. How many drinks containing alcohol do you have on a typical day when you are drinking?: 1 or 2 3. How often do you have six or more drinks on one occasion?: Never Total Score: 0 PADMINI-7 AMB Questionnaire PADMINI-7 Date PADMINI - 7 assessed: 03/11/22 Source: Developed by Drs. Christiano Godinez, Angeles Espinosa, Burt Baker and colleagues, with an educational grover from [address]. Physical exam (Primary Care) Vital Signs: Last Vital Signs Pulse 68 09/09/22 08:39 BP 124/60 09/09/22 08:39 Pulse Ox 97 09/09/22 08:39 Oxygen Delivery Method Room Air 09/09/22 08:39 BMI result Body Mass Index 24.7 Tobacco/Smoking Status: Tobacco use Status Tobacco use date assessed 03/11/22 09/09/22 08:45 Patient Tobacco Use Status Never used Tobacco 09/09/22 08:45 Tobacco use type 12/20/20 16:12 e-Cigarette/Vaping Use Never Used 09/09/22 08:45 PHQ-9: PHQ-9 Score PHQ-9: Total score 0 09/09/22 08:50 Depression Screening Interpretation: Negative Thrive Assessment: Date of Thrive Assessment Date Thrive assessed 03/11/22 09/09/22 08:45 Const General: alert; No acute distress Eyes Conjunctivae: conjunctivae normal Resp Auscultation: clear to auscultation bilaterally Cardio Rate: regular rate Rhythm: regular rhythm GI Inspection: Yes normal to inspection Extrem General: Yes normal to inspection and No edema Assessment and Plan Assessment & Plan (1) 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 Bennett 2009 Code(s): Z85.46 - Personal history of malignant neoplasm of prostate Plan: Continue to monitor with urology (4) GERD (gastroesophageal reflux disease): Code(s): K21.9 - Gastro-esophageal reflux disease without esophagitis Plan: Avoid the foods that causes that usually spicy foods, tomato products, juices, coffee, soda and foods that your sensitive to. After eating do not lie down, allow 3-4 hours before in lie down. And keep the head of bed above 30 degrees to avoid the acid from going up. (5) Impaired glucose tolerance: Code(s): R73.02 - Impaired glucose tolerance (oral) Plan: Decrease the amount of carbohydrate intake, pasta, bread, rice and potatoes are all sugar and that is aside from all the sweet stuff, remember that fruits are good but they are Sweet also. (6) Hypertension: Code(s): I10 - Essential (primary) hypertension Plan: Continue with blood pressure medication. Decrease salt intake and exercise presently on amlodipine 10 mg once a day metoprolol 25 mg twice a day (7) Mild aortic stenosis: Comment: July 2022 [id number] echocardiogram left ventricle EF 54% mild aortic stenosis 1.7 sq cm Code(s): I35.0 - Nonrheumatic aortic (valve) stenosis Plan: Will continue to follow-up on this (8) Atrial fibrillation: Code(s): I48.91 - Unspecified atrial fibrillation Plan: Patient is placed on anticoagulation with Eliquis (9) Nonsustained ventricular tachycardia: Code(s): I47.29 - Other ventricular tachycardia Orders: Orders Magnesium Today I48.91 - Unspecified atrial fibrillation Phosphorus Today I48.91 - Unspecified atrial fibrillation ECG 12 lead EKG Today I48.91 - Unspecified atrial fibrillation Medications: New apixaban 5 mg PO BID 90 days 180 tabs 2RF I47.29 - Other ventricular tachycardia clopidogrel 75 mg PO DAILY 90 tabs 2RF I63.549 - Cerebral infarction due to unspecified occlusion or stenosis of unspecified cerebellar artery ferrous sulfate 325 mg PO DAILY 90 tabs 1RF I48.91 - Unspecified atrial fibrillation metoprolol succinate ER 25 mg PO BID 90 days 180 tabs 2RF I10 - Essential (primary) hypertension mexiletine 150 mg PO BID 60 caps 3RF I48.91 - Unspecified atrial fibrillation Refilled amlodipine 10 mg PO DAILY 90 days 90 tabs 2RF amlodipine 10 mg PO DAILY 90 tabs 2RF 90 days I48.91 - Unspecified atrial fibrillation Coding Level of Care Code Est Pt Level 4 (16079) Diagnoses 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
== END 2022-09-09 09:35 | disposition home or self-care (01) ==
PROVIDERS: Visit Provider Internal Medicine
DX: I63.549 Cerebral infarction due to unspecified occlusion or stenosis of unspecified cerebellar artery (principal); Z85.46 Personal history of malignant neoplasm of prostate; K21.9 Gastro-esophageal reflux disease without esophagitis; I10 Essential (primary) hypertension; I48.91 Unspecified atrial fibrillation; I47.29 Other ventricular tachycardia; R73.02 Impaired glucose tolerance (oral); R42 Dizziness and giddiness; I35.0 Nonrheumatic aortic (valve) stenosis
CPT/HCPCS: 99214

== ENCOUNTER 2022-09-12 07:12 | Outpatient (REF) | payer MEDICARE, SELFPAY ==
[2022-09-12 07:36] LABS: MANUAL DIFF FLAG NO
[2022-09-12 08:20] LABS: Basophils Absolute Auto 0.1 X10*3/uL (0.0-0.2); Basophils Percent Auto 1.8 % (0-2); Eosinophils Absolute Auto 0.4 X10*3/uL (0.0-0.4); Eosinophils Percent Auto 5.7 % (0-4); Hematocrit 41.9 % (42.0-52.0); Hemoglobin 13.7 g/dl (14.0-18.0); Imm Gran Abs Auto 0.06 X10*3/uL (0.00-0.03); Lymphocytes Absolute Auto 1.1 X10*3/uL (1.2-4.9); Lymphocytes Percent Auto 18.3 % (20-40); Mean Corpuscular HGB Conc 32.7 g/dl (31.0-36.0); Mean Corpuscular Hemoglobin 30.6 pg (27.0-33.0); Mean Corpuscular Volume 93.7 fL (80.0-98.0); Mean Platelet Volume 9.4 fL (9.4-12.4); Monocytes Absolute Auto 0.7 X10*3/uL (0.1-1.2); Monocytes Percent Auto 11.8 % (2-11); Neutrophils Absolute Auto 3.8 x10*3/uL (2.0-8.3); Neutrophils Percent Auto 61.4 % (45-73); Platelet Count 266 X10*3/uL (160-400); Red Blood Count 4.47 X10*6/uL (4.60-5.80); Red Cell Distribution Width 14.6 % (11.0-16.0); White Blood Count 6.2 X10*3/uL (4.8-10.8)
[2022-09-12 08:27] LABS: Estimated Average Glucose 91 mg/dL; Hemoglobin A1c % 4.8 %
[2022-09-12 09:02] LABS: Alanine Aminotransferase 14 U/L (0-40); Albumin Level 3.9 g/dL (3.5-5.0); Alkaline Phosphatase 104 U/L (39-117); Anion Gap 10 (12-20); Aspartate Amino Transferase 15 U/L (5-37); Bilirubin Total 0.7 mg/dL (0.0-1.0); Blood Urea Nitrogen 11 mg/dL (9-16); Calcium 9.3 mg/dL (8.4-10.2); Carbon Dioxide 26 mmol/L (22-29); Chloride 103 mmol/L (96-108); Cholesterol 133 mg/dL; Estimated Glomerular Filt Rate > 60; Glucose Random 112 mg/dL (60-115); HDL Cholesterol 44 mg/dL; LDL Cholesterol Calculated 78 mg/dl; Magnesium 2.2 mg/dL (1.6-2.6); Phosphorus 2.8 mg/dL (2.7-4.5); Potassium 3.6 mmol/L (3.3-5.1); Sodium 135 mmol/L (135-145); Total Protein 7.2 g/dL (6.5-8.0); Triglycerides 57 mg/dL
[2022-09-12 09:20] LABS: Free T4 (Free Thyroxine) 0.95 ng/dL (0.71-1.85); Thyroid Stimulating Hormone 3.92 uIU/mL (0.32-4.0)
[2022-09-12 09:35] LABS: Folate 7.3 ng/mL (> or = 4.0); Prostate Specific Antigen Scr < 0.10 ng/mL (<0.05-4.0); Vitamin B12 573 pg/mL (200-900)
== END 2022-09-12 07:13 | disposition home or self-care (01) ==
LOC: HO.LAB 07:12
PROVIDERS: PCP Internal Medicine; Visit Provider Internal Medicine
DX: I48.91 Unspecified atrial fibrillation (principal); E78.00 Pure hypercholesterolemia, unspecified; R73.02 Impaired glucose tolerance (oral); Z85.46 Personal history of malignant neoplasm of prostate; Z12.5 Encounter for screening for malignant neoplasm of prostate
CPT/HCPCS: 36415; 80053; 80061; 82607; 82746; 83036; 83735; 84100; 84153; 84439; 84443; 85025

== ENCOUNTER 2022-09-22 11:16 | Outpatient (AMB) | payer MEDICARE, SELFPAY ==
[2022-09-22 11:36] VITALS: BP 120/74; PULSE 58; BMI 24.9
--- NOTE | 2022-09-22 11:36 | A.OFFVIS_ITS ---
Intake Vital Signs 09/22/22 11:36 Height 5 ft 7 in Weight 158 lb 11.725 oz BMI 24.9 BP 120/74 Blood Pressure Location Lt brachial Position Sitting Pulse 58 Intake Visit Reasons: follow-up post [place] Intake Note: Follow-up post [place] with ekg ADRIENNE was returned yesterday Director Of Communications Required: No Allergies captopril [Captopril] Allergy (Severe, Verified 09/09/22 08:41) UNKNOWN, angioedema, anaphylaxis EDGARD Inhibitors [Edgard Inhibitors] Allergy (Unknown, Verified 09/09/22 08:41) UNKNOWN Medication List - Last Reconciled 09/22/22 by Mendoza Bah MD amlodipine 10 mg PO DAILY 90 days apixaban 5 mg PO BID 90 days clopidogrel 75 mg PO DAILY ferrous sulfate 325 mg PO DAILY metoprolol succinate ER 25 mg PO BID 90 days mexiletine 150 mg PO BID HPI HPI Comments History of Present Illness Details Hung comes for follow up after recent prolonged hospitalization. Patient was initially admitted at [facility] with syncopal episode was felt to be orthostatic/dehydration related. Then he presented to [facility] with near syncopal episode and was noted to have possible orthostatic hypertension and but also noted to have bradycardia. His metoprolol was then withheld. However he then subsequently started having nonsustained VT and subsequently underwent a workup for structural heart disease which showed low normal LV EF with mild aortic stenosis and regurgitation and no evidence of ischemia. He subsequently was advised the pacemaker placement for initiation metoprolol therapy given his significant bradycardia while in the hospital. However pace maker was complicated by intra arterial lead placement with ventricular lead being placed in the left ventricular cavity leading to embolic event to the cerebellum and CVA. He was subsequently transferred to [facility] for lead removal by vascular surgery and repair of the subclavian artery. He underwent a covered stent repair of the subclavian artery with uneventful removal of the pacemaker system. Subsequently while in the hospital he developed atrial fibrillation rapid ventricular response which converted quickly to sinus rhythm requiring metoprolol therapy. He was noted to also have nonsustained VT. Was extensively evaluated by EP Services given that he had become repeat bradycardia although was felt that given his complicated pacemaker course to avoid pacemaker placement. He completed a 30 day loop monitor yesterday, results are not available to me as yet. Patient comes for follow-up. He said he is gradually getting stronger. Is walking more. However he still having issues with hand writing as well as issues with right lower extremity s trength and balance. Her recent he is trying to work on his balance as well as walking by himself. He is currently taking both Eliquis and Plavix [facility] Medical History Aortic regurgitation Aortic root dilatation Aortic valve disease First degree AV block GERD (gastroesophageal reflux disease) History of Mckinley's palsy History of prostate cancer History of shingles Hypertension Impaired glucose tolerance Irritable bowel syndrome Lightheaded Pulmonary nodule Pulmonary nodules/lesions, multiple Sick sinus syndrome Thyroid nodule Surgical History History of cholecystectomy History of prostate surgery Family History Father No problems noted. Mother No problems noted. Family/Other Sudden Alzheimers disease Social History Household Members: Spouse Housing: House Do you presently have visiting nurse or other home services: No Alcohol intake: never Patient Tobacco Use Status: Never used Tobacco e-Cigarette/Vaping Use: Never Used Second Hand Smoke Exposure: No Advance Directives Date on File: 08/02/22 service: No Current occupational status: retired Cognitive needs: No Hearing needs: No Vision needs: Yes Review of Systems Const Denies chills, Denies fatigue, Denies fever(s), Denies frequent falls, Denies weakness, Denies weight gain and Denies weight loss ENT Denies dizziness Card Denies chest pain, Denies leg edema, Denies lightheadedness, Denies palpitations, Denies dyspnea, Denies dyspnea on exertion, Denies orthopnea and Denies other (loss of consciousness) Resp Denies cough, Denies dyspnea and Denies dyspnea on exertion GI Denies hematochezia and Denies change in stool character Musc Denies abnormal gait, Denies muscle weakness, Denies numbness, Denies radiating pain into limb and Denies tingling Neuro Denies abnormal gait, Denies dizziness, Denies frequent falls, Denies numbness, Denies tingling and Denies weakness Endo Denies fatigue and Denies palpitations Physical Exam Vital Signs: Last Vital Signs Pulse 58 09/22/22 11:36 BP 120/74 09/22/22 11:36 BMI result Body Mass Index 24.9 Const General: cooperative, comfortable, no acute distress, alert, awake, Physically active, anxious and well groomed Nutritional Appearance: average body habitus Orientation/consciousness: patient oriented x3 Limitations: no limitations Neck Neck: Yes trachea midline, Yes supple and Yes no JVD Carotids: no bruits Resp Effort & Inspection: normal respiratory effort Auscultation: clear to auscultation bilaterally Cardio Jugular venous distension: no JVD Palpation: normal PMI Rate: regular rate Rhythm: regular rhythm Heart sounds: S1 normal heart sound present, S2 normal heart sound present, no click, no gallops and Murmur heart sound present systolic early GI Auscultation: normal bowel sounds Skin General skin exam: no rashes or lesions noted Neuro General: patient oriented x3 and no focal motor deficits Extrem General: Yes no clubbing, cyanosis or edema Psych Appearance: grossly normal Affect: Anxious affect present Office Procedures EKG Details: EKG shows normal sinus rhythm with low-amplitude P waves with first-degree AV block with PAC with nonspecific ST T wave changes suggestive of repolarization abnormality [id number], Complete Assessment & Plan Assessment & Plan (1) Paroxysmal atrial fibrillation: Code(s): I48.0 - Paroxysmal atrial fibrillation Plan: Paroxysmal atrial fibrillation while patient was in the hospital. No recurrence clinically since then. Loop monitor results are pending. Continue full oral anticoagulation Eliquis 5 mg b.i.d.. Quarterly renal function test should be pursued. There is no clear indication for dual therapy with Plavix as well as Eliquis. Discontinue Plavix therapy to reduce bleeding risk. Continue metoprolol therapy. (2) Near syncope: Code(s): R55 - Syncope and collapse Plan: Near syncope which was felt to be orthostatic but then started having bradycardia for which metoprolol was held. After withholding metoprolol he started having nonsustained ventricular took tachycardia. Pacemaker was placed to prevent bradycardia system metoprolol although related to complications. Pacemaker was then explanted and patient currently loop monitor and awaiting results of it. No near syncopal episode. Advised to maintain adequate hydration. Will follow-up with the loop monitor results. (3) Nonsustained ventricular tachycardia: Code(s): I47.29 - Other ventricular tachycardia Plan: Nonsustained ventricular tachycardia with low normal LVEF. Started on mexiletine therapy by electrophysiology service. Continue the same. Continue metoprolol therapy. 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 Patient also in atrial fibrillation. Continue Eliquis therapy. Offered him physical therapy and occupational therapy although he says he wants to do it on his own. Will follow up in the clinic in 6 weeks time, sooner p.r.n.. 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
== END 2022-09-22 12:05 | disposition home or self-care (01) ==
PROVIDERS: Visit Provider Internal Medicine Cardiovascular Disease
DX: I48.0 Paroxysmal atrial fibrillation (principal); R55 Syncope and collapse; I47.29 Other ventricular tachycardia; I63.549 Cerebral infarction due to unspecified occlusion or stenosis of unspecified cerebellar artery
CPT/HCPCS: 93010; 99214

== ENCOUNTER → 2022-09-22 11:16 | Outpatient (BNVA) | payer MEDICARE, SELFPAY | PROVIDERS: Visit Provider Internal Medicine Cardiovascular Disease | DX: I48.0 Paroxysmal atrial fibrillation (principal); I47.29 Other ventricular tachycardia; I63.549 Cerebral infarction due to unspecified occlusion or stenosis of unspecified cerebellar artery; R55 Syncope and collapse | CPT/HCPCS: 93005; 99212 ==

== ENCOUNTER 2022-11-04 12:53 | Outpatient (AMB) | payer MEDICARE, SELFPAY ==
[2022-11-04 12:59] VITALS: BP 110/66; PULSE 51; BMI 25.5
--- NOTE | 2022-11-04 12:59 | MHC.OFFVIS ---
Intake Vital Signs 11/04/22 12:59 Height 5 ft 7 in Weight 163 lb 2.273 oz BMI 25.5 BP 110/66 Blood Pressure Location Lt brachial Position Sitting Pulse 51 Intake Visit Reasons: 6 wk follow-up with ekg Intake Note: 6 week follow-up with ekg c/o fatigue Director Learning Services: Director Learning Services Present Accompanied by: Spouse Allergies captopril [Captopril] Allergy (Severe, Verified 09/09/22 08:41) UNKNOWN, angioedema, anaphylaxis EDGARD Inhibitors [Edgard Inhibitors] Allergy (Unknown, Verified 09/09/22 08:41) UNKNOWN Medication List - Last Reconciled 11/04/22 by Mendoza Bah MD amlodipine 10 mg PO DAILY 90 days apixaban 5 mg PO BID 90 days ferrous sulfate 325 mg PO DAILY metoprolol succinate ER 25 mg PO BID 90 days mexiletine 150 mg PO BID HPI HPI Comments History of Present Illness Details Hung comes for follow-up. Patient loop monitor, preliminary report obtained showed, predominantly sinus rhythm with no reported pauses. He had frequent PVCs and 1 episode of nonsustained VT lasting 9 beats. Patient since then has had no prolonged irregular heartbeat or palpitations. He denies any lightheadedness, syncope. Drinks adequate amount of fluid. He does take precautions when he gets up. He does complain of increasing fatigue with activity level and has noted diminished exercise capacity. Continues to have issues with balance as well as handwriting. No chest pain syndrome. [facility] Medical History (Updated 11/04/22 @ 14:31 by Mendoza Bah MD) First degree AV block Lightheaded Aortic valve disease Sick sinus syndrome Pulmonary nodules/lesions, multiple History of Mckinley's palsy History of shingles Thyroid nodule Pulmonary nodule Irritable bowel syndrome GERD (gastroesophageal reflux disease) Aortic root dilatation Aortic regurgitation History of prostate cancer Impaired glucose tolerance Hypertension Surgical History History of prostate surgery History of cholecystectomy Family History Father No problems noted. Mother No problems noted. Family/Other Sudden Alzheimers disease Social History Household Members: Spouse Housing: House Do you presently have visiting nurse or other home services: No Alcohol intake: never Patient Tobacco Use Status: Never used Tobacco e-Cigarette/Vaping Use: Never Used Second Hand Smoke Exposure: No Advance Directives Date on File: 08/02/22 service: No Current occupational status: retired Cognitive needs: No Hearing needs: No Vision needs: Yes Review of Systems Const Denies chills, Denies fatigue, Denies fever(s), Denies frequent falls, Denies weakness, Denies weight gain and Denies weight loss ENT Denies dizziness Card Denies chest pain, Denies leg edema, Denies lightheadedness, Denies palpitations, Denies dyspnea, Denies dyspnea on exertion, Denies orthopnea and Denies other (loss of consciousness) Resp Denies cough, Denies dyspnea and Denies dyspnea on exertion GI Denies hematochezia and Denies change in stool character Musc Denies abnormal gait, Denies muscle weakness, Denies numbness, Denies radiating pain into limb and Denies tingling Neuro Denies abnormal gait, Denies dizziness, Denies frequent falls, Denies numbness, Denies tingling and Denies weakness Endo Denies fatigue and Denies palpitations Physical Exam Vital Signs: Last Vital Signs Pulse 51 11/04/22 12:59 BP 110/66 11/04/22 12:59 BMI result Body Mass Index 25.5 Const General: cooperative, comfortable, no acute distress, alert, awake, Physically active, anxious and well groomed Nutritional Appearance: average body habitus Orientation/consciousness: patient oriented x3 Limitations: no limitations Neck Neck: Yes trachea midline, Yes supple and Yes no JVD Carotids: no bruits Resp Effort & Inspection: normal respiratory effort Auscultation: clear to auscultation bilaterally Cardio Jugular venous distension: no JVD Palpation: normal PMI Rate: regular rate Rhythm: regular rhythm Heart sounds: S1 normal heart sound present, S2 normal heart sound present, no click, no gallops and Murmur heart sound present systolic early GI Auscultation: normal bowel sounds Skin General skin exam: no rashes or lesions noted Neuro General: patient oriented x3 and no focal motor deficits Extrem General: Yes no clubbing, cyanosis or edema Psych Appearance: grossly normal Affect: Anxious affect present Office Procedures EKG Details: EKG shows sinus bradycardia 51 beats per minute with LVH with nonspecific ST T wave changes [id number], Complete Assessment & Plan Assessment & Plan (1) Sick sinus syndrome: Code(s): I49.5 - Sick sinus syndrome Plan: Patient sinus bradycardia with symptoms of exertional fatigue could be related to deconditioning as he is not exercising as much. However is possible related to chronotropic incompetence. However he does not want to consider pacemaker placement at this point in time. His sinus bradycardia exacerbated by medical therapy with metoprolol which is required at this point in time. He has not had any recurrent syncopal episode which he was admitted for most likely related to orthostatic hypertension. (2) Paroxysmal atrial fibrillation: Code(s): I48.0 - Paroxysmal atrial fibrillation Plan: Paroxysmal atrial fibrillation without any recurrence on loop monitor. Continue rhythm control approach. Continue metoprolol therapy. Avoidance of stimulants was discussed continue full oral anticoagulation with Eliquis 5 mg b.i.d.. Semi annual renal function test should be pursued. (3) Nonsustained ventricular tachycardia: Code(s): I47.29 - Other ventricular tachycardia Plan: Nonsustained ventricular tachycardia without any obvious pathology with no evidence of ischemia with preserved LV systolic function. Discuss with patient, currently on mexiletine therapy as prescribed by EP service. Currently tolerating that well. Also on beta-chantell therapy. Avoidance of stimulants was discussed. 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 No interventions required per se for the same. Continue full oral anticoagulation Eliquis. Follow-up echocardiogram on annual basis. 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 Also since then has developed atrial fibrillation. For now will continue Eliquis therapy. Recommend PT and OT to improve his functionality. He wants to think about it. Will follow up in the clinic in 6 months time, sooner p.r.n.. 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
== END 2022-11-04 13:37 | disposition home or self-care (01) ==
PROVIDERS: PCP Internal Medicine; Visit Provider Internal Medicine Cardiovascular Disease
DX: I49.5 Sick sinus syndrome (principal); I48.0 Paroxysmal atrial fibrillation; I47.29 Other ventricular tachycardia; I35.9 Nonrheumatic aortic valve disorder, unspecified; I63.549 Cerebral infarction due to unspecified occlusion or stenosis of unspecified cerebellar artery
CPT/HCPCS: 93010; 99214

== ENCOUNTER → 2022-11-04 12:53 | Outpatient (BNVA) | payer MEDICARE, SELFPAY | PROVIDERS: PCP Internal Medicine; Visit Provider Internal Medicine Cardiovascular Disease | DX: I49.5 Sick sinus syndrome (principal); I48.0 Paroxysmal atrial fibrillation; I47.29 Other ventricular tachycardia; I35.9 Nonrheumatic aortic valve disorder, unspecified; I63.549 Cerebral infarction due to unspecified occlusion or stenosis of unspecified cerebellar artery | CPT/HCPCS: 93005; 99212 ==

== ENCOUNTER 2022-12-25 09:25 | Outpatient (AMB) | payer MEDICARE, SELFPAY ==
[2022-12-25 09:31] VITALS: BP 138/60; PULSE 70; O2SAT 98; BMI 25.5
--- NOTE | 2022-12-25 09:31 | A.OFFPC_ITS ---
Vital Signs 12/25/22 09:31 Height 5 ft 7 in Weight 163 lb 2 oz BMI 25.5 BP 138/60 Blood Pressure Location Lt brachial Position Sitting Pulse 70 Pulse Source Pulse Oximeter Pulse Oximetry (%) 98 Oxygen Delivery Method Room Air Intake Visit Reasons: 3 mon f/u Digital Engineer Required: No Accompanied by: Spouse Allergies captopril [Captopril] Allergy (Severe, Verified 12/25/22 09:52) UNKNOWN, angioedema, anaphylaxis EDGARD Inhibitors [Edgard Inhibitors] Allergy (Unknown, Verified 12/25/22 09:52) UNKNOWN Tobacco use date assessed: 03/11/22 Fall risk assessment: No Falls in past year Last assessed Fall Risk: 12/25/22 Dental Screening Dental Screen Date: 12/25/22 Did you have a dental visit in the last 12 months?: Yes Did you have a dental problem in the last 6 months where you did not have access to dental care?: No Was dental information given to patient?: Patient has dentist HPI 3 mon f/u HPI Details 82-year-old male with a history of CVA c erebellar infarction history of prostate cancer GERD impaired glucose tolerance hypertension atrial fibrillation and history of nonsustained V-tach coming in for follow-up. Last seen in August 2022. Review of the notes had an event/loop monitor September 2022 showing less than 1% Pac 5% PVC 7 patient triggered events consistent with sinus rhythm sinus bradycardia Pac PVC 1 episode of nonsustained V-tach for 9 beats. Patient follows up with Cardiology also complains of tiredness sick sinus syndrome but declined pacemaker this time with atrial fibrillation no recurrence continue with anticoagulation semi annual renal function preserved left ventricular function on history of V-tach on mexiletine therapy cerebellar infarction which is the complication of July 2022 pacemaker the subclavian artery [facility] Medical History (Updated 11/04/22 @ 14:31 by Mendoza Bah MD) First degree AV block Lightheaded Aortic valve disease Sick sinus syndrome Pulmonary nodules/lesions, multiple History of Mckinley's palsy History of shingles Thyroid nodule Pulmonary nodule Irritable bowel syndrome GERD (gastroesophageal reflux disease) Aortic root dilatation Aortic regurgitation History of prostate cancer Impaired glucose tolerance Hypertension Surgical History History of prostate surgery History of cholecystectomy Family History Father No problems noted. Mother No problems noted. Family/Other Sudden Alzheimers disease Social History Household Members: Spouse Housing: House Do you presently have visiting nurse or other home services: No Alcohol intake: never Patient Tobacco Use Status: Never used Tobacco e-Cigarette/Vaping Use: Never Used Second Hand Smoke Exposure: No Advance Directives Date on File: 08/02/22 service: No Current occupational status: retired Cognitive needs: No Hearing needs: No Vision needs: Yes Questionnaire Thrive Questionnaire Date Thrive assessed: 03/11/22 PADMINI-7 AMB Questionnaire PADMINI-7 Date PADMINI - 7 assessed: 03/11/22 Source: Developed by Drs. Christiano Godinez, Angeles Espinosa, Burt Baker and colleagues, with an educational grover from [employer]. Physical exam (Primary Care) Vital Signs: Last Vital Signs Pulse 70 12/25/22 09:31 BP 138/60 12/25/22 09:31 Pulse Ox 98 12/25/22 09:31 Oxygen Delivery Method Room Air 12/25/22 09:31 BMI result Body Mass Index 25.5 Tobacco/Smoking Status: Tobacco use Status Tobacco use date assessed 03/11/22 12/25/22 09:31 Patient Tobacco Use Status Never used Tobacco 12/25/22 09:31 Tobacco use type 12/20/20 16:12 e-Cigarette/Vaping Use Never Used 12/25/22 09:31 Thrive Assessment: Date of Thrive Assessment Date Thrive assessed 03/11/22 12/25/22 09:31 Const General: alert; No acute distress Eyes Conjunctivae: conjunctivae normal Resp Auscultation: clear to auscultation bilaterally Cardio Rate: regular rate Rhythm: regular rhythm GI Inspection: Yes normal to inspection Extrem General: Yes normal to inspection and No edema Office Procedures Flu Questionnaire Does the patient have a severe egg allergy?: No Does the patient have severe life threatening allergies?: No Does the patient have a fever or illness today?: No Has the patient ever had Guillain-Eden Syndrome?: No Has the patient ever had any past reaction to a flu shot?: No Immunizations flu vacc [id number] 6mos up(PF) 60 mcg(15 mcgx4)/0.5 mL IM syringe Performing Provider: Maverick Maier MD [facility] Administered by: EDUARDA Kennedy on 12/25/22 09:52 Dose Route Admin Location Dispensed Lot Number Expiration Date [employer] Office Manager 0.5 mL IM Left Deltoid 0.5 mL [id number] 08/22/23 95254-102-18 [employer] VIS Given Date VIS Provided VIS Publication Date 12/25/22 Single Vaccine 20 Eligibility Eligibility Date Funding Source Not VFC Eligible 12/25/22 Private Assessment and Plan Assessment & Plan (1) 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: Comment: July 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 After eating do not lie down, allow 3-4 hours before in lie down. And keep the head of bed above 30 degrees to avoid the acid from going up. (4) Hypertension: Code(s): I10 - Essential (primary) hypertension Plan: Continue with blood pressure medication. Decrease salt intake and exercise on amlodipine 10 mg once a day and metoprolol 25 mg twice a day (5) Sick sinus syndrome: Code(s): I49.5 - Sick sinus syndrome Plan: Declined pacemaker placement for now Orders: Orders Influenza [id number] Immunization Today Z23 - Encounter for immunization B Type Natriuretic Peptide Today I48.0 - Paroxysmal atrial fibrillation Comprehensive Met. 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
== END 2022-12-25 10:37 | disposition home or self-care (01) ==
PROVIDERS: PCP Internal Medicine; Visit Provider Internal Medicine
DX: I48.0 Paroxysmal atrial fibrillation (principal); I63.549 Cerebral infarction due to unspecified occlusion or stenosis of unspecified cerebellar artery; I49.5 Sick sinus syndrome; Z23 Encounter for immunization; K21.9 Gastro-esophageal reflux disease without esophagitis; I10 Essential (primary) hypertension
CPT/HCPCS: 90471; 90686; 99214

== ENCOUNTER 2023-03-26 06:58 | Outpatient (REF) | payer MEDICARE, SELFPAY ==
[2023-03-26 07:23] LABS: MANUAL DIFF FLAG NO
[2023-03-26 07:34] LABS: Basophils Absolute Auto 0.2 X10*3/uL (0.0-0.2); Basophils Percent Auto 2.6 % (0-2); Eosinophils Absolute Auto 0.4 X10*3/uL (0.0-0.4); Eosinophils Percent Auto 5.8 % (0-4); Hematocrit 47.4 % (42.0-52.0); Hemoglobin 15.8 g/dl (14.0-18.0); Imm Gran Abs Auto 0.07 X10*3/uL (0.00-0.03); Imm Gran Pct Auto 1.1 % (0.0-0.4); Lymphocytes Absolute Auto 1.8 X10*3/uL (1.2-4.9); Lymphocytes Percent Auto 28.1 % (20-40); Mean Corpuscular HGB Conc 33.3 g/dl (31.0-36.0); Mean Corpuscular Hemoglobin 30.7 pg (27.0-33.0); Mean Corpuscular Volume 92.2 fL (80.0-98.0); Mean Platelet Volume 9.1 fL (9.4-12.4); Monocytes Absolute Auto 0.7 X10*3/uL (0.1-1.2); Neutrophils Absolute Auto 3.4 x10*3/uL (2.0-8.3); Neutrophils Percent Auto 51.4 % (45-73); Platelet Count 238 X10*3/uL (160-400); Red Blood Count 5.14 X10*6/uL (4.60-5.80); Red Cell Distribution Width 14.3 % (11.0-16.0); White Blood Count 6.6 X10*3/uL (4.8-10.8)
[2023-03-26 08:03] LABS: B Type Natriuretic Peptide 49 pg/mL (<100)
[2023-03-26 08:07] LABS: Alanine Aminotransferase 20 U/L (0-40); Albumin Level 3.9 g/dL (3.5-5.0); Alkaline Phosphatase 111 U/L (39-117); Anion Gap 11 (12-20); Aspartate Amino Transferase 18 U/L (5-37); Bilirubin Total 0.8 mg/dL (0.0-1.0); Blood Urea Nitrogen 15 mg/dL (9-16); Calcium 9.1 mg/dL (8.4-10.2); Carbon Dioxide 25 mmol/L (22-29); Chloride 105 mmol/L (96-108); Estimated Glomerular Filt Rate > 60; Glucose Random 103 mg/dL (60-115); Magnesium 2.2 mg/dL (1.6-2.6); Phosphorus 2.8 mg/dL (2.7-4.5); Potassium 4.2 mmol/L (3.3-5.1); Sodium 137 mmol/L (135-145); Total Protein 7.6 g/dL (6.5-8.0)
[2023-03-26 08:26] LABS: Free T4 (Free Thyroxine) 0.87 ng/dL (0.71-1.85); Thyroid Stimulating Hormone 6.75 uIU/mL (0.32-4.0)
== END 2023-03-26 06:59 | disposition home or self-care (01) ==
LOC: HO.LAB 06:58
PROVIDERS: PCP Internal Medicine; Visit Provider Internal Medicine
DX: I48.0 Paroxysmal atrial fibrillation (principal)
CPT/HCPCS: 36415; 80053; 83735; 83880; 84100; 84439; 84443; 85025

== ENCOUNTER 2023-04-07 09:50 | Outpatient (AMB) | payer MEDICARE, SELFPAY ==
[2023-04-07 09:45] VITALS: BP 138/70; PULSE 64; O2SAT 98; BMI 26.8
--- NOTE | 2023-04-07 09:45 | MHC.PC.OV ---
Vital Signs 04/07/23 09:45 Height 5 ft 7 in Weight 171 lb 0.6 oz BMI 26.8 BP 138/70 Blood Pressure Location Lt brachial Position Sitting Pulse 64 Pulse Source Pulse Oximeter Pulse Oximetry (%) 98 Oxygen Delivery Method Room Air Intake Visit Reasons: Atrial fibrillation, cerebellar infarction Loan Specialist Required: No Allergies captopril [Captopril] Allergy (Severe, Verified 04/07/23 09:57) UNKNOWN, angioedema, anaphylaxis EDGARD Inhibitors [Edgard Inhibitors] Allergy (Unknown, Verified 04/07/23 09:57) UNKNOWN Medication List - Last Reconciled 04/07/23 by Maverick Maier MD amlodipine 10 mg PO DAILY 90 days apixaban 5 mg PO BID 90 days metoprolol succinate ER 25 mg PO BID 90 days mexiletine 150 mg PO BID Tobacco use date assessed: 04/07/23 Fall risk assessment: No Falls in past year Last assessed Fall Risk: 04/07/23 Dental Screening Dental Screen Date: 04/07/23 Did you have a dental visit in the last 12 months?: Yes Did you have a dental problem in the last 6 months where you did not have access to dental care?: No Was dental information given to patient?: Patient has dentist HPI Atrial fibrillation, cerebellar infarction HPI Details 82-year-old overweight male with a history of CVA cerebellar and fraction atrial fibrillation GERD hypertension history of sick sinus syndrome last seen in December 2022. [facility] Medical History (Updated 11/04/22 @ 14:31 by Mendoza Bah MD) First degree AV block Lightheaded Aortic valve disease Sick sinus syndrome Pulmonary nodules/lesions, multiple History of Mckinley's palsy History of shingles Thyroid nodule Pulmonary nodule Irritable bowel syndrome GERD (gastroesophageal reflux disease) Aortic root dilatation Aortic regurgitation History of prostate cancer Impaired glucose tolerance Hypertension Surgical History History of prostate surgery History of cholecystectomy Family History Father No problems noted. Mother No problems noted. Family/Other Sudden Alzheimers disease Social History Household Members: Spouse Housing: House Do you presently have visiting nurse or other home services: No Alcohol intake: never Comment: pt refusing alarms, steady gait, hourly rounding, encouraged to call Patient Tobacco Use Status: Never used Tobacco e-Cigarette/Vaping Use: Never Used Second Hand Smoke Exposure: No Advance Directives Date on File: 08/02/22 service: No Current occupational status: retired Cognitive needs: No Hearing needs: No Vision needs: Yes Questionnaire Thrive Questionnaire Date Thrive assessed: 04/07/23 I am a: Patient What is your living situation today?: I have a steady place to live Within the past 12 months, did the food you bought not last and you didn't have the money to get more?: Never true Within the past 12 months, did you worry whether your food would run out before you got money to buy more?: Never true Do you have trouble paying for medicines?: No Do you have trouble getting transportation to medical appointments?: No Do you have trouble paying your heating and electricity bill?: No Do you have trouble taking care of your child, family member or friend?: No Do you have trouble with day-to-day activities such as bathing, preparing meals, shopping, managing finances, etc.?: No Are you currently unemployed and looking for a job?: No Are you interested in more education?: No Please select the resources that you would like help with: None THRIVE Score: 0 AUDIT C Alcohol Use Questionnaire (AUDIT-C) 1. How often do you have a drink containing alcohol?: Never 2. How many drinks containing alcohol do you have on a typical day when you are drinking?: 1 or 2 3. How often do you have six or more drinks on one occasion?: Never Total Score: 0 PADMINI-7 AMB Questionnaire PADMINI-7 Date PADMINI - 7 assessed: 04/07/23 Source: Developed by Drs. Christiano Godinez, Angeles Espinosa, Burt Baker and colleagues, with an educational grover from [employer]. Physical exam (Primary Care) Vital Signs: Last Vital Signs Pulse 64 04/07/23 09:45 BP 138/70 04/07/23 09:45 Pulse Ox 98 04/07/23 09:45 Oxygen Delivery Method Room Air 04/07/23 09:45 BMI result Body Mass Index 26.8 Tobacco/Smoking Status: Tobacco use Status Tobacco use date assessed 04/07/23 04/07/23 09:46 Patient Tobacco Use Status Never used Tobacco 04/07/23 09:46 Tobacco use type 12/20/20 16:12 e-Cigarette/Vaping Use Never Used 04/07/23 09:46 Thrive Assessment: Date of Thrive Assessment Date Thrive assessed 04/07/23 04/07/23 09:46 Const General: alert; No acute distress Eyes Conjunctivae: conjunctivae normal Resp Auscultation: clear to auscultation bilaterally Cardio Rate: regular rate Rhythm: regular rhythm GI Inspection: Yes normal to inspection Extrem General: Yes normal to inspection and No edema Assessment and Plan Assessment & Plan (1) Paroxysmal atrial fibrillation: Code(s): I48.0 - Paroxysmal atrial fibrillation Plan: Continue with anticoagulation and will continue for monitoring the renal function (2) 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 Decrease salt intake and exercise on amlodipine 10 mg once a day and metoprolol 25 mg twice a day (4) Impaired glucose tolerance: Code(s): R73.02 - Impaired glucose tolerance (oral) Plan: Decrease the amount of carbohydrate intake, pasta, bread, rice and potatoes are all sugar and that is aside from all the sweet stuff, remember that fruits are good but they are Sweet also. Orders: Orders Free T4 (Free Thyroxine) 6 Months I48.0 - Paroxysmal atrial fibrillation Prostate Specific Antigen Scr 6 Months I48.0 - Paroxysmal atrial fibrillation Complete Blood Count Auto Diff 6 Months I48.0 - Paroxysmal atrial fibrillation Comprehensive Met. Panel 6 Months I48.0 - Paroxysmal atrial fibrillation Thyroid Stimulating Hormone 6 Months I48.0 - Paroxysmal atrial fibrillation Lipid Panel 6 Months E78.00 - Pure hypercholesterolemia, unspecified, I48.0 - Paroxysmal atrial fibrillation Varicella IgG Antibody 6 Months I48.0 - Paroxysmal atrial fibrillation, Z02.0 - Encounter for examination for admission to educational institution Medications: Refilled apixaban 5 mg PO BID 90 days 180 tabs 2RF I47.29 - Other ventricular tachycardia mexiletine 150 mg PO BID 180 caps 0RF I48.91 - Unspecified atrial fibrillation Coding Level of Care Code Est Pt Level 4 (11292) Diagnoses Paroxysmal atrial fibrillation I48.0 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
== END 2023-04-07 11:00 | disposition home or self-care (01) ==
PROVIDERS: PCP Internal Medicine; Visit Provider Internal Medicine
DX: I48.0 Paroxysmal atrial fibrillation (principal); I63.549 Cerebral infarction due to unspecified occlusion or stenosis of unspecified cerebellar artery; I10 Essential (primary) hypertension; R73.02 Impaired glucose tolerance (oral)
CPT/HCPCS: 99214

== ENCOUNTER 2023-05-13 10:20 | Outpatient (AMB) | payer MEDICARE, SELFPAY ==
--- NOTE | 2023-05-13 10:47 | MHC.OFFVIS ---
Intake Vital Signs 05/13/23 10:48 05/13/23 10:59 Height 5 ft 7 in Weight 169 lb 12.095 oz BMI 26.6 26.6 BP 152/70 H Blood Pressure Location Lt brachial Position Sitting Pulse 53 Pulse Source Monitor Intake Visit Reasons: 6 mth fu w/ ekg Allergies captopril [Captopril] Allergy (Severe, Verified 04/07/23 09:57) UNKNOWN, angioedema, anaphylaxis EDGARD Inhibitors [Edgard Inhibitors] Allergy (Unknown, Verified 04/07/23 09:57) UNKNOWN Medication List - Last Reconciled 05/13/23 by Mendoza Bah MD amlodipine 10 mg PO DAILY 90 days apixaban 5 mg PO BID 90 days metoprolol succinate ER 25 mg PO BID 90 days mexiletine 150 mg PO BID COUNT INCLUDES THE [facility] Medical History First degree AV block Lightheaded Aortic valve disease Sick sinus syndrome Pulmonary nodules/lesions, multiple History of Mckinley's palsy History of shingles Thyroid nodule Pulmonary nodule Irritable bowel syndrome GERD (gastroesophageal reflux disease) Aortic root dilatation Aortic regurgitation History of prostate cancer Impaired glucose tolerance Hypertension Surgical History History of prostate surgery History of cholecystectomy Family History Father No problems noted. Mother No problems noted. Family/Other Sudden Alzheimers disease Social History Household Members: Spouse Housing: House Do you presently have visiting nurse or other home services: No Alcohol intake: never Comment: pt refusing alarms, steady gait, hourly rounding, encouraged to call Patient Tobacco Use Status: Never used Tobacco e-Cigarette/Vaping Use: Never Used Second Hand Smoke Exposure: No Advance Directives Date on File: 08/02/22 service: No Current occupational status: retired Cognitive needs: No Hearing needs: No Vision needs: Yes Review of Systems Const Denies chills, Denies fatigue, Denies fever(s), Denies frequent falls, Denies weakness, Denies weight gain and Denies weight loss ENT Denies dizziness Card Denies chest pain, Denies leg edema, Denies lightheadedness, Denies palpitations, Denies dyspnea, Denies dyspnea on exertion, Denies orthopnea and Denies other (loss of consciousness) Resp Denies cough, Denies dyspnea and Denies dyspnea on exertion GI Denies hematochezia and Denies change in stool character Musc Denies abnormal gait, Denies muscle weakness, Denies numbness, Denies radiating pain into limb and Denies tingling Neuro Denies abnormal gait, Denies dizziness, Denies frequent falls, Denies numbness, Denies tingling and Denies weakness Endo Denies fatigue and Denies palpitations Physical Exam Vital Signs: Last Vital Signs Pulse 53 05/13/23 10:48 BP 152/70 H 05/13/23 10:48 BMI result Body Mass Index 26.6 Office Procedures EKG Details: EKG shows sinus bradycardia with first-degree AV block with nonspecific ST T wave changes suggestive of repolarization abnormality [id number], Complete Assessment & Plan Assessment & Plan (1) Paroxysmal atrial fibrillation: Code(s): I48.0 - Paroxysmal atrial fibrillation Plan See my other note from today. This was a duplicate note in error Coding Level of Care Code Left Without Being Seen Diagnoses Paroxysmal atrial fibrillation I48.0 CPT Codes EKG - CPT: 52011-[id number], Complete ([id number])
[2023-05-13 10:48] VITALS: BP 152/70; PULSE 53; BMI 26.6
--- NOTE | 2023-05-13 10:57 | A.OFFVIS_ITS ---
Intake Vital Signs 05/13/23 10:48 05/13/23 10:59 Height 5 ft 7 in Weight 169 lb 12.095 oz BMI 26.6 26.6 BP 152/70 H Blood Pressure Location Lt brachial Position Sitting Pulse 53 Pulse Source Monitor Intake Visit Reasons: 6 mth fu w/ ekg Intake Note: 6 month follow up with EKG PT feels more tired after Stroke Allergies captopril [Captopril] Allergy (Severe, Verified 04/07/23 09:57) UNKNOWN, angioedema, anaphylaxis EDGARD Inhibitors [Edgard Inhibitors] Allergy (Unknown, Verified 04/07/23 09:57) UNKNOWN Medication List - Last Reconciled 05/13/23 by Mendoza Bah MD amlodipine 10 mg PO DAILY 90 days apixaban 5 mg PO BID 90 days metoprolol succinate ER 25 mg PO BID 90 days mexiletine 150 mg PO BID HPI HPI Comments History of Present Illness Details Hung comes for follow-up. Remains active in his day-to-day life. Denies any symptoms of prolonged palpitation irregular heartbeat. No lightheadedness, syncope. Blood pressure is generally well controlled with systolic blood pressure in the 130s. Denies any heart failure symptoms. Tolerating his medications well. No bleeding issues or neurologic events. [facility] Medical History First degree AV block Lightheaded Aortic valve disease Sick sinus syndrome Pulmonary nodules/lesions, multiple History of Mckinley's palsy History of shingles Thyroid nodule Pulmonary nodule Irritable bowel syndrome GERD (gastroesophageal reflux disease) Aortic root dilatation Aortic regurgitation History of prostate cancer Impaired glucose tolerance Hypertension Surgical History History of prostate surgery History of cholecystectomy Family History Father No problems noted. Mother No problems noted. Family/Other Sudden Alzheimers disease Social History Household Members: Spouse Housing: House Do you presently have visiting nurse or other home services: No Alcohol intake: never Comment: pt refusing alarms, steady gait, hourly rounding, encouraged to call Patient Tobacco Use Status: Never used Tobacco e-Cigarette/Vaping Use: Never Used Second Hand Smoke Exposure: No Advance Directives Date on File: 08/02/22 service: No Current occupational status: retired Cognitive needs: No Hearing needs: No Vision needs: Yes Review of Systems Const Denies chills, Denies fatigue, Denies fever(s), Denies frequent falls, Denies weakness, Denies weight gain and Denies weight loss ENT Denies dizziness Card Denies chest pain, Denies leg edema, Denies lightheadedness, Denies palpitations, Denies dyspnea, Denies dyspnea on exertion, Denies orthopnea and Denies other (loss of consciousness) Resp Denies cough, Denies dyspnea and Denies dyspnea on exertion GI Denies hematochezia and Denies change in stool character Musc Denies abnormal gait, Denies muscle weakness, Denies numbness, Denies radiating pain into limb and Denies tingling Neuro Denies abnormal gait, Denies dizziness, Denies frequent falls, Denies numbness, Denies tingling and Denies weakness Endo Denies fatigue and Denies palpitations Physical Exam Vital Signs: Last Vital Signs Pulse 53 05/13/23 10:48 BP 152/70 H 05/13/23 10:48 BMI result Body Mass Index 26.6 Const General: cooperative, comfortable, no acute distress, alert, awake, Physically active, anxious and well groomed Nutritional Appearance: average body habitus Orientation/consciousness: patient oriented x3 Limitations: no limitations Neck Neck: Yes trachea midline, Yes supple and Yes no JVD Carotids: no bruits Resp Effort & Inspection: normal respiratory effort Auscultation: clear to auscultation bilaterally Cardio Jugular venous distension: no JVD Palpation: normal PMI Rate: regular rate Rhythm: regular rhythm Heart sounds: S1 normal heart sound present, S2 normal heart sound present, no click, no gallops and Murmur heart sound present systolic early GI Auscultation: normal bowel sounds Skin General skin exam: no rashes or lesions noted Neuro General: patient oriented x3 and no focal motor deficits Extrem General: Yes no clubbing, cyanosis or edema Psych Appearance: grossly normal Affect: Anxious affect present Office Procedures EKG Details: EKG shows sinus bradycardia with first-degree AV block with nonspecific ST T wave changes suggestive of repolarization abnormality [id number], Complete Assessment & Plan Assessment & Plan (1) Paroxysmal atrial fibrillation: Code(s): I48.0 - Paroxysmal atrial fibrillation Plan: Paroxysmal atrial fibrillation, currently suppressed on medical therapy including metoprolol therapy. He does have sinus bradycardia, see below. No symptoms related to it. Continue full oral anticoagulation, currently on Eliquis 5 mg b.i.d.. Quarterly renal function test should be pursued. Continue aggressive blood pressure control. (2) Sick sinus syndrome: Code(s): I49.5 - Sick sinus syndrome Plan: Sick sinus syndrome with evidence of sinus bradycardia without any symptoms. No indication for pacing therapy at this point time. He has no symptoms. Advised to call me with if he has any recurrent syncopal episodes. Requires metoprolol therapy for management of his ventricular arrhythmias as well as atrial fibrillation. Avoidance of stimulants was discussed. (3) Aortic root dilatation: Code(s): I77.810 - Thoracic aortic ectasia Plan: Ascending aortic aneurysm mild with mild aortic stenosis. Continue aggressive medical therapy. Blood pressure is currently well optimized advised to monitor blood pressure at home maintain a log. Goal blood pressure less than 130/84. Today was noted to have elevated blood pressure but appears to be related to stress. Advised to call me if his blood pressure at home remains persistently elevated. Low-salt diet was discussed. Stress mitigation strategies were discussed. Follow up in the clinic in 6 months time, sooner p.r.n.. Thank you for allowing me to partake in his care Coding Level of Care Code Est Pt Level 4 (92360) Diagnoses Paroxysmal atrial fibrillation I48.0 Sick sinus syndrome I49.5 Aortic root dilatation I77.810 CPT Codes EKG - CPT: 42605-[id number], Complete ([id number])
[2023-05-13 10:59] VITALS: BMI 26.6
== END 2023-05-13 11:21 | disposition home or self-care (01) ==
PROVIDERS: PCP Internal Medicine; Visit Provider Internal Medicine Cardiovascular Disease
DX: I48.0 Paroxysmal atrial fibrillation (principal); I49.5 Sick sinus syndrome; I77.810 Thoracic aortic ectasia
CPT/HCPCS: 93010; 99214

== ENCOUNTER → 2023-05-13 10:20 | Outpatient (BNVA) | payer MEDICARE, SELFPAY | PROVIDERS: PCP Internal Medicine; Visit Provider Internal Medicine Cardiovascular Disease | DX: I48.0 Paroxysmal atrial fibrillation (principal); I49.5 Sick sinus syndrome; I77.810 Thoracic aortic ectasia; R94.31 Abnormal electrocardiogram [ECG] [EKG]; I44.0 Atrioventricular block, first degree; R00.1 Bradycardia, unspecified | CPT/HCPCS: 93005; 99212 ==

== ENCOUNTER → 2023-08-13 09:38 | Outpatient (REF) | payer MEDICARE, SELFPAY ==
--- NOTE | 2023-08-13 09:41 | CA_ITS ---
Transthoracic Echocardiogram Patient (Last, First, Middle): Hung Reyna C Gender: Male Date of : 1940 Age: 83 Procedure Date: 08/13/2023 Procedure Type: Transthoracic Echocardiogram Location: OP Height: 170.18 cm Weight: 74.84 kg BSA: 1.86 m2 Heart Rate: 53 bpm BP: 160 / 70 mmHg Home Management Supervisor: SB Referring MD: Mendoza Bah MD Symptoms: I35.0 - Nonrheumatic aortic (valve) stenosis Study Quality: Adequate ECG Rhythm: Bradycardia Conclusions: - Normal left ventricular size, thickness, systolic function, and wall motion. The visually estimated ejection fraction is between 55-60%. - Normal right ventricular cavity size and systolic function. - There is mild aortic valve stenosis. There is moderate aortic valve regurgitation. - There is mild dilatation of the sinuses of Valsalva measuring 3.80 cm and mild dilatation of the ascending aorta measuring 3.50 cm. Findings Left Ventricle Normal left ventricular size, thickness, systolic function, and wall motion. The visually estimated ejection fraction is between 55-60%. Abnormal diastolic function is noted. Spectral Doppler is indicative of an impaired relaxation filling pattern. E/E prime ratio is between 8 and 15 consistent with indeterminate filling pressures. Right Ventricle Normal right ventricular cavity size and systolic function. Atria The left atrium is normal in size. The right atrium is normal in size. Aortic Valve There is a normal trileaflet aortic valve. There is mild thickening of the aortic valve. There is mild aortic valve stenosis. There is moderate aortic valve regurgitation. Mitral Valve The mitral valve appears normal. There is no mitral valve regurgitation. There is no mitral valve stenosis. Pulmonic Valve The pulmonic valve is normal. There is trace pulmonic valve regurgitation. Tricuspid Valve Normal tricuspid valve structure. There is no tricuspid valve regurgitation. Tricuspid regurgitation envelope is inadequate for calculation of right ventricular systolic pressure. Normal right atrial pressure. Great Vessels There is mild dilatation of the sinuses of Valsalva measuring 3.80 cm and mild dilatation of the ascending aorta measuring 3.50 cm. The visualized portions of the pulmonary artery and branches are normal. Venous The inferior vena cava is normal in size and collapses greater than 50% with inspiration. Pericardium/Pleural There is no evidence of pericardial effusion. Prior Study Comparison Changes noted compared to prior study dated: 08/07/2022. LV pacing lead not present anymore. Measurements 2D Linear Measurements IVSd: 0.77 0.6-0.9/0.6-1.0 cm LVIDd: 6.12 3.9-5.3/4.2-5.9 cm LVIDd Index: 3.29 2.4-3.2/2.2-3.1 cm/m2 LVIDs: 5.10 2.0-3.6 cm LVPWd: 0.75 0.7-1.1 cm LA Diam: 3.90 2.7-3.8/3.0-4.0 cm LAIDs Index: 2.10 1.5-2.3 cm/m2 LV Mass: 226.49 67-162/88-224 g LV Mass Index: 121.77 43-95/49-115 g/m2 LVOT Diam: 2.60 3.0+(-)1.3 cm 2D Systolic Function EF 4C: 55.00 >55% EF 2C: 52.50 >55% EF BiP: 54.40 >55% Mitral Valve MV Pk E: 0.39 MV PK A: 1.05 MV Decel Time: 171.00 E/A: 0.40 E'Lateral: 3.15 E'Medial: 3.00 E/E' Med: 12.90 E/E' Lat: 12.30 PHT: 50.00 MVA PHT: 4.40 Decel Kings: 2.26 Aortic Valve AoV Pk Tino: 2.17 AoV Mn Tino: 1.53 AoV VTI: 0.50 AoV Pk Grad: 19.00 Aov Mn Grad: 11.00 JUAN MANUEL Cont.VTI: 2.35 AI Pk Tino: 4.52 AI VTI: 3.09 AI Kings: 2.02 AI Alias Tino: 0.39 AI RV - PISA: 40.00 ERO - PISA: 13.00 LVOT LVOT Pk Tino: 1.00 LVOT Mn Tino: 0.66 LVOT VTI: 0.22 LVOT Pk Grad: 4.00 LVOT Mn Grad: 2.00 LVOT Diam: 2.60 LVOT Area: 5.31 Diastolic Function MV Pk E: 0.39 MV Pk A: 1.05 E/A: 0.40 E'Medial: 3.00 E/E' Med: 12.90 E' Laterial: 3.15 E/E' Lat: 12.30 Right Ventricle TAPSE (mm): 18.00 TVS' Tino: 14.60 Tricuspid Valve RA Press: 3.00 Great Vessels Aorta Sinus of Valsalva: 3.80 2.0-3.5 cm Ao Asc: 3.50 2.1-3.4 cm Updated in Other Vendor System with Status of Final Napoleon Buck MD electronically signed on 08/17/2023 9:12:48 PM with status of Final
== END ==
LOC: HO.CARD 09:38
PROVIDERS: PCP Internal Medicine; Visit Provider Internal Medicine Cardiovascular Disease
DX: I35.0 Nonrheumatic aortic (valve) stenosis (principal)
CPT/HCPCS: 93306

== ENCOUNTER → 2023-08-13 09:41 | Outpatient (BNV) | payer MEDICARE, SELFPAY | PROVIDERS: PCP Internal Medicine; Visit Provider Internal Medicine Cardiovascular Disease | DX: I35.2 Nonrheumatic aortic (valve) stenosis with insufficiency (principal) | CPT/HCPCS: 93306 ==

== ENCOUNTER 2023-10-07 06:57 | Outpatient (REF) | payer MEDICARE, SELFPAY ==
[2023-10-07 07:11] LABS: MANUAL DIFF FLAG NO
[2023-10-07 07:49] LABS: Basophils Absolute Auto 0.2 X10*3/uL (0.0-0.2); Basophils Percent Auto 2.4 % (0-2); Eosinophils Absolute Auto 0.4 X10*3/uL (0.0-0.4); Eosinophils Percent Auto 6.3 % (0-4); Hematocrit 47.2 % (42.0-52.0); Imm Gran Abs Auto 0.07 X10*3/uL (0.00-0.03); Imm Gran Pct Auto 1.1 % (0.0-0.4); Lymphocytes Absolute Auto 1.8 X10*3/uL (1.2-4.9); Lymphocytes Percent Auto 27.5 % (20-40); Mean Corpuscular HGB Conc 33.9 g/dl (31.0-36.0); Mean Corpuscular Hemoglobin 31.4 pg (27.0-33.0); Mean Corpuscular Volume 92.7 fL (80.0-98.0); Monocytes Absolute Auto 0.8 X10*3/uL (0.1-1.2); Monocytes Percent Auto 11.6 % (2-11); Neutrophils Absolute Auto 3.4 x10*3/uL (2.0-8.3); Neutrophils Percent Auto 51.1 % (45-73); Platelet Count 245 X10*3/uL (160-400); Red Blood Count 5.09 X10*6/uL (4.60-5.80); Red Cell Distribution Width 13.7 % (11.0-16.0); White Blood Count 6.6 X10*3/uL (4.8-10.8)
[2023-10-07 08:23] LABS: Alanine Aminotransferase 22 U/L (0-40); Alkaline Phosphatase 92 U/L (39-117); Anion Gap 12 (12-20); Aspartate Amino Transferase 22 U/L (5-37); Bilirubin Total 0.9 mg/dL (0.0-1.0); Blood Urea Nitrogen 14 mg/dL (9-16); Calcium 9.2 mg/dL (8.4-10.2); Carbon Dioxide 24 mmol/L (22-29); Chloride 105 mmol/L (96-108); Cholesterol 151 mg/dL (<200); Estimated Glomerular Filt Rate > 60; Glucose Random 104 mg/dL (60-115); HDL Cholesterol 45 mg/dL (>40); LDL Cholesterol Calculated 92 mg/dL (<100); Potassium 3.7 mmol/L (3.3-5.1); Sodium 137 mmol/L (135-145); Total Protein 7.3 g/dL (6.5-8.0); Triglycerides 71 mg/dL (<150)
[2023-10-07 08:32] LABS: Prostate Specific Antigen Scr < 0.10 ng/mL (<0.05-4.0)
[2023-10-07 08:38] LABS: Free T4 (Free Thyroxine) 0.95 ng/dL (0.71-1.85); Thyroid Stimulating Hormone 4.48 uIU/mL (0.32-4.0)
[2023-10-08 08:53] LABS: Varicella IgG Antibody >4000.00 index
== END 2023-10-07 06:58 | disposition home or self-care (01) ==
LOC: HO.LAB 06:57
PROVIDERS: PCP Internal Medicine; Visit Provider Internal Medicine
DX: Z02.0 Encounter for examination for admission to educational institution (principal); I48.0 Paroxysmal atrial fibrillation; E78.00 Pure hypercholesterolemia, unspecified; Z12.5 Encounter for screening for malignant neoplasm of prostate
CPT/HCPCS: 36415; 80053; 80061; 84153; 84439; 84443; 85025; 86787

== ENCOUNTER 2023-10-14 09:55 | Outpatient (AMB) | payer MEDICARE, SELFPAY ==
[2023-10-14 10:14] VITALS: BP 144/76; PULSE 75; O2SAT 96; BMI 26.6
--- NOTE | 2023-10-14 10:14 | A.OFFPC_ITS ---
Vital Signs 10/14/23 10:14 Height 5 ft 7 in Weight 170 lb BMI 26.6 BP 144/76 H Blood Pressure Location Lt brachial Position Sitting Pulse 75 Pulse Source Pulse Oximeter Pulse Oximetry (%) 96 Oxygen Delivery Method Room Air Intake Visit Reasons: CVA atrial fib Allergies captopril [Captopril] Allergy (Severe, Verified 10/14/23 10:14) UNKNOWN, angioedema, anaphylaxis EDGARD Inhibitors [Edgard Inhibitors] Allergy (Unknown, Verified 10/14/23 10:14) UNKNOWN Tobacco use date assessed: 04/07/23 Fall risk assessment: No Falls in past year Last assessed Fall Risk: 10/14/23 Dental Screening Dental Screen Date: 04/07/23 HPI CVA atrial fib HPI Details 83-year-old male with a history of atria l fibrillation, CVA cerebellar hypertension impaired glucose tolerance last seen in March 2023. Patient does have a history of sick sinus syndrome prostate cancer. Echocardiogram done in August 17 2023Normal left ventricular size, thickness, systolic function, and wall motion. The visually estimated ejection fraction is between 55-60%. - Normal right ventricular cavity size a nd systolic function. - There is mild aortic valve stenosis. There is moderate aortic valve regurgitation. - There is mild dilatation of the sinuse s of Valsalva measuring 3.80 cm and mild dilatation of the ascen ding aorta measuring 3.50 cm. Cardiology notes atrial fibrillation on metoprolol. On anticoagulation with Eliquis and advised quarterly renal function testing. Goal of blood pressure is 130/84. [facility] Medical History (Updated 10/14/23 @ 10:23 by Maverick Maier MD) First degree AV block Lightheaded Aortic valve disease Sick sinus syndrome Pulmonary nodules/lesions, multiple History of Mckinley's palsy History of shingles Thyroid nodule Pulmonary nodule Irritable bowel syndrome GERD (gastroesophageal reflux disease) Aortic root dilatation Aortic regurgitation History of prostate cancer Impaired glucose tolerance Hypertension Surgical History History of prostate surgery History of cholecystectomy Family History Father No problems noted. Mother No problems noted. Family/Other Sudden Alzheimers disease Social History Household Members: Spouse Housing: House Do you presently have visiting nurse or other home services: No Alcohol intake: never Comment: pt refusing alarms, steady gait, hourly rounding, encouraged to call Patient Tobacco Use Status: Never used Tobacco Tobacco use type: Cigarette e-Cigarette/Vaping Use: Never Used Second Hand Smoke Exposure: No Advance Directives Date on File: 08/02/22 service: No Current occupational status: retired Cognitive needs: No Hearing needs: No Vision needs: Yes Questionnaire PHQ-9 Over the last 2 weeks, how often have you been bothered by any of the following problems? 1. Little interest or pleasure in doing things: not at all 2. Feeling down, depressed, or hopeless: not at all 3. Trouble falling or staying asleep, or sleeping too much: not at all 4. Feeling tired or having little energy: not at all 5. Poor appetite or overeating: not at all 6. Feeling bad about yourself - or that you are a failure or have let yourself or your family down: not at all 7. Trouble concentrating on things, such as reading the newspaper or watching television: not at all 8. Moving or speaking so slowly that other people could have noticed. Or the opposite - being so fidgety or restless that you have been moving around a lot more than usual: not at all 9. Thoughts that you would be better off or of hurting yourself in some way: not at all Total score: 0 Depression Screening Interpretation: Negative Depression Screening Done: Yes Source: Developed by Drs. Christiano Godinez, Angeles Espinosa, Burt Baker and colleagues, with an educational grover from [employer]. Thrive Questionnaire Date Thrive assessed: 04/07/23 AUDIT C Alcohol Use Questionnaire (AUDIT-C) 1. How often do you have a drink containing alcohol?: Never 2. How many drinks containing alcohol do you have on a typical day when you are drinking?: 1 or 2 3. How often do you have six or more drinks on one occasion?: Never Total Score: 0 PADMINI-7 AMB Questionnaire PADMINI-7 Date PADMINI - 7 assessed: 04/07/23 Source: Developed by Drs. Christiano Godinez, Angeles Espinosa, Burt Baker and colleagues, with an educational grover from [employer]. Physical exam (Primary Care) Vital Signs: Last Vital Signs Pulse 75 10/14/23 10:14 BP 144/76 H 10/14/23 10:14 Pulse Ox 96 10/14/23 10:14 Oxygen Delivery Method Room Air 10/14/23 10:14 BMI result Body Mass Index 26.6 Tobacco/Smoking Status: Tobacco use Status Tobacco use date assessed 04/07/23 10/14/23 10:18 Patient Tobacco Use Status Never used Tobacco 10/14/23 10:18 Tobacco use type Cigarette 10/14/23 10:18 e-Cigarette/Vaping Use Never Used 10/14/23 10:18 PHQ-9: PHQ-9 Score PHQ-9: Total score 0 10/14/23 10:18 Depression Screening Interpretation: Negative Thrive Assessment: Date of Thrive Assessment Date Thrive assessed 04/07/23 10/14/23 10:18 Const General: alert; No acute distress Eyes Conjunctivae: conjunctivae normal Resp Auscultation: clear to auscultation bilaterally Cardio Rate: regular rate Rhythm: regular rhythm GI Inspection: Yes normal to inspection Extrem General: Yes normal to inspection and No edema Assessment and Plan Assessment & Plan (1) Paroxysmal atrial fibrillation: Code(s): I48.0 - Paroxysmal atrial fibrillation Plan: Continue with anticoagulation and metoprolol and mexiletine 150 mg twice a day (2) Mild aortic stenosis: Comment: July 2022 [id number] echocardiogram left ventricle EF 54% mild aortic stenosis 1.7 sq cm 04/2023 Code(s): I35.0 - Nonrheumatic aortic (valve) stenosis Plan: April 2023 continue with knee yearly surveillance. (3) GERD (gastroesophageal reflux disease): Code(s): K21.9 - Gastro-esophageal reflux disease without esophagitis Plan: Avoid the foods that causes that usually spicy foods, tomato products, juices, coffee, soda and foods that your sensitive to. After eating do not lie down, allow 3-4 hours before in lie down. And keep the head of bed above 30 degrees to avoid the acid from going up. (4) Aortic root dilatation: Comment: April 2023 Code(s): I77.810 - Thoracic aortic ectasia Plan: Continue to be monitored April 2023 last. (5) Hypertension: Code(s): I10 - Essential (primary) hypertension Plan: Continue with blood pressure medication. Decrease salt intake and exercise takes amlodipine 10 mg once a day metoprolol 25 mg twice a day.. concern BP still high. cannot increase the metoprolol due to bradycardia. montior BP and record. Patient will be seeing cardiology next month. (6) Impaired glucose tolerance: Code(s): R73.02 - Impaired glucose tolerance (oral) Plan: Decrease the amount of carbohydrate intake, pasta, bread, rice and potatoes are all sugar and that is aside from all the sweet stuff, remember that fruits are good but they are Sweet also. (7) TSH elevation: Code(s): R79.89 - Other specified abnormal findings of blood chemistry Plan: Will continue to monitor Orders: Orders Free T4 (Free Thyroxine) 3 Months I48.0 - Paroxysmal atrial fibrillation Complete Blood Count Auto Diff 3 Months I48.0 - Paroxysmal atrial fibrillation Comprehensive Met. Panel 3 Months I48.0 - Paroxysmal atrial fibrillation Thyroid Stimulating Hormone 3 Months I48.0 - Paroxysmal atrial fibrillation Coding Level of Care Code Est Pt Level 4 (87237) Diagnoses Paroxysmal atrial fibrillation I48.0 Mild aortic stenosis I35.0 GERD (gastroesophageal reflux disease) K21.9 Aortic root dilatation I77.810 Hypertension I10 Impaired glucose tolerance R73.02 TSH elevation R79.89
== END 2023-10-14 10:50 | disposition home or self-care (01) ==
PROVIDERS: PCP Internal Medicine; Visit Provider Internal Medicine
DX: I48.0 Paroxysmal atrial fibrillation (principal); I35.0 Nonrheumatic aortic (valve) stenosis; K21.9 Gastro-esophageal reflux disease without esophagitis; I77.810 Thoracic aortic ectasia; I10 Essential (primary) hypertension; R73.02 Impaired glucose tolerance (oral); R79.89 Other specified abnormal findings of blood chemistry
CPT/HCPCS: 99214

== ENCOUNTER 2023-11-16 10:41 | Outpatient (AMB) | payer MEDICARE, SELFPAY ==
[2023-11-16 10:46] VITALS: BP 140/84; PULSE 64; BMI 26.9
--- NOTE | 2023-11-16 10:46 | MHC.OFFVIS ---
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 He has overall done well from cardiac perspective although he has been slowing down. Not exercising much. His balance is issue. Speech has remained stable. Denies any exertional chest pain shortness of breath. No prolonged palpitation irregular heartbeat. Denies any fluttering in his chest. He says blood pressures remain elevated. No lightheadedness, syncope. No exertional chest pain. No heart failure symptoms. No bleeding issues or neurologic events. [facility] Medical History (Updated 11/16/23 @ 12:32 by Mendoza Bah MD) Pacemaker complications First degree AV block Lightheaded Aortic valve disease Sick sinus syndrome Pulmonary nodules/lesions, multiple History of Mckinley's palsy History of shingles Thyroid nodule Pulmonary nodule Irritable bowel syndrome GERD (gastroesophageal reflux disease) Aortic root dilatation Aortic regurgitation History of prostate cancer Impaired glucose tolerance Hypertension Surgical History History of prostate surgery History of cholecystectomy Family History Father No problems noted. Mother No problems noted. Family/Other Sudden Alzheimers disease Social History Household Members: Spouse Housing: House Do you presently have visiting nurse or other home services: No Alcohol intake: never Comment: pt refusing alarms, steady gait, hourly rounding, encouraged to call Patient Tobacco Use Status: Never used Tobacco Tobacco use type: Cigarette e-Cigarette/Vaping Use: Never Used Second Hand Smoke Exposure: No Advance Directives Date on File: 08/02/22 service: No Current occupational status: retired Cognitive needs: No Hearing needs: No Vision needs: Yes Review of Systems Const Denies chills, Denies fatigue, Denies fever(s), Denies frequent falls, Denies weakness, Denies weight gain and Denies weight loss ENT Denies dizziness Card Denies chest pain, Denies leg edema, Denies lightheadedness, Denies palpitations, Denies dyspnea, Denies dyspnea on exertion, Denies orthopnea and Denies other (loss of consciousness) Resp Denies cough, Denies dyspnea and Denies dyspnea on exertion GI Denies hematochezia and Denies change in stool character Musc Denies abnormal gait, Denies muscle weakness, Denies numbness, Denies radiating pain into limb and Denies tingling Neuro Denies abnormal gait, Denies dizziness, Denies frequent falls, Denies numbness, Denies tingling and Denies weakness Endo Denies fatigue and Denies palpitations Physical Exam Vital Signs: Last Vital Signs Pulse 64 11/16/23 10:46 BP 140/84 H 11/16/23 10:46 BMI result Body Mass Index 26.9 Const General: cooperative, comfortable, no acute distress, alert, awake, Physically active, anxious and well groomed Nutritional Appearance: average body habitus and other (Frail elderly man) Orientation/consciousness: patient oriented x3 Limitations: no limitations Neck Neck: Yes trachea midline, Yes supple and Yes no JVD Carotids: no bruits Resp Effort & Inspection: normal respiratory effort Auscultation: clear to auscultation bilaterally Cardio Jugular venous distension: no JVD Palpation: normal PMI Rate: regular rate Rhythm: regular rhythm Heart sounds: S1 normal heart sound present, S2 normal heart sound present, no click, no gallops and Murmur heart sound present systolic early GI Auscultation: normal bowel sounds Skin General skin exam: no rashes or lesions noted Neuro General: patient oriented x3 and no focal motor deficits Extrem General: Yes no clubbing, cyanosis or edema Psych Appearance: grossly normal Affect: Anxious affect present Office Procedures EKG Details: EKG shows sinus bradycardia with first-degree AV block with minimal voltage criteria for LVH with normal QT interval [id number], Complete Assessment & Plan Assessment & Plan (1) Paroxysmal atrial fibrillation: Code(s): I48.0 - Paroxysmal atrial fibrillation Category: Medical Plan: Paroxysmal atrial fibrillation without any obvious recurrence at this point time. 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 Currently having no symptoms related to it. Continue low-dose metoprolol therapy. Avoidance of stimulants was discussed. Continue full oral anticoagulation with apixaban. Semi annual renal function test should be pursued. Advised to call me with any new symptoms. (2) Nonsustained ventricular tachycardia: Code(s): I47.29 - Other ventricular tachycardia Category: Medical Plan: Nonsustained ventricular tachycardia, currently on mexiletine therapy. Has no obvious clinical recurrence and says symptoms of fluttering has improved as well. Continue the same. Continue metoprolol therapy. Avoidance of stimulants was discussed. (3) Mild aortic stenosis: Comment: July 2022 echocardiogramJune 2022 echocardiogram left ventricle EF 54% mild aortic stenosis 1.7 sq cm 04/2023 Code(s): I35.0 - Nonrheumatic aortic (valve) stenosis Category: Medical Plan: Mild aortic stenosis and regurgitation, mixed evaluated disease due to calcific valve disease. Clinically currently having no symptoms related to it. No interventions required. Apixaban therapy. Continue aggressive vascular risk factor modification. Goal LDL less than 100 mg/dL. (4) Sick sinus syndrome: Code(s): I49.5 - Sick sinus syndrome Category: Medical Plan: Patient with sick sinus syndrome with sinus bradycardia but has done well with lowering of the metoprolol dose and treating his ventricular arrhythmias with mexiletine therapy. No indication for pacing therapy. Continue monitor clinically. Advised to call me with any new symptoms. (5) Hypertension: Code(s): I10 - Essential (primary) hypertension Category: Medical Plan: Hypertension which is currently not well optimized. Add valsartan 40 mg daily to his regimen. Advised to monitor blood pressure at home maintain a log. He has had prior history of low blood pressure. Continue to closely monitor. Advised to call me with any side effects. Check BMP next week. Will gradually uptitrate his as tolerated. Goal blood pressure closer to systolic 130. (6) Aortic root dilatation: Comment: April 2023 Code(s): I77.810 - Thoracic aortic ectasia Category: Medical Plan: Mild ascending aortic enlargement. Continue aggressive blood pressure control. No other interventions required. Will follow up in the clinic in 6 months time. Greater than 45 minutes was spent in managing his complex care. Orders: Orders Basic Metabolic Panel Today I35.0 - Nonrheumatic aortic (valve) stenosis, I48.0 - Paroxysmal atrial fibrillation Medications: New valsartan 40 mg PO DAILY 90 tabs 3RF Refilled amlodipine 10 mg PO DAILY 90 tabs 2RF 90 days I48.91 - Unspecified atrial fibrillation Coding Level of Care Code Est Pt Level 5 (11579) Diagnoses Paroxysmal atrial fibrillation I48.0 Nonsustained ventricular tachycardia I47.29 Mild aortic stenosis I35.0 Sick sinus syndrome I49.5 Hypertension I10 Aortic root dilatation I77.810 CPT Codes EKG - CPT: 09578-[id number], Complete ([id number])
== END 2023-11-16 11:37 | disposition home or self-care (01) ==
PROVIDERS: PCP Internal Medicine; Visit Provider Internal Medicine Cardiovascular Disease
DX: I48.0 Paroxysmal atrial fibrillation (principal); I47.29 Other ventricular tachycardia; I49.5 Sick sinus syndrome; I77.810 Thoracic aortic ectasia; I35.0 Nonrheumatic aortic (valve) stenosis; I10 Essential (primary) hypertension; I44.0 Atrioventricular block, first degree
CPT/HCPCS: 93010; 99215

== ENCOUNTER 2023-11-16 10:41 | Outpatient (REF) | payer MEDICARE, SELFPAY ==
[2023-11-16 12:46] LABS: Anion Gap 11 (12-20); Blood Urea Nitrogen 15 mg/dL (9-16); Calcium 9.3 mg/dL (8.4-10.2); Carbon Dioxide 28 mmol/L (22-29); Chloride 104 mmol/L (96-108); Estimated Glomerular Filt Rate > 60; Glucose Random 103 mg/dL (60-115); Potassium 3.9 mmol/L (3.3-5.1); Sodium 139 mmol/L (135-145)
== END 2023-11-16 10:42 | disposition home or self-care (01) ==
LOC: HO.LAB 10:41
PROVIDERS: PCP Internal Medicine; Visit Provider Internal Medicine Cardiovascular Disease
DX: I48.0 Paroxysmal atrial fibrillation (principal); I35.0 Nonrheumatic aortic (valve) stenosis; I47.29 Other ventricular tachycardia; I49.5 Sick sinus syndrome; I10 Essential (primary) hypertension; I77.810 Thoracic aortic ectasia
CPT/HCPCS: 36415; 80048; 93005; 99212

== ENCOUNTER 2023-12-13 09:38 | Outpatient (AMB) | payer MEDICARE, SELFPAY ==
--- NOTE | 2023-12-13 09:46 | AM.OFFVISNUR ---
Intake Visit Reasons: Flu Shot Allergies captopril [Captopril] Allergy (Severe, Verified 10/14/23 10:14) UNKNOWN, angioedema, anaphylaxis EDGARD Inhibitors [Edgard Inhibitors] Allergy (Unknown, Verified 10/14/23 10:14) UNKNOWN Office Procedures Flu Questionnaire Does the patient have a severe egg allergy?: No Does the patient have severe life threatening allergies?: No Does the patient have a fever or illness today?: No Has the patient ever had Guillain-Granby Syndrome?: No Has the patient ever had any past reaction to a flu shot?: No Assessment & Plan Assessment & Plan Orders: Orders Influenza [id number] Immunization Today Z23 - Encounter for immunization Medications: New Fluarix Triv [id number] (PF) (flu vacc [id number] 6mos up(PF)) 0.5 mL IM ONCE 0.5 mL 0RF NS Z23 - Encounter for immunization
== END 2023-12-13 09:47 | disposition home or self-care (01) ==
PROVIDERS: PCP Internal Medicine
DX: Z23 Encounter for immunization (principal)

== ENCOUNTER → 2023-12-13 09:38 | Outpatient (BNVA) | payer MEDICARE, SELFPAY | PROVIDERS: PCP Internal Medicine | DX: Z23 Encounter for immunization (principal) | CPT/HCPCS: 90471; 90656 ==

== ENCOUNTER 2024-01-11 10:21 | Outpatient (AMB) | payer MEDICARE, SELFPAY ==
[2024-01-11 10:36] VITALS: BP 112/58; PULSE 63; O2SAT 98; BMI 26.8
--- NOTE | 2024-01-11 10:36 | A.OFFPC_ITS ---
Vital Signs 01/11/24 10:36 01/11/24 11:11 Height 5 ft 7 in Weight 171 lb BMI 26.8 BP 112/58 L 136/82 Blood Pressure Location Lt brachial Lt brachial Position Sitting Sitting Pulse 63 Pulse Source Pulse Oximeter Pulse Oximetry (%) 98 Oxygen Delivery Method Room Air Intake Visit Reasons: 3 Months f/u Allergies captopril [Captopril] Allergy (Severe, Verified 01/11/24 10:37) UNKNOWN, angioedema, anaphylaxis EDGARD Inhibitors [Edgard Inhibitors] Allergy (Unknown, Verified 01/11/24 10:37) UNKNOWN Medication List - Last Reconciled 01/11/24 by Suzy Jeffery PA-C amlodipine 10 mg PO DAILY 90 days apixaban 5 mg PO BID 90 days metoprolol succinate ER 25 mg PO BID 90 days mexiletine 150 mg PO BID valsartan 40 mg PO DAILY Tobacco use date assessed: 04/07/23 Fall risk assessment: No Falls in past year Last assessed Fall Risk: 01/11/24 Dental Screening Dental Screen Date: 04/07/23 HPI 3 Months f/u HPI Details 83-year-old male with a history of atria l fibrillation, CVA cerebellar hypertension impaired glucose tolerance last seen in September 2023 coming in for follow up.? In review of the notes, patient was seen by [facility] Cardiology 11/16/2023 advised to continue on current medication regimen including anticoagulation and avoidance of stimulants and added valsartan 40 mg for management of hypertension. Patient states he is struggling with external hemorrhoids and will often prolapse and are painful and we will bleed. He states every time he uses the bathroom whether or not he is going to have a bowel movement he will have the hemorrhoid prolapse. He also mentioning having excessive gas over the last year. [facility] Medical History Pacemaker complications First degree AV block Lightheaded Aortic valve disease Sick sinus syndrome Pulmonary nodules/lesions, multiple History of Mckinley's palsy History of shingles Thyroid nodule Pulmonary nodule Irritable bowel syndrome GERD (gastroesophageal reflux disease) Aortic root dilatation Aortic regurgitation History of prostate cancer Impaired glucose tolerance Hypertension Surgical History History of prostate surgery History of cholecystectomy Family History Father No problems noted. Mother No problems noted. Family/Other Sudden Alzheimers disease Social History Household Members: Spouse Housing: House Do you presently have visiting nurse or other home services: No Alcohol intake: never Comment: pt refusing alarms, steady gait, hourly rounding, encouraged to call Patient Tobacco Use Status: Never used Tobacco Tobacco use type: Cigarette e-Cigarette/Vaping Use: Never Used Second Hand Smoke Exposure: No Advance Directives Date on File: 08/02/22 service: No Current occupational status: retired Cognitive needs: No Hearing needs: No Vision needs: Yes Questionnaire Thrive Questionnaire Date Thrive assessed: 04/07/23 AUDIT C Alcohol Use Questionnaire (AUDIT-C) 1. How often do you have a drink containing alcohol?: Never 2. How many drinks containing alcohol do you have on a typical day when you are drinking?: 1 or 2 3. How often do you have six or more drinks on one occasion?: Never Total Score: 0 PADMINI-7 AMB Questionnaire PADMINI-7 Date PADMINI - 7 assessed: 04/07/23 Source: Developed by Drs. Christiano Godinez, Angeles Espinosa, Burt Baker and colleagues, with an educational grover from Poll Everywhere. Review of Systems Const Denies body aches and Denies fever(s) Eyes Reports no additional complaints ENT Reports no additional complaints Card Denies chest pain, Denies syncope, Denies irregular heart rhythm, Denies lightheadedness and Denies dyspnea Resp Denies dyspnea GI Reports as per HPI, Denies abdominal pain, Denies constipation, Denies diarrhea, Denies loose stools, Denies nausea and Denies vomiting Reports no additional complaints Musc Reports no additional complaints Skin/Breast Reports system reviewed and no additional complaints, except as documented Neuro Denies syncope Physical exam (Primary Care) Vital Signs: Last Vital Signs Pulse 63 01/11/24 10:36 BP 136/82 01/11/24 11:11 Pulse Ox 98 01/11/24 10:36 Oxygen Delivery Method Room Air 01/11/24 10:36 BMI result Body Mass Index 26.8 Tobacco/Smoking Status: Tobacco use Status Tobacco use date assessed 04/07/23 01/11/24 10:39 Patient Tobacco Use Status Never used Tobacco 01/11/24 10:39 Tobacco use type Cigarette 01/11/24 10:39 e-Cigarette/Vaping Use Never Used 01/11/24 10:39 Thrive Assessment: Date of Thrive Assessment Date Thrive assessed 04/07/23 01/11/24 10:39 Const General: cooperative, healthy appearing, comfortable and no acute distress Orientation/consciousness: patient oriented x3 HENMT Head: Yes normocephalic Ears: hearing grossly normal bilaterally General nose exam: Normal external nose present Eyes General: appearance normal, both eyes and all related structures Conjunctivae: conjunctivae normal Neck Neck: Yes full ROM and Yes no lymphadenopathy Resp Effort & Inspection: normal respiratory effort Auscultation: clear to auscultation bilaterally, no crackles, no rales, no rhonchi and no wheezes Cardio Rate: regular rate Rhythm: regular rhythm Skin General skin exam: no rashes or lesions noted Neuro General: patient oriented x3 Gait exam (Neuro): Normal gait present Extrem General: Yes normal to inspection, Yes full ROM and No edema Psych Affect: normal affect Attitude: cooperative Insight: Good insight present (Psych) Judgement: Good judgement present (Psych) Coding Level of Care Code Est Pt Level 3 (90006) Diagnoses Paroxysmal atrial fibrillation I48.0 Mild aortic stenosis I35.0 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 (2) Mild aortic stenosis: Comment: July 2022 echocardiogramJune 2022 echocardiogram left ventricle EF 54% mild aortic stenosis 1.7 sq cm 04/2023 Code(s): I35.0 - Nonrheumatic aortic (valve) stenosis Category: Medical Plan: Continue to follow with Cardiology with routine screening echocardiograms. Asymptomatic at this time. 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 (4) GERD (gastroesophageal reflux disease): Code(s): K21.9 - Gastro-esophageal reflux disease without esophagitis Category: Medical Plan: Avoid trigger foods such as citrus, tomato products, soda, caffeine, spicy foods and other foods that may be irritating to your stomach. Avoid laying flat 3-4 hours after eating and elevate the head of the bed 30 degrees to prevent acid from moving into the esophagus. (5) Impaired glucose tolerance: Code(s): R73.02 - Impaired glucose tolerance (oral) Category: Medical Plan: Decrease the amount of carbohydrates such as pasta, bread, rice, and potatoes and limit the amount of sweets. Although fruits are generally healthy they should be eaten in moderation as they are still high in sugar. (6) Hypertension: Code(s): I10 - Essential (primary) hypertension Category: Medical Plan: Continue on current blood pressure medication. Avoid salt intake and encourage healthy diet and regular exercise. Recently added valsartan 40 mg to blood pressure medication regimen by Cardiology. (7) External hemorrhoid: Code(s): K64.4 - Residual hemorrhoidal skin tags Category: Medical Plan: Referral placed to General surgery for possible correction of external hemorrhoids. Advised to have high-fiber diet and prevent straining or constipation Plan This note was constructed using voice recognition software. While every effort has been made to ensure accuracy and environmental health and safety intern, still areas may have been included sometimes these areas may affect the content or meeting of the given symptoms. Total time spent caring for the patient today was thirty minutes. This includes time spent before the visit reviewing the chart, time spent during the visit, and time spent after the visit and documentation. Orders: Referrals General Surgery Referral K64.4 - Residual hemorrhoidal skin tags
[2024-01-11 11:11] VITALS: BP 136/82
== END 2024-01-11 11:16 | disposition home or self-care (01) ==
PROVIDERS: PCP Internal Medicine
DX: I48.0 Paroxysmal atrial fibrillation (principal); I35.0 Nonrheumatic aortic (valve) stenosis; I63.549 Cerebral infarction due to unspecified occlusion or stenosis of unspecified cerebellar artery; K21.9 Gastro-esophageal reflux disease without esophagitis; R73.02 Impaired glucose tolerance (oral); I10 Essential (primary) hypertension; K64.4 Residual hemorrhoidal skin tags

== ENCOUNTER → 2024-01-11 10:21 | Outpatient (BNVA) | payer MEDICARE, SELFPAY | PROVIDERS: PCP Internal Medicine | DX: I48.0 Paroxysmal atrial fibrillation (principal); I35.0 Nonrheumatic aortic (valve) stenosis; I63.549 Cerebral infarction due to unspecified occlusion or stenosis of unspecified cerebellar artery; K21.9 Gastro-esophageal reflux disease without esophagitis; R73.02 Impaired glucose tolerance (oral); I10 Essential (primary) hypertension; K64.4 Residual hemorrhoidal skin tags | CPT/HCPCS: 99212 ==

== ENCOUNTER 2024-01-24 12:54 | Outpatient (AMB) | payer MEDICARE, SELFPAY ==
--- NOTE | 2024-01-24 12:55 | MHC.OFFVIS ---
Vital Signs 01/24/24 12:56 Height 5 ft 7 in Weight 170 lb BMI 26.6 Intake Visit Reasons: Hemorrhoidal skin tags Intake Note: This patient presents for Hemorrhoidal skin tags assessment. Pt c/o; occasional rectal bleeding when wiping and moisture, reports no history of constipation. 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 He says that he has had hemorrhoids for about 6 months. He says that he notices these 2 some moisture around his anus frequently. He occasionally sees blood on wiping as well. He denies any significant pain or swelling. He denies constipated He had a stroke last last year as well. He is on Eliquis for a history of paroxysmal atrial fibrillation. [facility] Medical History (Updated 01/24/24 @ 13:10 by Juan Antonio Carcamo MD) Hemorrhoids that prolapse with straining, but retract spontaneously Pacemaker complications First degree AV block Lightheaded Aortic valve disease Sick sinus syndrome Pulmonary nodules/lesions, multiple History of Mckinley's palsy History of shingles Thyroid nodule Pulmonary nodule Irritable bowel syndrome GERD (gastroesophageal reflux disease) Aortic root dilatation Aortic regurgitation History of prostate cancer Impaired glucose tolerance Hypertension Surgical History History of prostate surgery History of cholecystectomy Family History Father No problems noted. Mother No problems noted. Family/Other Sudden Alzheimers disease Social History Household Members: Spouse Housing: House Do you presently have visiting nurse or other home services: No Alcohol intake: never Comment: pt refusing alarms, steady gait, hourly rounding, encouraged to call Patient Tobacco Use Status: Never used Tobacco Tobacco use type: Cigarette e-Cigarette/Vaping Use: Never Used Second Hand Smoke Exposure: No Advance Directives Date on File: 08/02/22 service: No Current occupational status: retired Cognitive needs: No Hearing needs: No Vision needs: Yes Review of Systems Const Denies chills and Denies fever(s) Card Denies chest pain, Denies dyspnea and Denies dyspnea on exertion Resp Denies cough, Denies dyspnea and Denies dyspnea on exertion GI Denies hematochezia and Denies change in bowel habits Denies hematuria and Denies difficulty urinating Musc Denies back pain and Denies limited range of motion Neuro Denies focal weakness and Denies convulsions Psych Denies depression and Denies mood swings Physical Exam Vital Signs: BMI result Body Mass Index 26.8 Const General: comfortable and no acute distress Orientation/consciousness: patient oriented x3 Neck Neck: Yes no lymphadenopathy Resp Auscultation: clear to auscultation bilaterally Cardio Rhythm: regular rhythm GI Other: Rectal exam shows external hemorrhoids and prolapsing internal hemorrhoids, left, right as well as anterior Palpation (GI): Soft to palpation, nontender and no guarding Neuro General: patient oriented x3 Office Procedures Anoscopy He was in kenji-knife position. The anoscope was gently inserted. A full examination of the anal canal was done. He had hemorrhoidal columns a mix of internal external on the left lateral, right lateral as well as the left anterior areas. There were no other lesions. There was no fissure. There was no ulceration. There was no induration or bleeding [id number] Assessment & Plan Assessment & Plan (1) Hemorrhoids that prolapse with straining, but retract spontaneously: Code(s): K64.1 - Second degree hemorrhoids Category: Medical Plan: He has large hemorrhoidal columns on mix of internal external as described above. There was note of prolapse, discomfort, with bleeding. I therefore explained to him the option of proceeding with hemorrhoidectomy. I explained to him the technique of this procedure. I reviewed the risks including but not limited to bleeding, infections, postop pain, poor healing, inherent risks of anesthesia, as well as the benefits and alternatives. He states that at this time, the only thing that bothers him is that there is moisture likely from the prolapse internal component. He does not have significant pain and he says that his bleeding is minimal He says he would like to hold off on hemorrhoid surgery at this time. I did tell him that he can follow up with me in about 2 months so that I can re-evaluate him. His was with him during the visit. Coding Level of Care Code New Pt Level 3 (69154) Diagnoses Hemorrhoids that prolapse with straining, but retract spontaneously K64.1 CPT Codes Details - CPT: [id number] ([id number])
[2024-01-24 12:56] VITALS: BMI 26.6
== END 2024-01-24 13:29 | disposition home or self-care (01) ==
PROVIDERS: PCP Internal Medicine; Visit Provider Surgery
DX: K64.1 Second degree hemorrhoids (principal)
CPT/HCPCS: 46600; 99204

== ENCOUNTER → 2024-01-24 12:54 | Outpatient (BNVA) | payer MEDICARE, SELFPAY | PROVIDERS: PCP Internal Medicine; Visit Provider Surgery | DX: K64.1 Second degree hemorrhoids (principal); I48.0 Paroxysmal atrial fibrillation; Z79.01 Long term (current) use of anticoagulants | CPT/HCPCS: 46600; 99202 ==

== ENCOUNTER 2024-05-11 10:50 | Outpatient (AMB) | payer MEDICARE, SELFPAY ==
[2024-05-11 10:52] VITALS: BP 138/70; PULSE 61; O2SAT 95; BMI 26.9
--- NOTE | 2024-05-11 10:52 | MHC.PC.OV ---
Vital Signs 05/11/24 10:52 Height 5 ft 7 in Weight 172 lb BMI 26.9 BP 138/70 Blood Pressure Location Lt brachial Position Sitting Pulse 61 Pulse Source Pulse Oximeter Pulse Oximetry (%) 95 Oxygen Delivery Method Room Air Intake Visit Reasons: f/u HTN Allergies captopril [Captopril] Allergy (Severe, Verified 05/11/24 10:52) UNKNOWN, angioedema, anaphylaxis EDGARD Inhibitors [Edgard Inhibitors] Allergy (Unknown, Verified 05/11/24 10:52) UNKNOWN Medication List - Last Reconciled 05/11/24 by Maverick Maier MD amlodipine 10 mg PO DAILY 90 days apixaban 5 mg PO BID 90 days metoprolol succinate ER 25 mg PO BID 90 days mexiletine 150 mg PO BID valsartan 40 mg PO DAILY Tobacco use date assessed: 05/11/24 Fall risk assessment: No Falls in past year Last assessed Fall Risk: 05/11/24 Dental Screening Dental Screen Date: 05/11/24 Did you have a dental visit in the last 12 months?: Yes Did you have a dental problem in the last 6 months where you did not have access to dental care?: No Was dental information given to patient?: Patient has dentist [facility] Medical History (Updated 01/24/24 @ 13:10 by Juan Antonio Carcamo MD) Hemorrhoids that prolapse with straining, but retract spontaneously Pacemaker complications First degree AV block Lightheaded Aortic valve disease Sick sinus syndrome Pulmonary nodules/lesions, multiple History of Mckinley's palsy History of shingles Thyroid nodule Pulmonary nodule Irritable bowel syndrome GERD (gastroesophageal reflux disease) Aortic root dilatation Aortic regurgitation History of prostate cancer Impaired glucose tolerance Hypertension Surgical History History of prostate surgery History of cholecystectomy Family History Father No problems noted. Mother No problems noted. Family/Other Sudden Alzheimers disease Social History Household Members: Spouse Housing: House Do you presently have visiting nurse or other home services: No Alcohol intake: never Comment: pt refusing alarms, steady gait, hourly rounding, encouraged to call Patient Tobacco Use Status: Never used Tobacco Tobacco use type: Cigarette e-Cigarette/Vaping Use: Never Used Second Hand Smoke Exposure: No Advance Directives Date on File: 08/02/22 service: No Current occupational status: retired Cognitive needs: No Hearing needs: No Vision needs: Yes Questionnaire PHQ-9 Over the last 2 weeks, how often have you been bothered by any of the following problems? 1. Little interest or pleasure in doing things: not at all 2. Feeling down, depressed, or hopeless: not at all 3. Trouble falling or staying asleep, or sleeping too much: not at all 4. Feeling tired or having little energy: not at all 5. Poor appetite or overeating: not at all 6. Feeling bad about yourself - or that you are a failure or have let yourself or your family down: not at all 7. Trouble concentrating on things, such as reading the newspaper or watching television: not at all 8. Moving or speaking so slowly that other people could have noticed. Or the opposite - being so fidgety or restless that you have been moving around a lot more than usual: not at all 9. Thoughts that you would be better off or of hurting yourself in some way: not at all Total score: 0 Depression Screening Interpretation: Negative Depression Screening Done: Yes Source: Developed by Drs. Christiano Godinez, Angeles Espinosa, Burt Baker and colleagues, with an educational grover from [employer]. Thrive Questionnaire Date Thrive assessed: 05/11/24 I am a: Patient What is your living situation today?: I have a steady place to live Within the past 12 months, did the food you bought not last and you didn't have the money to get more?: Never true Within the past 12 months, did you worry whether your food would run out before you got money to buy more?: Never true Do you have trouble paying for medicines?: No Do you have trouble getting transportation to medical appointments?: No Do you have trouble paying your heating and electricity bill?: No Do you have trouble taking care of your child, family member or friend?: No Do you have trouble with day-to-day activities such as bathing, preparing meals, shopping, managing finances, etc.?: No Are you currently unemployed and looking for a job?: No Are you interested in more education?: No Currently or been in a relationship where the following occur: No concerns reported THRIVE Score: 0 AUDIT C Alcohol Use Questionnaire (AUDIT-C) 1. How often do you have a drink containing alcohol?: Never 2. How many drinks containing alcohol do you have on a typical day when you are drinking?: 1 or 2 3. How often do you have six or more drinks on one occasion?: Never Total Score: 0 PADMINI-7 AMB Questionnaire PADMINI-7 Date PADMINI - 7 assessed: 05/11/24 Feeling nervous, anxious, or on edge: 0 = Not at all Not being able to stop or control worryin = Not at all Worrying too much about different things: 0 = Not at all Trouble relaxin = Not at all Being so restless that it is hard to sit still: 0 = Not at all Becoming easily annoyed or irritable: 0 = Not at all Feeling afraid as if something awful might happen: 0 = Not at all Total PADMINI-7 score (0-4 normal; 5-9 mild; 10-14 moderate; 15-21 severe): 0 Source: Developed by Drs. Christiano Godinez, Angeles Espinosa, Burt Baker and colleagues, with an educational grover from [employer]. Physical exam (Primary Care) Vital Signs: Last Vital Signs Pulse 61 05/11/24 10:52 BP 138/70 05/11/24 10:52 Pulse Ox 95 05/11/24 10:52 Oxygen Delivery Method Room Air 05/11/24 10:52 BMI result Body Mass Index 26.9 Tobacco/Smoking Status: Tobacco use Status Tobacco use date assessed 05/11/24 05/11/24 10:55 Patient Tobacco Use Status Never used Tobacco 05/11/24 10:55 Tobacco use type Cigarette 05/11/24 10:55 e-Cigarette/Vaping Use Never Used 05/11/24 10:55 PHQ-9: PHQ-9 Score PHQ-9: Total score 0 05/11/24 11:12 Depression Screening Interpretation: Negative Thrive Assessment: Date of Thrive Assessment Date Thrive assessed 05/11/24 05/11/24 10:55 Currently or been in a relationship where the following occur: No concerns reported Const General: alert; No acute distress Eyes Conjunctivae: conjunctivae normal Resp Auscultation: clear to auscultation bilaterally Cardio Rate: regular rate Rhythm: regular rhythm GI Inspection: Yes normal to inspection Extrem General: Yes normal to inspection and No edema Coding Level of Care Code Est Pt Level 4 (57056) Complex EM visit Add On G2211 Diagnoses Hemorrhoids that prolapse with straining, but retract spontaneously K64.1 Paroxysmal atrial fibrillation I48.0 Mild aortic stenosis I35.0 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 GERD (gastroesophageal reflux disease) K21.9 Assessment & Plan Assessment & Plan (1) Hemorrhoids that prolapse with straining, but retract spontaneously: Code(s): K64.1 - Second degree hemorrhoids Category: Medical Plan: Discussed about hot Sitz bath, and avoiding constipation (2) Paroxysmal atrial fibrillation: Code(s): I48.0 - Paroxysmal atrial fibrillation Category: Medical Plan: Continuing with anticoagulation and on mexiletine (3) Mild aortic stenosis: Comment: July 2022 echocardiogramJun2022 echocardiogram left ventricle EF 54% mild aortic stenosis 1.7 sq cm 04/2023 Code(s): I35.0 - Nonrheumatic aortic (valve) stenosis Category: Medical Plan: Continuing to be followed up by echocardiogram and follows with Cardiology (4) 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 Continue with anticoagulation (5) Hypertension: Code(s): I10 - Essential (primary) hypertension Category: Medical Plan: Continue with blood pressure medication. Decrease salt intake and exercise presently on amlodipine 10 mg once a day valsartan 40 mg once a day and metoprolol 25 twice a day (6) Impaired glucose tolerance: Code(s): R73.02 - Impaired glucose tolerance (oral) Category: Medical Plan: Decrease the amount of carbohydrate intake, pasta, bread, rice and potatoes are all sugar and that is aside from all the sweet stuff, remember that fruits are good but they are Sweet also. (7) GERD (gastroesophageal reflux disease): Code(s): K21.9 - Gastro-esophageal reflux disease without esophagitis Category: Medical Plan: Avoid the foods that causes that usually spicy foods, tomato products, juices, coffee, soda and foods that your sensitive to. After eating do not lie down, allow 3-4 hours before in lie down. And keep the head of bed above 30 degrees to avoid the acid from going up. Plan History of Present Illness The patient is an 83-year-old male presenting for a follow-up regarding his cardiovascular and chronic conditions. He has a significant history of essential hypertension, managed with valsartan, amlodipine, and metoprolol. Recent blood pressure readings remain elevated, necessitating adjustments in his regimen. The patient?s cardiovascular history is extensive, including atrial fibrillation, treated with a combination of mexiletine and anticoagulants. He recently faced complications with his pacemaker following the cerebellar CVA in 2022, which affected his mobility. His past medical history also includes prostate cancer diagnosed in 2009, and ongoing management of GERD. He confirms undergoing a cardiac evaluation, with the latest echocardiogram indicating mild aortic stenosis. Health Maintenance - Influenza vaccination administered - Pneumonia vaccination discussed and up-to-date - Tetanus vaccination up-to-date - Cardiovascular risk management with medication adjustments - Encouragement of a balanced diet, monitoring glucose levels due to impaired glucose tolerance - Blood pressure monitoring at home - Discussed activity levels and the importance of rehabilitation for post-stroke recovery - Emphasized on screening and routine check-ups given the chronic conditions Social History - , with a cancer diagnosis - Recently established 3 months of sobriety - Engaged in intensive recovery program: [facility] (3 hours a day, 5 days a week) - Regular engagement in physical activities as tolerated - Emphasized healthy, varied diet - Concerns about medication accessibility from pharmacy changes Review of Systems - Gastrointestinal: Reports increased gas production - Cardiovascular: Denies current chest pain; reports prior elevated blood pressure - Constitutional: Denies fatigue - Musculoskeletal: Denies joint pain Physical Exam - Cardiovascular- Normal rhythm noted, after heart auscultation Results - Labs: Normal blood count (September 2023); electrolytes with normal renal function (October 2023); mildly elevated blood sugar; LDL cholesterol at 92; mild TSH elevation Plan We reviewed the patient's cardiovascular and chronic condition management plans today. This included measures to control hypertension through careful adjustment of antihypertensive medications, with particular focus on potential interactions and mexiletine-based ventricular arrhythmia management in light of recent pharmaceutical coverage issues. The necessity of precise routine lab testing is affirmed, while light physical activities enhance post-stroke functionality. Assiduous contact with cardiology ensures pacemaker and atrial fibrillation oversight. Considerations continue for adequate hemorrhoid management through recommended baths. Continued overlap with pulmonology and oncology for general health maintenance is reiterated. Assurance of prescription compliance through altering the dispensing pharmacy augments necessary regularity in this regimen. Patient was informed and verbally consented to the use of an ambient scribe for clinic note documentation during this visit. Discussion Notes During our discussion, we addressed the ongoing control of hypertension and atrial fibrillation management, navigating issues related to mexiletine and pharmacy coverage alterations. Clearly outlined was the rationale behind current and adjusted treatments, alongside the anticipated follow-up tests to confirm electrolytic and cardiac status. We discussed the importance of routine health monitoring via blood pressure recordings and hemoglobin evaluation, engaging the patient in the collaborative plan, emphasizing optimal coordination of healthcare resources. All alternatives and benefits associated with the pharmacotherapy were reviewed in depth alongside accessible patient-centered services. Explicit attention to preventative care and subsequent follow-up visit importance were communicated transparently. Patient Instructions - Continue prescribed blood pressure medications as instructed - Monitor blood pressure regularly at home - Attend scheduled echocardiogram and cardiology appointment - Follow up with blood tests, fasting if requested - Use hot sitz baths for hemorrhoid management as needed - Maintain active communication with new pharmacy location about prescriptions - Continue balanced diet and regular physical activity as tolerated - Schedule a follow-up appointment in May or earlier if needed Orders: Orders Hemoglobin A1c Today R73.02 - Impaired glucose tolerance (oral) Lipid Panel Today E78.00 - Pure hypercholesterolemia, unspecified, R73.02 - Impaired glucose tolerance (oral) PSA,Total (Free>4and<10) Today Z85.46 - Personal history of malignant neoplasm of prostate Medications: Refilled mexiletine 150 mg PO BID 180 caps 3RF R73.02 - Impaired glucose tolerance (oral) apixaban 5 mg PO BID 180 tabs 2RF 90 days I47.29 - Other ventricular tachycardia metoprolol succinate ER 25 mg PO BID 180 tabs 2RF 90 days I10 - Essential (primary) hypertension mexiletine 150 mg PO BID 180 caps 3RF amlodipine 10 mg PO DAILY 90 tabs 2RF 90 days I48.91 - Unspecified atrial fibrillation valsartan 40 mg PO DAILY 90 tabs 3RF R73.02 - Impaired glucose tolerance (oral)
--- OUTSIDE RECORDS SUMMARY | 2024-05-11 12:44 | XMS_ITS | Encounter Summary ---
Author Organization [facility] Address [address] [place] [address] Care Team Providers Care Corporate Representative Name Role Phone Maverick Maier MD Primary Care Provider [phone] Encounter Details Date Type Department Care Team (Late st Contact Info) Description 11/18/2022 Scanned Document [facility] [address] [facility] [address] [place] [address] Provider, Generic Social History Tobacco Use Types Packs/Day Years Used Date Smoking Tobacco: Never Smokeless Tobacco: Never AUDIT-C Answer Date Recorded Q1: How often do you have a drink containing alcohol? Never 08/07/2022 Q2: How many drinks containi ng alcohol do you have on a typical day when you are drinking? Patient does not drink Q3: How often do you have si x or more drinks on one occasion? Never 08/07/2022 Overall Financial Resource Strain (CARDIA) Answe r Date Recorded How hard is it for you to pa y for the very basics like food, housing, medical care, and heating? Not hard at all 08/09/2022 Hunger Vital Sign Answer Date Recorded Within the past 12 months, y ou worried that your food would run out before you got the money to buy more. Never true 08/10/19 23 Within the past 12 months, t he food you bought just didn't last and you didn't have money to get more. Never true 08/09/2022 PRAPARE - Transportation Answer Date Re corded In the past 12 months, has l ack of transportation kept you from medical appointments or from getting medications? No 07/23 In the past 12 months, has l ack of transportation kept you from meetings, work, or from getting things needed for daily living? No 08/09/2022 Housing Stability Vital Sign Answer Royer e Recorded In the last 12 months, was t here a time when you were not able to pay the mortgage or rent on time? No 08/09/2022 In the last 12 months, how many places have you lived? 1 08/09/2022 In the last 12 months, was t here a time when you did not have a steady place to sleep or slept in a alf (including now)? No 08/09/2022 Sex and Gender Information Value Date Recorded Sex Assigned at Male 08/08/2022 2:08 PM EDT Gender Identity Male 08/08/2022 2:08 PM EDT Sexual Orientation Heterosexual (straight) 08/08 2:08 PM EDT documented as of this encounter Plan of Treatment Not on file documented as of this encounter Procedures Procedure Name Priority Date/Time Associated Diagnosis Comments CARDIOLOGY PROCEDURE REPORT 11/18/2022 documented in this encounter Results * CARDIOLOGY PROCEDURE REPORT (11/18/2022) Anatomical Region Laterality Modality Other Narrative 11/18/2022 Ordered by an unspecified provider. Generic Provider CV CARDIAC SERVICES ORDERABLES documented in this encounter Visit Diagnoses Not on filedocumented in this encounter Care Teams Corporate Representative Relationship Specialty Start Date End Date Maverick Maier MD [address] [place] [address] [place] [id number] PCP - General Internal Medicine 08/07/22 documented as of this encounter
--- OUTSIDE RECORDS SUMMARY | 2024-05-11 12:44 | XMS_ITS | Clinical Summary ---
Author Organization [facility] Address [address] [place] [address] Care Team Providers Care Thread Spooler Name Role Phone Maverick Maier MD Primary Care Provider Allergies Active Allergy Reactions Criticality Noted Date Comments Captopril Angioedema High 08/08/2022 Medications Medication Sig Dispensed Refills Start Date End Date Status amLODIPine (NORVASC) 10 MG tabletIndications:Ische annette cerebrovascular accident (CVA) (HCC) Take 1 tablet (10 mg total) by mouth daily. Do not start before August 18, 2022. 30 tablet 08/18/2022 Active apixaban (ELIQUIS) 5 MG tabletIndications:Ische annette cerebrovascular accident (CVA) (HCC) Take 1 tablet (5 mg total) by mouth every 12 (twelve) hours around the clock. 60 tablet 1 08/17/2022 Active clopidogrel (PLAVIX) 75 MG tabletIndications:Ische annette cerebrovascular accident (CVA) (HCC) Take 1 tablet (75 mg total) by mouth daily. Do not start before August 18, 2022. 60 tablet 08/18/2022 Active metoPROLOL SUCCINATE (TOPROL-XL) 25 MG 24 hr tabletIndications:Ische annette cerebrovascular accident (CVA) (HCC) Take 1 tablet (25 mg total) by mouth 2 times a day. 60 tablet 08/17/2022 Active mexiletine (MEXITIL) 150 MG capsuleIndications:Isch emic cerebrovascular accident (CVA) (HCC) Take 1 capsule (150 mg total) by mouth every 12 (twelve) hours around the clock. With food. 60 capsule 08/17/2022 Active ferrous sulfate 325 (65 FE) MG EC tabletIndications:Ische annette cerebrovascular accident (CVA) (HCC) Take 1 tablet (325 mg total) by mouth daily. Take 2 hours before or 4 hours after acid reducers. 30 tablet 08/17/2022 Active Active Problems Problem Noted Date Diagnosed Date Ischemic cerebrovascular accident (CVA) 08/08/19 Social History Tobacco Use Types Packs/Day Years Used Date Smoking Tobacco: Never Smokeless Tobacco: Never Tobacco Cessation:Counseling Given: No AUDIT-C Answer Date Recorded Q1: How often [...] place to sleep or slept in a [place] (including now)? No 08/09/2022 Sex and Gender Information Value Date Recorded Sex Assigned at Male 08/08/2022 2:08 PM EDT Gender Identity Male 08/08/2022 2:08 PM EDT Sexual Orientation Heterosexual (straight) 08/08 2:08 PM EDT Last Filed Vital Signs Vital Sign Reading Time Taken Comments Blood Pressure 146/60 08/24/2022 9:07 AM EDT Pulse 68 08/24/2022 9:07 AM EDT Temperature 35.7 ??C (96.3 ??F) 08/17/2022 11:37 AM E DT Respiratory Rate 18 08/17/2022 11:37 AM EDT Oxygen Saturation 98% 08/24/2022 9:07 AM EDT Inhaled Oxygen Concentration - - Weight 70.3 kg (155 lb) 08/24/2022 9:07 AM EDT Height 170.2 cm (5' 7 ) 08/24/2022 9:07 AM EDT Body Mass Index 24.28 08/24/2022 9:07 AM EDT Plan of Treatment Health Maintenance Due Date Last Done Comments DTaP/Tdap/Td Vaccines (1 - Tdap) 05/31/1959 Pneumococcal Vaccines 50+ (1 of 1 - PCV) 05/31/1989 Zoster (Shingles) Vaccine (1 of 2) 05/31/1989 RSV Vaccine 60 years and old er and Patients (1 - 1-dose 75+ series) 05/31/2014 Influenza Vaccine 09/23/2023 COVID-19 Vaccine (2023-2 5 season) 2023 Hepatitis B Vaccines Aged Out No long er eligible based on patient's age to complete this topic Medical Devices Implanted Type Area Driver/Refuse Collector Device Identifier Shelf Expiration Date Model / Serial / Lot [id number] Stent Endoprosthesis [place] Vi[employer]ahn 10mm 5cm 120cm Vessel Nina - [id number] Implanted:Qty: 1 on 08/07/2022 by Erum Nielson MD at [facility] Stent Left: Arterial [employer] [id number] 12/01/2023 [id number] / [id number] / [id number] Stent Endoprosthesis [place] Viabahn 10mm 5cm 120cm Vessel Nina - [id number] Implanted:Qty: 1 on 08/07/2022 by Erum Nielson MD at [facility] Stent Left: Arterial [employer] [id number] 02/09/2025 [id number] / [id number] / Explanted Type Area Driver/Refuse Collector Device Identifier Shelf Expiration Date Model / Serial / Lot [id number] Lead Pacing 58cm 5.7fr Atr Vntrc Trnvns Bipolar Act Scr In-08/06/2022 Implanted:08/06 by Hunter Perera MD (Quantity not on file) Explanted:08/07 by Abdiaziz Murray MD (Quantity not on file) Lead [employer] MINIMALLY INVASIVE T [id number] / [id number] / Description:Lead was found t o be implanted in the left subclavian artery, and was explanted at . [id number] Pacemaker Cardiac 7.4mm 50.8x46.6mm Ronny Xt Dr Stephanie Muñiz- [id number] Implanted:08/06 by Hunter Perera MD (Quantity not on file) Explanted:Qty: 1 on 08/07/2022 by Abdiaziz Murray MD Pacemaker [employer] MINIMALLY INVASIVE T [id number] / [id number] / Description:RONNY XT DR STEPHANIE MUÑIZ PACEMAKER Advance Directives * Full Code (Latest Code Status on File) Date Activated Date Inactivated Comments 08/07/2022 6:04 PM * Full Code Date Activated Date Inactivated Comments 08/07/2022 5:58 PM 08/07/2022 6:04 PM Question Answer Comments Decision Thoroughly Discussed with: Patient Care Teams Thread Spooler Relationship Specialty Start Date End Date PoMaverick MD [address] [place] [address] Dr Tovar [address] [place] [address] [place] [id number] PCP - General Internal Medicine 08/07/22
== END 2024-05-11 11:37 | disposition home or self-care (01) ==
LOC: HO.HMCH 10:50
PROVIDERS: PCP Internal Medicine; Visit Provider Internal Medicine
DX: K64.1 Second degree hemorrhoids (principal); I48.0 Paroxysmal atrial fibrillation; I35.0 Nonrheumatic aortic (valve) stenosis; I63.549 Cerebral infarction due to unspecified occlusion or stenosis of unspecified cerebellar artery; I10 Essential (primary) hypertension; R73.02 Impaired glucose tolerance (oral); K21.9 Gastro-esophageal reflux disease without esophagitis

== ENCOUNTER → 2024-05-11 10:50 | Outpatient (BNVA) | payer MEDICARE, SELFPAY | PROVIDERS: PCP Internal Medicine; Visit Provider Internal Medicine | DX: K64.1 Second degree hemorrhoids (principal); I48.0 Paroxysmal atrial fibrillation; I35.0 Nonrheumatic aortic (valve) stenosis; I63.549 Cerebral infarction due to unspecified occlusion or stenosis of unspecified cerebellar artery; I10 Essential (primary) hypertension; K21.9 Gastro-esophageal reflux disease without esophagitis; R73.02 Impaired glucose tolerance (oral) | CPT/HCPCS: 99212 ==

== ENCOUNTER 2024-05-12 07:01 | Outpatient (REF) | payer MEDICARE, SELFPAY ==
[2024-05-12 07:18] LABS: MANUAL DIFF FLAG NO
[2024-05-12 08:03] LABS: Basophils Absolute Auto 0.2 X10*3/uL (0.0-0.2); Basophils Percent Auto 2.3 % (0-2); Eosinophils Absolute Auto 0.4 X10*3/uL (0.0-0.4); Eosinophils Percent Auto 6.2 % (0-4); Hematocrit 47.4 % (42.0-52.0); Hemoglobin 15.8 g/dl (14.0-18.0); Imm Gran Abs Auto 0.06 X10*3/uL (0.00-0.03); Imm Gran Pct Auto 0.8 % (0.0-0.4); Lymphocytes Absolute Auto 1.8 X10*3/uL (1.2-4.9); Lymphocytes Percent Auto 25.4 % (20-40); Mean Corpuscular HGB Conc 33.3 g/dl (31.0-36.0); Mean Corpuscular Volume 92.9 fL (80.0-98.0); Mean Platelet Volume 8.9 fL (9.4-12.4); Monocytes Absolute Auto 0.7 X10*3/uL (0.1-1.2); Monocytes Percent Auto 9.4 % (2-11); Neutrophils Percent Auto 55.9 % (45-73); Platelet Count 277 X10*3/uL (160-400); Red Cell Distribution Width 13.6 % (11.0-16.0); White Blood Count 7.1 X10*3/uL (4.8-10.8)
[2024-05-12 08:08] LABS: Estimated Average Glucose 111 mg/dL; Hemoglobin A1c % 5.5 % (<6.0)
[2024-05-12 08:44] LABS: Alanine Aminotransferase 29 U/L (0-40); Alkaline Phosphatase 100 U/L (39-117); Anion Gap 10 (12-20); Aspartate Amino Transferase 26 U/L (5-37); Bilirubin Total 0.7 mg/dL (0.0-1.0); Blood Urea Nitrogen 15 mg/dL (9-16); Calcium 9.2 mg/dL (8.4-10.2); Carbon Dioxide 26 mmol/L (22-29); Chloride 105 mmol/L (96-108); Cholesterol 141 mg/dL (<200); Estimated Glomerular Filt Rate > 60; Glucose Random 103 mg/dL (60-115); HDL Cholesterol 44 mg/dL (>40); LDL Cholesterol Calculated 85 mg/dL (<100); Sodium 137 mmol/L (135-145); Total Protein 7.8 g/dL (6.5-8.0); Triglycerides 63 mg/dL (<150)
[2024-05-12 08:49] LABS: Free T4 (Free Thyroxine) 1.06 ng/dL (0.71-1.85); Thyroid Stimulating Hormone 5.16 uIU/mL (0.32-4.0)
[2024-05-12 08:51] LABS: PSA,Total (Free>4and<10) < 0.10 ng/mL (0.00-4.00)
== END 2024-05-12 07:02 | disposition home or self-care (01) ==
LOC: HO.LAB 07:01
PROVIDERS: PCP Internal Medicine; Visit Provider Internal Medicine
DX: I48.0 Paroxysmal atrial fibrillation (principal); E78.00 Pure hypercholesterolemia, unspecified; R73.02 Impaired glucose tolerance (oral); Z85.46 Personal history of malignant neoplasm of prostate; Z12.5 Encounter for screening for malignant neoplasm of prostate
CPT/HCPCS: 36415; 80053; 80061; 83036; 84153; 84439; 84443; 85025

== ENCOUNTER 2024-05-22 09:48 | Outpatient (AMB) | payer MEDICARE, SELFPAY ==
[2024-05-22 10:03] VITALS: BP 120/72; BMI 26.6
--- NOTE | 2024-05-22 10:03 | A.OFFVIS_ITS ---
Vital Signs 05/22/24 10:03 Height 5 ft 7 in Weight 169 lb 12.095 oz BMI 26.6 BP 120/72 Blood Pressure Location Lt brachial Position Sitting Intake Visit Reasons: 6 mth f/up Intake Note: 6 month follow-up feeling good Digital Advertising Analyst Required: No Liver Trimmer: Liver Trimmer Present Accompanied by: Spouse Allergies captopril [Captopril] Allergy (Severe, Verified 05/11/24 10:52) UNKNOWN, angioedema, anaphylaxis EDGARD Inhibitors [Edgard Inhibitors] Allergy (Unknown, Verified 05/11/24 10:52) UNKNOWN Medication List - Last Reconciled 05/22/24 by Mendoza Bah MD amlodipine 10 mg PO DAILY 90 days apixaban 5 mg PO BID 90 days metoprolol succinate ER 25 mg PO BID 90 days mexiletine 150 mg PO BID valsartan 40 mg PO DAILY HPI Comments Details: Hung comes for follow-up. He was not been exercising as much as before. He has not had any significant cardiac symptoms. No recurrent significant prolonged palpitation irregular heartbeat or fast heart rate. Denies any exertional chest pain at current workload. Denies any shortness of breath, orthopnea, PND. Still has balance issues but he is working on it. [facility] Medical History Hemorrhoids that prolapse with straining, but retract spontaneously Pacemaker complications First degree AV block Lightheaded Aortic valve disease Sick sinus syndrome Pulmonary nodules/lesions, multiple History of Mckinley's palsy History of shingles Thyroid nodule Pulmonary nodule Irritable bowel syndrome GERD (gastroesophageal reflux disease) Aortic root dilatation Aortic regurgitation History of prostate cancer Impaired glucose tolerance Hypertension Surgical History History of prostate surgery History of cholecystectomy Family History Father No problems noted. Mother No problems noted. Family/Other Sudden Alzheimers disease Social History Household Members: Spouse Housing: House Do you presently have visiting nurse or other home services: No Alcohol intake: never Comment: pt refusing alarms, steady gait, hourly rounding, encouraged to call Patient Tobacco Use Status: Never used Tobacco Tobacco use type: Cigarette e-Cigarette/Vaping Use: Never Used Second Hand Smoke Exposure: No Advance Directives Date on File: 08/02/22 service: No Current occupational status: retired Cognitive needs: No Hearing needs: No Vision needs: Yes Review of Systems Const Denies chills, Denies fatigue, Denies fever(s), Denies frequent falls, Denies weakness, Denies weight gain and Denies weight loss ENT Denies dizziness Card Denies chest pain, Denies leg edema, Denies lightheadedness, Denies palpitations, Denies dyspnea, Denies dyspnea on exertion, Denies orthopnea and Denies other (loss of consciousness) Resp Denies cough, Denies dyspnea and Denies dyspnea on exertion GI Denies hematochezia and Denies change in stool character Musc Denies abnormal gait, Denies muscle weakness, Denies numbness, Denies radiating pain into limb and Denies tingling Neuro Denies abnormal gait, Denies dizziness, Denies frequent falls, Denies numbness, Denies tingling and Denies weakness Endo Denies fatigue and Denies palpitations Physical Exam Vital Signs: Last Vital Signs BP 120/72 05/22/24 10:03 BMI result Body Mass Index 26.6 Const General: cooperative, comfortable, no acute distress, alert, awake, Physically active, anxious and well groomed Nutritional Appearance: average body habitus and other (Frail elderly man) Orientation/consciousness: patient oriented x3 Limitations: no limitations Neck Neck: Yes trachea midline, Yes supple and Yes no JVD Carotids: no bruits Resp Effort & Inspection: normal respiratory effort Auscultation: clear to auscultation bilaterally Cardio Jugular venous distension: no JVD Palpation: normal PMI Rate: regular rate Rhythm: regular rhythm Heart sounds: S1 normal heart sound present, S2 normal heart sound present, no click, no gallops and Murmur heart sound present systolic early GI Auscultation: normal bowel sounds Skin General skin exam: no rashes or lesions noted Neuro General: patient oriented x3 and no focal motor deficits Extrem General: Yes no clubbing, cyanosis or edema Psych Appearance: grossly normal Affect: Anxious affect present Assessment & Plan Assessment & Plan (1) Paroxysmal atrial fibrillation: Code(s): I48.0 - Paroxysmal atrial fibrillation Category: Medical Plan: Paroxysmal atrial fibrillation which has remained controlled and stable. Continue metoprolol therapy with mexiletine therapy at current point time. Importance of rhythm control was discussed. Continue full oral anticoagulation, currently on apixaban 5 mg b.i.d.. Mexiletine therapy is for nonsustained ve ntricular tachycardia which has not recurred. (2) Mild aortic stenosis: Comment: July 2022 echocardiogramJune 2022 echocardiogram left ventricle EF 54% mild aortic stenosis 1.7 sq cm 04/2023 Code(s): I35.0 - Nonrheumatic aortic (valve) stenosis Category: Medical Plan: Aortic valve disease with mild aortic stenosis and moderate aortic regurgitation. Clinically has remained stable. Follow-up echocardiogram in 6 months time. Continue Eliquis as above. Continue aggressive vascular risk factor modification. Target goal LDL less than 100 mg/dL. (3) Sick sinus syndrome: Code(s): I49.5 - Sick sinus syndrome Category: Medical Plan: Prior history of sick sinus syndrome with bradycardia with no recurrent syncopal episodes. Heart rate remains controlled. No indication for pacing therapy. Continue low-dose metoprolol therapy. Avoid to uptitrate medications. Will follow up in the clinic in 6 months time, sooner p.r.n.. Thank you for allowing me to partake in his care Orders: Orders CA echo transthoracic complete 6 Months I35.0 - Nonrheumatic aortic (valve) stenosis Coding Level of Care Code Est Pt Level 4 (96150) Complex EM visit Add On G2211 Diagnoses Paroxysmal atrial fibrillation I48.0 Mild aortic stenosis I35.0 Sick sinus syndrome I49.5
== END 2024-05-22 10:40 | disposition home or self-care (01) ==
LOC: HO.HCS 09:48
PROVIDERS: PCP Internal Medicine; Visit Provider Internal Medicine Cardiovascular Disease
DX: I48.0 Paroxysmal atrial fibrillation (principal); I35.0 Nonrheumatic aortic (valve) stenosis; I49.5 Sick sinus syndrome
CPT/HCPCS: 99214; G2211

== ENCOUNTER → 2024-05-22 09:48 | Outpatient (BNVA) | payer MEDICARE, SELFPAY | PROVIDERS: PCP Internal Medicine; Visit Provider Internal Medicine Cardiovascular Disease | DX: I48.0 Paroxysmal atrial fibrillation (principal); I35.0 Nonrheumatic aortic (valve) stenosis; I49.5 Sick sinus syndrome | CPT/HCPCS: 99212 ==

== ENCOUNTER 2024-10-06 07:08 | Outpatient (REF) | payer MEDICARE, SELFPAY ==
--- OUTSIDE RECORDS SUMMARY | 2024-10-06 07:11 | XMS_ITS | Clinical Summary ---
Author Organization [facility] Address [address] [place] [address] Care Team Providers Care Qa Manager Name Role Phone Maverick Maier MD Primary Care Provider [phone] Allergies Active Allergy Reactions Criticality Noted Date Comments Captopril Angioedema High 08/08/2022 Medications amLODIPine (NORVASC) 10 MG tabletIndications:Is chemic cerebrovascular accident (CVA) (HCC) Take 1 tablet (10 mg total) by mouth daily. Do not start before August 18, 2022. 30 tablet 3 Active apixaban (ELIQUIS) 5 MG tabletIndications:Is chemic cerebrovascular accident (CVA) (HCC) Take 1 tablet (5 mg total) by mouth every 12 (twelve) hours around the clock. 60 tablet 1 3 Active clopidogrel (PLAVIX) 75 MG tabletIndications:Is chemic cerebrovascular accident (CVA) (HCC) Take 1 tablet (75 mg total) by mouth daily. Do not start before August 18, 2022. 60 tablet 3 Active metoPROLOL SUCCINATE (TOPROL-XL) 25 MG 24 hr tabletIndications:Is chemic cerebrovascular accident (CVA) (HCC) Take 1 tablet (25 mg total) by mouth 2 times a day. 60 tablet 3 Active mexiletine (MEXITIL) 150 MG capsuleIndications:I schemic cerebrovascular accident (CVA) (HCC) Take 1 capsule (150 mg total) by mouth every 12 (twelve) hours around the clock. With food. 60 capsule 3 Active ferrous sulfate 325 (65 FE) MG EC tabletIndications:Is chemic cerebrovascular accident (CVA) (HCC) Take 1 tablet (325 mg total) by mouth daily. Take 2 hours before or 4 hours after acid reducers. 30 tablet 3 Active Active Problems Problem Noted Date Diagnosed Date Ischemic cerebrovascular accident (CVA) 08/08/19 23 Social History Tobacco Use Types Packs/Day Years [...] place to sleep or slept in a chcf (including now)? No 08/09/2022 Sex and Gender Information Value Date Recorded Sex Assigned at Male 08/08/2022 2:08 PM EDT Legal Sex Male 2:07 PM EDT Gender Identity Male 08/08/2022 2:08 PM EDT Sexual Orientation Heterosexual (straight) 08/08 2:08 PM EDT Last Filed Vital Signs Vital Sign Reading Time Taken Comments Blood Pressure 146/60 08/24/2022 9:07 AM EDT Pulse 68 08/24/2022 9:07 AM EDT Temperature 35.7 C (96.3 F) 08/17/2022 11:37 AM EDT Respiratory Rate 18 08/17/2022 11:37 AM EDT [...] Patients (1 - 1-dose 75+ series) 05/31/2014 COVID-19 Vaccine (2023-2 5 season) 2023 Influenza Vaccine 09/22/2024 Hepatitis B Vaccines Aged Out No long er eligible based on patient's age to complete this topic Medical Devices Implanted Type Area Bus Attendant Device Identifier Shelf Expiration Date Model / Serial / Lot [id number] Stent Endoprosthesis Hospers Viabahn 10mm 5cm 120cm Vessel Nina - [id number] Implanted:Qty: 1 on 08/07/2022 by Erum Nielson MD at [facility] Stent Left: Arterial [employer] [id number] 12/01/2023 [id number] / [id number] / [id number] Stent Endoprosthesis Hospers Viabahn 10mm 5cm 120cm Vessel Nina - [id number] Implanted:Qty: 1 on 08/07/2022 by Erum Nielson MD at [facility] Stent Left: Arterial [employer] [id number] 02/09/2025 [id number] [id number] / [id number] / Explanted Type Area Bus Attendant Device Identifier Shelf Expiration Date Model / Serial / Lot [id number] Lead Pacing 58cm 5.7fr Atr Vntrc Trnvns Bipolar Act Scr In-08/06/2022 Implanted:08/06 by Hunter Perera MD (Quantity not on file) Explanted:08/07 by Abdiaziz Murray MD (Quantity not on file) Lead [employer] MINIMALLY INVASIVE T [id number] / [id number] / Description:Lead was found t o be implanted in the left subclavian artery, and was explanted at . [id number] Pacemaker Cardiac 7.4mm 50.8x46.6mm Edmund Xt Dr Stephanie Muñiz- [id number] Implanted:08/06 by Hunter Perera MD (Quantity not on file) Explanted:Qty: 1 on 08/07/2022 by Abdiaziz Murray MD Pacemaker [employer] MINIMALLY INVASIVE T [id number] / [id number] / Description:RONNY XT DR STEPHANIE MUÑIZ PACEMAKER Insurance BLUE [employer]OSS [employer] MEDICARE OUT OF NETWORK Advance Directives * Full Code (Latest Code Status on File) Date Activated Date Inactivated Comments 08/07/2022 6:04 PM * Full Code Date Activated Date Inactivated Comments 08/07/2022 5:58 PM 08/07/2022 6:04 PM Question Answer Comments Decision Thoroughly Discussed with: Patient Care Teams Qa Manager Relationship Specialty Start Date End Date Maverick Maier MD [address] [place] [id number] PCP - General Internal Medicine 08/07/22
--- OUTSIDE RECORDS SUMMARY | 2024-10-06 07:11 | XMS_ITS ---
Author Name [facility] Organization Unknown History of Medication Use Medication Directions Dispensed Refills Start Date End Date Stat us metoPROLOL SUCCINATE (TOPROL-XL) 25 MG 24 hr tablet Take 1 tablet (25 mg total) by mouth 2 times a day. 08/17/2022 09/17/2022 active Allergies Allergen Reaction Severity Comment Documented Date Source Statu s CAPTOPRIL ANGIOEDEMA 08/08/2022 [facility] active Problems Problem Status Onset Date Problem Type Date of Resoluti on Source Ischemic cerebrovascular accident (CVA) active 2022-08-07 ProblemAct CCT Encounters Encounter Type Encounter Reason Primary Diagnosis Location Date Ambulatory [facility] 09/08/2022 Ambulatory [facility] 09/08/2022 Ambulatory Encounter for follow-up examination after completed treatment for conditions other than malignant neoplasm [facility] 08/24/2022 Inpatient Cerebral infarct ion, unspecified [facility] 08/07/2022 Care Team Organization Name Specialty Phone Email Start Date End Da te [facility] 08/24/2022 [facility] 08/07/2022 08/07/2022 [facility] 08/07/2022
[2024-10-06 07:28] LABS: MANUAL DIFF FLAG NO
[2024-10-06 08:40] LABS: Hematocrit 48.6 % (42.0-52.0); Hemoglobin 16.2 g/dl (14.0-18.0); Imm Gran Abs Auto 0.07 X10*3/uL (0.00-0.03); Imm Gran Pct Auto 0.9 % (0.0-0.4); Lymphocytes Absolute Auto 1.2 X10*3/uL (1.2-4.9); Mean Corpuscular HGB Conc 33.3 g/dl (31.0-36.0); Mean Corpuscular Hemoglobin 30.9 pg (27.0-33.0); Mean Corpuscular Volume 92.6 fL (80.0-98.0); NRBC Abs Auto 0.000 X10*3/uL (0.0-0.012); NRBC Pct Auto 0.0 /100WBC (0.0-0.2); Platelet Count 266 X10*3/uL (160-400); Red Blood Count 5.25 X10*6/uL (4.60-5.80); White Blood Count 7.5 X10*3/uL (4.8-10.8)
[2024-10-06 08:46] LABS: Hemoglobin A1C 168.9989 umol/L; Total Hemoglobin (HGBA1C) 4238.7552 umol/L
[2024-10-06 08:55] LABS: Appearance Urine Clear; Glucose Urine UA Negative (Negative); PH 6.5 (5.0-9.0); Specific Gravity - Urine 1.015 (1.005-1.025); UMIC TRIGGER UACC YES
[2024-10-06 09:14] LABS: Alanine Aminotransferase 23 U/L (0-40); Albumin Level 4.2 g/dL (3.5-5.0); Alkaline Phosphatase 102 U/L (39-117); Anion Gap 11 (12-20); Aspartate Amino Transferase 27 U/L (5-37); Blood Urea Nitrogen 16 mg/dL (9-16); Calcium 9.2 mg/dL (8.4-10.2); Carbon Dioxide 25 mmol/L (22-29); Chloride 104 mmol/L (96-108); Cholesterol 158 mg/dL (<200); Estimated Glomerular Filt Rate 55; HDL Cholesterol 42 mg/dL (>40); Magnesium 2.2 mg/dL (1.6-2.6); Potassium 4.1 mmol/L (3.3-5.1); Sodium 136 mmol/L (135-145); Total Protein 7.6 g/dL (6.5-8.0); Triglycerides 76 mg/dL (<150)
[2024-10-06 09:28] LABS: PSA,Total (Free>4and<10) < 0.10 ng/mL (0.00-4.00)
[2024-10-06 09:40] LABS: Folate 8.7 ng/mL (> or = 4.0); Vitamin B12 706 pg/mL (200-900)
[2024-10-06 09:50] LABS: Free T4 (Free Thyroxine) 0.98 ng/dL (0.71-1.85); Thyroid Stimulating Hormone 5.87 uIU/mL (0.32-4.0)
== END 2024-10-06 07:09 | disposition home or self-care (01) ==
LOC: HO.LAB 07:08
PROVIDERS: PCP Internal Medicine; Visit Provider Internal Medicine
DX: Z12.5 Encounter for screening for malignant neoplasm of prostate (principal); Z13.1 Encounter for screening for diabetes mellitus; K21.9 Gastro-esophageal reflux disease without esophagitis; E78.00 Pure hypercholesterolemia, unspecified; R30.0 Dysuria; Z85.46 Personal history of malignant neoplasm of prostate
CPT/HCPCS: 36415; 80053; 80061; 81001; 82607; 82746; 83036; 83735; 84153; 84439; 84443; 85025

== ENCOUNTER 2024-10-11 09:43 | Outpatient (AMB) | payer MEDICARE, SELFPAY ==
[2024-10-11 09:48] VITALS: BP 158/70; PULSE 58; RESP 18; TEMP 36.1; O2SAT 96; BMI 26.8
--- NOTE | 2024-10-11 09:48 | A.OFFPC_ITS ---
Vital Signs 10/11/24 09:48 10/11/24 10:05 Height 5 ft 7 in Weight 171 lb 4 oz BMI 26.8 BP 158/70 H 138/60 Blood Pressure Location Rt brachial Lt brachial Position Sitting Respiration 18 Pulse 58 Pulse Source Pulse Oximeter Temp 96.9 F Temp Source Temporal Artery Scan Pulse Oximetry (%) 96 Oxygen Delivery Method Room Air Intake Visit Reasons: A fib Fruit Harvester Required: No Accompanied by: Allergies captopril (Captopril) Allergy (Severe, Verified 10/11/24 09:50) UNKNOWN, angioedema, anaphylaxis EDGARD Inhibitors (Edgard Inhibitors) Allergy (Unknown, Verified 10/11/24 09:50) UNKNOWN Tobacco use date assessed: 10/11/24 Fall risk assessment: No Falls in past year Last assessed Fall Risk: 10/11/24 Dental Screening Dental Screen Date: 10/11/24 Did you have a dental visit in the last 12 months?: No Did you have a dental problem in the last 6 months where you did not have access to dental care?: No Was dental information given to patient?: No [facility] Medical History Hemorrhoids that prolapse with straining, but retract spontaneously Pacemaker complications First degree AV block Lightheaded Aortic valve disease Sick sinus syndrome Pulmonary nodules/lesions, multiple History of Mckinley's palsy History of shingles Thyroid nodule Pulmonary nodule Irritable bowel syndrome GERD (gastroesophageal reflux disease) Aortic root dilatation Aortic regurgitation History of prostate cancer Impaired glucose tolerance Hypertension Surgical History History of prostate surgery History of cholecystectomy Family History Father No problems noted. Mother No problems noted. Family/Other Sudden Alzheimers disease Social History Household Members: Spouse Housing: House Do you presently have visiting nurse or other home services: No Alcohol intake: never Comment: pt refusing alarms, steady gait, hourly rounding, encouraged to call Patient Tobacco Use Status: Never used Tobacco Tobacco use type: Cigarette e-Cigarette/Vaping Use: Never Used Second Hand Smoke Exposure: No Advance Directives Date on File: 06/11/23 service: No Current occupational status: retired Cognitive needs: No Hearing needs: No Vision needs: Yes Questionnaire PHQ-9 Over the last 2 weeks, how often have you been bothered by any of the following problems? 1. Little interest or pleasure in doing things: not at all 2. Feeling down, depressed, or hopeless: not at all 3. Trouble falling or staying asleep, or sleeping too much: not at all 4. Feeling tired or having little energy: several days 5. Poor appetite or overeating: not at all 6. Feeling bad about yourself - or that you are a failure or have let yourself or your family down: not at all 7. Trouble concentrating on things, such as reading the newspaper or watching television: not at all 8. Moving or speaking so slowly that other people could have noticed. Or the opposite - being so fidgety or restless that you have been moving around a lot more than usual: not at all 9. Thoughts that you would be better off or of hurting yourself in some way: not at all Total score: 1 Source: Developed by Drs. Christiano Godinez, Angeles Espinosa, Burt Baker and colleagues, with an educational grover from [employer]. Thrive Questionnaire Date Thrive assessed: 10/11/24 I am a: Patient What is your living situation today?: I have a steady place to live Within the past 12 months, did the food you bought not last and you didn't have the money to get more?: I choose not to answer this question Within the past 12 months, did you worry whether your food would run out before you got money to buy more?: I choose not to answer this question Do you have trouble paying for medicines?: No Do you have trouble getting transportation to medical appointments?: No Do you have trouble paying your heating and electricity bill?: No Do you have trouble taking care of your child, family member or friend?: No Do you have trouble with day-to-day activities such as bathing, preparing meals, shopping, managing finances, etc.?: No Are you currently unemployed and looking for a job?: I choose not to answer this question Are you interested in more education?: I choose not to answer this question Please select the resources that you would like help with: None Currently or been in a relationship where the following occur: I choose not to answer THRIVE Score: 0 AUDIT C Alcohol Use Questionnaire (AUDIT-C) 1. How often do you have a drink containing alcohol?: Never Total Score: 0 PADMINI-7 AMB Questionnaire PADMINI-7 Date PADMINI - 7 assessed: 10/11/24 Feeling nervous, anxious, or on edge: 0 = Not at all Not being able to stop or control worryin = Not at all Worrying too much about different things: 0 = Not at all Trouble relaxin = Not at all Being so restless that it is hard to sit still: 0 = Not at all Becoming easily annoyed or irritable: 0 = Not at all Feeling afraid as if something awful might happen: 0 = Not at all Total PADMINI-7 score (0-4 normal; 5-9 mild; 10-14 moderate; 15-21 severe): 0 Source: Developed by Drs. Christiano Godinez, Angeles Espinosa, Burt Baker and colleagues, with an educational grover from [employer]. Physical exam (Primary Care) Vital Signs: Last Vital Signs Temp 96.9 F 10/11/24 09:48 Pulse 58 10/11/24 09:48 Resp 18 10/11/24 09:48 BP 138/60 10/11/24 10:05 Pulse Ox 96 10/11/24 09:48 Oxygen Delivery Method Room Air 10/11/24 09:48 BMI result Body Mass Index 26.8 Tobacco/Smoking Status: Tobacco use Status Tobacco use date assessed 10/11/24 10/11/24 09:54 Patient Tobacco Use Status Never used Tobacco 10/11/24 09:54 Tobacco use type Cigarette 10/11/24 09:54 e-Cigarette/Vaping Use Never Used 10/11/24 09:54 PHQ-9: PHQ-9 Score PHQ-9: Total score 1 10/11/24 10:01 Thrive Assessment: Date of Thrive Assessment Date Thrive assessed 10/11/24 10/11/24 09:54 Currently or been in a relationship where the following occur: I choose not to answer Const General: alert; No acute distress Eyes Conjunctivae: conjunctivae normal Resp Auscultation: clear to auscultation bilaterally Cardio Rate: regular rate Rhythm: regular rhythm GI Inspection: Yes normal to inspection Extrem General: Yes normal to inspection and No edema Coding Level of Care Code Est Pt Level 4 (12645) Complex EM visit Add On G2211 Diagnoses Mild aortic stenosis I35.0 Hypertension I10 Sick sinus syndrome I49.5 Paroxysmal atrial fibrillation I48.0 Impaired glucose tolerance R73.02 TSH elevation R79.89 GERD (gastroesophageal reflux disease) K21.9 History of prostate cancer Z85.46 Hypercholesterolemia E78.00 Assessment & Plan Assessment & Plan (1) Mild aortic stenosis: Comment: July 2022 echocardiogramJune 2022 echocardiogram left ventricle EF 54% mild aortic stenosis 1.7 sq cm 04/2023 Code(s): I35.0 - Nonrheumatic aortic (valve) stenosis Category: Medical Plan: Continue to follow-up and has an echocardiogram requested in October (2) Hypertension: Code(s): I10 - Essential (primary) hypertension Category: Medical Plan: Continue with blood pressure medication. Decrease salt intake and exercise on amlodipine 10 mg once a day metoprolol 25 mg twice a day (3) Sick sinus syndrome: Code(s): I49.5 - Sick sinus syndrome Category: Medical Plan: No indication for pacing (4) Paroxysmal atrial fibrillation: Code(s): I48.0 - Paroxysmal atrial fibrillation Category: Medical Plan: Continue with anticoagulation with the apixaban continue to monitor renal f unction continue with metoprolol and mexiletine (5) Impaired glucose tolerance: Code(s): R73.02 - Impaired glucose tolerance (oral) Category: Medical Plan: Decrease the amount of carbohydrate intake, pasta, bread, rice and potatoes are all sugar and that is aside from all the sweet stuff, remember that fruits are good but they are Sweet also. (6) TSH elevation: Code(s): R79.89 - Other specified abnormal findings of blood chemistry Category: Medical Plan: Advised to repeat blood work (7) GERD (gastroesophageal reflux disease): Code(s): K21.9 - Gastro-esophageal reflux disease without esophagitis Category: Medical Plan: Avoid the foods that causes that usually spicy foods, tomato products, juices, coffee, soda and foods that your sensitive to. After eating do not lie down, allow 3-4 hours before in lie down. And keep the head of bed above 30 degrees to avoid the acid from going up. (8) History of prostate cancer: Comment: Dr. Bennett 2009 Code(s): Z85.46 - Personal history of malignant neoplasm of prostate Category: Medical Plan: Stable (9) Hypercholesterolemia: Code(s): E78.00 - Pure hypercholesterolemia, unspecified Category: Medical Plan: Avoid fried foods, chicken skin, eggs, butter margarine, pastries and meat. Be it pork or beef they have a lot of cholesterol LDL goal below 100 is the go Plan History of Present Illness The patient is an 84-year-old male presenting for a follow-up visit. The patient has a history of hypertension, impaired glucose tolerance, and sick sinus syndrome. He also has aortic root dilatation and interstitial pneumonitis. The patient has a history of gastroesophageal reflux disease (GERD) and prostate cancer diagnosed in 2009. He also has a history of cerebrovascular accident with cerebellar infarction and atrial fibrillation. The patient was last seen in April for hemorrhoids and was advised to avoid constipation. His last colon test was in May 2019. The patient denies any palpitations and has never experienced shortness of breath. His atrial fibrillation is controlled with metoprolol and mexiletine, and he is on anticoagulation with apixaban. The patient had an echocardiogram in April 2023, which showed mild aortic stenosis. He was advised to have a follow-up echocardiogram in six months. Blood work from October 06 showed normal blood count with no anemia, and normal platelet and white blood cell counts. Renal function showed an increase from 0.99 to 1.25, and hemoglobin A1c was 5.8 with a fasting blood sugar of 109. Liver function was good, and cholesterol levels indicated a need to lower LDL below 100. The patient is not on cholesterol medication, and thyroid levels were mildly elevated at 5.87. Health Maintenance - Advised to avoid constipation to manage hemorrhoids - Follow-up echocardiogram recommended in six months - LDL cholesterol goal set below 100 Social History Review of Systems - Cardiovascular: Denies palpitations - Respiratory: Denies shortness of breath Physical Exam Results - Echocardiogram (April 2023): Mild aortic stenosis - Blood work (October 06): Normal blood count, no anemia, normal platelet and white blood cell counts - Renal function: Increased from 0.99 to 1.25 - Hemoglobin A1c: 5.8 - Fasting blood sugar: 109 - Liver function: Normal - Thyroid function: Mildly elevated at 5.87 Plan The patient will continue with current medications including metoprolol and mexiletine for atrial fibrillation and nonsustained ventricular tachycardia, and apixaban for anticoagulation. A follow-up echocardiogram is scheduled in six months to monitor the mild aortic stenosis. Blood work will be repeated to monitor renal function and cholesterol levels, with a target LDL below 100. The patient is advised to avoid constipation to manage hemorrhoids and to continue monitoring GERD symptoms. Patient was informed and verbally consented to the use of an ambient scribe for clinic note documentation during this visit. Discussion Notes During the visit, I discussed with the patient the importance of continuing his current medication regimen for atrial fibrillation and nonsustained ventricular tachycardia. We reviewed the need for a follow-up echocardiogram in six months to assess the progression of mild aortic stenosis. I advised the patient to maintain a diet that prevents constipation to manage hemorrhoids and to monitor GERD symptoms. Patient Instructions - Continue taking metoprolol and mexiletine as prescribed. - Take apixaban as directed for anticoagulation. - Schedule a follow-up echocardiogram in six months. - Repeat blood work to monitor renal function and cholesterol levels. - Avoid constipation to manage hemorrhoids. - Monitor GERD symptoms and report any changes. Orders: Orders Lipid Panel 3 Months E78.00 - Pure hypercholesterolemia, unspecified Free T4 (Free Thyroxine) 3 Months E78.00 - Pure hypercholesterolemia, unspecified Comprehensive Met. Panel 3 Months E78.00 - Pure hypercholesterolemia, unspecified Hemoglobin A1c 3 Months E78.00 - Pure hypercholesterolemia, unspecified Complete Blood Count Auto Diff 3 Months E78.00 - Pure hypercholesterolemia, unspecified Thyroid Stimulating Hormone 3 Months E78.00 - Pure hypercholesterolemia, unspecified
[2024-10-11 10:05] VITALS: BP 138/60
--- OUTSIDE RECORDS SUMMARY | 2024-10-11 10:33 | XMS_ITS | Clinical Summary ---
Author Organization Formerly [facility] Address [address] [place] [address] Care Team Providers Care Telecommunications Line Mechanic Name Role Phone Maverick Maier MD Primary Care Provider [phone] Allergies Active Allergy Reactions Criticality Noted Date [...] place to sleep or slept in a halfway (including now)? No 08/09/2022 Sex and Gender [...] this topic Medical Devices Implanted Type Area Accounts Payable Bookkeeper Device Identifier Shelf Expiration Date Model / Serial / Lot [id number] Stent Endoprosthesis [place] Viabahn 10mm 5cm 120cm Vessel Nina - [id number] Implanted:Qty: 1 on 08/07/2022 by Erum Nielson MD at [facility] Stent Left: Arterial [employer] [id number] 12/01/2023 [id number] / [id number] / [id number] Stent Endoprosthesis [place] Viabahn 10mm 5cm 120cm Vessel Nina - [id number] Implanted:Qty: 1 on 08/07/2022 by Erum Nielson MD at [facility] Stent Left: Arterial [employer] [id number] 02/09/2025 [id number] / [id number] / Explanted Type Area Accounts Payable Bookkeeper Device Identifier Shelf Expiration Date Model / Serial / Lot [id number] Lead Pacing 58cm 5.7fr Atr Vntrc Trnvns Bipolar Act Scr In-08/06/2022 Implanted:08/06 by Hunter Perera MD (Quantity not on file) Explanted:08/07 by Abdiaziz Murray MD (Quantity not on file) Lead [employer] MINIMALLY INVASIVE T [id number] / [id number] / Description:Lead was found t o be implanted in the left subclavian artery, and was explanted at . [id number] Pacemaker Cardiac 7.4mm 50.8x46.6mm [place] Xt Dr Tyrel Muñiz- 023 Implanted:08/06 by Hunter Perera MD (Quantity not on file) Explanted:Qty: 1 on 08/07/2022 by Abdiaziz Murray MD Pacemaker [employer] MINIMALLY INVASIVE T [id number] / [id number] / Description:RONNY XT DR BROWN [place] PACEMAKER Insurance BLUE CROSS MGD MEDICARE OUT OF NETWORK Advance Directives * Full Code (Latest Code Status on File) Date Activated Date Inactivated Comments 08/07/2022 6:04 PM * Full Code Date Activated Date Inactivated Comments 08/07/2022 5:58 PM 08/07/2022 6:04 PM Question Answer Comments Decision Thoroughly Discussed with: Patient Care Teams Telecommunications Line Mechanic Relationship Specialty Start Date End Date Maverick Maier MD [address] [place] [address] [place] [address] PCP - General Internal Medicine 08/07/22
== END 2024-10-11 10:24 | disposition home or self-care (01) ==
LOC: HO.HMCH 09:44
PROVIDERS: PCP Internal Medicine; Visit Provider Internal Medicine
DX: I35.0 Nonrheumatic aortic (valve) stenosis (principal); I10 Essential (primary) hypertension; I49.5 Sick sinus syndrome; I48.0 Paroxysmal atrial fibrillation; R73.02 Impaired glucose tolerance (oral); R79.89 Other specified abnormal findings of blood chemistry; K21.9 Gastro-esophageal reflux disease without esophagitis; Z85.46 Personal history of malignant neoplasm of prostate; E78.00 Pure hypercholesterolemia, unspecified

== ENCOUNTER → 2024-10-11 09:43 | Outpatient (BNVA) | payer MEDICARE, SELFPAY | PROVIDERS: PCP Internal Medicine; Visit Provider Internal Medicine | DX: I35.0 Nonrheumatic aortic (valve) stenosis (principal); I48.91 Unspecified atrial fibrillation; I10 Essential (primary) hypertension; I49.5 Sick sinus syndrome; I48.0 Paroxysmal atrial fibrillation; R73.02 Impaired glucose tolerance (oral); R79.89 Other specified abnormal findings of blood chemistry; K21.9 Gastro-esophageal reflux disease without esophagitis; E78.00 Pure hypercholesterolemia, unspecified; Z85.46 Personal history of malignant neoplasm of prostate | CPT/HCPCS: 96127; 99212 ==

== ENCOUNTER → 2024-11-15 10:49 | Outpatient (REF) | payer MEDICARE, SELFPAY ==
--- NOTE | 2024-11-15 10:52 | CA_ITS ---
Transthoracic Echocardiogram Patient (Last, First, Middle): Hung Reyna C Gender: Male Date of : 1940 Age: 84 Procedure Date: 11/15/2024 Procedure Type: Transthoracic Echocardiogram Location: OP Height: 170.18 cm Weight: 77.11 kg BSA: 1.89 m2 Heart Rate: 61 bpm BP: 142 / 70 mmHg Roll Up Machine Operator: TO Referring MD: Mendoza Bah MD Land Use Planner: Mendoza Bah MD Symptoms: I35.0 - Nonrheumatic aortic (valve) stenosis Study Quality: Adequate ECG Rhythm: Atrial Fibrillation Conclusions: - 1. Mildly reduced LV ejection fraction 45-50% 2. Mildly dilated left atrium 3. Mild aortic regurgitation mild aortic stenosis 4. Upper limits of normal ascending aortic size 5. No gross pericardial effusion Findings Left Ventricle Normal left ventricular cavity size. There is normal left ventricular wall thickness. The left ventricular systolic function is mildly decreased. The visually estimated ejection fraction is between 45-50%. Diastolic function is indeterminate on the basis of available data. There is mild septal asymmetric hypertrophy. Right Ventricle Normal right ventricular cavity size. Atria The left atrium is mildly dilated. There is no evidence of interatrial shunt. The right atrium is likely dilated. Aortic Valve There is moderate calcification of the aortic valve. There is mild thickening of the aortic valve. There is mild aortic valve stenosis. The mean gradient is 13 mmHg. There is mild aortic valve regurgitation. Mitral Valve There is mild anterior and posterior mitral leaflet thickening. There is mild mitral annular calcification. There is mild mitral valve regurgitation. There is no mitral valve stenosis. Pulmonic Valve The pulmonic valve is likely normal. There is trace to mild pulmonic valve regurgitation. Tricuspid Valve Likely normal tricuspid valve structure and function. Tricuspid regurgitation envelope is inadequate for calculation of right ventricular systolic pressure. Normal right atrial pressure. Great Vessels The pulmonary artery was not well visualized. Venous The inferior vena cava is normal in size and collapses greater than 50% with inspiration. Pericardium/Pleural There is no evidence of pericardial effusion. Prior Study Comparison Changes noted compared to prior study dated: 08/13/2023. LV systolic function has reduced Measurements 2D Linear Measurements IVSd: 1.01 0.6-0.9/0.6-1.0 cm LVIDd: 5.97 3.9-5.3/4.2-5.9 cm LVIDd Index: 3.16 2.4-3.2/2.2-3.1 cm/m2 LVIDs: 3.90 2.0-3.6 cm LVPWd: 0.95 0.7-1.1 cm LA Diam: 4.30 2.7-3.8/3.0-4.0 cm LAIDs Index: 2.28 1.5-2.3 cm/m2 LV Mass: 297.93 67-162/88-224 g LV Mass Index: 157.63 43-95/49-115 g/m2 LVOT Diam: 2.60 3.0+(-)1.3 cm 2D Systolic Function EF 4C: 54.40 >55% EF 2C: 41.80 >55% EF BiP: 48.00 >55% Mitral Valve MV Pk E: 0.38 MV PK A: 0.93 MV Decel Time: 214.00 E/A: 0.40 E'Lateral: 2.88 E'Medial: 3.08 E/E' Med: 12.40 E/E' Lat: 13.20 PHT: 63.00 MVA PHT: 3.49 Decel Dickey: 1.78 Aortic Valve AoV Pk Tino: 2.29 AoV Mn Tino: 1.67 AoV VTI: 0.55 AoV Pk Grad: 21.00 Aov Mn Grad: 13.00 JUAN MANUEL Cont.VTI: 2.28 AI Pk Tino: 4.26 AI Dickey: 1.81 LVOT LVOT Pk Tino: 1.06 LVOT Mn Tino: 0.65 LVOT VTI: 0.23 LVOT Pk Grad: 4.00 LVOT Mn Grad: 2.00 LVOT Diam: 2.60 LVOT Area: 5.31 Diastolic Function MV Pk E: 0.38 MV Pk A: 0.93 E/A: 0.40 E'Medial: 3.08 E/E' Med: 12.40 E' Laterial: 2.88 E/E' Lat: 13.20 Right Ventricle TAPSE (mm): 16.00 TVS' Tino: 9.14 Tricuspid Valve RA Press: 3.00 Great Vessels Aorta Sinus of Valsalva: 4.22 2.0-3.5 cm Ao Asc: 3.50 2.1-3.4 cm Updated in Other Vendor System with Status of Final Mendoza Olvin MD electronically signed on 11/15/2024 3:28:16 PM with status of Final
--- OUTSIDE RECORDS SUMMARY | 2024-11-15 13:36 | XMS_ITS | Encounter Summary ---
Author Organization [facility] Address [address] [place] [address] Care Team Providers Care Ssis Ssrs Developer Name Role Phone Maverick Maier MD Primary Care Provider [phone] Encounter Details Date Type Department Care Team (Late st Contact Info) Description 11/18/2022 Scanned Document [facility] [address] [facility] [address] [place] [address] Provider, Generic Social History Tobacco [...] place to sleep or slept in a detention (including now)? No 08/09/2022 Sex and Gender [...] Narrative 11/18/2022 Ordered by an unspecified provider. us Generic Provider [facility] ORDERABLES Final Result documented in this encounter Visit Diagnoses Not on filedocumented in this encounter Care Teams Ssis Ssrs Developer Relationship Specialty Start Date End Date Maverick Maier MD [address] [place] [address] [place] [address] PCP - General Internal Medicine 08/07/22 documented as of this encounter
--- OUTSIDE RECORDS SUMMARY | 2024-11-15 13:36 | XMS_ITS | Clinical Summary ---
Author Organization [facility] Address [address] [place] [address] Care Team Providers Care Lambskin Trimmer Name Role Phone Maverick Maier MD Primary Care Provider [phone] Allergies Active Allergy Reactions Criticality Noted Date [...] place to sleep or slept in a prison (including now)? No 08/09/2022 Sex and Gender [...] Health Maintenance Due Date Last Done Comments Advance Care Planning 1940 DTaP/Tdap/Td Vaccines (1 - Tdap) 05/31/1958 Pneumococcal Vaccines 50+ (1 of 1 - PCV) 05/31/1989 Zoster (Shingles) Vaccine (1 of 2) 05/31/1989 RSV Vaccine 60 years and old er and Patients (1 - 1-dose 75+ series) 05/31/2014 Influenza Vaccine 09/22/2024 COVID-19 Vaccine (2023-2 5 season) 2024 Hepatitis B Vaccines Aged Out No long er eligible based on patient's age to complete this topic Medical Devices Implanted Type Area Cell Room Operator Device Identifier Shelf Expiration Date Model / Serial / Lot [id number] Stent Endoprosthesis Celina Viabahn 10mm 5cm 120cm Vessel Nina - [id number] Implanted:Qty: 1 on 08/07/2022 by Erum Nielson MD at [facility] Stent Left: Arterial [employer] [id number] 12/01/2023 [id number] [id number] / [id number] / [id number] Stent Endoprosthesis Celina Viabahn 10mm 5cm 120cm Vessel Nina - [id number] Implanted:Qty: 1 on 08/07/2022 by Erum Nielson MD at [facility] Stent Left: Arterial [employer] [id number] 02/09/2025 [id number] 02A / [id number] / Explanted Type Area Cell Room Operator Device Identifier Shelf Expiration Date Model / Serial / Lot [id number] Lead Pacing 58cm 5.7fr Atr Vntrc Trnvns Bipolar Act Scr In-08/06/2022 Implanted:08/06 by Hunter Perera MD (Quantity not on file) Explanted:08/07 by Abdiaziz Murray MD (Quantity not on file) Lead [employer] MINIMALLY INVASIVE T [id number] / [id number] / Description:Lead was found t o be implanted in the left subclavian artery, and was explanted at . [id number] Pacemaker Cardiac 7.4mm 50.8x46.6mm [place] Xt Dr Stephanie Muñiz- 023 Implanted:08/06 by Hunter Perera MD (Quantity not on file) Explanted:Qty: 1 on 08/07/2022 by Abdiaziz Murray MD Pacemaker [employer] MINIMALLY INVASIVE T [id number] / [id number] / Description:RONNY XT DR STEPHANIE MUÑIZ PACEMAKER Insurance BLUE CROSS MGD MEDICARE OUT OF NETWORK Advance Directives * Full Code (Latest Code Status on File) Date Activated Date Inactivated Comments 08/07/2022 6:04 PM * Full Code Date Activated Date Inactivated Comments 08/07/2022 5:58 PM 08/07/2022 6:04 PM Question Answer Comments Decision Thoroughly Discussed with: Patient Care Teams Lambskin Trimmer Relationship Specialty Start Date End Date Maverick Maier MD [address] [place] [address] PCP - General Internal Medicine 08/07/22
== END ==
LOC: HO.CARD 10:49
PROVIDERS: PCP Internal Medicine; Visit Provider Internal Medicine Cardiovascular Disease
DX: I35.0 Nonrheumatic aortic (valve) stenosis (principal)
CPT/HCPCS: 93306

== ENCOUNTER → 2024-11-15 10:52 | Outpatient (BNV) | payer MEDICARE, SELFPAY | PROVIDERS: PCP Internal Medicine; Visit Provider Internal Medicine Cardiovascular Disease | DX: I42.2 Other hypertrophic cardiomyopathy (principal); I35.0 Nonrheumatic aortic (valve) stenosis | CPT/HCPCS: 93306 ==

== ENCOUNTER 2024-12-05 10:37 | Outpatient (AMB) | payer MEDICARE, SELFPAY ==
--- NOTE | 2024-12-05 10:38 | A.OFFVIS_ITS ---
Vital Signs 12/05/24 10:39 Height 5 ft 7 in Weight 170 lb 10.205 oz BMI 26.7 BP 140/60 H Blood Pressure Location Lt brachial Position Sitting Pulse 52 Pulse Source Monitor Intake Visit Reasons: 6 mth s/p echo Intake Note: 6 m /echo Property Underwriter Required: No Accompanied by: spouse Allergies captopril (Captopril) Allergy (Severe, Verified 12/05/24 10:43) UNKNOWN, angioedema, anaphylaxis EDGARD Inhibitors (Edgard Inhibitors) Allergy (Unknown, Verified 12/05/24 10:43) UNKNOWN Medication List - Last Reconciled 12/05/24 by Mendoza Bah MD amlodipine 10 mg PO DAILY 90 days apixaban 5 mg PO BID 90 days metoprolol succinate ER 25 mg PO BID 90 days mexiletine 150 mg PO BID valsartan 40 mg PO DAILY HPI Comments Details: Hung comes for follow-up, accompanied by his . Patient has been doing overall well. No overt cardiac symptoms except for shortness of breath with exertion. However said he is not able to walk as much as before. He does have balance issues since his stroke. Otherwise he has no symptoms of orthopnea, PND, leg edema. No lightheadedness, syncope. No exertional chest pain. No prolonged palpitation irregular heartbeat. No bleeding issues or neurologic events. His most recent echocardiogram shows stable ascending aortic size as well as stable aortic valve disease. [facility] Medical History Hemorrhoids that prolapse with straining, but retract spontaneously Pacemaker complications First degree AV block Lightheaded Aortic valve disease Sick sinus syndrome Pulmonary nodules/lesions, multiple History of Mckinley's palsy History of shingles Thyroid nodule Pulmonary nodule Irritable bowel syndrome GERD (gastroesophageal reflux disease) Aortic root dilatation Aortic regurgitation History of prostate cancer Impaired glucose tolerance Hypertension Surgical History History of prostate surgery History of cholecystectomy Family History Father No problems noted. Mother No problems noted. Family/Other Sudden Alzheimers disease Social History Household Members: Spouse Housing: House Do you presently have visiting nurse or other home services: No Alcohol intake: never Comment: pt refusing alarms, steady gait, hourly rounding, encouraged to call Patient Tobacco Use Status: Never used Tobacco Tobacco use type: Cigarette e-Cigarette/Vaping Use: Never Used Second Hand Smoke Exposure: No Advance Directives Date on File: 08/02/22 service: No Current occupational status: retired Cognitive needs: No Hearing needs: No Vision needs: Yes Review of Systems Const Denies daytime sleepiness, Denies difficulty sleeping, Denies snoring, Denies stops breathing during sleep and Denies weakness Card Denies chest pain, Denies rapid heart rate, Denies irregular heart rhythm, Denies claudication, Denies leg edema, Denies lightheadedness, Denies palpitations, Denies dyspnea, Denies dyspnea on exertion, Denies orthopnea, Denies paroxysmal nocturnal dyspnea and Denies slow heart rate Resp Denies cough, Denies dyspnea, Denies dyspnea on exertion and Denies snoring GI Reports no additional complaints, Denies hematochezia, Denies change in stool character and Denies dyspepsia Musc Denies abnormal gait, Denies muscle weakness and Denies numbness Neuro Denies abnormal gait, Denies numbness and Denies weakness Endo Denies palpitations Physical Exam Vital Signs: Last Vital Signs Pulse 52 12/05/24 10:39 BP 140/60 H 12/05/24 10:39 BMI result Body Mass Index 26.7 Const General: cooperative, comfortable, no acute distress, alert, awake, Physically active, anxious and well groomed Nutritional Appearance: average body habitus and other (Frail elderly man) Orientation/consciousness: patient oriented x3 Limitations: no limitations Neck Neck: Yes trachea midline, Yes supple and Yes no JVD Carotids: no bruits Resp Effort & Inspection: normal respiratory effort Auscultation: clear to auscultation bilaterally Cardio Jugular venous distension: no JVD Palpation: normal PMI Rate: regular rate Rhythm: regular rhythm Heart sounds: S1 normal heart sound present, S2 normal heart sound present, no click, no gallops and Murmur heart sound present systolic early GI Auscultation: normal bowel sounds Skin General skin exam: no rashes or lesions noted Neuro General: patient oriented x3 and no focal motor deficits Extrem General: Yes no clubbing, cyanosis or edema Psych Appearance: grossly normal Affect: Anxious affect present Office Procedures EKG Details: EKGs shows sinus bradycardia with first-degree AV block with sinus arrhythmias with poor R-wave progression most likely due to lead placement 14719-[id number], Complete Assessment & Plan Assessment & Plan (1) Paroxysmal atrial fibrillation: Code(s): I48.0 - Paroxysmal atrial fibrillation Category: Medical Plan: Paroxysmal atrial fibrillation doing well on low-dose metoprolol therapy with no obvious recurrent episodes. Discussed with him about management. Aggressive medical treatment was discussed. No need for antiarrhythmic drug therapy. Continue full oral anticoagulation, currently on Eliquis 5 mg b.i.d. with prior history of stroke. Importance of oral anticoagulation therapy was discussed. Semi annual renal function test should be pursued. (2) Mild aortic stenosis: Comment: July 2022 echocardiogramJun2022 echocardiogram left ventricle EF 54% mild aortic stenosis 1.7 sq cm 04/2023 Code(s): I35.0 - Nonrheumatic aortic (valve) stenosis Category: Medical Plan: Mild aortic valve disease with mild aortic stenosis and regurgitation remained stable. No interventions required. Follow-up echocardiogram in 2 years time. Continue risk factor modification. (3) Aortic root dilatation: Comment: April 2023 Code(s): I77.810 - Thoracic aortic ectasia Category: Medical Plan: Mild ascending root dilatation which has remained stable as well. Follow-up echocardiogram in 2 years time. (4) Sick sinus syndrome: Code(s): I49.5 - Sick sinus syndrome Category: Medical Plan: Sinus bradycardia suggestive of sick sinus syndrome exacerbated by metoprolol therapy. Could contribute to his symptoms of shortness of breath although I think this is more like related to physical conditioning and aging. At this point time no interventions required no pacing therapy. Continue monitor. Other symptoms of sick sinus syndrome were discussed. Follow up in the clinic in 6 months time, sooner p.r.n.. Thank you for allowing me to partake in his care Coding Level of Care Code Est Pt Level 4 (65408) Complex EM visit Add On G2211 Diagnoses Paroxysmal atrial fibrillation I48.0 Mild aortic stenosis I35.0 Aortic root dilatation I77.810 Sick sinus syndrome I49.5 CPT Codes EKG - CPT: 27595-Ggiyvcpcimiyhokaj, Complete ([id number])
[2024-12-05 10:39] VITALS: BP 140/60; PULSE 52; BMI 26.7
--- OUTSIDE RECORDS SUMMARY | 2024-12-05 12:32 | XMS_ITS | Clinical Summary ---
Author Organization [facility] Address [address] [place] [address] Care Team Providers Care Binding Cementer French Cord Name Role Phone Maverick Maier MD Primary Care Provider [phone] Allergies Active Allergy Reactions Criticality Noted Date [...] place to sleep or slept in a long term (including now)? No 08/09/2022 Sex and Gender [...] this topic Medical Devices Implanted Type Area Radiology Administrator Device Identifier Shelf Expiration Date Model / Serial / Lot [id number] Stent Endoprosthesis Box [place] Viabahn 10mm 5cm 120cm Vessel Nina - [id number] Implanted:Qty: 1 on 08/07/2022 by Erum Nielson MD at [facility] Stent Left: Arterial [employer] [id number] 12/01/2023 [id number] / [id number] / [id number] Stent Endoprosthesis Box Elder Viabahn 10mm 5cm 120cm Vessel Nina - [id number] Implanted:Qty: 1 on 08/07/2022 by Erum Nielson MD at [facility] Stent Left: Arterial [employer] [id number] 02/09/2025 [id number] 02A / [id number] / Explanted Type Area Radiology Administrator Device Identifier Shelf Expiration Date Model / Serial / Lot [id number] Lead Pacing 58cm 5.7fr Atr Vntrc Trnvns Bipolar Act Scr In-08/06/2022 Implanted:08/06 by Hunter Perera MD (Quantity not on file) Explanted:08/07 by Abdiaziz Murray MD (Quantity not on file) Lead [employer] MINIMALLY INVASIVE T [id number] / [id number] / Description:Lead was found t o be implanted in the left subclavian artery, and was explanted at . [id number] Pacemaker Cardiac 7.4mm 50.8x46.6mm [place] Xt Dr Stephanie Muñiz- 023 Implanted:08/06 by Hunter Perera MD (Quantity not on file) Explanted:Qty: 1 on 08/07/2022 by Abdiaziz Murray MD Pacemaker [employer] MINIMALLY INVASIVE T [id number] / [id number] / Description:RONNY XT DR STEPHANIE MUÑIZ PACEMAKER Insurance BLUE CROSS [employer] MEDICARE OUT OF NETWORK Advance Directives * Full Code (Latest Code Status on File) Date Activated Date Inactivated Comments 08/07/2022 6:04 PM * Full Code Date Activated Date Inactivated Comments 08/07/2022 5:58 PM 08/07/2022 6:04 PM Question Answer Comments Decision Thoroughly Discussed with: Patient Care Teams Binding Cementer French Cord Relationship Specialty Start Date End Date Maverick Maier MD [address] [facility] [place] [address] PCP - General Internal Medicine 08/07/22
--- OUTSIDE RECORDS SUMMARY | 2024-12-05 12:32 | XMS_ITS | Encounter Summary ---
Author Organization [facility] Address [address] [place] [address] Care Team Providers Care Loom Winder Tender Name Role Phone Maverick Maier MD Primary Care Provider [phone] Encounter Details Date Type Department Care Team (Late st Contact Info) Description 11/18/2022 Scanned Document [facility] [address] [facility] [address] [place] [address] Provider, Generic Social History Tobacco [...] place to sleep or slept in a long-term (including now)? No 08/09/2022 Sex and Gender [...] on filedocumented in this encounter Care Teams Loom Winder Tender Relationship Specialty Start Date End Date Maverick Maier MD [address] [place] [address] [place] [address] PCP - General Internal Medicine 08/07/22 documented as of this encounter
== END 2024-12-05 11:10 | disposition home or self-care (01) ==
LOC: HO.HCS 10:38
PROVIDERS: PCP Internal Medicine; Visit Provider Internal Medicine Cardiovascular Disease
DX: I48.0 Paroxysmal atrial fibrillation (principal); I35.0 Nonrheumatic aortic (valve) stenosis; I77.810 Thoracic aortic ectasia; I49.5 Sick sinus syndrome
CPT/HCPCS: 93010; 99214; G2211

== ENCOUNTER → 2024-12-05 10:37 | Outpatient (BNVA) | payer MEDICARE, SELFPAY | PROVIDERS: PCP Internal Medicine; Visit Provider Internal Medicine Cardiovascular Disease | DX: I48.0 Paroxysmal atrial fibrillation (principal); Z23 Encounter for immunization; I35.0 Nonrheumatic aortic (valve) stenosis; I77.810 Thoracic aortic ectasia; I49.5 Sick sinus syndrome | CPT/HCPCS: 90471; 90656; 93005; 99212 ==

== ENCOUNTER 2024-12-05 11:22 | Outpatient (AMB) | payer MEDICARE, SELFPAY ==
--- NOTE | 2024-12-05 11:33 | AM.OFFVISNUR ---
Intake Visit Reasons: flu shot Allergies captopril (Captopril) Allergy (Severe, Verified 12/05/24 10:43) UNKNOWN, angioedema, anaphylaxis EDGARD Inhibitors (Edgard Inhibitors) Allergy (Unknown, Verified 12/05/24 10:43) UNKNOWN Office Procedures Flu Questionnaire Does the patient have a severe egg allergy?: No Does the patient have severe life threatening allergies?: No Does the patient have a fever or illness today?: No Has the patient ever had Guillain-[place] Syndrome?: No Has the patient ever had any past reaction to a flu shot?: No Immunizations Fluarix [id number] (PF) 45 mcg (15 mcg x 3)/0.5 mL IM syringe Performing Provider: Maverick Maier MD [facility] Administered by: Kiersten Kulkarni LPN on 12/05/24 11:33 Dose Route Admin Location Dispensed Lot Number Expiration Date NDC Fishing Vessel Deckhand 0.5 mL IM Left Deltoid 0.5 mL [id number] 08/21/25 [id number] [employer]way VIS Given Date VIS Provided VIS Publication Date 12/05/24 Single Vaccine 24 Eligibility Eligibility Date Funding Source Not [facility] Eligible 12/05/24 Private Assessment & Plan Assessment & Plan Orders: Orders Influenza [id number] Immunization Today Z23 - Encounter for immunization Coding
== END 2024-12-05 11:34 | disposition home or self-care (01) ==
LOC: HO.HMCH 11:22
PROVIDERS: PCP Internal Medicine; Visit Provider Internal Medicine
DX: Z23 Encounter for immunization (principal)

== ENCOUNTER 2025-01-16 07:09 | Outpatient (REF) | payer MEDICARE, SELFPAY ==
--- OUTSIDE RECORDS SUMMARY | 2025-01-16 07:11 | XMS_ITS | Clinical Summary ---
Author Organization [facility] Address [address] [place] [address] Care Team Providers Care Radio Control Crane Operator Name Role Phone Maverick Maier MD Primary Care Provider [phone] Allergies Active Allergy Reactions Criticality Noted Date [...] place to sleep or slept in a skilled nursing (including now)? No 08/09/2022 Sex and Gender [...] Vaccine (1 of 2) 05/31/1989 RSV Vaccine 50 years and old er and Patients (1 - 1-dose 75+ series) 05/31/2014 Influenza Vaccine 09/22/2024 COVID-19 Vaccine (2023-2 5 season) 2024 Hepatitis B Vaccines Aged Out No long er eligible based on patient's age to complete this topic Medical Devices Implanted Type Area Desktop Administrator Device Identifier Shelf Expiration Date Model / Serial / Lot [id number] Stent Endoprosthesis Wheeler Viabahn 10mm 5cm 120cm Vessel Nina - [id number] Implanted:Qty: 1 on 08/07/2022 by Erum Nielson MD at [facility] Stent Left: Arterial [employer] [id number] 12/01/2023 [id number] / [id number] / [id number] Stent Endoprosthesis Wheeler Viabahn 10mm 5cm 120cm Vessel Nina - [id number] Implanted:Qty: 1 on 08/07/2022 by Erum Nielson MD at [facility] Stent Left: Arterial [employer] [id number] 02/09/2025 [id number] / [id number] / Explanted Type Area Desktop Administrator Device Identifier Shelf Expiration Date Model / Serial / Lot [id number] Lead Pacing 58cm 5.7fr Atr Vntrc Trnvns Bipolar Act Scr In-08/06/2022 Implanted:08/06 by Hunter Perera MD (Quantity not on file) Explanted:08/07 by Abdiaziz Murray MD (Quantity not on file) Lead [employer] - DIV [employer]I [id number] / [id number] / Description:Lead was found t o be implanted in the left subclavian artery, and was explanted at . [id number] Pacemaker Cardiac 7.4mm 50.8x46.6mm Ron[place] Xt Dr Tyrel Muñiz- 023 Implanted:08/06 by Hunter Perera MD (Quantity not on file) Explanted:Qty: 1 on 08/07/2022 by Abdiaziz Murray MD Pacemaker [employer] - DIV [employer] [id number] / [id number] / Description:RONNY XT DR BROWN [place] PACEMAKER Insurance BLUE [employer]OSS [employer] MEDICARE OUT OF NETWORK Advance Directives * Full Code (Latest Code Status on File) Date Activated Date Inactivated Comments 08/07/2022 6:04 PM * Full Code Date Activated Date Inactivated Comments 08/07/2022 5:58 PM 08/07/2022 6:04 PM Question Answer Comments Decision Thoroughly Discussed with: Patient Care Teams Radio Control Crane Operator Relationship Specialty Start Date End Date Maverick Maier MD [address] [place] [address] [place] [address] PCP - General Internal Medicine 08/07/22
--- OUTSIDE RECORDS SUMMARY | 2025-01-16 07:11 | XMS_ITS | Encounter Summary ---
Author Organization [facility] Address [address] [place] [address] Care Team Providers Care Roller Mechanic Name Role Phone Maverick Maier MD Primary Care Provider [phone] Encounter Details Date Type Department Care Team (Late st Contact Info) Description 11/18/2022 Scanned Document [facility] [address] [facility] [address] [place] [address] Provider, Generic Social History Tobacco [...] on filedocumented in this encounter Care Teams Roller Mechanic Relationship Specialty Start Date End Date Maverick Maier MD [address] [place] [address] [place] [address] PCP - General Internal Medicine 08/07/22 documented as of this encounter
[2025-01-16 07:33] LABS: MANUAL DIFF FLAG NO
[2025-01-16 07:49] LABS: Hematocrit 46.6 % (42.0-52.0); Hemoglobin 15.5 g/dl (14.0-18.0); Imm Gran Abs Auto 0.05 X10*3/uL (0.00-0.03); Imm Gran Pct Auto 0.7 % (0.0-0.4); Lymphocytes Absolute Auto 1.6 X10*3/uL (1.2-4.9); Mean Corpuscular HGB Conc 33.3 g/dl (31.0-36.0); Mean Corpuscular Hemoglobin 31.3 pg (27.0-33.0); Mean Corpuscular Volume 94.1 fL (80.0-98.0); NRBC Abs Auto 0.000 X10*3/uL (0.0-0.012); NRBC Pct Auto 0.0 /100WBC (0.0-0.2); Platelet Count 233 X10*3/uL (160-400); Red Blood Count 4.95 X10*6/uL (4.60-5.80); White Blood Count 6.7 X10*3/uL (4.8-10.8)
[2025-01-16 07:58] LABS: Appearance Urine Clear; Glucose Urine UA Negative (Negative); PH 6.5 (5.0-9.0); Specific Gravity - Urine 1.015 (1.005-1.025); UMIC TRIGGER UACC YES
[2025-01-16 08:28] LABS: Alanine Aminotransferase 20 U/L (0-40); Albumin Level 4.2 g/dL (3.5-5.0); Alkaline Phosphatase 94 U/L (39-117); Anion Gap 10 (12-20); Aspartate Amino Transferase 26 U/L (5-37); Blood Urea Nitrogen 15 mg/dL (9-16); Calcium 9.1 mg/dL (8.4-10.2); Carbon Dioxide 27 mmol/L (22-29); Chloride 103 mmol/L (96-108); Cholesterol 137 mg/dL (<200); Estimated Glomerular Filt Rate 59; HDL Cholesterol 44 mg/dL (>40); Potassium 4.3 mmol/L (3.3-5.1); Sodium 136 mmol/L (135-145); Total Protein 7.1 g/dL (6.5-8.0); Triglycerides 73 mg/dL (<150)
[2025-01-16 08:45] LABS: Free T4 (Free Thyroxine) 0.94 ng/dL (0.71-1.85); Thyroid Stimulating Hormone 4.82 uIU/mL (0.32-4.0)
== END 2025-01-16 07:10 | disposition home or self-care (01) ==
LOC: HO.LAB 07:09
PROVIDERS: PCP Internal Medicine; Visit Provider Internal Medicine
DX: E78.00 Pure hypercholesterolemia, unspecified (principal); Z13.1 Encounter for screening for diabetes mellitus
CPT/HCPCS: 36415; 80053; 80061; 81001; 83036; 84439; 84443; 85025

== ENCOUNTER 2025-01-23 10:43 | Outpatient (AMB) | payer MEDICARE, SELFPAY ==
[2025-01-23 10:55] VITALS: BP 124/68; PULSE 107; O2SAT 95; BMI 26.3
--- NOTE | 2025-01-23 10:55 | MHC.PC.OV ---
Vital Signs 01/23/25 10:55 Height 5 ft 7 in Weight 168 lb BMI 26.3 BP 124/68 Blood Pressure Location Lt brachial Position Sitting Pulse 107 H Pulse Source Pulse Oximeter Pulse Oximetry (%) 95 Oxygen Delivery Method Room Air Intake Visit Reasons: 3 months Allergies captopril (Captopril) Allergy (Severe, Verified 01/23/25 10:56) UNKNOWN, angioedema, anaphylaxis EDGARD Inhibitors (Edgard Inhibitors) Allergy (Unknown, Verified 01/23/25 10:56) UNKNOWN Tobacco use date assessed: 10/11/24 Fall risk assessment: No Falls in past year Last assessed Fall Risk: 01/23/25 Dental Screening Dental Screen Date: 10/11/24 HPI HPI Comments History of Present Illness Details History of Present Illness The patient is an 84-year-old male presenting for a follow-up on chronic conditions and recent laboratory findings. His history of hypertension is managed with a regimen of amlodipine, metoprolol, and valsartan. Additionally, the patient has a history of atrial fibrillation and sick sinus syndrome, which are managed with a pacemaker, anticoagulation with Eliquis, and metoprolol. Prior imaging revealed a mild decline in cardiac function and mild aortic valve abnormalities, with recommendations for a repeat echocardiogram in 2 years to monitor progression. The patient has hypercholesterolemia with specific treatment goals for LDL and triglycerides, and ongoing management for prediabetes given his A1c level. Subclinical hypothyroidism, reflected by a slightly elevated TSH, is under watchful waiting with plans for re-evaluation. GERD is an ongoing issue managed with current medical therapy, and prostate cancer treated in 2009 remains in remission. Health Maintenance - Follow-up echocardiogram recommended in 2 years to reassess thoracic aortic ectasia and aortic valve stenosis. - Schedule repeat labs in October 2024 for monitoring cholesterol and glycemic control. - Health behavior discussions included dietary modifications to reduce salt intake and monitor weight, with advice on moderation of alcohol consumption due to its effects on blood pressure and memory. - Reviewed the importance of staying hydrated, regular weight assessment due to diuretic use, and maintaining vaccinations up to date including flu and pneumonia. Social History - Reports decreased activity and energy affecting daily tasks, with mention of taking longer to complete tasks like yard work due to fatigue possibly related to cardiac conditions or deconditioning. Results - Labs: December 2024 results indicate normal blood count, normal electrolytes, creatinine of 1.17, blood sugar of 101, hemoglobin A1c of 5.7%, good liver function, TSH at 4.82, and normal urinalysis. - Imaging: Echocardiogram from October 2023 shows an ejection fraction of 45-50%, mildly dilated left atrium, and mild aortic valve abnormalities as previously noted. [facility] Medical History Hemorrhoids that prolapse with straining, but retract spontaneously Pacemaker complications First degree AV block Lightheaded Aortic valve disease Sick sinus syndrome Pulmonary nodules/lesions, multiple History of Mckinley's palsy History of shingles Thyroid nodule Pulmonary nodule Irritable bowel syndrome GERD (gastroesophageal reflux disease) Aortic root dilatation Aortic regurgitation History of prostate cancer Impaired glucose tolerance Hypertension Surgical History History of prostate surgery History of cholecystectomy Family History Father No problems noted. Mother No problems noted. Family/Other Sudden Alzheimers disease Social History Household Members: Spouse Housing: House Do you presently have visiting nurse or other home services: No Alcohol intake: never Comment: pt refusing alarms, steady gait, hourly rounding, encouraged to call Patient Tobacco Use Status: Never used Tobacco Tobacco use type: Cigarette e-Cigarette/Vaping Use: Never Used Second Hand Smoke Exposure: No Advance Directives Date on File: 08/02/22 service: No Current occupational status: retired Cognitive needs: No Hearing needs: No Vision needs: Yes Questionnaire Thrive Questionnaire Date Thrive assessed: 10/11/24 I am a: Patient What is your living situation today?: I have a steady place to live Within the past 12 months, did the food you bought not last and you didn't have the money to get more?: I choose not to answer this question Within the past 12 months, did you worry whether your food would run out before you got money to buy more?: I choose not to answer this question Do you have trouble paying for medicines?: No Do you have trouble getting transportation to medical appointments?: No Do you have trouble paying your heating and electricity bill?: No Do you have trouble taking care of your child, family member or friend?: No Do you have trouble with day-to-day activities such as bathing, preparing meals, shopping, managing finances, etc.?: No Are you currently unemployed and looking for a job?: I choose not to answer this question Are you interested in more education?: I choose not to answer this question Please select the resources that you would like help with: None Currently or been in a relationship where the following occur: I choose not to answer THRIVE Score: 0 PADMINI-7 AMB Questionnaire PADMINI-7 Date PADMINI - 7 assessed: 10/11/24 Source: Developed by Drs. Christiano Godinez, Angeles Espinosa, Burt Baker and colleagues, with an educational grover from [employer]. Review of Systems Narrative Review of Systems - Cardiovascular: Denies chest pain but notes fatigue with activity. - Endocrine: Reports stable weight loss without dietary change, monitoring due to diuretic use and hypothyroidism. - Gastrointestinal: Denies recent heartburn or discomfort after meals. - Neurologic: Denies recent dizziness or change in memory. - Hematologic: Denies recent bruising or prolonged bleeding events. - Dermatologic: Denies rashes or skin changes. - Renal/Urologic: Denies frequent or painful urination, reports trace hematuria. Physical exam (Primary Care) Vital Signs: Last Vital Signs Pulse 107 H 01/23/25 10:55 BP 124/68 01/23/25 10:55 Pulse Ox 95 01/23/25 10:55 Oxygen Delivery Method Room Air 01/23/25 10:55 BMI result Body Mass Index 26.3 Tobacco/Smoking Status: Tobacco use Status Tobacco use date assessed 10/11/24 01/23/25 10:56 Patient Tobacco Use Status Never used Tobacco 01/23/25 10:56 Tobacco use type Cigarette 01/23/25 10:56 e-Cigarette/Vaping Use Never Used 01/23/25 10:56 Thrive Assessment: Date of Thrive Assessment Date Thrive assessed 10/11/24 01/23/25 10:56 Currently or been in a relationship where the following occur: I choose not to answer Narrative Physical Exam Const General: alert; No acute distress Eyes Conjunctivae: conjunctivae normal Resp Auscultation: clear to auscultation bilaterally Cardio Rate: regular rate Rhythm: regular rhythm GI Inspection: Yes normal to inspection Extrem General: Yes normal to inspection and No edema Coding Level of Care Code Est Pt Level 4 (61044) Complex visit Add On G2211 Diagnoses Hypertension I10 Paroxysmal atrial fibrillation I48.0 Hypercholesterolemia E78.00 Aortic root dilatation I77.810 Mild aortic stenosis I35.0 Sick sinus syndrome I49.5 Impaired glucose tolerance R73.02 TSH elevation R79.89 GERD (gastroesophageal reflux disease) K21.9 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 Decrease salt intake and exercise presently on amlodipine 10 mg once a day metoprolol 25 mg twice a day and valsartan 40 mg once a day (2) Paroxysmal atrial fibrillation: Code(s): I48.0 - Paroxysmal atrial fibrillation Category: Medical Plan: Patient on mexiletine and on anticoagulation with 5 mg twice a day (3) Hypercholesterolemia: Code(s): E78.00 - Pure hypercholesterolemia, unspecified Category: Medical Plan: Avoid fried foods, chicken skin, eggs, butter margarine, pastries and meat. Be it pork or beef they have a lot of cholesterol LDL goal of less than 70 and triglyceride of less than 150 (4) Aortic root dilatation: Comment: April 2023, October 2024 Code(s): I77.810 - Thoracic aortic ectasia Category: Medical Plan: Continue to monitor repeat in 2026 (5) Mild aortic stenosis: Comment: July 2022 echocardiogramJun2022 echocardiogram left ventricle EF 54% mild aortic stenosis 1.7 sq cm October 2024 Code(s): I35.0 - Nonrheumatic aortic (valve) stenosis Category: Medical Plan: Continue to monitor and repeat in 2026 (6) Sick sinus syndrome: Code(s): I49.5 - Sick sinus syndrome Category: Medical Plan: On pacemaker (7) Impaired glucose tolerance: Code(s): R73.02 - Impaired glucose tolerance (oral) Category: Medical Plan: Decrease the amount of carbohydrate intake, pasta, bread, rice and potatoes are all sugar and that is aside from all the sweet stuff, remember that fruits are good but they are Sweet also. (8) TSH elevation: Code(s): R79.89 - Other specified abnormal findings of blood chemistry Category: Medical Plan: TSH mildly elevated will continue to follow-up (9) GERD (gastroesophageal reflux disease): Code(s): K21.9 - Gastro-esophageal reflux disease without esophagitis Category: Medical Plan: Avoid the foods that causes that usually spicy foods, tomato products, juices, coffee, soda and foods that your sensitive to. After eating do not lie down, allow 3-4 hours before in lie down. And keep the head of bed above 30 degrees to avoid the acid from going up. 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 1. Hypertension Continue antihypertensive regimen: amlodipine, metoprolol, and valsartan. Advise on sodium intake moderation. 2. Atrial Fibrillation / Sick Sinus Syndrome Maintain Eliquis for anticoagulation and metoprolol. Regular pacemaker evaluations recommended. 3. Hypercholesterolemia Continue cholesterol monitoring, with upcoming labs scheduled. Maintain dietary interventions. 4. Prediabetes Lifestyle interventions and scheduled laboratory follow-up in October 2024. 5. Subclinical Hypothyroidism Monitor TSH levels with re-testing planned in 3 months. 6. Aortic Valvular Disease And Ectasia Follow-up echocardiogram in 2 years to monitor cardiac condition. 7. Gastroesophageal Reflux Disease (Gerd) Continue current GERD management regimen. 8. Coronary Artery Disease (Cad) Continue with lifestyle changes and current CAD management practices. Discussion Notes I reviewed the patient's chronic conditions and recent test results. We will continue the current antihypertensive therapy and anticoagulation. I explained the importance of dietary changes, particularly regarding sodium and cholesterol, to manage cardiovascular risks effectively. We discussed the significance of monitoring thyroid function with a follow-up test in 3 months due to slightly elevated TSH levels. The patient expressed understanding of the need for ongoing management of prediabetes and cardiac monitoring, including a scheduled follow-up echocardiogram in 2 years. I addressed concerns about fatigue and advised moderate physical activity adjusted to his tolerance. Patient Instructions - Keep taking all prescribed medications, including amlodipine, metoprolol, valsartan, and Eliquis. - Follow dietary recommendations, focusing on reducing salt and fat intake. - Monitor your weight regularly and stay hydrated. - Plan for repeat blood tests in October 2024. - Be sure to schedule your echocardiogram in 2 years. - Maintain regular exercise as tolerated to prevent deconditioning. - Report any significant changes in symptoms or health promptly. Orders: Orders Free T4 (Free Thyroxine) 3 Months E78.00 - Pure hypercholesterolemia, unspecified Comprehensive Met. Panel 3 Months E78.00 - Pure hypercholesterolemia, unspecified Complete Blood Count Auto Diff 3 Months E78.00 - Pure hypercholesterolemia, unspecified Hemoglobin A1c 3 Months E78.00 - Pure hypercholesterolemia, unspecified NT Pro B Type Natriuretic Pept 3 Months E78.00 - Pure hypercholesterolemia, unspecified Magnesium 3 Months E78.00 - Pure hypercholesterolemia, unspecified Thyroid Stimulating Hormone 3 Months E78.00 - Pure hypercholesterolemia, unspecified Lipid Panel 3 Months E78.00 - Pure hypercholesterolemia, unspecified
--- OUTSIDE RECORDS SUMMARY | 2025-01-23 12:30 | XMS_ITS | Encounter Summary ---
Author Organization [facility] Address [address] [place] [address] Care Team Providers Care Potato Grader Name Role Phone Maverick Maier MD Primary Care Provider [phone] Encounter Details Date Type Department Care Team (Late st Contact Info) Description 11/18/2022 Scanned Document [facility] [address] [facility] [address] [place] [address] Provider, Generic Social History Tobacco [...] place to sleep or slept in a [facility] (including now)? No 08/09/2022 Sex and Gender [...] on filedocumented in this encounter Care Teams Potato Grader Relationship Specialty Start Date End Date Maverick Maier MD [address] [place] [address] [place] [address] PCP - General Internal Medicine 08/07/22 documented as of this encounter
--- OUTSIDE RECORDS SUMMARY | 2025-01-23 12:30 | XMS_ITS | Clinical Summary ---
Author Organization [facility] Address [address] [place] [address] Care Team Providers Care Peer Specialist Name Role Phone Maverick Maier MD Primary Care Provider [phone] Allergies Active Allergy Reactions Criticality Noted Date [...] this topic Medical Devices Implanted Type Area Beta Tester Device Identifier Shelf Expiration Date Model / Serial / Lot [id number] Stent Endoprosthesis [place] [employer] 10mm 5cm 120cm Vessel Nina - [id number] Implanted:Qty: 1 on 08/07/2022 by Erum Nielson MD at [facility] Stent Left: Arterial [employer] [id number] 12/01/2023 [id number] / [id number] / [id number] Stent Endoprosthesis [place] Vi[place]ahn 10mm 5cm 120cm Vessel Nina - [id number] Implanted:Qty: 1 on 08/07/2022 by Erum Nielson MD at [facility] Stent Left: Arterial [employer] [id number] 02/09/2025 [id number] / [id number] / Explanted Type Area Beta Tester Device Identifier Shelf Expiration Date Model / Serial / Lot [id number] Lead Pacing 58cm 5.7fr Atr Vntrc Trnvns Bipolar Act Scr In-08/06/2022 Implanted:08/06 by Hunter Perera MD (Quantity not on file) Explanted:08/07 by Abdiaziz Murray MD (Quantity not on file) Lead [employer] [id number] / [id number] / Description:Lead was found t o be implanted in the left subclavian artery, and was explanted at . [id number] Pacemaker Cardiac 7.4mm 50.8x46.6mm [place]berta Xt Dr Tyrel Muñiz- [id number] Implanted:08/06 by Hunter Perera MD (Quantity not on file) Explanted:Qty: 1 on 08/07/2022 by Abdiaziz Murray MD Pacemaker [employer] [id number] / [id number] / Description:RONNYHANNA BROWN SURESCCANDE PACEMAKER Insurance BL[employer]OSS [employer] MEDICARE OUT OF NETWORK Advance Directives * Full Code (Latest Code Status on File) Date Activated Date Inactivated Comments 08/07/2022 6:04 PM * Full Code Date Activated Date Inactivated Comments 08/07/2022 5:58 PM 08/07/2022 6:04 PM Question Answer Comments Decision Thoroughly Discussed with: Patient Care Teams Peer Specialist Relationship Specialty Start Date End Date Maverick Maier MD [address] [place] [address] Dr Lerner, MICHAEL [address] PCP - General Internal Medicine 08/07/22
== END 2025-01-23 11:58 | disposition home or self-care (01) ==
LOC: HO.HMCH 10:44
PROVIDERS: PCP Internal Medicine; Visit Provider Internal Medicine
DX: I48.0 Paroxysmal atrial fibrillation (principal); I49.5 Sick sinus syndrome; I63.549 Cerebral infarction due to unspecified occlusion or stenosis of unspecified cerebellar artery; I10 Essential (primary) hypertension; E78.00 Pure hypercholesterolemia, unspecified; I35.0 Nonrheumatic aortic (valve) stenosis; R73.02 Impaired glucose tolerance (oral); I77.810 Thoracic aortic ectasia; R79.89 Other specified abnormal findings of blood chemistry; K21.9 Gastro-esophageal reflux disease without esophagitis

== ENCOUNTER → 2025-01-23 10:43 | Outpatient (BNVA) | payer MEDICARE, SELFPAY | PROVIDERS: PCP Internal Medicine; Visit Provider Internal Medicine | DX: I10 Essential (primary) hypertension (principal); E78.00 Pure hypercholesterolemia, unspecified; I48.0 Paroxysmal atrial fibrillation; I77.810 Thoracic aortic ectasia; I35.0 Nonrheumatic aortic (valve) stenosis; I49.5 Sick sinus syndrome; R73.02 Impaired glucose tolerance (oral); R79.89 Other specified abnormal findings of blood chemistry; K21.9 Gastro-esophageal reflux disease without esophagitis; R73.03 Prediabetes; E03.8 Other specified hypothyroidism; I25.10 Atherosclerotic heart disease of native coronary artery without angina pectoris; Z95.0 Presence of cardiac pacemaker; Z79.01 Long term (current) use of anticoagulants; Z86.73 Personal history of transient ischemic attack (TIA), and cerebral infarction without residual deficits | CPT/HCPCS: 99212 ==